=== PATIENT | male | born 1945 | race African-American/Black ===

== ENCOUNTER → 2016-10-08 | Outpatient (CLI) | payer MEDICARE, OTHER ==
[~2016-10-08] MED LIST: ALLOPURINOL300 M1 ORAL; AMLODIPINE BESY10 MG ORAL; ATARAX25 MG ORAL; ATENOLOL25 MG ORAL; BENADRYL25 MG ORAL; BP MED; CIPRO500 MG/51 PO; CIPROFLOXACIN500 M2 ORAL; COLACE100 MG ORAL; CREON DR 24,001 EACH PO; DOCUSATE SODIU100 MG ORAL; GOUT MED; MAALOX525 MG/15 PO; METRONIDAZOLE500 MG ORAL; NAPROSYN500 M1 ORAL; NEXIUM40 MG ORAL; NORCO 5-325 TA1 EACH ORAL; NORVASC10 MG ORAL; OMEPRAZOLE20 M2 ORAL; PANCREAZE DR 11 EAC1 PO; PEPCID AC20 M2 PO; PREDNISONE20 MG ORAL; PREDNISONE50 MG ORAL; ROBAXIN-750750 MG PO; TAMSULOSIN HCL0.4 MG ORAL; TRAMADOL HCL E100 MG ORAL; TRAMADOL HCL50 MG ORAL
[2016-10-08 15:25] LABS: BASOPHILS % (AUTO) 1.3 % (0.0-2.0); EOSINOPHILS % (AUTO) 0.6 % (0.0-3.0); LYMPHOCYTES % (AUTO) 45.3 % (20.0-45.0); MEAN CORPUSCULAR HEMOGLOBIN 33.4 PG (27.0-31.0); MEAN CORPUSCULAR HGB CONC 34.9 G/DL (32.0-36.0); MEAN CORPUSCULAR VOLUME 96 FL (80-99); MEAN PLATELET VOLUME 7.4 FL (6.5-10.1); MONOCYTES % (AUTO) 11.8 % (1.0-10.0); NEUTROPHILS % (AUTO) 40.9 % (45.0-75.0); PLATELET COUNT 186 K/UL (150-450); RED BLOOD COUNT 4.51 M/UL (4.70-6.10); RED CELL DISTRIBUTION WIDTH 11.8 % (11.6-14.8); WHITE BLOOD COUNT 9.6 K/UL (4.8-10.8)
[2016-10-08 15:53] LABS: ALANINE AMINOTRANSFERASE 23 U/L (3-41); ALBUMIN/GLOBULIN RATIO 1.2 (1.0-2.7); ANION GAP 13 (5-15); ASPARTATE AMINO TRANSFERASE 36 U/L (5-40); CALCIUM 10.7 mg/dL (8.6-10.2); CARBON DIOXIDE 26 mEQ/L (20-30); CHLORIDE 101 mEQ/L (98-107); CHOLESTEROL 173 mg/dL (< 200); CHOLESTEROL/HDL RATIO 4.9 (3.3-4.4); HEMOLYSIS 4; LDL CHOLESTEROL (CALC.) 63 mg/dL (60-99); POTASSIUM 4.8 mEQ/L (3.4-4.9); SODIUM 140 mEQ/L (135-145); URIC ACID 6.9 mg/dL (3.0-7.5)
== END | disposition home or self-care (01) ==
LOC: LAB 14:58
DX: J44.9 Chronic obstructive pulmonary disease, unspecified (principal); I50.32 Chronic diastolic (congestive) heart failure; E78.5 Hyperlipidemia, unspecified
CPT/HCPCS: 36415; 80053; 80061; 82607; 82746; 84443; 84550; 85025

== ENCOUNTER 2017-05-08 09:22 | Outpatient (CLI) | payer MEDICARE, OTHER ==
[2017-05-08 09:50] LABS: BASOPHILS % (AUTO) 0.8 % (0.0-2.0); LYMPHOCYTES % (AUTO) 39.4 % (20.0-45.0); MEAN CORPUSCULAR HEMOGLOBIN 34.8 PG (27.0-31.0); MEAN CORPUSCULAR HGB CONC 35.3 G/DL (32.0-36.0); MEAN CORPUSCULAR VOLUME 98 FL (80-99); MEAN PLATELET VOLUME 8.1 FL (6.5-10.1); NEUTROPHILS % (AUTO) 47.7 % (45.0-75.0); PLATELET COUNT 156 K/UL (150-450); RED BLOOD COUNT 4.05 M/UL (4.70-6.10); WHITE BLOOD COUNT 8.6 K/UL (4.8-10.8)
[2017-05-08 10:10] LABS: PSA TOTAL 5.5 ng/mL (< 4.5)
[2017-05-08 10:21] LABS: ALANINE AMINOTRANSFERASE 43 U/L (3-41); ALBUMIN/GLOBULIN RATIO 1.1 (1.0-2.7); ANION GAP 1 (5-15); ASPARTATE AMINO TRANSFERASE 50 U/L (5-40); CALCIUM 11.1 mg/dL (8.6-10.2); CARBON DIOXIDE 24 mEQ/L (20-30); CHLORIDE 103 mEQ/L (98-107); CHOLESTEROL 197 mg/dL (< 200); CHOLESTEROL/HDL RATIO 6.4 (3.3-4.4); HEMOLYSIS 5; LDL CHOLESTEROL (CALC.) 39 mg/dL (60-99); POTASSIUM 4.1 mEQ/L (3.4-4.9); SODIUM 128 mEQ/L (135-145)
--- NOTE | 2017-05-08 10:42 | Diagnostic Imaging Report ---
Indications: PAIN Technique: Two views of the right forearm Comparison: None Findings: Sideplate and screws are seen reducing old she old midshaft ulnar fracture. Slight deformity of the distal ulna and ulnar styloid may indicate old healed trauma. No acute fractures. No dislocations. Impression: No acute process
== END 2017-05-08 11:22 | disposition home or self-care (01) ==
LOC: RAD 09:22
DX: E78.5 Hyperlipidemia, unspecified (principal); M79.631 Pain in right forearm; I13.10 Hypertensive heart and chronic kidney disease without heart failure, with stage 1 through stage 4 chronic kidney disease, or unspecified chronic kidney disease; N18.9 Chronic kidney disease, unspecified
CPT/HCPCS: 36415; 80053; 80061; 84153; 84443; 85025

== ENCOUNTER 2017-06-05 09:23 | Outpatient (RCR) | payer MEDICARE, OTHER | END 2017-07-02 | disposition home or self-care (01) | LOC: PTY 09:23 | DX: M54.17 Radiculopathy, lumbosacral region (principal) | CPT/HCPCS: 97110; 97161; G0283; G8978; G8979 ==

== ENCOUNTER 2017-08-27 10:38 | Outpatient (CLI) | payer MEDICARE, OTHER ==
[2017-08-27 11:08] LABS: BASOPHILS % (AUTO) 1.1 % (0.0-2.0); EOSINOPHILS % (AUTO) 1.1 % (0.0-3.0); LYMPHOCYTES % (AUTO) 41.8 % (20.0-45.0); MEAN CORPUSCULAR HEMOGLOBIN 33.2 PG (27.0-31.0); MEAN CORPUSCULAR HGB CONC 33.5 G/DL (32.0-36.0); MEAN CORPUSCULAR VOLUME 99 FL (80-99); MEAN PLATELET VOLUME 6.8 FL (6.5-10.1); NEUTROPHILS % (AUTO) 43.2 % (45.0-75.0); PLATELET COUNT 201 K/UL (150-450); RED CELL DISTRIBUTION WIDTH 11.5 % (11.6-14.8); WHITE BLOOD COUNT 7.6 K/UL (4.8-10.8)
[2017-08-27 11:38] LABS: ALANINE AMINOTRANSFERASE 41 U/L (12-78); ALBUMIN/GLOBULIN RATIO 0.8 (1.0-2.7); ANION GAP 5 mmol/L (5-15); ASPARTATE AMINO TRANSFERASE 35 U/L (15-37); CALCIUM 9.4 MG/DL (8.5-10.1); CARBON DIOXIDE 28 MMOL/L (21-32); CHLORIDE 105 MMOL/L (98-107); CHOLESTEROL 168 MG/DL (< 200); CHOLESTEROL/HDL RATIO 5.1 (3.3-4.4); SODIUM 138 MMOL/L (136-145); THYROID STIMULATING HORMONE 1.903 uiU/mL (0.358-3.740); TOTAL PROTEIN 8.3 G/DL (6.4-8.2)
== END 2017-08-27 12:38 | disposition home or self-care (01) ==
LOC: LAB 10:38
DX: J44.9 Chronic obstructive pulmonary disease, unspecified (principal); I50.32 Chronic diastolic (congestive) heart failure; E78.5 Hyperlipidemia, unspecified; I11.9 Hypertensive heart disease without heart failure
CPT/HCPCS: 36415; 80053; 80061; 84443; 85025

== ENCOUNTER 2017-10-22 10:39 | Emergency (ER) | payer MEDICARE, OTHER ==
[~2017-10-22] VITALS: Ht 182.9 cm; Wt 71.7 kg
[2017-10-22] MEDS ORDERED: Norco 5mg/325mg tab ORAL ONE (11:00)
--- NOTE | 2017-10-22 11:05 | Emergency Room Report ---
History of Present Illness General Chief Complaint: Chest Pain Source: Patient Present Illness HPI 71-year-old male, history of hypertension, presenting with left-sided rib pain for one week. Patient states that he fell, tripped over something, landing on his rib. Since then complained of pain, worse with movement and worse with breathing. Denies any actual shortness of breath. Patient is not in pain unless he moves. No fever no chills. No palpitations Allergies: Coded Allergies: No Known Allergies (Verified , 08/14/08) Patient History Past Medical History: see triage record Past Surgical History: none Pertinent Family History: none Reviewed Nursing Documentation: PMH: Agreed, PSxH: Agreed Nursing Documentation-PMH Hx Cardiac Problems: Yes Hx Hypertension: Yes Hx Cancer: No Hx Gastrointestinal Problems: Yes - pancreatitis Hx Neurological Problems: No - gout Hx Seizures: Yes - last 20 yrs ago Hx Dizziness: Yes Hx Headaches: Yes Hx Weakness: Yes Hx Fatigue: Yes Review of Systems All Other Systems: negative except mentioned in HPI Physical Exam Vital Signs Date Time Temp Pulse Resp B/P (MAP) Pulse Ox O2 Delivery O2 Flow Rate FiO2 10/22/17 10:34 97.8 82 16 136/82 98 Room Air 97.9 Sp02 EP Interpretation: reviewed, normal General Appearance: alert, GCS 15, non-toxic, mild distress Head: normocephalic, atraumatic Eyes: bilateral eye normal inspection, bilateral eye PERRL, bilateral eye EOMI ENT: normal ENT inspection, normal pharynx, normal voice, moist mucus membranes Neck: normal inspection, full range of motion, supple Respiratory: normal inspection, lungs clear, normal breath sounds, no respiratory distress, no retraction, no wheezing, speaking full sentences, chest symmetrical Cardiovascular #1: regular rate, rhythm, no edema, other - Left fifth and sixth ribs, very tender to palpation, pinpoint, Cardiovascular #2: 2+ radial (R), 2+ radial (L) Gastrointestinal: normal inspection, non tender, soft, non-distended, no guarding Genitourinary: no CVA tenderness Musculoskeletal: normal inspection, back normal, normal range of motion, non- tender Neurologic: normal inspection, alert, oriented x3, responsive, motor strength/ tone normal, sensory intact, normal gait, speech normal Psychiatric: normal inspection, judgement/insight normal, memory normal Skin: normal inspection, normal color, no rash, warm/dry, well hydrated, normal turgor Medical Decision Making Diagnostic Impression: Primary Impression: Contusion of rib on left side ER Course 71-year-old male with left-sided rib pain after a fall one week ago DDX: Very likely to be left-sided rib contusion versus fracture Patient not having actual chest pain or shortness of breath too concerned ACS, symptoms and also been going on for one week. Physical exam very likely to be musculoskeletal Plan: Rib and chest x-ray, EKG ER course: Patient has remained stable during ED stay. Given pain medication and lidocaine patch labs unremarkable Disposition: Patient is to be discharged to home. Prescriptions given are lidocaine patch Patient is instructed to follow up with their primary care doctor within 5 days. Strict return precautions discussed with patient such as fever, chills, worsening/severe pain, chest pain, SOB, nausea, vomiting, which may indicate severe illness. Patient verbalizes understanding and agrees with plan. Please note that this Emergency Department Report was dictated using I.Systemsescalator service mechanic technology software, occasionally this can lead to erroneous entry secondary to interpretation by the dictation equipment EKG Diagnostic Results EP Interpretation: Yes Rate: normal Rhythm: NSR ST Segments: No acute changes ASA given to patient: No Rhythm Strip EP Interpretation: Yes Rate: 70 Rhythm: NSR, no PVCs, no ectopy Rib XR CXR: Ordered: Yes 1 view Indication: Chest pain EP interpretation: Yes Interpretation: No consolidation, no effusion, no PTX, no fractures noted, no acute cardiopulmonary disease Impression: No acute disease Electronically signed by Karl Vargas MD Laboratory Tests Test 10/22/17 12:00 White Blood Count 8.2 K/UL (4.8-10.8) Red Blood Count 4.72 M/UL (4.70-6.10) Hemoglobin 15.6 G/DL (14.2-18.0) Hematocrit 45.6 % (42.0-52.0) Mean Corpuscular Volume 97 FL (80-99) Mean Corpuscular Hemoglobin 33.1 PG (27.0-31.0) H Mean Corpuscular Hemoglobin Concent 34.2 G/DL (32.0-36.0) Red Cell Distribution Width 11.4 % (11.6-14.8) L Platelet Count 158 K/UL (150-450) Mean Platelet Volume 7.6 FL (6.5-10.1) Neutrophils (%) (Auto) 52.1 % (45.0-75.0) Lymphocytes (%) (Auto) 34.9 % (20.0-45.0) Monocytes (%) (Auto) 11.7 % (1.0-10.0) H Eosinophils (%) (Auto) 0.2 % (0.0-3.0) Basophils (%) (Auto) 1.0 % (0.0-2.0) Sodium Level 136 MMOL/L (136-145) Potassium Level 4.9 MMOL/L (3.5-5.1) Chloride Level 102 MMOL/L (98-107) Carbon Dioxide Level 28 MMOL/L (21-32) Anion Gap 6 mmol/L (5-15) Blood Urea Nitrogen 14 mg/dL (7-18) Creatinine 0.9 MG/DL (0.55-1.30) Estimate Glomerular Filtration Rate mL/min (>60) Glucose Level 120 MG/DL (74-106) H Calcium Level 11.7 MG/DL (8.5-10.1) H Total Bilirubin 0.5 MG/DL (0.2-1.0) Aspartate Amino Transferase (AST) 58 U/L (15-37) H Alanine Aminotransferase (ALT) 51 U/L (12-78) Alkaline Phosphatase 71 U/L (46-116) Troponin I 0.000 ng/mL (0.000-0.056) Pro-B-Type Natriuretic Peptide 141 pg/mL (0-125) H Total Protein 9.1 G/DL (6.4-8.2) H Albumin 4.0 G/DL (3.4-5.0) Globulin 5.1 g/dL Albumin/Globulin Ratio 0.8 (1.0-2.7) L Last Vital Signs Date Time Temp Pulse Resp B/P (MAP) Pulse Ox O2 Delivery O2 Flow Rate FiO2 10/22/17 10:34 97.8 82 16 136/82 98 Room Air 97.9 Disposition: HOME, SELF-CARE Condition: Improved Scripts Lidocaine (Lidocaine) 1 Each Adh..patch 700 MG TP EVERY 12 HOURS, #15 PATCH 0 Refills Prov: Karl Vargas M.D. 10/22/17 Acetaminophen* (ACETAMINOPHEN EXTRA STRENGTH*) 500 Mg Tablet 500 MG ORAL Q8H Y for Fever/Headache/Mild Pain, #30 TAB Prov: Karl Vargas M.D. 10/22/17 Karl Vargas M.D. Oct 22, 2017 11:05
[2017-10-22] MEDS ORDERED: ACETAMINOPHEN500 M3 ORAL (11:47)
[2017-10-22] MEDS ORDERED: LIDOCAINE700 M1 TP (11:47)
[2017-10-22 12:12] LABS: EOSINOPHILS % (AUTO) 0.2 % (0.0-3.0); HEMATOCRIT 45.6 % (42.0-52.0); HEMOGLOBIN 15.6 G/DL (14.2-18.0); LYMPHOCYTES % (AUTO) 34.9 % (20.0-45.0); MEAN CORPUSCULAR VOLUME 97 FL (80-99); MONOCYTES % (AUTO) 11.7 % (1.0-10.0); NEUTROPHILS % (AUTO) 52.1 % (45.0-75.0); PLATELET COUNT 158 K/UL (150-450); RED BLOOD COUNT 4.72 M/UL (4.70-6.10); RED CELL DISTRIBUTION WIDTH 11.4 % (11.6-14.8); WHITE BLOOD COUNT 8.2 K/UL (4.8-10.8)
[2017-10-22 12:19] VITALS: BP 142/91
[2017-10-22 12:31] LABS: ANION GAP 6 mmol/L (5-15); BLOOD UREA NITROGEN 14 mg/dL (7-18); CALCIUM 11.7 MG/DL (8.5-10.1); CARBON DIOXIDE 28 MMOL/L (21-32); CHLORIDE 102 MMOL/L (98-107); CREATININE 0.9 MG/DL (0.55-1.30); POTASSIUM 4.9 MMOL/L (3.5-5.1); SODIUM 136 MMOL/L (136-145)
[2017-10-22 12:40] LABS: ALANINE AMINOTRANSFERASE 51 U/L (12-78); ALBUMIN/GLOBULIN RATIO 0.8 (1.0-2.7); ALKALINE PHOSPHATASE 71 U/L (46-116); ASPARTATE AMINO TRANSFERASE 58 U/L (15-37); BILIRUBIN,TOTAL 0.5 MG/DL (0.2-1.0)
[2017-10-22 13:12] VITALS: BP 138/76
--- NOTE | 2017-10-22 13:23 | Diagnostic Imaging Report ---
Indication: Anterior chest pain after fall this morning, radiating Technique: Multiple views of the left ribs Comparison: none Findings: No acute fractures. No pneumothorax. Included chest appears unremarkable Impression: Negative
[2017-10-22] MEDS ORDERED: NORCO 5-325 TA1 EACH ORAL (13:41)
--- NOTE | 2017-10-23 15:11 | Cardiology Report ---
APPROVED REPORT EKG Measurement Heart [id number] Normal sinus rhythm Low voltage QRS Borderline ECG
== END 2017-10-22 14:00 | disposition home or self-care (01) ==
LOC: EDBD 10:39 → EMR 13:17
DX: S20.212A Contusion of left front wall of thorax, initial encounter (principal); W18.30XA Fall on same level, unspecified, initial encounter; Y92.9 Unspecified place or not applicable; I10 Essential (primary) hypertension
CPT/HCPCS: 36415; 80053; 83880; 84484; 85025; 93005; 99284

== ENCOUNTER 2017-11-06 09:15 | Outpatient (CLI) | payer MEDICARE, OTHER ==
[~2017-11-06 09:15] MED LIST changes: +ACETAMINOPHEN500 M3 ORAL; +LIDOCAINE700 M1 TP
--- NOTE | 2017-11-06 12:05 | Diagnostic Imaging Report ---
Indication: Chest and abdominal pain. Weight loss Technique: Continuous helical transaxial imaging of the chest, abdomen and pelvis was obtained after intravenous nonionic contrast administration. Coronal 2-D reformats were also obtained. Automatic Exposure Control was utilized. Total Dose length Product (DLP): 1403.[address] Dose Index Volume (CTDIvol): 16.29,13.88 73, 8.11 mGy Comparison: none Findings: CT CHEST: The lungs are clear. There is no adenopathy within the chest. No pleural or pericardial effusion identified. CT abdomen and pelvis: 5 mm cyst noted within the right lobe of the liver near the dome. The liver and spleen appear unremarkable otherwise. The gallbladder, pancreas, adrenal glands are unremarkable. There are renal cysts of varying size bilaterally. There is a small umbilical hernia containing fat. Thickening of the urinary bladder wall noted. The appendix is normal. Extensive diverticulosis of the colon demonstrated mainly in the descending colon, sigmoid region. There is no free fluid or evidence of bowel obstruction. Prostate is prominent in size measures about 5.5 x 4.5 x 5.2 cm. IMPRESSION: No evidence of malignancy on the basis of this study. Incidental findings including atherosclerotic disease, bilateral renal cysts, extensive colonic diverticulosis, thickening of the urinary bladder wall (consider cystitis), prostate hypertrophy, low density lesion in the liver (possibly cystic but too small to characterize adequately on this exam). The CT scanner at [facility] is accredited by the [employer] and the scans are performed using dose optimization techniques as appropriate to a performed exam including Automatic Exposure control.
== END 2017-11-06 11:15 | disposition home or self-care (01) ==
LOC: CAT 09:15
DX: R63.4 Abnormal weight loss (principal); I25.10 Atherosclerotic heart disease of native coronary artery without angina pectoris; N20.0 Calculus of kidney; K57.30 Diverticulosis of large intestine without perforation or abscess without bleeding; N40.0 Benign prostatic hyperplasia without lower urinary tract symptoms
CPT/HCPCS: 71260; 74177; Q9967

== ENCOUNTER 2018-02-14 14:39 | Inpatient (IN) | payer MEDICARE, OTHER ==
[~2018-02-14] VITALS: Ht 182.9 cm; Wt 79.4 kg
[2018-02-14] MEDS ORDERED: levETIRAcetam 500mg/NS100ml 100 ML IVPB ONE (14:45)
--- NOTE | 2018-02-14 14:48 | Emergency Room Report ---
History of Present Illness General Chief Complaint: Seizure Source: Family Member, EMS Present Illness HPI Patient is a 72-year-old male brought in by EMS after a witnessed seizure. The patient reportedly had prior history of seizures. Patient was noted to have a generalized tonic seizure. He was given 5 mg of Versed by EMS. The patient was noted be postictal by EMS. He was noted to be taking seizure medications but had reportedly had previous seizures according to the patient's . Allergies: Coded Allergies: No Known Allergies (Verified , 08/14/08) Patient History Past Medical History: see triage record Reviewed Nursing Documentation: PMH: Agreed; PSxH: Agreed Nursing Documentation-PMH Past Medical History: No History, Except For Hx Cardiac Problems: Yes Hx Hypertension: Yes Hx Cancer: No Hx Gastrointestinal Problems: Yes - pancreatitis Hx Neurological Problems: No - gout Hx Seizures: Yes Hx Dizziness: Yes Hx Headaches: Yes Hx Weakness: Yes Hx Fatigue: Yes Review of Systems All Other Systems: negative except mentioned in HPI Physical Exam Vital Signs Date Time Temp Pulse Resp B/P (MAP) Pulse Ox O2 Delivery O2 Flow Rate FiO2 02/14/18 14:32 97.9 128 23 137/83 98 Room Air 97.9 Sp02 EP Interpretation: reviewed, normal General Appearance: normal inspection, well appearing, no apparent distress, alert, GCS 15 Head: atraumatic ENT: normal ENT inspection, hearing grossly normal, normal voice Neck: normal inspection, full range of motion, supple, no bony tend Respiratory: normal inspection, lungs clear, normal breath sounds, no respiratory distress, no retraction, no wheezing Cardiovascular #1: regular rate, rhythm, no edema Gastrointestinal: normal inspection, normal bowel sounds, non tender, soft, no guarding, no hernia Genitourinary: no CVA tenderness Musculoskeletal: normal inspection, back normal, normal range of motion Neurologic: responsive, other - confused postictal Psychiatric: anxious Skin: normal inspection, normal color, no rash Medical Decision Making Diagnostic Impression: Primary Impression: Seizure ER Course Patient presented for possible seizure. Differential diagnosis included was not limited to CVA, alcohol withdrawal, substance abuse, arrhythmia, among others.Because of complexity of patient's case laboratory testing and imaging studies were ordered.The patient's patient has had seizures in the past when he was drinking. The patient was noted to have a small bottle of alcohol. The blood alcohol level was noted to be negative. Laboratory testing showed evidence of hypokalemia. Dr. Adolfo Jerry was contacted for inpatient management. Labs Test 02/14/18 15:10 02/14/18 16:14 White Blood Count 10.7 K/UL (4.8-10.8) Red Blood Count 4.27 M/UL (4.70-6.10) Hemoglobin 14.6 G/DL (14.2-18.0) Hematocrit 41.6 % (42.0-52.0) Mean Corpuscular Volume 97 FL (80-99) Mean Corpuscular Hemoglobin 34.2 PG (27.0-31.0) Mean Corpuscular Hemoglobin Concent 35.1 G/DL (32.0-36.0) Red Cell Distribution Width 11.8 % (11.6-14.8) Platelet Count 151 K/UL (150-450) Mean Platelet Volume 7.9 FL (6.5-10.1) Neutrophils (%) (Auto) 44.3 % (45.0-75.0) Lymphocytes (%) (Auto) 40.9 % (20.0-45.0) Monocytes (%) (Auto) 12.6 % (1.0-10.0) Eosinophils (%) (Auto) 0.5 % (0.0-3.0) Basophils (%) (Auto) 1.7 % (0.0-2.0) Sodium Level 139 MMOL/L (136-145) Potassium Level 3.2 MMOL/L (3.5-5.1) Chloride Level 101 MMOL/L (98-107) Carbon Dioxide Level 22 MMOL/L (21-32) Anion Gap 16 mmol/L (5-15) Blood Urea Nitrogen 14 mg/dL (7-18) Creatinine 1.2 MG/DL (0.55-1.30) Estimat Glomerular Filtration Rate mL/min (>60) Glucose Level 128 MG/DL (74-106) Calcium Level 10.4 MG/DL (8.5-10.1) Total Bilirubin 0.9 MG/DL (0.2-1.0) Aspartate Amino Transf (AST/SGOT) 54 U/L (15-37) Alanine Aminotransferase (ALT/SGPT) 43 U/L (12-78) Alkaline Phosphatase 75 U/L (46-116) Total Protein 8.9 G/DL (6.4-8.2) Albumin 4.3 G/DL (3.4-5.0) Globulin 4.6 g/dL Albumin/Globulin Ratio 0.9 (1.0-2.7) Acetaminophen Level < 2 MCG/ML (10-30) Serum Alcohol < 3 mg/dL Urine Color Yellow Urine Appearance Slightly cloudy Urine pH 5 (4.5-8.0) Urine Specific [place] 1.025 (1.005-1.035) Urine Protein 3+ (NEGATIVE) Urine Glucose (UA) Negative (NEGATIVE) Urine Ketones 1+ (NEGATIVE) Urine Occult Blood 4+ (NEGATIVE) Urine Nitrite Negative (NEGATIVE) Urine Bilirubin Negative (NEGATIVE) Urine Urobilinogen 1 MG/DL (0.0-1.0) Urine Leukocyte Esterase Negative (NEGATIVE) Urine RBC 2-4 /HPF (0 - 0) Urine WBC 0-2 /HPF (0 - 0) Urine Squamous Epithelial Cells None /LPF (NONE/OCC) Urine Amorphous Sediment Moderate /LPF (NONE) Urine Bacteria Few /HPF (NONE) EKG Diagnostic Results Rate: tachycardiac Rhythm: NSR ST Segments: no acute changes ASA given to the pt in ED: No Rhythm Strip Diag. Results EP Interpretation: yes Rhythm: NSR, no PVC's, no ectopy Last Vital Signs Date Time Temp Pulse Resp B/P (MAP) Pulse Ox O2 Delivery O2 Flow Rate FiO2 02/14/18 14:32 97.9 128 23 137/83 98 Room Air 97.9 Status: unchanged Disposition: ADMITTED INPATIENT Condition: Serious Deep Palacios MD Feb 14, 2018 14:48
[2018-02-14] MEDS ORDERED: Albuterol/Ipratropium 3ml neb HHN ONE (15:15)
[2018-02-14] MEDS ORDERED: LORazepam Inj 2mg/ml 1ml IV ONE (15:15)
[2018-02-14 15:25] VITALS: BP 137/83
[2018-02-14 15:32] LABS: BASOPHILS % (AUTO) 1.7 % (0.0-2.0); EOSINOPHILS % (AUTO) 0.5 % (0.0-3.0); HEMATOCRIT 41.6 % (42.0-52.0); HEMOGLOBIN 14.6 G/DL (14.2-18.0); LYMPHOCYTES % (AUTO) 40.9 % (20.0-45.0); MEAN CORPUSCULAR VOLUME 97 FL (80-99); MONOCYTES % (AUTO) 12.6 % (1.0-10.0); NEUTROPHILS % (AUTO) 44.3 % (45.0-75.0); PLATELET COUNT 151 K/UL (150-450); RED BLOOD COUNT 4.27 M/UL (4.70-6.10); RED CELL DISTRIBUTION WIDTH 11.8 % (11.6-14.8); WHITE BLOOD COUNT 10.7 K/UL (4.8-10.8)
[2018-02-14 15:40] LABS: ANION GAP 16 mmol/L (5-15); BLOOD UREA NITROGEN 14 mg/dL (7-18); CALCIUM 10.4 MG/DL (8.5-10.1); CARBON DIOXIDE 22 MMOL/L (21-32); CHLORIDE 101 MMOL/L (98-107); CREATININE 1.2 MG/DL (0.55-1.30); POTASSIUM 3.2 MMOL/L (3.5-5.1); SODIUM 139 MMOL/L (136-145)
[2018-02-14 15:45] LABS: ALANINE AMINOTRANSFERASE 43 U/L (12-78); ALBUMIN 4.3 G/DL (3.4-5.0); ALBUMIN/GLOBULIN RATIO 0.9 (1.0-2.7); ALKALINE PHOSPHATASE 75 U/L (46-116); ASPARTATE AMINO TRANSFERASE 54 U/L (15-37); BILIRUBIN,TOTAL 0.9 MG/DL (0.2-1.0)
[2018-02-14 16:39] LABS: APPEARANCE,URINE SLIGHTLY CLOUDY; BILIRUBIN, URINE NEGATIVE (NEGATIVE); COLOR,URINE YELLOW; GLUCOSE, URINE (UA) NEGATIVE (NEGATIVE); KETONES,URINE 1+ (NEGATIVE); LEUKOCYTE ESTERASE ,URINE NEGATIVE (NEGATIVE); NITRITE,URINE NEGATIVE (NEGATIVE); PH,URINE 5 (4.5-8.0); PROTEIN,URINE 3+ (NEGATIVE); UROBILINOGEN,URINE 1 MG/DL (0.0-1.0)
[2018-02-14 17:55] VITALS: BP 142/80
--- NOTE | 2018-02-14 18:03 | Diagnostic Imaging Report ---
EXAM: CT Head Without Intravenous Contrast CLINICAL HISTORY: SZ TECHNIQUE: Axial computed tomography images of the head/brain without intravenous contrast. CTDI is 70.38 mGy and DLP is 1425 mGy-cm One or more of the following dose reduction techniques were used: automated exposure control, adjustment of the mA and/or kV according to patient size, use of iterative reconstruction technique. COMPARISON: 07/14/10 FINDINGS: Brain: No intracranial hemorrhage or mass effect. No definite acute large vessel territorial infarction. Mild involutional changes. Calcification of skull base arteries. Ventricles: No ventriculomegaly. Bones/joints: Chronic deformities of the right medial orbital wall and the left zygomatic arch. No acute fracture. Soft tissues: Unremarkable. Sinuses: Mild maxillary sinus mucosal thickening. Mastoid air cells: Unremarkable as visualized. No mastoid effusion. IMPRESSION: No acute intracranial process
[2018-02-14 18:20] VITALS: BP 149/99
[2018-02-14] MEDS ORDERED: traMADol 50mg tab ORAL PRN (18:30)
[2018-02-14] MEDS ORDERED: HydrOXYzine tab 25 MG TAB ORAL PRN (18:30)
[2018-02-14] MEDS ORDERED: Docusate 100mg cap ORAL PRN (18:30)
[2018-02-14] MEDS ORDERED: Norco 5mg/325mg tab ORAL PRN (18:30)
[2018-02-14 20:00] VITALS: BP 146/99
--- NOTE | 2018-02-14 20:06 | Diagnostic Imaging Report ---
EXAM: CT Head Without Intravenous Contrast CLINICAL HISTORY: FALL TECHNIQUE: Axial computed tomography images of the head/brain without intravenous contrast. CTDI is 70.38 mGy and DLP is 1995 mGy-cm One or more of the following dose reduction techniques were used: automated exposure control, adjustment of the mA and/or kV according to patient size, use of iterative reconstruction technique. COMPARISON: 02/14/18 at 1717 hrs. FINDINGS: Brain: Examination is limited by motion. No definite intracranial hemorrhage. No mass effect. Redemonstrated involutional changes and arterial calcification. Bones/joints: Unremarkable. No acute fracture. Soft tissues: Unremarkable. Mastoid air cells: Unremarkable as visualized. No mastoid effusion. IMPRESSION: No acute process on motion limited exam
[2018-02-14] MEDS ORDERED: LOPID600 MG ORAL (20:43)
[2018-02-14] MEDS ORDERED: Ciprofloxacin 500mg tab ORAL SCH (21:00)
[2018-02-14] MEDS: Tamsulosin 0.4mg cap ORAL SCH (21:03)
[2018-02-14] MEDS: Heparin 5000 units/ml inj SUBQ SCH (21:04)
[2018-02-14] MEDS: Norco 5mg/325mg tab ORAL PRN (21:05)
[2018-02-14] MEDS ORDERED: metroNIDAZOLE 500mg tab ORAL SCH (22:00)
[2018-02-15] VITALS: BP 123/74
[2018-02-15 04:00] VITALS: BP 127/76
[2018-02-15] MEDS: Norco 5mg/325mg tab ORAL PRN ×3 (06:35→20:46)
[2018-02-15 08:00] VITALS: BP 126/65
[2018-02-15] MEDS: Atenolol 25mg tab ORAL SCH (08:48)
[2018-02-15] MEDS: Pancrease Cap ORAL SCH ×3 (08:49→17:47)
[2018-02-15] MEDS: Heparin 5000 units/ml inj SUBQ SCH ×2 (08:50→21:00)
[2018-02-15 12:00] VITALS: BP 118/78
--- NOTE | 2018-02-15 12:10 | Cardiology Report ---
APPROVED REPORT EKG Measurement Heart [id number] [place] [id number] Sinus tachycardia Rightward axis Septal infarct, age undetermined T wave abnormality, consider inferior ischemia Abnormal ECG
--- NOTE | 2018-02-15 12:15 | History and Physical Report ---
DATE OF ADMISSION: 02/14/2018 CHIEF COMPLAINT: Seizures, altered mental status. HISTORY OF PRESENT ILLNESS: The patient is a 72-year-old male. He has history of hypertension, COPD. He has history of narcotics' dependence, chronic lower back pain. He presented with complaints of altered mental status and seizures. The patient is unclear of what exactly happened. According to paramedics, he had a seizure and was brought to the emergency room. He was postictal there. He had a CAT scan of the head that was negative. He was loaded with Keppra and is now admitted for further evaluation and care. According to the patient, he drinks intermittently but not on a daily basis, maybe 1 to 2 shots a day but not on a daily basis. He states that in the past, he did have seizures but has not had prolonged period of time. He denies any head trauma. No falls. No recent changes in medications. PAST MEDICAL HISTORY: As above. PAST SURGICAL HISTORY: None. CURRENT MEDICATIONS: Reconciled and reviewed. ALLERGIES: None. FAMILY HISTORY: None. SOCIAL HISTORY: The patient is a smoker and a drinker. He has history of narcotics' dependence. REVIEW OF SYSTEMS: GENERAL: No fevers or chills. HEENT: No headaches or visual changes. CARDIOPULMONARY: No chest pain or shortness of breath. GASTROINTESTINAL: No nausea or vomiting. GENITOURINARY: No urgency or frequency. MUSCULOSKELETAL: No joint pain or swelling. NEUROLOGIC: No evidence of seizures. Positive history of seizures. PHYSICAL EXAMINATION: VITAL SIGNS: Temperature 97, pulse 81, respiratory rate 20, and blood pressure 127/76. GENERAL: The patient is a well-developed male, in no apparent distress. HEART: Regular rate and rhythm. LUNGS: Clear. ABDOMEN: Soft, nontender, nondistended. EXTREMITIES: Without clubbing, cyanosis, or edema. NEUROLOGIC: Exam was nonfocal. PERTINENT DATA: UA was clear. White count 10, hemoglobin 14. Sodium 139, potassium 3.2, glucose 128. Toxicology screen was only positive for benzodiazepines. ASSESSMENT: This is a pleasant male admitted with complaints of seizures. PROBLEM LIST: 1. Seizures, possibly secondary to alcohol withdrawal, cannot rule out some type of underlying epilepsy. 2. COPD. 3. Hypertension. 4. History of narcotics' dependence. PLAN: We will continue Keppra and switch to oral. EEG. PT, OT evaluations. Gentle hydration. Alcohol abstinence stressed. Outpatient neurology evaluation as there are currently no available neurologists to consult on the patient. Pedro Cerda M.D. DR: Zeus JOB#: [id number] CC:
[2018-02-15 16:00] VITALS: BP 118/74
[2018-02-15 17:34] LABS: BASOPHILS % (AUTO) 0.9 % (0.0-2.0); EOSINOPHILS % (AUTO) 1.4 % (0.0-3.0); HEMATOCRIT 39.8 % (42.0-52.0); HEMOGLOBIN 14.3 G/DL (14.2-18.0); LYMPHOCYTES % (AUTO) 35.9 % (20.0-45.0); MEAN CORPUSCULAR VOLUME 96 FL (80-99); MONOCYTES % (AUTO) 11.5 % (1.0-10.0); NEUTROPHILS % (AUTO) 50.3 % (45.0-75.0); PLATELET COUNT 120 K/UL (150-450); RED BLOOD COUNT 4.15 M/UL (4.70-6.10); RED CELL DISTRIBUTION WIDTH 11.9 % (11.6-14.8); WHITE BLOOD COUNT 8.4 K/UL (4.8-10.8)
[2018-02-15 17:51] LABS: ANION GAP 8 mmol/L (5-15); BLOOD UREA NITROGEN 13 mg/dL (7-18); CALCIUM 9.7 MG/DL (8.5-10.1); CARBON DIOXIDE 28 MMOL/L (21-32); CHLORIDE 103 MMOL/L (98-107); POTASSIUM 3.7 MMOL/L (3.5-5.1); SODIUM 139 MMOL/L (136-145)
[2018-02-15] MEDS: Tamsulosin 0.4mg cap ORAL SCH (20:44)
[2018-02-16] VITALS: BP 109/64
[2018-02-16 04:00] VITALS: BP 119/72
[2018-02-16 08:00] VITALS: BP 113/75
[2018-02-16] MEDS: Pancrease Cap ORAL SCH ×3 (08:57→19:04)
[2018-02-16] MEDS: Norco 5mg/325mg tab ORAL PRN ×2 (08:58→16:08)
[2018-02-16] MEDS: Atenolol 25mg tab ORAL SCH (08:58)
[2018-02-16] MEDS: Heparin 5000 units/ml inj SUBQ SCH ×2 (09:00→20:39)
[2018-02-16 11:59] VITALS: BP 116/73
--- NOTE | 2018-02-16 12:49 | General Progress Note ---
Assessment/Plan Problem List: (1) HTN (hypertension) ICD Codes: I10 - Essential (primary) hypertension SNOMED: 61879217 (2) Seizure ICD Codes: R56.9 - Unspecified convulsions SNOMED: 24139428 (3) Back pain ICD Codes: M54.9 - Dorsalgia, unspecified SNOMED: 263009525 Status: stable, progressing Assessment/Plan keppra bp rx pt/ot eeg Subjective ROS Limited/Unobtainable: No Constitutional: Reports: malaise, weakness HEENT: Reports: no symptoms Cardiovascular: Reports: no symptoms Respiratory: Reports: no symptoms Gastrointestinal/Abdominal: Reports: no symptoms Genitourinary: Reports: no symptoms Neurologic/Psychiatric: Reports: seizure Endocrine: Reports: no symptoms Hematologic/Lymphatic: Reports: no symptoms Allergies: Coded Allergies: No Known Allergies (Verified , 08/14/08) All Systems: reviewed and negative except above Subjective No szs. no complaints. no headaches or sob. denies weakness Objective Last 24 Hour Vital Signs Date Time Temp Pulse Resp B/P (MAP) Pulse Ox O2 Delivery O2 Flow Rate FiO2 02/16/18 11:59 97.5 74 21 116/73 100 Room Air 97.5 02/16/18 10:06 97.7 02/16/18 08:58 97.7 02/16/18 08:58 80 113/75 02/16/18 08:58 80 113/75 02/16/18 08:00 97.7 80 21 113/75 100 Room Air 97.7 02/16/18 08:00 81 02/16/18 04:00 97.0 74 21 119/72 100 Room Air 97.0 02/16/18 04:00 69 02/16/18 00:00 97.3 77 20 109/64 99 Room Air 97.3 02/16/18 00:00 69 02/15/18 20:00 78 02/15/18 16:00 97.3 75 20 118/74 97 Room Air 97.3 02/15/18 16:00 74 Intake and Output 02/15/18 02/16/18 19:00 07:00 Output Total 600 ml 1000 ml Balance -600 ml -1000 ml Output Urine Total 600 ml 1000 ml Laboratory Tests 02/15/18 17:15: White Blood Count 8.4, Red Blood Count 4.15L, Hemoglobin 14.3, Hematocrit 39.8L , Mean Corpuscular Volume 96, Mean Corpuscular Hemoglobin 34.4H, Mean Corpuscular Hemoglobin Concent 35.9, Red Cell Distribution Width 11.9, Platelet Count 120L, Mean Platelet Volume 7.6, Neutrophils (%) (Auto) 50.3, Lymphocytes ( %) (Auto) 35.9, Monocytes (%) (Auto) 11.5H, Eosinophils (%) (Auto) 1.4, Basophils (%) (Auto) 0.9, Sodium Level 139, Potassium Level 3.7, Chloride Level 103, Carbon Dioxide Level 28, Anion Gap 8, Blood Urea Nitrogen 13, Creatinine 1.0, Estimat Glomerular Filtration Rate , Glucose Level 103, Calcium Level 9.7 Height (Feet): 6 Height (Inches): 0.00 Weight (Pounds): 175 General Appearance: WD/WN, alert Cardiovascular: regular rhythm Respiratory/Chest: lungs clear Abdomen: normal bowel sounds, non tender, soft, no organomegaly Edema: no edema noted Arm (L), no edema noted Arm (R), no edema noted Leg (L), no edema noted Leg (R), no edema noted Pedal (L), no edema noted Pedal (R), no edema noted Generalized Neurologic: 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
[2018-02-16 16:16] VITALS: BP 111/68
[2018-02-16 20:00] VITALS: BP 142/75
[2018-02-16] MEDS: Tamsulosin 0.4mg cap ORAL SCH (20:39)
[2018-02-17 04:00] VITALS: BP 128/79
[2018-02-17] MEDS ORDERED: KEPPRA500 MG ORAL (07:27)
--- NOTE | 2018-02-17 08:00 | Discharge Summary ---
DATE OF ADMISSION: 02/14/2018 DATE OF DISCHARGE: 02/17/2018 ADMISSION DIAGNOSES: 1. Altered mental status. 2. Seizures. 3. History of hypertension. 4. COPD. 5. History of osteoarthritis. DISCHARGE DIAGNOSES: 1. Altered mental status. 2. Seizures. 3. History of hypertension. 4. COPD. 5. History of osteoarthritis. HISTORY AND HOSPITAL COURSE: The patient is a pleasant male, who was admitted with complaints of altered mental status and tonic-clonic seizure. He had a head CT that was negative. He was loaded initially with Keppra and admitted. He does have a prior history of seizures, thought to be related to alcohol. He had been drinking, but only a few drinks, because he does not drink on a daily basis. He was continued on Keppra, had no further seizure episodes. There was no Neurology bilingual sales consultant available to see the patient. He will be followed as an outpatient to be referred to a neurologist. He will be discharged home with seizure medications and he has been instructed not to drive. DISCHARGE MEDICATIONS: Please see discharge medication list for discharge medications. DIET: Cardiac diet. ACTIVITY: Ad-jf. FOLLOWUP: The patient will follow up in one to two weeks in the office. Pedro Cerda M.D. DR: CLAUDIO JOB#: [id number] CC:
[2018-02-17] MEDS: Heparin 5000 units/ml inj SUBQ SCH (09:00)
[2018-02-17] MEDS: Atenolol 25mg tab ORAL SCH (09:00)
[2018-02-17] MEDS: Pancrease Cap ORAL SCH (09:00)
--- NOTE | 2018-02-17 09:29 | Physician Query ---
--------- THIS DOCUMENT IS A PERMANENT PART OF THE MEDICAL RECORD --------- PLEASE COMPLETE DOCUMENT BEFORE SIGNING Dear Dr. Cerda Date: 2017 Memorial Counselor/CDS Name: Tianna Cota Memorial Counselor / CDS Phone # [phone] Exercise your independent professional judgment when responding to query. Question asked do not imply a particular answer is desired/expected. Clinical Documentation States: "Altered Mental Status" documented in H&P and progress notes Clinical Findings Show: Patient admitted with Seizures. Glucose: 128 Calcium: 10.4 Potassium: 3.2 Please indicate the nature and chronicity of the condition below: [] Metabolic Encephalopathy [] Toxic Encephalopathy [] Toxic - Metabolic Encephalopathy [] Progressive Encephalopathy [] Encephalopathy, Other [] Other: [] Not Applicable Severity [] Acute [] Chronic [] Acute on Chronic [] Unable to determine Condition Present on Admission: [] Yes [] No []Clinically Undeterminable Please also document in your Progress Notes and/or Discharge Summary and indicate if the condition was present on admission. MTDD
--- NOTE | 2018-02-17 17:30 | Electroencephalogram ---
DATE OF PROCEDURE: 02/15/2018 EEG REPORT REQUESTING PHYSICIAN: Pedro Cerda M.D. HISTORY: This EEG was performed on a 72-year-old gentleman with a history of multiple medical problems including cerebrovascular disease, seizures, hypertension, chronic obstructive pulmonary disease, and coronary artery disease. There is a question of alcohol-related seizures in the past. The purpose of this EEG was to evaluate the patient for the degree and type of cerebral dysfunction and to exclude ongoing ictal or interictal phenomena. TECHNICAL NOTE: This EEG was performed on a [employer] with electrodes placed on the scalp according to the International 10-20 system. [id number] and [id number] montages were used. The EEG was technically satisfactory and was performed in the awake, drowsy and sleep states. OBSERVATIONS: In the best awake state, the background activity consisted of 8.5-9 Hz posteriorly predominant well-developed alpha waveforms, which attenuated on eye opening. Drowsiness was characterized by dissolution of the alpha rhythm and the appearance of slow frequencies in the 5-6 Hz theta range. Stage II sleep was characterized by further slowing of the background in the delta and theta range, in the presence of vertex waves, and 14 Hz sleep spindles. Photic stimulation was performed at various different frequencies and produced no abnormalities. No focal abnormalities or epileptiform discharges were seen. IMPRESSION: Normal awake, drowsy, and stage II sleep EEG. COMMENT: Normal EEG does not rule out a seizure disorder. Jeffery Judge M.D., M.S.P.H. DR: RENARD JOB#: [id number]
== END 2018-02-17 09:31 | disposition home or self-care (01) | DRG 100 ==
LOC: EDBD 14:39 → EMR 15:06 → 2E 15:30 → EDBEDREQ 15:37 → 2E 23:31
DX: R56.9 Unspecified convulsions (principal); G92 Toxic encephalopathy; F11.20 Opioid dependence, uncomplicated; J44.9 Chronic obstructive pulmonary disease, unspecified; I10 Essential (primary) hypertension; M19.90 Unspecified osteoarthritis, unspecified site; M54.9 Dorsalgia, unspecified
CPT/HCPCS: 36415; 70450; 80048; 80053; 80299; 80307; 80329; 81003; 85025; 93005; 94640; 94664; 95819; 99285; J7620; J8499

== ENCOUNTER 2018-03-21 08:29 | Outpatient (CLI) | payer MEDICARE, OTHER ==
[~2018-03-21 08:29] MED LIST changes: +KEPPRA500 MG ORAL; +LOPID600 MG ORAL
[2018-03-21 09:34] LABS: HEMATOCRIT 40.3 % (42.0-52.0); HEMOGLOBIN 14.4 G/DL (14.2-18.0); LYMPHOCYTES % (AUTO) 31.3 % (20.0-45.0); MEAN CORPUSCULAR VOLUME 96 FL (80-99); MONOCYTES % (AUTO) 10.8 % (1.0-10.0); PLATELET COUNT 162 K/UL (150-450); RED BLOOD COUNT 4.22 M/UL (4.70-6.10); WHITE BLOOD COUNT 8.8 K/UL (4.8-10.8)
[2018-03-21 10:02] LABS: ALANINE AMINOTRANSFERASE 42 U/L (12-78); ALBUMIN 3.9 G/DL (3.4-5.0); ALBUMIN/GLOBULIN RATIO 0.9 (1.0-2.7); ALKALINE PHOSPHATASE 67 U/L (46-116); ANION GAP 6 mmol/L (5-15); ASPARTATE AMINO TRANSFERASE 40 U/L (15-37); BILIRUBIN,TOTAL 0.5 MG/DL (0.2-1.0); BLOOD UREA NITROGEN 14 mg/dL (7-18); CALCIUM 10.5 MG/DL (8.5-10.1); CARBON DIOXIDE 29 MMOL/L (21-32); CHLORIDE 104 MMOL/L (98-107); CHOLESTEROL 133 MG/DL (< 200); HDL CHOLESTEROL 42 MG/DL (40-60); POTASSIUM 3.9 MMOL/L (3.5-5.1); SODIUM 139 MMOL/L (136-145); TRIGLYCERIDES 173 MG/DL (30-150)
--- NOTE | 2018-03-21 11:44 | Diagnostic Imaging Report ---
Indication: Pain Technique: 3 views of the left shoulder Comparison: None Findings: No acute fractures or dislocations. Joint spaces are preserved. Impression: Negative
== END 2018-03-21 10:29 | disposition home or self-care (01) ==
LOC: RAD 08:29
DX: M25.512 Pain in left shoulder (principal); E87.5 Hyperkalemia; E03.9 Hypothyroidism, unspecified; E78.5 Hyperlipidemia, unspecified; I11.9 Hypertensive heart disease without heart failure
CPT/HCPCS: 36415; 80053; 80061; 84443; 84550; 85025

== ENCOUNTER 2019-10-11 04:16 | Emergency (ER) | payer MEDICARE, OTHER ==
[~2019-10-11] VITALS: Ht 180.3 cm; Wt 73.9 kg
[2019-10-11 04:25] VITALS: BP 188/120
--- NOTE | 2019-10-11 04:25 | NUR ---
ED Nurse Note: Pt ambulated into ED from home CO abdominal pain and shoulder pain bilaterally. Pt reports chronic user of alcohol and has hx of liver issues. Pt reports pain 10/10 and states that he believes he needs an antibiotic. Pt reports hx of HTN but reports not taking blood pressure mediation today (bp 170/69). Awaiting ERMD.
--- NOTE | 2019-10-11 04:25 | NUR ---
Note undone in EDM - 10/11/19 at 0506 by SERENA ED Nurse Note: Pt ambulated into ED from home CO abdominal pain and shoulder pain bilaterally. Pt reports chronic user of alcohol and has hx of liver issues. Pt reports pain / and states that he believes he needs an antibiotic. Pt reports hx of HTN but reports not taking blood pressure mediation today (bp 170/69). Awaiting ERMD.
--- NOTE | 2019-10-11 04:35 | NUR ---
Sharee curry in EDM - 10/11/19 at 0506 by SERENA ED Nurse Note: ERMD at bedside
--- NOTE | 2019-10-11 04:35 | NUR ---
ED Nurse Note: ERMD at bedside
--- NOTE | 2019-10-11 04:43 | Emergency Room Report ---
History of Present Illness General Chief Complaint: Pain Source: Patient, Family Member, Medical Record Present Illness HPI This is a 73-year-old male with history of high blood pressure and chronic pain. He takes [place] for it. He takes atenolol for his blood pressure medication. He presents with chief complaint of generalized pain. This is a chronic issue but worse in the last month. He had his pain medicines not helping. He has pain in his right shoulder abdomen and body back. Also said he is been out of his blood pressure medication for last week. No fever chills but no nausea no vomiting or diarrhea. Pain is 10 out of 10. Denies any other complaint. Allergies: Coded Allergies: No Known Allergies (Verified , 08/14/08) Patient History Past Medical History: see triage record, old chart reviewed, HTN Past Surgical History: other Pertinent Family History: none Social History: Denies: smoking Immunizations: other Reviewed Nursing Documentation: PMH: Agreed; PSxH: Agreed Nursing Documentation-PMH Hx Cardiac Problems: Yes Hx Hypertension: Yes Hx Cancer: No Hx Gastrointestinal Problems: Yes - pancreatitis Hx Neurological Problems: No - gout Hx Seizures: Yes Hx Dizziness: Yes Hx Headaches: Yes Hx Weakness: Yes Hx Fatigue: Yes Review of Systems Eye: Denies: eye pain, blurred vision ENT: Denies: ear pain, nose congestion, throat swelling Respiratory: Denies: cough, shortness of breath Cardiovascular: Denies: chest pain, palpitations Gastrointestinal: Reports: abdominal pain; Denies: diarrhea, nausea, vomiting Musculoskeletal: Reports: back pain, joint pain Skin: Denies: rash Neurological: Denies: headache, numbness Endocrine: Denies: increased thirst, increased urine Hematologic/Lymphatic: Denies: easy bruising All Other Systems: negative except mentioned in HPI Physical Exam Vital Signs Date Time Temp Pulse Resp B/P (MAP) Pulse Ox O2 Delivery O2 Flow Rate FiO2 10/11/19 04:18 99.0 98 16 155/95 (115) 96 Room Air With high blood pressure Sp02 EP Interpretation: reviewed, normal General Appearance: well appearing, no apparent distress, alert Head: normocephalic, atraumatic Eyes: bilateral eye PERRL, bilateral eye EOMI ENT: hearing grossly normal, normal pharynx Neck: full range of motion, supple, no meningismus Respiratory: chest non-tender, lungs clear, normal breath sounds Cardiovascular #1: regular rate, rhythm, no murmur Gastrointestinal: normal bowel sounds, non tender, no mass, no organomegaly, no bruit, non-distended Musculoskeletal: back normal, normal range of motion, gait/station normal Psychiatric: mood/affect normal Medical Decision Making Diagnostic Impression: Primary Impression: Chronic pain Qualified Codes: G89.4 - Chronic pain syndrome Additional Impressions: Hypertension Qualified Codes: I10 - Essential (primary) hypertension Thrombocytopenia ER Course Patient presents with exacerbation his chronic pain. He is out of his pain medication. He is also out of his blood pressure medication. No evidence of endorgan damage. He has thrombocytopenia which is probably secondary to his previous alcohol abuse. He said he is no longer drinking. Pain is better controlled. Blood pressure better. Will discharge home. Last Vital Signs Date Time Temp Pulse Resp B/P (MAP) Pulse Ox O2 Delivery O2 Flow Rate FiO2 10/11/19 04:18 99.0 98 16 155/95 (115) 96 Room Air Status: improved Disposition: HOME, SELF-CARE Condition: Stable Scripts Atenolol* (TENORMIN*) 50 Mg Tablet 50 MG ORAL DAILY, #90 TAB Prov: Triston Ingram MD 10/11/19 Hydrocodone Bit/Acetaminophen 5-325* (NORCO 5-325*) 1 Each Tablet 1 TAB ORAL Q6H PRN for For Pain, #20 TAB 0 Refills Prov: Triston Ingram MD 10/11/19 Referrals: Adolfo Jerry MD (PCP) Additional Instructions: Follow-up with your doctor as scheduled. Follow-up with your pain management as scheduled. Return if symptoms worsen. Triston Ingram MD Oct 11, 2019 04:43
[2019-10-11] MEDS ORDERED: HYDROmorphone 1mg/ml Carpuject IVP ONE (04:45)
[2019-10-11] MEDS ORDERED: Atenolol 25mg tab ORAL ONE (04:45)
--- NOTE | 2019-10-11 04:52 | NUR ---
ED Nurse Note: all blood work drawn; sent to lab
--- NOTE | 2019-10-11 05:00 | NUR ---
ED Nurse Note: all medications administered. NO s/s of distress noted. No adverse reactions noted. Pt resting in bed comfortably.
[2019-10-11 05:10] LABS: HEMATOCRIT 32.3 % (42.0-52.0); HEMOGLOBIN 11.8 G/DL (14.2-18.0); MEAN CORPUSCULAR VOLUME 99 FL (80-99); PLATELET COUNT 54 K/UL (150-450); RED BLOOD COUNT 3.26 M/UL (4.70-6.10); RED CELL DISTRIBUTION WIDTH 12.5 % (11.6-14.8); WHITE BLOOD COUNT 7.6 K/UL (4.8-10.8)
[2019-10-11 05:16] LABS: ANION GAP 12 mmol/L (5-15); BLOOD UREA NITROGEN 10 mg/dL (7-18); CALCIUM 10.2 MG/DL (8.5-10.1); CARBON DIOXIDE 28 MMOL/L (21-32); CHLORIDE 98 MMOL/L (98-107); CREATININE 0.9 MG/DL (0.55-1.30); POTASSIUM 3.5 MMOL/L (3.5-5.1); SODIUM 138 MMOL/L (136-145)
[2019-10-11 05:27] LABS: ALANINE AMINOTRANSFERASE 37 U/L (12-78); ALBUMIN 3.9 G/DL (3.4-5.0); ALBUMIN/GLOBULIN RATIO 0.9 (1.0-2.7); ALKALINE PHOSPHATASE 89 U/L (46-116); ASPARTATE AMINO TRANSFERASE 140 U/L (15-37); BILIRUBIN,TOTAL 1.1 MG/DL (0.2-1.0)
[2019-10-11 05:41] LABS: APPEARANCE,URINE CLEAR; BILIRUBIN, URINE NEGATIVE (NEGATIVE); COLOR,URINE PALE YELLOW; GLUCOSE, URINE (UA) NEGATIVE (NEGATIVE); KETONES,URINE 1+ (NEGATIVE); LEUKOCYTE ESTERASE ,URINE NEGATIVE (NEGATIVE); NITRITE,URINE NEGATIVE (NEGATIVE); PH,URINE 8 (4.5-8.0); PROTEIN,URINE 2+ (NEGATIVE); UROBILINOGEN,URINE NORMAL MG/DL (0.0-1.0)
[2019-10-11 05:45] VITALS: BP 170/103
[2019-10-11] MEDS ORDERED: ATENOLOL50 MG ORAL (05:57)
[2019-10-11] MEDS ORDERED: NORCO 5-325 TA1 EACH ORAL (05:57)
[2019-10-11 06:15] VITALS: BP 160/92
[2019-10-11] MEDS ORDERED: HYDROcodone/Acetamin 5/325 tab ORAL ONE (06:15)
[2019-10-11 06:25] VITALS: BP 160/92
[2019-10-11 06:25] LABS: BILIRUBIN,DIRECT 0.2 MG/DL (0.0-0.3)
--- NOTE | 2019-10-11 06:25 | NUR ---
ER DISCHARGE NOTE: Patient is cleared to be discharged per ERMD, pt is aox4, on room air, with stable vital signs. pt was given dc and prescription instructions, pt was able to verbalize understanding, pt id band and iv site removed without complications. pt is able to ambulate with steady gait. pt took all belongings.
== END 2019-10-11 06:25 | disposition home or self-care (01) ==
LOC: EMR 04:39
DX: G89.29 Other chronic pain (principal); I10 Essential (primary) hypertension; D69.6 Thrombocytopenia, unspecified; G40.909 Epilepsy, unspecified, not intractable, without status epilepticus
CPT/HCPCS: 36415; 80053; 81001; 82248; 85007; 85025; 96361; 96374; 96375; 99284; J0360; J1170; J2405; J7030

== ENCOUNTER 2019-10-21 06:48 | Emergency (ER) | payer MEDICARE, OTHER ==
[~2019-10-21] VITALS: Ht 180.3 cm; Wt 73.9 kg
[~2019-10-21 06:48] MED LIST changes: +ATENOLOL50 MG ORAL
--- NOTE | 2019-10-21 07:10 | NUR ---
ED Nurse Note: Pt c/o 10 back pain since yesterday. pt arrived with his . pt shows no acute distress
[2019-10-21 07:11] VITALS: BP 145/81
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
[2019-10-21] MEDS ORDERED: Ketorolac 30mg Inj IM ONE (07:15)
[2019-10-21] MEDS ORDERED: HYDROcodone/Acetamin 5/325 tab ORAL ONE ×2 (07:15→08:45)
--- NOTE | 2019-10-21 07:20 | NUR ---
ED Nurse Note: Pt unable to provide urine at this time. pt states that he urinated prior to coming in. pt was given water.
--- NOTE | 2019-10-21 07:55 | NUR ---
ED Nurse Note: pt brought to CT
--- NOTE | 2019-10-21 08:11 | NUR ---
ED Nurse Note: pt retrurned from CT
--- NOTE | 2019-10-21 08:36 | Diagnostic Imaging Report ---
Indication: Flank pain and hematuria Technique: Spiral acquisitions obtained through the abdomen and pelvis. No oral or IV contrast utilized, per urinary stone protocol. Multiplanar reconstructions were generated. Total dose length product 231 mGycm. CTDIvol(s) 4 mGy. Dose reduction achieved using automated exposure control Comparison: 11/06/2017 Findings: No renal or ureteral calculi, hydronephrosis, or hydroureter. Lack of IV contrast limits assessment of the renal parenchyma. There are bilateral renal cysts again demonstrated. The bladder demonstrates mild wall thickening, similar to previous. It is incompletely distended. The prostate is enlarged, similar to previous. Lack of IV contrast limits assessment of the other solid organs. The liver is unremarkable, previously demonstrated right lobe liver cyst not well-demonstrated on noncontrast images. The gallbladder, bile ducts, pancreas, spleen, adrenals are unremarkable. No retroperitoneal or mesenteric mass or adenopathy. No pelvic mass or adenopathy. Lack of enteric contrast limits assessment of the GI tract. There is extensive colonic diverticulosis. There is mild sigmoid circular muscle hypertrophy noted. No evidence of acute diverticulitis. The appendix is normal. Small bowel loops are prominent in caliber, gas and fluid-filled but not frankly dilated and there is no transition point.. Distal esophagus, stomach, duodenum are unremarkable. There is a small fat-containing umbilical hernia The included lung bases demonstrate minimal scarring on the left. The bones are unremarkable. Impression: Limited assessment of the GI tract, due to lack of enteric contrast administration Mildly prominent gas and fluid-filled small bowel loops, of doubtful significance but could indicate mild enteritis changes Bladder wall thickening, similar to previous study. Probably artifact of under distention or could indicate chronic bladder outlet obstruction. Possibility of cystitis should also be considered. Otherwise, no definite acute abnormality or findings to explain stated clinical history of hematuria and flank pain Colonic diverticulosis. No evidence of diverticulitis Bilateral renal cysts, left basilar pulmonary parenchymal scarring, small fat-containing umbilical hernia incidentally noted The CT scanner at [facility] is accredited by the [employer] and the scans are performed using protocols designed to limit radiation exposure to as low as reasonably achievable to attain images of sufficient resolution adequate for diagnostic evaluation.
[2019-10-21 08:46] LABS: APPEARANCE,URINE CLEAR; BILIRUBIN, URINE 1+ (NEGATIVE); COLOR,URINE BROWN; GLUCOSE, URINE (UA) NEGATIVE (NEGATIVE); KETONES,URINE NEGATIVE (NEGATIVE); LEUKOCYTE ESTERASE ,URINE NEGATIVE (NEGATIVE); NITRITE,URINE NEGATIVE (NEGATIVE); PH,URINE 6 (4.5-8.0); PROTEIN,URINE 2+ (NEGATIVE); UROBILINOGEN,URINE 8 MG/DL (0.0-1.0)
[2019-10-21] MEDS ORDERED: NORCO 5-325 TA1 EACH ORAL (08:54)
[2019-10-21 09:03] VITALS: BP 132/79
--- NOTE | 2019-10-21 09:04 | NUR ---
ER DISCHARGE NOTE: Patient is cleared to be discharged per ERMD, pt is aox4, on room air, with stable vital signs. pt was given dc and prescription instructions, pt was able to verbalize understanding, pt id band removed. pt is able to ambulate with steady gait. pt took all belongings. pt left with
== END 2019-10-21 09:03 | disposition home or self-care (01) ==
LOC: EMR 07:10
DX: G89.29 Other chronic pain (principal); K57.90 Diverticulosis of intestine, part unspecified, without perforation or abscess without bleeding; G40.909 Epilepsy, unspecified, not intractable, without status epilepticus; I11.9 Hypertensive heart disease without heart failure; I10 Essential (primary) hypertension
CPT/HCPCS: 74176; 81003; 96372; 99284; J1885

== ENCOUNTER 2019-11-01 05:56 | Emergency (ER) | payer MEDICARE, OTHER ==
[~2019-11-01] VITALS: Ht 180.3 cm; Wt 99.8 kg
[2019-11-01 06:19] VITALS: BP 130/82
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
--- NOTE | 2019-11-01 06:25 | NUR ---
ED Nurse Note: ERMD at bedside
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
--- NOTE | 2019-11-01 06:37 | NUR ---
ED Nurse Note: all blood work sent to lab
--- NOTE | 2019-11-01 06:42 | NUR ---
ED Nurse Note: All medications administered; pt tolerated well. no s/s of distress noted. no adverse reactions noted.
[2019-11-01] MEDS ORDERED: HYDROcodone/Acetamin 5/325 tab ORAL ONE (06:45)
--- NOTE | 2019-11-01 07:10 | NUR ---
ED Nurse Note: Pt in bed resting with spouse, pt shows no acute signs of distress. vss. no further orders at this time.
--- NOTE | 2019-11-01 07:11 | NUR ---
ED Nurse Note: report given to PAULINA Lu
[2019-11-01 07:18] VITALS: BP 149/96
[2019-11-01 07:37] LABS: APPEARANCE,URINE CLEAR; BILIRUBIN, URINE NEGATIVE (NEGATIVE); GLUCOSE, URINE (UA) NEGATIVE (NEGATIVE); KETONES,URINE 2+ (NEGATIVE); LEUKOCYTE ESTERASE ,URINE NEGATIVE (NEGATIVE); NITRITE,URINE NEGATIVE (NEGATIVE); PH,URINE 8 (4.5-8.0); PROTEIN,URINE 3+ (NEGATIVE); UROBILINOGEN,URINE 1 MG/DL (0.0-1.0)
[2019-11-01 07:40] LABS: COLOR,URINE YELLOW
--- NOTE | 2019-11-01 07:56 | Diagnostic Imaging Report ---
EXAM: XR Chest, 1 View CLINICAL HISTORY: PAIN TECHNIQUE: Frontal view of the chest. COMPARISON: Chest CT with IV contrast 11/06/2017. FINDINGS: Lungs: Nodular density in the inferior right lung could represent the nipple shadow. Otherwise the lungs are clear. Pleural space: Unremarkable. No pneumothorax. Heart: Unremarkable. No cardiomegaly. Mediastinum: Unremarkable. Bones/joints: Unremarkable. IMPRESSION: Probable nipple shadow at the inferior right lung. Otherwise no acute process. Consider elective follow-up radiograph with nipple markers on a nonemergent basis
[2019-11-01 08:00] LABS: HEMATOCRIT 32.1 % (42.0-52.0); HEMOGLOBIN 11.4 G/DL (14.2-18.0); MEAN CORPUSCULAR VOLUME 105 FL (80-99); PLATELET COUNT 75 K/UL (150-450); RED BLOOD COUNT 3.06 M/UL (4.70-6.10); RED CELL DISTRIBUTION WIDTH 13.4 % (11.6-14.8); WHITE BLOOD COUNT 5.5 K/UL (4.8-10.8)
[2019-11-01] MEDS ORDERED: cefTRIAXone 1 GM in NS 55 ML IVPB ONE (08:00)
[2019-11-01 08:09] LABS: ANION GAP 15 mmol/L (5-15); BLOOD UREA NITROGEN 11 mg/dL (7-18); CALCIUM 9.6 MG/DL (8.5-10.1); CARBON DIOXIDE 28 MMOL/L (21-32); CHLORIDE 95 MMOL/L (98-107); CREATININE 1.1 MG/DL (0.55-1.30); POTASSIUM 3.5 MMOL/L (3.5-5.1); SODIUM 138 MMOL/L (136-145)
[2019-11-01 08:21] LABS: ALANINE AMINOTRANSFERASE 28 U/L (12-78); ALBUMIN 3.8 G/DL (3.4-5.0); ALBUMIN/GLOBULIN RATIO 0.8 (1.0-2.7); ALKALINE PHOSPHATASE 90 U/L (46-116); ASPARTATE AMINO TRANSFERASE 104 U/L (15-37); BILIRUBIN,TOTAL 1.8 MG/DL (0.2-1.0); PHOSPHORUS 2.7 MG/DL (2.5-4.9)
[2019-11-01 08:22] LABS: BILIRUBIN,DIRECT 0.5 MG/DL (0.0-0.3)
[2019-11-01] MEDS ORDERED: NORCO 5-325 TA1 EACH ORAL (08:22)
[2019-11-01] MEDS ORDERED: CEPHALEXIN500 MG ORAL ×2 (08:22)
[2019-11-01 08:56] VITALS: BP 142/110
[2019-11-01 10:15] VITALS: BP 155/95
== END 2019-11-01 10:15 | disposition home or self-care (01) ==
LOC: EMR 06:16
DX: G89.29 Other chronic pain (principal); M54.6 Pain in thoracic spine; N40.0 Benign prostatic hyperplasia without lower urinary tract symptoms; L08.9 Local infection of the skin and subcutaneous tissue, unspecified; I11.9 Hypertensive heart disease without heart failure; G40.909 Epilepsy, unspecified, not intractable, without status epilepticus; M10.9 Gout, unspecified
CPT/HCPCS: 36415; 71045; 80053; 81003; 82248; 83690; 83735; 84100; 85007; 85025; 96365; 96368; 96375; 99284; G0480; J0696; S0028

== ENCOUNTER 2019-11-05 02:22 | Emergency (ER) | payer MEDICARE, OTHER ==
[~2019-11-05] VITALS: Ht 170.2 cm; Wt 55.8 kg
[~2019-11-05 02:22] MED LIST changes: +CEPHALEXIN500 MG ORAL
[2019-11-05 02:32] VITALS: BP 119/80
--- NOTE | 2019-11-05 02:32 | NUR ---
ED Nurse Note: Patient walked in to ED from home c/o right shoulder pain and lowewr back pain x 1week. As per patient, he has infection all over his body. Pt also stated he had a shoulder surgery at [facility] x[facility] months ago and saying that the infection is coming from the surgical site. Afebrile. Not in any distress. Pt placed on groundwater monitoring technician. ERMD at bedside.
--- NOTE | 2019-11-05 02:50 | NUR ---
ED Nurse Note: IV line established. Blood specimen collected and sent to lab.
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
[2019-11-05] MEDS ORDERED: HYDROcodone/Acetamin 5/325 tab ORAL ONE (03:00)
[2019-11-05 03:09] LABS: HEMATOCRIT 27.6 % (42.0-52.0); HEMOGLOBIN 10.2 G/DL (14.2-18.0); MEAN CORPUSCULAR VOLUME 102 FL (80-99); PLATELET COUNT 50 K/UL (150-450); RED BLOOD COUNT 2.72 M/UL (4.70-6.10); RED CELL DISTRIBUTION WIDTH 12.8 % (11.6-14.8); WHITE BLOOD COUNT 7.3 K/UL (4.8-10.8)
[2019-11-05 03:16] LABS: ANION GAP 15 mmol/L (5-15); BLOOD UREA NITROGEN 22 mg/dL (7-18); CALCIUM 9.9 MG/DL (8.5-10.1); CARBON DIOXIDE 24 MMOL/L (21-32); CHLORIDE 94 MMOL/L (98-107); CREATININE 1.1 MG/DL (0.55-1.30); POTASSIUM 3.1 MMOL/L (3.5-5.1); SODIUM 133 MMOL/L (136-145)
--- NOTE | 2019-11-05 03:38 | NUR ---
ED Nurse Note: Urine specimen obtained and sent to lab.
[2019-11-05 03:43] LABS: APPEARANCE,URINE CLEAR; BILIRUBIN, URINE NEGATIVE (NEGATIVE); GLUCOSE, URINE (UA) NEGATIVE (NEGATIVE); KETONES,URINE 2+ (NEGATIVE); LEUKOCYTE ESTERASE ,URINE 1+ (NEGATIVE); NITRITE,URINE NEGATIVE (NEGATIVE); PH,URINE 5 (4.5-8.0); PROTEIN,URINE 2+ (NEGATIVE); UROBILINOGEN,URINE 8 MG/DL (0.0-1.0)
[2019-11-05 03:44] LABS: COLOR,URINE YELLOW
[2019-11-05] MEDS ORDERED: NORCO 5-325 TA1 EACH ORAL (04:14)
[2019-11-05 04:21] VITALS: BP 140/81
--- NOTE | 2019-11-05 04:21 | NUR ---
ED Nurse Note: Pt cleared by ERMD for discharge. DC instructions/prescription was given and explained to pt and verbalized understanding of teachings. All medical deviecs such as ID band and IV line removed. Pt is AAO x4, ambulatory and left with all personal belongings. Accompanied by his .
== END 2019-11-05 04:21 | disposition home or self-care (01) ==
LOC: EMR 02:44
DX: M54.5 Low back pain (principal); R53.1 Weakness; G89.29 Other chronic pain; M25.511 Pain in right shoulder; I10 Essential (primary) hypertension; I25.10 Atherosclerotic heart disease of native coronary artery without angina pectoris; Z86.69 Personal history of other diseases of the nervous system and sense organs
CPT/HCPCS: 36415; 80048; 80307; 81001; 85025; 99283

== ENCOUNTER 2019-11-14 06:59 | Emergency (ER) | payer MEDICARE, OTHER ==
[~2019-11-14] VITALS: Ht 180.3 cm; Wt 73.9 kg
[2019-11-14 07:14] VITALS: BP 164/99
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
[2019-11-14] MEDS ORDERED: HYDROcodone/Acetamin 5/325 tab ORAL ONE (08:00)
[2019-11-14 08:04] LABS: APPEARANCE,URINE CLEAR; BILIRUBIN, URINE NEGATIVE (NEGATIVE); COLOR,URINE PALE YELLOW; GLUCOSE, URINE (UA) NEGATIVE (NEGATIVE); KETONES,URINE NEGATIVE (NEGATIVE); LEUKOCYTE ESTERASE ,URINE NEGATIVE (NEGATIVE); NITRITE,URINE NEGATIVE (NEGATIVE); PH,URINE 8 (4.5-8.0); PROTEIN,URINE NEGATIVE (NEGATIVE); UROBILINOGEN,URINE 1 MG/DL (0.0-1.0)
[2019-11-14] MEDS ORDERED: NORCO 5-325 TA1 EAC1 ORAL (09:38)
[2019-11-14] MEDS ORDERED: OMEPRAZOLE20 M2 ORAL (09:38)
[2019-11-14 09:45] VITALS: BP 152/94
== END 2019-11-14 09:45 | disposition home or self-care (01) ==
LOC: EMR 07:20
DX: M25.512 Pain in left shoulder (principal); G89.29 Other chronic pain; I10 Essential (primary) hypertension
CPT/HCPCS: 81003; 99283

== ENCOUNTER 2019-11-28 01:01 | Emergency (ER) | payer MEDICARE, OTHER ==
[~2019-11-28] VITALS: Ht 185.4 cm; Wt 86.2 kg
[~2019-11-28 01:01] MED LIST changes: +NORCO 5-325 TA1 EAC1 ORAL
--- NOTE | 2019-11-28 01:05 | Emergency Room Report ---
History of Present Illness General Source: Patient, EMS Present Illness HPI Patient is a 74-year-old male brought in by EMS after witnessed seizure. Prior history of seizure disorder. He previously had visit approximate 1 week ago for shoulder pain. Patient had chronically been taking opiates due to chronic pain. Prior history of alcohol abuse. He had prior surgery to his right shoulder and has chronic pain to the area. He was notably postictal by EMS. Allergies: Coded Allergies: No Known Allergies (Verified , 08/14/08) Patient History Past Medical History: see triage record, seizures Reviewed Nursing Documentation: PMH: Agreed; PSxH: Agreed Review of Systems All Other Systems: negative except mentioned in HPI Physical Exam General Appearance: alert, GCS 15, Chronically Ill, Postictal Eyes: bilateral eye PERRL ENT: hearing grossly normal Neck: limited range of motion Respiratory: lungs clear, normal breath sounds Cardiovascular #1: normal peripheral pulses, no edema Gastrointestinal: normal inspection, soft Musculoskeletal: decreased range of motion Neurologic: alert, motor strength/tone normal, automotive accessory installer III-XII nml as tested, oriented x3 Psychiatric: normal inspection Skin: no rash Medical Decision Making Diagnostic Impression: Primary Impression: Epileptic seizure, generalized Additional Impressions: Alcohol abuse Thrombocytopenia ER Course Patient presented for seizure. Differential diagnosis include was not limited to medication noncompliance, alcohol withdrawal, electrolyte abnormality, among others. Because of complexity of patient's case laboratory tests and imaging studies were ordered. Patient was noted to have prior history of seizure disorder. He had recent ER visit approximately 1 week ago and appears to be at his baseline mental status.Patient is given pain medications for what is chronic pain. He was loaded with IV Keppra. Patient was given prescription for pain medications.At the time of discharge patient was alert and ambulatory and oriented. Patient was discharged home with his . The patient is advised to follow up with primary care doctor in 1-2 days. Patient is advised to return if any worsening condition or if any changes in status that are concerning. This report is dictated with Exec log preparer software which may occasionally lead to discrepancies related to use of this software. Labs Test 11/28/19 01:15 White Blood Count 5.2 K/UL (4.8-10.8) Red Blood Count 3.01 M/UL (4.70-6.10) Hemoglobin 11.5 G/DL (14.2-18.0) Hematocrit 31.6 % (42.0-52.0) Mean Corpuscular Volume 105 FL (80-99) Mean Corpuscular Hemoglobin 38.3 PG (27.0-31.0) Mean Corpuscular Hemoglobin Concent 36.4 G/DL (32.0-36.0) Red Cell Distribution Width 13.0 % (11.6-14.8) Platelet Count 49 K/UL (150-450) Mean Platelet Volume 9.5 FL (6.5-10.1) Neutrophils (%) (Auto) % (45.0-75.0) Lymphocytes (%) (Auto) % (20.0-45.0) Monocytes (%) (Auto) % (1.0-10.0) Eosinophils (%) (Auto) % (0.0-3.0) Basophils (%) (Auto) % (0.0-2.0) Differential Total Cells Counted 100 Neutrophils % (Manual) 28 % (45-75) Lymphocytes % (Manual) 61 % (20-45) Monocytes % (Manual) 11 % (1-10) Eosinophils % (Manual) 0 % (0-3) Basophils % (Manual) 0 % (0-2) Band Neutrophils 0 % (0-8) Platelet Estimate Decreased Platelet Morphology Normal Sodium Level 141 MMOL/L (136-145) Potassium Level 3.8 MMOL/L (3.5-5.1) Chloride Level 104 MMOL/L (98-107) Carbon Dioxide Level 28 MMOL/L (21-32) Anion Gap 9 mmol/L (5-15) Blood Urea Nitrogen 12 mg/dL (7-18) Creatinine 1.3 MG/DL (0.55-1.30) Estimat Glomerular Filtration Rate > 60 mL/min (>60) Glucose Level 117 MG/DL (74-106) Calcium Level 9.0 MG/DL (8.5-10.1) Total Bilirubin 0.5 MG/DL (0.2-1.0) Aspartate Amino Transf (AST/SGOT) 126 U/L (15-37) Alanine Aminotransferase (ALT/SGPT) 26 U/L (12-78) Alkaline Phosphatase 80 U/L (46-116) Total Creatine Kinase 181 U/L (26-308) Troponin I 0.000 ng/mL (0.000-0.056) Total Protein 7.6 G/DL (6.4-8.2) Albumin 3.7 G/DL (3.4-5.0) Globulin 3.9 g/dL Albumin/Globulin Ratio 0.9 (1.0-2.7) Serum Alcohol 280 mg/dL Status: improved Disposition: HOME, SELF-CARE Condition: Stable Scripts Levetiracetam (KEPPRA) 500 Mg Tablet 500 MG ORAL EVERY 12 HOURS for , #60 TAB 0 Refills Prov: Deep Palacios MD 11/28/19 Omeprazole (OMEPRAZOLE) 20 Mg Capsule.dr 20 MG ORAL DAILY, #30 CAP Prov: Deep Palacios MD 11/28/19 Hydrocodone Bit/Acetaminophen 5-325* (NORCO 5-325 TABLET*) 1 Each Tablet 1 TAB ORAL Q4H PRN for FOR PAIN, #12 TAB 0 Refills Prov: Deep Palacios MD 11/28/19 Deep Palacios MD Nov 28, 2019 01:05
[2019-11-28] MEDS ORDERED: KEPPRA500 M4 ORAL ×2 (01:09→04:59)
[2019-11-28] MEDS ORDERED: levETIRAcetam 500 MG in D5W 110 ML IV ONE (01:15)
[2019-11-28 01:24] VITALS: BP 136/72
[2019-11-28 01:24] LABS: HEMATOCRIT 31.6 % (42.0-52.0); HEMOGLOBIN 11.5 G/DL (14.2-18.0); MEAN CORPUSCULAR VOLUME 105 FL (80-99); PLATELET COUNT 49 K/UL (150-450); RED BLOOD COUNT 3.01 M/UL (4.70-6.10); WHITE BLOOD COUNT 5.2 K/UL (4.8-10.8)
[2019-11-28] MEDS ORDERED: Morphine Sulfate 2mg/ml Inj(IV/IM USE ONLY) IVP ONE (01:30)
[2019-11-28 01:34] LABS: ANION GAP 9 mmol/L (5-15); BLOOD UREA NITROGEN 12 mg/dL (7-18); CARBON DIOXIDE 28 MMOL/L (21-32); CHLORIDE 104 MMOL/L (98-107); CREATININE 1.3 MG/DL (0.55-1.30); POTASSIUM 3.8 MMOL/L (3.5-5.1); SODIUM 141 MMOL/L (136-145)
[2019-11-28 01:39] LABS: ALANINE AMINOTRANSFERASE 26 U/L (12-78); ALBUMIN 3.7 G/DL (3.4-5.0); ALBUMIN/GLOBULIN RATIO 0.9 (1.0-2.7); ALKALINE PHOSPHATASE 80 U/L (46-116); ASPARTATE AMINO TRANSFERASE 126 U/L (15-37); BILIRUBIN,TOTAL 0.5 MG/DL (0.2-1.0); CREATINE KINASE 181 U/L (26-308)
[2019-11-28 03:15] VITALS: BP 132/76
[2019-11-28] MEDS ORDERED: NORCO 5-325 TA1 EAC1 ORAL (04:59)
[2019-11-28] MEDS ORDERED: OMEPRAZOLE20 M2 ORAL (04:59)
[2019-11-28 06:23] VITALS: BP 135/78
== END 2019-11-28 06:23 | disposition home or self-care (01) ==
LOC: EDUNIT# 01:01 → EDBD 01:01 → EMR 01:25
DX: G40.909 Epilepsy, unspecified, not intractable, without status epilepticus (principal); F10.10 Alcohol abuse, uncomplicated; D47.3 Essential (hemorrhagic) thrombocythemia
CPT/HCPCS: 36415; 80053; 82550; 84484; 85007; 85025; 96374; 96375; 99284; G0480; J1953; J2270

== ENCOUNTER 2019-12-11 04:19 | Emergency (ER) | payer MEDICARE, OTHER ==
[~2019-12-11] VITALS: Ht 180.3 cm; Wt 74.8 kg
[~2019-12-11 04:19] MED LIST changes: +KEPPRA500 M4 ORAL
--- NOTE | 2019-12-11 04:38 | NUR ---
ED Nurse Note: Pt ambualted to ED from home c/o chronic back and shoulder pain, denies injury. Pt states he ran out of [place]. Pt VSS, A&OX4. Pt walks with walker steady gait. ERMD at bedside
[2019-12-11 04:41] VITALS: BP 187/113
[2019-12-11] MEDS ORDERED: HYDROCODON-ACE1 EA15 ORAL (04:41)
--- NOTE | 2019-12-11 04:42 | Emergency Room Report ---
History of Present Illness General Chief Complaint: Pain Source: Patient Present Illness HPI This is a 74-year-old male with a history of chronic pain. Also history of alcohol abuse. He presents with generalized body pain and joint pain. Onset for last 2 days. Has been out of his pain medication. He was seen a pain specialist before but has not seen anyone since March. He denies any trauma. No fever chills but no nausea no vomiting. Pain is 9 out of 10. Similar to previous episode. No incontinence of bowel or urine. Movement makes it worse. Cold weather makes it worse. Nothing made it better. Allergies: Coded Allergies: No Known Allergies (Verified , 08/14/08) COVID-19 Screening Contact w/high risk pt: No Recent Travel to affected area: No Experienced COVID-19 symptoms?: Yes COVID-19 symptoms experienced: Flu-Like Symptoms Patient History Past Medical History: see triage record, old chart reviewed Past Surgical History: other Pertinent Family History: none Social History: Reports: alcohol use; Denies: smoking Immunizations: other Reviewed Nursing Documentation: PMH: Agreed; PSxH: Agreed Nursing Documentation-PMH Hx Cardiac Problems: Yes Hx Hypertension: Yes Hx Cancer: No Hx Gastrointestinal Problems: Yes - pancreatitis Hx Neurological Problems: No - gout Hx Seizures: Yes Hx Dizziness: Yes Hx Headaches: Yes Hx Weakness: Yes Hx Fatigue: Yes Review of Systems Eye: Denies: eye pain, blurred vision ENT: Denies: ear pain, nose congestion, throat swelling Respiratory: Denies: cough, shortness of breath Cardiovascular: Denies: chest pain, palpitations Gastrointestinal: Denies: abdominal pain, diarrhea, nausea, vomiting Musculoskeletal: Reports: back pain, joint pain, muscle pain Skin: Denies: rash Neurological: Denies: headache, numbness Endocrine: Denies: increased thirst, increased urine Hematologic/Lymphatic: Denies: easy bruising All Other Systems: negative except mentioned in HPI Physical Exam Vital Signs Date Time Temp Pulse Resp B/P (MAP) Pulse Ox O2 Delivery O2 Flow Rate FiO2 12/11/19 04:23 98.1 85 20 187/113 (137) 86 Room Air Vitals with high blood pressure Sp02 EP Interpretation: reviewed, normal General Appearance: well appearing, no apparent distress, alert Head: normocephalic, atraumatic Eyes: bilateral eye PERRL, bilateral eye EOMI ENT: hearing grossly normal, normal pharynx Neck: full range of motion, supple, no meningismus Respiratory: chest non-tender, lungs clear, normal breath sounds Cardiovascular #1: regular rate, rhythm, no murmur Gastrointestinal: normal bowel sounds, non tender, no mass, no organomegaly, no bruit, non-distended Musculoskeletal: back normal, normal range of motion, gait/station normal Psychiatric: mood/affect normal Medical Decision Making Diagnostic Impression: Primary Impression: HTN (hypertension) Qualified Codes: I10 - Essential (primary) hypertension Additional Impression: Chronic pain Qualified Codes: G89.4 - Chronic pain syndrome ER Course Patient with exacerbation of chronic pain. No evidence of cauda equina syndrome , spinal epidural abscess or neoplastic process. Will discharge home. Last Vital Signs Date Time Temp Pulse Resp B/P (MAP) Pulse Ox O2 Delivery O2 Flow Rate FiO2 12/11/19 04:23 98.1 85 20 187/113 (137) 86 Room Air Status: improved Disposition: HOME, SELF-CARE Condition: Stable Scripts Hydrocodone/Acetaminophen 5-325* (HYDROCODONE/ACETAMINOPHEN 5-325*) 1 Each Tablet 1 TAB ORAL Q6H PRN for For Pain, #20 TAB 0 Refills Prov: Triston Ingram MD 12/11/19 Referrals: Adolfo Jerry MD (PCP) Additional Instructions: Follow-up with Dr. Jerry within a week. You will need referral to see a pain specialist. Take your blood pressure medication. Return if symptoms worsen. Triston Ingram MD Dec 11, 2019 04:42
[2019-12-11 04:45] VITALS: BP 187/113
[2019-12-11] MEDS ORDERED: HYDROcodone/Acetamin 5/325 tab ORAL ONE (04:45)
--- NOTE | 2019-12-11 04:45 | NUR ---
ER DISCHARGE NOTE: Patient is cleared to be discharged per ERMD, pt is aox4, on room air, with stable vital signs. pt was given dc and prescription instructions, pt was able to verbalize understanding, pt id band removed. pt is able to ambulate with steady gait. pt took all belongings.
== END 2019-12-11 04:45 | disposition home or self-care (01) ==
LOC: EMR 04:27
DX: G89.29 Other chronic pain (principal); I10 Essential (primary) hypertension; G40.909 Epilepsy, unspecified, not intractable, without status epilepticus
CPT/HCPCS: 99282

== ENCOUNTER 2019-12-20 12:09 | Emergency (ER) | payer MEDICARE, OTHER ==
[~2019-12-20] VITALS: Ht 182.9 cm; Wt 72.6 kg
[~2019-12-20 12:09] MED LIST changes: +HYDROCODON-ACE1 EA15 ORAL
[2019-12-20] MEDS ORDERED: HYDROcodone/Acetamin 5/325 tab PO ONE (12:45)
[2019-12-20 12:59] VITALS: BP 127/67
--- NOTE | 2019-12-20 13:32 | Diagnostic Imaging Report ---
EXAM: XR Left Shoulder Complete, 2 or More Views CLINICAL HISTORY: PAIN TECHNIQUE: Two or more views of the left shoulder. COMPARISON: Left shoulder x-rays dated 03/21/18. FINDINGS: Bones/joints: Mild degenerative narrowing in the left AC joint. Normal alignment is seen at the acromioclavicular and glenohumeral joints. No visible displaced fracture or dislocation. No osseous erosions. Coracoclavicular and subacromial spaces appear within normal limits. The clavicle and scapula appear intact. Soft tissues: Unremarkable. IMPRESSION: Mild degenerative changes at the left acromioclavicular joint.
--- NOTE | 2019-12-20 13:36 | Diagnostic Imaging Report ---
EXAM: XR Right Shoulder Complete, 2 or More Views CLINICAL HISTORY: PAIN TECHNIQUE: Two or more views of the right shoulder. COMPARISON: X-rays of the contralateral left shoulder obtained the same date. FINDINGS: Bones/joints: Mild to moderate degenerative narrowing in the right glenohumeral and acromioclavicular joints with small marginal osteophytes. Hill-Sachs deformity along the superolateral margin of the humerus. Degenerative osteophyte versus chronic bony Bankart lesion along the inferior bony labrum. No acute fracture or dislocation. Mildly high riding humerus with narrowing of the subacromial space, suggesting underlying rotator cuff pathology. Coracoclavicular space appears within normal limits. The clavicle and scapula appear intact. Soft tissues: Unremarkable. IMPRESSION: 1. Mildly high riding humerus with narrowing of the subacromial space, suggesting underlying rotator cuff pathology. 2. Hill-Sachs deformity along the superolateral margin of the humerus, likely chronic. 3. Degenerative osteophyte versus chronic bony Bankart lesion along the inferior bony labrum of the right glenoid. 4. Mild to moderate degenerative changes in the right glenohumeral and acromioclavicular joints.
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
[2019-12-20 14:00] VITALS: BP 125/68
[2019-12-20] MEDS ORDERED: HYDROcodone/Acetamin 5/325 tab ORAL ONE (14:45)
[2019-12-20 15:05] VITALS: BP 125/68
--- NOTE | 2019-12-22 07:27 | Emergency Room Report ---
History of Present Illness General Chief Complaint: Generalized Weakness Source: Patient, Medical Record Present Illness HPI 74-year-old male presents with pain. Brought in from home. States that he fell earlier this week and is having pain everywhere. 10 out of 10, dull, nonradiating. Notes pain prominently in his shoulders and in his feet. States "I need pain meds" immediately on assessment. Denies chest pain or shortness of breath. Denies dizziness or weakness. Denies runny nose cough or congestion. Denies fevers or chills. No other aggravating relieving factors. Denies any other associated symptoms Allergies: Coded Allergies: No Known Allergies (Verified , 08/14/08) COVID-19 Screening Contact w/high risk pt: No Recent Travel to affected area: No Experienced COVID-19 symptoms?: No COVID-19 symptoms experienced: Flu-Like Symptoms Patient History Past Medical History: HTN, seizures, other - pancreatitis Past Surgical History: none Pertinent Family History: none Social History: Denies: smoking, alcohol use, drug use Immunizations: UTD Reviewed Nursing Documentation: PMH: Agreed; PSxH: Agreed Nursing Documentation-PMH Past Medical History: No History, Except For Hx Cardiac Problems: Yes Hx Hypertension: Yes Hx Cancer: No Hx Gastrointestinal Problems: Yes - pancreatitis Hx Neurological Problems: No - gout Hx Seizures: Yes Hx Dizziness: Yes Hx Headaches: Yes Hx Weakness: Yes Hx Fatigue: Yes Review of Systems All Other Systems: negative except mentioned in HPI Physical Exam Vital Signs Date Time Temp Pulse Resp B/P (MAP) Pulse Ox O2 Delivery O2 Flow Rate FiO2 12/20/19 12:20 97.2 86 38 127/67 (87) 95 Room Air Sp02 EP Interpretation: reviewed, normal General Appearance: no apparent distress, alert, GCS 15, non-toxic Head: normocephalic, atraumatic Eyes: bilateral eye normal inspection, bilateral eye PERRL ENT: hearing grossly normal, normal pharynx, no angioedema, normal voice Neck: full range of motion, supple/symm/no masses Respiratory: chest non-tender, lungs clear, normal breath sounds, speaking full sentences Cardiovascular #1: regular rate, rhythm, no edema Cardiovascular #2: 2+ carotid (R), 2+ carotid (L), 2+ radial (R), 2+ radial (L) , 2+ dorsalis pedis (R), 2+ dorsalis pedis (L) Gastrointestinal: normal bowel sounds, non tender, soft, non-distended, no guarding, no rebound Rectal: deferred Genitourinary: normal inspection, no CVA tenderness Musculoskeletal: back normal, normal range of motion, gait/station normal, tender - bilateral shoulder, bilateral feet Neurologic: alert, motor strength/tone normal, oriented x3, sensory intact, responsive, speech normal Psychiatric: judgement/insight normal, memory normal, mood/affect normal, no suicidal/homicidal ideation Reflexes: 3+ bicep (R), 3+ bicep (L), 3+ tricep (R), 3+ tricep (L), 3+ knee (R) , 3+ knee (L) Skin: no rash Lymphatic: no adenopathy Medical Decision Making Diagnostic Impression: Primary Impression: Fall Qualified Codes: W19.XXXA - Unspecified fall, initial encounter Additional Impression: Chronic pain Qualified Codes: G89.4 - Chronic pain syndrome ER Course Hospital Course 74 yo M presents with bilateral foot and shoulder pain s/p fall Differential diagnoses include: Fracture, dislocation, sprain, contusion Clinical course Patient placed on stretcher. After initial history and physical, I ordered pain medications and Xrays of shoulders and bilateral feet Xrays read shows no acute fracture/dislocation. patient is requesting additional pain medication prescriptions requesting additional meds here. I reviewed CURES and patient is receiving extensive narcotic prescriptions on a monthly basis. Patient understands he will not receive any additional prescriptions at this time. Needs to follow-up with his PMD. Safe for discharge for close outpatient follow-up Diagnosis - fall, chronic pain Stable and discharged to home. apply ice, keep elevated. weight bear as tolerated. Followup with PMD. Return to ED if symptoms recur or worsen Other X-Ray Diagnostic Results Other X-Ray Diagnostic Results #1: X-Ray ordered: R foot # of Views/Limited Vs Complete: 3 View Indication: Pain EP Interpretation: Yes Interpretation: no dislocation, no soft tissue swelling, no fractures Impression: No acute disease Electronically Signed by: Electronically signed by Negro Mosley MD Other X-Ray Diagnostic Results #2: X-Ray ordered: L foot # of Views/Limited Vs Complete: 3 View Indication: Pain EP Interpretation: Yes Interpretation: no dislocation, no soft tissue swelling, no fractures Impression: No acute disease Electronically Signed by: Electronically signed by Negro Mosley MD Other X-Ray Diagnostic Results #3: X-Ray ordered: R shoulder # of Views/Limited Vs Complete: 3 View Indication: Pain EP Interpretation: Yes Interpretation: no dislocation, no soft tissue swelling, no fractures Impression: No acute disease Electronically Signed by: Electronically signed by Negro Mosley MD Other X-Ray Diagnostic Results #4: X-Ray ordered: L shoulder # of Views/Limited Vs Complete: 3 View Indication: Pain EP Interpretation: Yes Interpretation: no dislocation, no soft tissue swelling, no fractures Impression: No acute disease Electronically Signed by: Electronically signed by Negro Mosley MD Last Vital Signs Date Time Temp Pulse Resp B/P (MAP) Pulse Ox O2 Delivery O2 Flow Rate FiO2 12/20/19 15:09 97.2 12/20/19 15:05 77 21 125/68 98 Room Air Status: improved Disposition: HOME, SELF-CARE Condition: Stable Patient Instructions: Chronic Pain Negro Mosley MD Dec 22, 2019 07:27
== END 2019-12-20 15:12 | disposition home or self-care (01) ==
LOC: EMR 13:46
DX: G89.4 Chronic pain syndrome (principal); M25.572 Pain in left ankle and joints of left foot; M25.571 Pain in right ankle and joints of right foot; M25.512 Pain in left shoulder; M25.511 Pain in right shoulder; W19.XXXA Unspecified fall, initial encounter; Y92.009 Unspecified place in unspecified non-institutional (private) residence as the place of occurrence of the external cause; I10 Essential (primary) hypertension; G40.909 Epilepsy, unspecified, not intractable, without status epilepticus; M20.11 Hallux valgus (acquired), right foot
CPT/HCPCS: 99284

== ENCOUNTER 2019-12-31 20:46 | Emergency (ER) | payer MEDICARE, OTHER ==
[~2019-12-31] VITALS: Ht 182.9 cm; Wt 68.0 kg
--- NOTE | 2019-12-31 20:59 | NUR ---
ED Nurse Note: pt brought into ED by who states pt has been "weak." per pt, he was told she was taking him to the bank and he ended up at [facility], pt goes back and forth about whether or not he wants to be seen, states "i don't know why i'm here." pt called for wheelchair assist and was drinking a bottle of whiskey in his car when certified cytotechnologist arrived to help pt into wheelchair. pt has slurred speech but is able to answer questions and follow commands.
[2019-12-31 21:05] VITALS: BP 96/56
--- NOTE | 2019-12-31 21:10 | NUR ---
ED Nurse Note: pt states he does not want any blood work or radiology scans right now, wants something for pain and to go home
[2019-12-31] MEDS ORDERED: NORCO 5-325 TA1 EAC1 ORAL (21:15)
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
--- NOTE | 2019-12-31 21:20 | NUR ---
ER DISCHARGE NOTE: Patient is cleared to be discharged per ERMD, pt is aox4, on room air, with stable vital signs. pt was given dc and prescription instructions, pt was able to verbalize understanding, pt id band and removed without complications. pt was assisted to car and left with all belongings.
[2019-12-31 21:21] VITALS: BP 96/56
== END 2019-12-31 21:25 | disposition home or self-care (01) ==
LOC: EMR 21:15
DX: G89.29 Other chronic pain (principal); I10 Essential (primary) hypertension; Z85.6 Personal history of leukemia; Z85.038 Personal history of other malignant neoplasm of large intestine; G40.909 Epilepsy, unspecified, not intractable, without status epilepticus; K74.60 Unspecified cirrhosis of liver
CPT/HCPCS: 99282

== ENCOUNTER 2020-01-24 19:37 | Inpatient (IN) | payer MEDICARE, OTHER ==
[~2020-01-24] VITALS: Ht 165.1 cm; Wt 65.8 kg
--- NOTE | 2020-01-24 19:40 | NUR ---
ED Nurse Note: pt CHRIS FOX RA 24 from home c/o generalized body pain that is worst in his stomach. pt has chronic px, denies any recent injury or trauma, no fall, SOB, dyspnea. pt states that he has liver cirrhosis, does not mention any other signs or symptoms at this time
[2020-01-24] MEDS ORDERED: HYDROcodone/Acetamin 10/325 tab ORAL ONE (19:45)
[2020-01-24 19:51] VITALS: BP 140/82
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
[2020-01-24] MEDS ORDERED: Thiamine HCl 100 MG in D5W 55 ML IVPB ONE (20:30)
--- NOTE | 2020-01-24 20:35 | NUR ---
HAND-OFF: Report given to PAULINA Hinojosa.
--- NOTE | 2020-01-24 20:37 | NUR ---
ED Nurse Note: Report endorsed from PAULINA Granados
[2020-01-24 20:38] LABS: BASOPHILS % (AUTO) 1.6 % (0.0-2.0); EOSINOPHILS % (AUTO) 0.1 % (0.0-3.0); HEMATOCRIT 24.5 % (42.0-52.0); HEMOGLOBIN 8.2 G/DL (14.2-18.0); LYMPHOCYTES % (AUTO) 29.3 % (20.0-45.0); MEAN CORPUSCULAR VOLUME 102 FL (80-99); MONOCYTES % (AUTO) 12.8 % (1.0-10.0); NEUTROPHILS % (AUTO) 56.2 % (45.0-75.0); PLATELET COUNT 108 K/UL (150-450); WHITE BLOOD COUNT 7.4 K/UL (4.8-10.8)
--- NOTE | 2020-01-24 21:05 | Diagnostic Imaging Report ---
EXAM: CT Head Without Intravenous Contrast CLINICAL HISTORY: AMS TECHNIQUE: Axial computed tomography images of the head/brain without intravenous contrast. CTDI is 53 mGy and DLP is 1099 mGy-cm. One or more of the following dose reduction techniques were used: automated exposure control, adjustment of the mA and/or kV according to patient size, use of iterative reconstruction technique. COMPARISON: 02/14/18 FINDINGS: Brain: Parenchymal volume loss. Nonspecific white matter hypoattenuation likely secondary to chronic microvascular ischemia. Cerebrovascular ASVD. No hemorrhage. Ventricles: Unremarkable. No ventriculomegaly. Bones/joints: Unremarkable. No acute fracture. Soft tissues: Unremarkable. Sinuses: Unremarkable as visualized. No acute sinusitis. Mastoid air cells: Unremarkable as visualized. No mastoid effusion. Sella: Partially empty sella turcica, which is a common and typically incidental finding. This can also be associated with hypopituitarism. IMPRESSION: 1. No acute intracranial abnormality. 2. Partially empty sella turcica, which is a common and typically incidental finding. This can also be associated with hypopituitarism. 3. Mild chronic senescent findings above. 4. Otherwise unremarkable study.
[2020-01-24 21:19] LABS: ANION GAP 31 mmol/L (5-15); BLOOD UREA NITROGEN 10 mg/dL (7-18); CALCIUM 10.1 MG/DL (8.5-10.1); CARBON DIOXIDE 13 MMOL/L (21-32); CHLORIDE 94 MMOL/L (98-107); CREATININE 1.5 MG/DL (0.55-1.30); POTASSIUM 4.6 MMOL/L (3.5-5.1); SODIUM 138 MMOL/L (136-145)
--- NOTE | 2020-01-24 21:27 | Diagnostic Imaging Report ---
EXAM: CT Abdomen and Pelvis Without Intravenous Contrast CLINICAL HISTORY: ABD PAIN TECHNIQUE: Axial computed tomography images of the abdomen and pelvis without intravenous contrast. CTDI is 5.2 mGy and DLP is 257 mGy-cm. One or more of the following dose reduction techniques were used: automated exposure control, adjustment of the mA and/or kV according to patient size, use of iterative reconstruction technique. Coronal and sagittal reformatted images were created and reviewed. COMPARISON: 10/21/2019 FINDINGS: Limitations: Lack of IV contrast limits study. Lung bases: Likely right base atelectasis with lateral pleural-based 1. 2 cm nodule, recommend follow-up unenhanced CT chest in 3 months to document resolution. ABDOMEN: Liver: Hepatic steatosis, correlate to exclude steatohepatitis. Gallbladder and bile ducts: Gallbladder sludge and distention without findings to suggest acute cholecystitis. This likely represents fasting state. Correlate with presentation. No ductal dilation. Pancreas: Unremarkable. No ductal dilation. Spleen: Unremarkable. No splenomegaly. Adrenals: Unremarkable. No mass. Kidneys and ureters: Benign left renal 2.6 cm cyst requiring no additional follow-up. Otherwise unremarkable kidneys. No obstructing stones. No hydronephrosis. Stomach and bowel: Colonic diverticulosis without acute diverticulitis. Midtransverse colon short segment circumferential mild wall thickening could be incidental or could represent an infectious or inflammatory colitis in the proper context. No obstruction. PELVIS: Appendix: No findings to suggest acute appendicitis. Bladder: Urinary bladder wall thickening. This could be incidental, correlate clinically to exclude infectious or inflammatory cystitis. No stones. Reproductive: Mild prostatomegaly 4.8 cm transverse. ABDOMEN and PELVIS: Intraperitoneal space: Unremarkable. No free air. No significant fluid collection. Bones/joints: No acute fracture. No dislocation. Soft tissues: Unremarkable. Vasculature: Atherosclerotic vascular disease. No abdominal aortic aneurysm. Lymph nodes: Unremarkable. No enlarged lymph nodes. IMPRESSION: 1. Lack of IV contrast limits study. 2. Midtransverse colon short segment circumferential mild wall thickening could be incidental or could represent an infectious or inflammatory colitis in the proper context. 3. Urinary bladder wall thickening. This could be incidental, correlate clinically to exclude infectious or inflammatory cystitis. 4. Gallbladder sludge and distention without findings to suggest acute cholecystitis. This likely represents fasting state. Correlate with presentation. 5. Likely right base atelectasis with lateral pleural-based 1.2 cm nodule, recommend follow-up unenhanced CT chest in 3 months to document resolution. 6. Hepatic steatosis, correlate to exclude steatohepatitis. 7. Mild prostatomegaly 4.8 cm transverse. 8. Colonic diverticulosis without acute diverticulitis.
[2020-01-24 21:29] LABS: ALANINE AMINOTRANSFERASE 19 U/L (12-78); ALBUMIN 3.8 G/DL (3.4-5.0); ALBUMIN/GLOBULIN RATIO 0.8 (1.0-2.7); ALKALINE PHOSPHATASE 63 U/L (46-116); ASPARTATE AMINO TRANSFERASE 77 U/L (15-37); BILIRUBIN,TOTAL 1.5 MG/DL (0.2-1.0)
[2020-01-24] MEDS ORDERED: Pantoprazole Inj IVP ONE (21:30)
[2020-01-24 21:36] LABS: BILIRUBIN,DIRECT 0.4 MG/DL (0.0-0.3)
[2020-01-24 23:00] VITALS: BP 132/82
--- NOTE | 2020-01-24 23:00 | NUR ---
ED Nurse Note: Pt resting in bed with eyes closed, non-labored breathing, no signs of distress, will continue to monitor while waiting for bed upstairs
[2020-01-25] VITALS (9 sets, daily range): BP systolic 17–141; BP diastolic 64–83
[2020-01-25 00:27] LABS: HEMATOCRIT 20.6 % (42.0-52.0); HEMOGLOBIN 7.6 G/DL (14.2-18.0); MEAN CORPUSCULAR VOLUME 93 FL (80-99); PLATELET COUNT 84 K/UL (150-450); RED CELL DISTRIBUTION WIDTH 16.5 % (11.6-14.8); WHITE BLOOD COUNT 8.8 K/UL (4.8-10.8)
--- NOTE | 2020-01-25 01:30 | NUR ---
ED Nurse Note: Offered pt water and assisted in repositioning. will continue to monitor
--- NOTE | 2020-01-25 02:15 | NUR ---
ED Nurse Note: called for [place] bed
--- NOTE | 2020-01-25 02:59 | NUR ---
ED Nurse Note: Pt placed in hillary bed
--- NOTE | 2020-01-25 06:00 | NUR ---
ED Nurse Note: Pt laying on right side in bed, with eyes closed, non-labored breathing, no signs of distress. IV fluids infusing per order, will continue to monitor
--- NOTE | 2020-01-25 07:09 | NUR ---
HAND-OFF: Report given to PAULINA Sinha.
--- NOTE | 2020-01-25 07:15 | NUR ---
ED Nurse Note: Pt resting on bed with non labored breathing. Noted breakfast on table. Pt states he is not hungry at this time.
--- NOTE | 2020-01-25 07:17 | NUR ---
ED Nurse Note: Daughter Joel Murray [phone]
[2020-01-25 07:20] LABS: APPEARANCE,URINE CLEAR; BILIRUBIN, URINE NEGATIVE (NEGATIVE); GLUCOSE, URINE (UA) NEGATIVE (NEGATIVE); KETONES,URINE 4+ (NEGATIVE); LEUKOCYTE ESTERASE ,URINE NEGATIVE (NEGATIVE); NITRITE,URINE NEGATIVE (NEGATIVE); PH,URINE 6 (4.5-8.0); PROTEIN,URINE 2+ (NEGATIVE); UROBILINOGEN,URINE 1 MG/DL (0.0-1.0)
[2020-01-25 07:27] LABS: COLOR,URINE YELLOW
--- NOTE | 2020-01-25 08:35 | NUR ---
ED Nurse Note: Water provided to pt.
--- NOTE | 2020-01-25 09:54 | NUR ---
ED Nurse Note: Iron panel specimen sent to lab.
[2020-01-25 10:25] LABS: IRON 214 ug/dL (50-175); TOTAL IRON BINDING CAPACITY 234 ug/dL (250-450)
[2020-01-25] MEDS ORDERED: Morphine Sulfate 2mg/ml Inj(IV/IM USE ONLY) IVP ONE (10:30)
[2020-01-25 10:32] LABS: % IRON SATURATION 91 % (15-50)
[2020-01-25] MEDS: D5 1/2NS 1,000 ML IV SCH ×2 (10:51→22:50)
--- NOTE | 2020-01-25 12:23 | NUR ---
ED Nurse Note: RN instructed pt to report any s/sx of transfusion reaction such as chest pain, itching, redness, back pain. Pt verbalized understanding of teachings.
--- NOTE | 2020-01-25 13:22 | NUR ---
ED Nurse Note: Report Afsoon of telemetry unit.
[2020-01-25] MEDS: HYDROcodone/Acetamin 5/325 tab ORAL PRN (15:02)
--- NOTE | 2020-01-25 15:30 | NUR ---
NURSE NOTES: pt doesn't remember the name of home meds, RN called daughter Joel, she told me Dr Jerry is primary MD and he knows the name of meds, RN called Dr jerry and left massage, waiting to call back. will continue to monitor.
--- NOTE | 2020-01-25 15:58 | NUR ---
NURSE NOTES: Received pt from FIRE SPRINKLER INSTALLERPAULINA Flores at 1440, all admission assessments and instructions done and pt verbally confirmed to understand all. pt is awake and alert, pt is in RA, no SOB or acute respiratory distress noted. pt has intact iv access LAC 20G blood was running. blood transfusion finished at 1450, no reaction noted. pt complaining generalized pain 10/10, [place] given as order. pt is on continues heart monitoring. all needs attended, bed is locked and is in the lowest position, call light within easy reach. will continue to monitor.
--- NOTE | 2020-01-25 17:15 | NUR ---
NURSE NOTES: RN called x3 to Dr Jerry office, left massage regarding DVT order, and the list of meds that pt doesn't have and pt stated Dr Jerry has, waiting to call back. will continue to monitor.
[2020-01-25] MEDS: Docusate 100mg cap ORAL SCH (18:36)
--- NOTE | 2020-01-25 19:07 | NUR ---
NURSE NOTES: the second bag of blood transfused at 1455 and finished 1800, no reaction noted. V/S stable. pt is complaining stomach pain, Dr Jerry is aware, no call back yet. will continue to monitor.
--- NOTE | 2020-01-25 19:46 | NUR ---
HAND-OFF: Report given to KARTIK Silverman, endorsed to F/U with Dr Jerry for DVT order and home meds and pt's abd pain, pt is awake and stable. Endoesed plan of care.
--- NOTE | 2020-01-25 20:00 | NUR ---
NURSE NOTES: RECEIVED PATIENT LYING IN BED, AWAKE, ALERT/ORIENTED X3, CONFUSED/FORGETFUL, ABDOMINAL PAIN/PAIN MANAGEMENT REINFORCED, VERBALIZED UNDERSTANDING. NO SIGNS AND SYMPTOMS OF ACUTE CARDIO RESPIRATORY DISTRESS/SHORTNESS OF BREATH, DENIES CHEST PAIN, CONTINUE ON RECORDS SUPERVISOR, NO EDEMA NOTED. IV INTACT, NO REDNESS/SWELLING NOTED TO SITE. ABDOMEN SOFT/NON DISTENDED/EPIGASTRIC TENDERNESS, NO N/V/D. SIDE RAILS UP X3/BED IN LOWEST POSITION FOR SAFETY, ENCOURAGED PATIENT TO UTILIZE CALL LIGHT FOR ASSISTANCE, VERBALIZED UNDERSTANDING. CONTINUE WITH CURRENT PLAN OF CARE. NAD.
[2020-01-25] MEDS: Tamsulosin 0.4mg cap ORAL SCH (21:37)
[2020-01-26] VITALS: BP 131/75
--- NOTE | 2020-01-26 | NUR ---
NURSE NOTES: REFUSED MIDNIGHT VITALS- Addendum: 01/26/20 at 0149 by TAVON DOLL LVN CHARGED IN ERROR-
[2020-01-26] MEDS: Sucralfate 1gm tab ORAL SCH ×4 (00:31→18:05)
[2020-01-26] MEDS ORDERED: Folic Acid 1 MG, Magnesium Sulfate 2,000 MG, Multivitamin - 12 Injection 10 ML in Sodiu... IV SCH (01:00)
--- NOTE | 2020-01-26 01:15 | Progress Note ---
DATE: 01/25/2020 CARDIOLOGY PROGRESS NOTE SUBJECTIVE: The patient's abdominal pain persisted, some nausea, no vomiting noted. He is more alert. PHYSICAL EXAMINATION: VITAL SIGNS: Blood pressure 130/74, pulse 91, respiratory rate 20, afebrile. Monitor sinus and sinus tachycardia. HEENT: Conjunctiva pink. Sclerae anicteric. LUNGS: Clear. ABDOMEN: Soft. Mildly tender in the midepigastric region. No guarding. EXTREMITIES: No edema. LABORATORY DATA: Hemoglobin 7.6, platelets 93,000, white count 8.8. INR 1.0. Urinalysis with no active sediment. IMPRESSION: 1. Alcoholism with alcohol intoxication. 2. Metabolic encephalopathy. 3. Acute pancreatitis. 4. Diverticulosis. 5. Possible colitis. 6. Possible cystitis. 7. Gallbladder sludge but no signs of cholecystitis. 8. 1.2 cm pleural based right lung nodule in the setting of COPD. 9. Hypertensive heart disease with low range blood pressure at times. 10. Secondary sinus tachycardia. 11. History of gastritis and GI bleeding. PLAN: 1. Packed red blood cell transfusion. 2. Cardiac monitoring. 3. Recheck laboratory studies. 4. Follow up CAT scan of the chest in several months. 5. Carafate, proton pump inhibitor, decrease antihypertensive dosing. 6. Withdrawal precautions. 7. Vitamin supplementation. 8. Decrease anti-HTN meds. 9. Discontinue cardiac monitoring over the next 24 hours if condition continues to improve. Adolfo Jerry M.D. DR: Dori JOB#: [id number] CC: JADA
[2020-01-26] MEDS: Thiamine 100mg in D5W 55ml IVPB SCH (01:18)
[2020-01-26 04:00] VITALS: BP 126/82
--- NOTE | 2020-01-26 06:32 | NUR ---
NURSE NOTES: RESTED WELL, NO SIGNIFICANT CHANGE OF CONDITION NOTED THROUGHOUT THE NIGHT. SAFETY MAINTAINED. NAD.
[2020-01-26 08:00] VITALS: BP 105/73
--- NOTE | 2020-01-26 08:13 | NUR ---
HAND-OFF: Report given to PAULINA HUNT.
--- NOTE | 2020-01-26 08:16 | NUR ---
NURSE NOTES: Received report from KARTIK Merida. Observed pt sleeping, no s/sx of acute distress, breathing even and unlabored in RA. IV site patent and asymptomatic, running IVF as ordered. bed on lowest position, call light within reach. Will continue plan of care.
[2020-01-26 08:21] LABS: HEMATOCRIT 32.9 % (42.0-52.0); HEMOGLOBIN 12.2 G/DL (14.2-18.0); MEAN CORPUSCULAR VOLUME 90 FL (80-99); PLATELET COUNT 90 K/UL (150-450); RED BLOOD COUNT 3.64 M/UL (4.70-6.10); RED CELL DISTRIBUTION WIDTH 15.3 % (11.6-14.8)
[2020-01-26 08:57] LABS: ALANINE AMINOTRANSFERASE 13 U/L (12-78); ALBUMIN 3.4 G/DL (3.4-5.0); ALKALINE PHOSPHATASE 51 U/L (46-116); AMYLASE 1082 U/L (25-115); ANION GAP 16 mmol/L (5-15); ASPARTATE AMINO TRANSFERASE 46 U/L (15-37); BILIRUBIN,DIRECT 0.8 MG/DL (0.0-0.3); BILIRUBIN,TOTAL 1.9 MG/DL (0.2-1.0); BLOOD UREA NITROGEN 13 mg/dL (7-18); CALCIUM 10.4 MG/DL (8.5-10.1); CARBON DIOXIDE 23 MMOL/L (21-32); CHLORIDE 94 MMOL/L (98-107); CHOLESTEROL 154 MG/DL (< 200); CREATININE 1.7 MG/DL (0.55-1.30); HDL CHOLESTEROL 76 MG/DL (40-60); SODIUM 133 MMOL/L (136-145); TRIGLYCERIDES 145 MG/DL (30-150)
[2020-01-26] MEDS: Atenolol 25mg tab ORAL SCH ×2 (09:00→09:45)
[2020-01-26] MEDS: Folic Acid 1 MG, Magnesium Sulfate 2,000 MG, Multivitamin - 12 Injection 10 ML in Sodiu... IV SCH (09:44)
[2020-01-26] MEDS: Docusate 100mg cap ORAL SCH ×3 (09:44→18:05)
[2020-01-26 12:00] VITALS: BP 104/74
--- NOTE | 2020-01-26 13:42 | NUR ---
CASE MANAGEMENT:REVIEW 74 YR OLD MALE BIBA CC: GENERALIZED PAIN. RAN OUT OF NORCO SI: ABDOMINAL PAIN. GIB. ALCOHOL ABUSE 97.0 106 12 140/82 97% ON RA H/H-8.2/24.5 PLT-108 SERUM ALCOHOL+115 IS: NORCO PO IV ZOFRAN IV THIAMINE CT HEAD/ABDOMEN/PELVIS : TO TELEMETRY 01/25/20 SI: H/H-7.6/20.6 IS: TRANSFUSE 1 UNIT PRBC'S IVF@125/HR IV MORPHINE X1 : TELEMETRY : TELEMETRY STATUS
--- NOTE | 2020-01-26 13:50 | NUR ---
NURSE NOTES: Reported to Dr Jerry that pt has been on ST (110s-140s). Per , it is due to alcohol withdrawal. Reported abnormal labs to and also reported that pt has 1x vomit this AM. MD ordered NPO diet (PO meds and ice chips okay) and Mg Sulfate IV 4g total.
[2020-01-26 16:00] VITALS: BP 105/72
[2020-01-26] MEDS: HYDROcodone/Acetamin 5/325 tab ORAL PRN (18:14)
--- NOTE | 2020-01-26 19:30 | Consultation ---
DATE OF CONSULTATION: 01/26/2020 PULMONARY CONSULTATION HISTORY OF PRESENT ILLNESS: This is a 74-year-old male who came to the hospital with abdominal pain. He also had nausea and emesis. The patient typically takes [place] at home. He reports generalized weakness. The patient reports history of GI bleed. REVIEW OF SYSTEMS: Denies any headaches, hematemesis, melena, hematochezia, night sweats, or weight loss. PAST MEDICAL HISTORY: Hypertension, colon CA, leukemia, previous pancreatitis, gout, seizure disorder, headaches, generalized fatigue. HOME MEDICATIONS: Reviewed and reconciled in chart. PHYSICAL EXAMINATION: GENERAL: Reveals a 74-year-old female. VITAL SIGNS: O2 saturation 98% on room air, blood pressure 105/70, heart rate 110, respirations 18. HEENT: Unremarkable. VITAL SIGNS: Clear breath sounds bilaterally. ABDOMEN: Soft. EXTREMITIES: There is no edema LABORATORY DATA: Lab testing shows hemoglobin 12.2 status post transfusion, previous was 7.6. Creatinine 1.7. Amylase 1082. Lipase 652. IMPRESSION: 1. Pancreatitis. 2. Renal dysfunction. 3. History of colon cancer. 4. History of leukemia. DISCUSSION: Admitted to the hospital. Continue current medications and care. GI evaluation noted. Evaluation of lung parenchyma and CT shows right base atelectasis with pleural-based nodules. Currently, the patient is doing well from pulmonary standpoint. We will follow carefully. Shawn Donohue M.D. DR: Pito JOB#: [id number] CC:
--- NOTE | 2020-01-26 19:31 | NUR ---
HAND-OFF: Report given to PAULINA Contreras. Pt in stable condition, endorsed plan of care.
--- NOTE | 2020-01-26 19:50 | NUR ---
NURSE NOTES: Received pt from PAULINA Tamayo. Pt asleep. Bed in lowest position. Call light within reach. Will continue to monitor.
[2020-01-26] MEDS: Tamsulosin 0.4mg cap ORAL SCH ×2 (21:00→21:25)
[2020-01-26 21:25] VITALS: BP 107/73
[2020-01-26] MEDS: levETIRAcetam 500mg/NS100ml 100 ML IVPB SCH (21:42)
[2020-01-27] VITALS (7 sets, daily range): BP systolic 101–122; BP diastolic 50–78
[2020-01-27] MEDS: Thiamine 100mg in D5W 55ml IVPB SCH (00:25)
--- NOTE | 2020-01-27 01:45 | Progress Note ---
DATE: 01/26/2020 The patient is anxious and complaining of increasing pain. Rapid heart rates are noted. Monitor, sinus tachycardia up to 140. PHYSICAL EXAMINATION: VITAL SIGNS: Blood pressure 104/74, pulse 121, respirations 18, temperature 96.1, oxygen saturation 97% on room air. LUNGS: Diminished breath sounds. No wheezing. CARDIAC: Regular rhythm. Rapid rate. Normal S1, S2 with no murmur. ABDOMEN: Slightly distended. Tender in the midepigastric region with no guarding or rebound. EXTREMITIES: No edema. LABORATORY DATA: White count 9, hemoglobin 12. Sodium 133, potassium 4, bicarb 23, chloride 94, BUN 13, creatinine 1.7. Amylase 1080, lipase over 2000, triglycerides 145, magnesium 1.2. IMPRESSION: 1. Acute pancreatitis. 2. Alcohol intoxication and withdrawal. 3. Sinus tachycardia. 4. Lung nodule. 5. COPD. 6. Diverticulosis. 7. History of gastritis and GI bleeding. 8. Anemia. 9. Hypomagnesemia. PLAN: 1. NPO. Pain controlled by IV route. 2. IV fluid hydration. 3. IV magnesium. 4. Discontinue all oral meds including antilipid therapy for now. 5. GI consultation to follow. Adolfo Jerry M.D. DR: MARIO JOB#: [id number] CC:
[2020-01-27] MEDS: Morphine Sulfate 2mg/ml Inj(IV/IM USE ONLY) IVP PRN ×2 (02:09→10:35)
--- NOTE | 2020-01-27 02:45 | History and Physical Report ---
DATE OF ADMISSION: 01/24/2020 REASON FOR ADMISSION: Abdominal pain in the setting of alcohol intoxication. HISTORY OF PRESENT ILLNESS: This is a 74-year-old male. He has had increasing mid epigastric pain with vomiting. He has a history of chronic narcotic analgesic use due to multiple chronic illnesses. Most recently, he suffered a severe right shoulder rotator cuff surgery with postoperative infection. The patient recently has been drinking more alcohol. He has had more difficulty with ambulation. He has been weaker than usual according to his . He has not had any vomiting of blood or melena, but does have a prior history of gastritis and gastrointestinal bleeding. The patient also has been transiently unconscious or nonverbal while his daughter was speaking to him on the phone. Based on this presentation, hospitalization was initiated. MEDICATIONS: Reviewed and reconciled. Compliance not clear. ALLERGIES: None known. PAST MEDICAL HISTORY: Includes hypertension, COPD, gastritis, seizure disorder, GI bleeding, gastroesophageal reflux disease, rotator cuff surge.ry, degenerative disc disease, possible history of colon cancer, history of pancreatitis, and history of hyperuricemia and gout. FAMILY HISTORY: Noncontributory. SOCIAL HISTORY: Nonsmoker. Prior history of substance abuse. He has current history of alcohol binging. REVIEW OF SYSTEMS: Notable for the patient has not had any known contacts with cool with COVID-19 patients. He has not had any flu like and he has not had any signs or symptoms of suggestive of COVID-19 infection. He has not been tested however. PHYSICAL EXAMINATION: VITAL SIGNS: Blood pressure 140/82, pulse 106, respiratory rate 12, afebrile room air oxygen 97%. HEENT: Conjunctivae are pink. Oropharynx clear. NECK: Supple. LUNGS: Diminished breath sounds. CARDIAC: Regular rhythm. Rapid rate. Normal S1, S2 with a fourth heart sound. ABDOMEN: Slightly distended, but soft. Tender at the midepigastric region. No guarding or rebound. Stool occult blood is refused. There is no CVA tenderness. NEUROLOGIC: Reveals slight slurring of the speech, but coherent. Alert and oriented x3. No motor deficit. LABORATORY DATA: White count 7.4, hemoglobin 8.2, amylase 600, albumin 3.8. Sodium 138, potassium 4.6, bicarb 13, BUN 10, and creatinine 1.5, glucose 64, and alcohol 115. IMPRESSION: 1. Alcohol intoxication. 2. Alcohol withdrawal. 3. Sinus tachycardia. 4. Probable acute pancreatitis. 5. Seizure disorder. 6. Metabolic acidosis. 7. Toxic encephalopathy. 8. Metabolic encephalopathy. 9. Hypertensive heart disease. 10. Anemia, chronic and possibly acute. PLAN: 1. Withdrawal precautions. 2. Cardiac monitoring hydration and vitamin supplementation. 3. Follow up pancreatic and biliary enzymes as well as liver function studies. 4. Liquid diet for now. 5. Proton pump inhibitor therapy to be added. 6. Monitor hemoglobin. Adolfo Jerry M.D. DR: Beck JOB#: [id number] CC:
[2020-01-27 07:08] LABS: HEMATOCRIT 29.7 % (42.0-52.0); HEMOGLOBIN 10.9 G/DL (14.2-18.0); MEAN CORPUSCULAR VOLUME 90 FL (80-99); PLATELET COUNT 93 K/UL (150-450); RED CELL DISTRIBUTION WIDTH 14.8 % (11.6-14.8); WHITE BLOOD COUNT 9.8 K/UL (4.8-10.8)
[2020-01-27 07:30] LABS: ALANINE AMINOTRANSFERASE 11 U/L (12-78); ALBUMIN 3.1 G/DL (3.4-5.0); ALBUMIN/GLOBULIN RATIO 0.8 (1.0-2.7); ALKALINE PHOSPHATASE 52 U/L (46-116); ANION GAP 11 mmol/L (5-15); ASPARTATE AMINO TRANSFERASE 36 U/L (15-37); BILIRUBIN,TOTAL 1.6 MG/DL (0.2-1.0); BLOOD UREA NITROGEN 15 mg/dL (7-18); CALCIUM 10.4 MG/DL (8.5-10.1); CARBON DIOXIDE 26 MMOL/L (21-32); CHLORIDE 97 MMOL/L (98-107); CREATININE 1.5 MG/DL (0.55-1.30); POTASSIUM 3.7 MMOL/L (3.5-5.1); SODIUM 133 MMOL/L (136-145)
[2020-01-27 07:32] LABS: BILIRUBIN,DIRECT 0.9 MG/DL (0.0-0.3)
--- NOTE | 2020-01-27 07:42 | NUR ---
HAND-OFF: Report given to jennyfer Kearns. pt stable.
--- NOTE | 2020-01-27 07:55 | NUR ---
NURSE NOTES: Received report from PAULINA Contreras. Observed pt sleeping, no s/sx of acute distress, breathing even and unlabored in RA. IV site patent and asymptomatic. 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 Bed on lowest position, call light within reach. Will continue plan of care. Addendum: 01/27/20 at 1208 by Lorin Jara RN Side rails padded for seizure precaution.
[2020-01-27] MEDS: Folic Acid 1 MG, Magnesium Sulfate 2,000 MG, Multivitamin - 12 Injection 10 ML in Sodiu... IV SCH (08:00)
--- NOTE | 2020-01-27 08:34 | General Progress Note ---
Assessment/Plan Problem List: (1) Alcohol withdrawal delirium ICD Codes: F10.231 - Alcohol dependence with withdrawal delirium SNOMED: 8815498 (2) Pancreatitis, alcoholic, acute ICD Codes: K85.20 - Alcohol induced acute pancreatitis without necrosis or infection SNOMED: 879757143 (3) Nausea & vomiting (4) Colitis (5) Abdominal pain (6) Seizure disorder ICD Codes: G40.909 - Epilepsy, unspecified, not intractable, without status epilepticus SNOMED: 799192269 (7) HTN (hypertension) ICD Codes: I10 - Essential (primary) hypertension SNOMED: 12302210 (8) Alcohol abuse ICD Codes: F10.10 - Alcohol abuse, uncomplicated SNOMED: 35544253 Status: stable, not improved Assessment/Plan: IVF pain rx anxiolytics vitamine supplements dvt prophylaxis PPI Subjective ROS Limited/Unobtainable: No Constitutional: Reports: malaise, weakness HEENT: Reports: no symptoms Cardiovascular: Reports: no symptoms Respiratory: Reports: no symptoms Gastrointestinal/Abdominal: Reports: abdominal pain Genitourinary: Reports: no symptoms Neurologic/Psychiatric: Reports: depressed Endocrine: Reports: no symptoms Hematologic/Lymphatic: Reports: anemia Allergies: Coded Allergies: No Known Allergies (Verified , 08/14/08) All Systems: reviewed and negative except above Subjective no events. resting. sleepy and lethargic. Lipase elevated. c/o generalized pain. no fevers or chills. no nausea or vomiting. on ivf. tachycardic Objective Last 24 Hour Vital Signs Date Time Temp Pulse Resp B/P (MAP) Pulse Ox O2 Delivery O2 Flow Rate FiO2 01/27/20 06:09 111 104/72 (83) 01/27/20 04:00 99 01/27/20 00:00 106 01/27/20 00:00 95.0 106 120/78 (92) 98 01/26/20 21:25 96.4 118 107/73 (84) 01/26/20 21:00 Room Air 01/26/20 16:14 119 01/26/20 16:00 97.5 121 20 105/72 (83) 93 01/26/20 12:00 96.1 121 18 104/74 (84) 97 01/26/20 11:42 131 01/26/20 09:00 Room Air 01/26/20 09:00 127 105/73 01/26/20 09:00 127 105/73 Intake and Output 01/26/20 01/27/20 19:00 07:00 # Voids 2 2 Laboratory Tests 01/27/20 05:59: White Blood Count 9.8, Red Blood Count 3.30L, Hemoglobin 10.9L, Hematocrit 29.7L , Mean Corpuscular Volume 90, Mean Corpuscular Hemoglobin 33.2H, Mean Corpuscular Hemoglobin Concent 36.8H, Red Cell Distribution Width 14.8, Platelet Count 93L, Mean Platelet Volume 8.7, Neutrophils (%) (Auto) , Lymphocytes (%) (Auto) , Monocytes (%) (Auto) , Eosinophils (%) (Auto) , Basophils (%) (Auto) , Neutrophils % (Manual) [Pending], Lymphocytes % (Manual) [Pending], Platelet Estimate [Pending], Platelet Morphology [Pending], Sodium Level 133L, Potassium Level 3.7, Chloride Level 97L, Carbon Dioxide Level 26, Anion Gap 11, Blood Urea Nitrogen 15, Creatinine 1.5H, Estimat Glomerular Filtration Rate 55.1, Glucose Level 124H, Uric Acid 7.4H, Calcium Level 10.4H, Total Bilirubin 1.6H, Direct Bilirubin 0.9H, Aspartate Amino Transf (AST/SGOT) 36, Alanine Aminotransferase (ALT/SGPT) 11L, Alkaline Phosphatase 52, Total Protein 7.1, Albumin 3.1L, Globulin 4.0, Albumin/Globulin Ratio 0.8L, Lipase > 2000H Height (Feet): 5 Height (Inches): 10.00 Weight (Pounds): 145 General Appearance: WD/WN, lethargic EENT: PERRL/EOMI, normal ENT inspection Neck: non-tender, normal alignment, supple Cardiovascular: normal peripheral pulses, normal rate, regular rhythm Respiratory/Chest: chest wall non-tender, lungs clear, normal breath sounds, no respiratory distress Abdomen: normal bowel sounds, non tender, soft, no organomegaly Extremities: normal range of motion, non-tender, normal inspection Neurologic: alert, responsive Skin: normal pigmentation Lymphatic: normal anterior cervical (L), normal anterior cervical (R) Pedro Cerda MD January 27, 2020 08:34
[2020-01-27] MEDS: Docusate 100mg cap ORAL SCH ×3 (08:44→17:31)
[2020-01-27] MEDS: levETIRAcetam 500mg/NS100ml 100 ML IVPB SCH ×2 (08:45→21:32)
[2020-01-27] MEDS: Atenolol 25mg tab ORAL SCH (08:45)
[2020-01-27] MEDS ORDERED: Pantoprazole Inj IVP SCH (09:00)
--- NOTE | 2020-01-27 10:53 | Pulmonology Progress Note ---
Subjective ROS Limited/Unobtainable: No Interval Events: None new Constitutional: Reports: no symptoms HEENT: Repors: no symptoms Respiratory: Reports: no symptoms Cardiovascular: Reports: no symptoms Gastrointestinal/Abdominal: Reports: no symptoms Allergies: Coded Allergies: No Known Allergies (Verified , 08/14/08) All Systems: reviewed and negative except above Objective Last 24 Hour Vital Signs Date Time Temp Pulse Resp B/P (MAP) Pulse Ox O2 Delivery O2 Flow Rate FiO2 01/27/20 08:45 87 101/50 01/27/20 08:00 96.8 108 20 109/71 (84) 98 01/27/20 07:42 110 01/27/20 06:09 111 104/72 (83) 01/27/20 04:00 99 01/27/20 00:00 106 01/27/20 00:00 95.0 106 120/78 (92) 98 01/26/20 21:25 96.4 118 107/73 (84) 01/26/20 21:00 Room Air 01/26/20 16:14 119 01/26/20 16:00 97.5 121 20 105/72 (83) 93 01/26/20 12:00 96.1 121 18 104/74 (84) 97 01/26/20 11:42 131 Intake and Output 01/26/20 01/27/20 19:00 07:00 # Voids 2 2 General Appearance: no acute distress HEENT: normocephalic Respiratory: chest wall non-tender Cardiovascular: normal peripheral pulses Abdomen: normal bowel sounds Laboratory Tests 01/27/20 05:59: White Blood Count 9.8, Red Blood Count 3.30L, Hemoglobin 10.9L, Hematocrit 29.7L , Mean Corpuscular Volume 90, Mean Corpuscular Hemoglobin 33.2H, Mean Corpuscular Hemoglobin Concent 36.8H, Red Cell Distribution Width 14.8, Platelet Count 93L, Mean Platelet Volume 8.7, Neutrophils (%) (Auto) , Lymphocytes (%) (Auto) , Monocytes (%) (Auto) , Eosinophils (%) (Auto) , Basophils (%) (Auto) , Differential Total Cells Counted 100, Neutrophils % ( Manual) 82H, Lymphocytes % (Manual) 8L, Monocytes % (Manual) 10, Eosinophils % ( Manual) 0, Basophils % (Manual) 0, Band Neutrophils 0, Platelet Estimate DecreasedL, Platelet Morphology Normal, Hypochromasia 1+, Anisocytosis 1+, Sodium Level 133L, Potassium Level 3.7, Chloride Level 97L, Carbon Dioxide Level 26, Anion Gap 11, Blood Urea Nitrogen 15, Creatinine 1.5H, Estimat Glomerular Filtration Rate 55.1, Glucose Level 124H, Uric Acid 7.4H, Calcium Level 10.4H, Total Bilirubin 1.6H, Direct Bilirubin 0.9H, Aspartate Amino Transf (AST/SGOT) 36, Alanine Aminotransferase (ALT/SGPT) 11L, Alkaline Phosphatase 52, Total Protein 7.1, Albumin 3.1L, Globulin 4.0, Albumin/Globulin Ratio 0.8L, Lipase > 2000H Current Medications Medications (Trade) Dose Ordered Sig/[place] Route PRN Reason Start Time Stop Time Status Last Admin Dose Admin Acetaminophen (Tylenol) 650 mg Q4HR PRN ORAL TEMP>100.5 01/25/20 02:45 Atenolol (Tenormin) 25 mg DAILY ORAL 01/26/20 09:00 02/25/20 08:59 Docusate Sodium (Colace) 100 mg TID ORAL 01/25/20 18:00 02/24/20 17:59 01/27/20 08:44 Folic Acid 1 mg/ Magnesium Sulfate 2000 mg/ Multivitamins 10 ml/Sodium Chloride 1,014.2 ml @ 125 mls/ hr Q24H IV 01/26/20 08:00 02/25/20 07:59 01/27/20 08:00 Levetiracetam 100 ml @ 400 mls/hr Q12HR IVPB 01/26/20 22:00 04/25/20 21:59 01/27/20 08:45 Morphine Sulfate (Morphine Sulfate) 2 mg Q4H PRN IVP For Pain 01/26/20 20:46 02/02/20 20:45 01/27/20 10:35 Pantoprazole (Protonix) 40 mg DAILY IVP 01/27/20 09:00 02/26/20 08:59 01/27/20 08:44 Sodium Chloride 1,000 ml @ 100 mls/hr Q10H IV 01/26/20 20:45 02/25/20 20:44 01/26/20 21:25 Tamsulosin HCl (Flomax) 0.4 mg BEDTIME ORAL 5/25/20 21:00 02/24/20 20:59 01/25/20 21:37 Thiamine HCl 100 mg/Dextrose 56 ml @ 112 mls/hr Q24H IVPB 01/26/20 01:00 02/25/20 00:59 01/27/20 00:25 Assessment/Plan Assessment/Plan IMPRESSION: 1. Pancreatitis. 2. Renal dysfunction. 3. History of colon cancer. 4. History of leukemia. DISCUSSION: Continue current medications and care. GI evaluation noted. Evaluation of lung parenchyma upon CT shows right base atelectasis with pleural- based nodules. Currently, the patient is doing well from pulmonary standpoint. I will follow carefully. Shawn Donohue M.D. Shawn Donohue MD January 27, 2020 10:53
--- NOTE | 2020-01-27 11:09 | NUR ---
CASE MANAGEMENT:REVIEW 01/27/20 SI: ALCOHOL WITHDRAWAL ENCEPHALOPATHY. PANCREATITIS T~95.0 HR~118 RR~20 BP~101/50 SAT~98% ON RA LIPASE+>2000 CR+1.5 IS: IV PROTONIX QD IV KEPPRA Q12 IVF@100/HR IV BANANA BAG Q24 IV THIAMINE Q24 ATENOLOL PO QD FLOMAX PO QHS COLACE PO TID : TELEMETRY STATUS DCP: FROM HOME
--- NOTE | 2020-01-27 12:22 | General Progress Note ---
Assessment/Plan Status: stable, not improved Assessment/Plan: Assessment - long standing alcoholism - drop in H&H / transfused, possible GIB - EtOH hepatitis - EtOH pancreatitis - Encephalopathy / delirium, possibly withdrawal syndrome Recommendations - NPO - IVF - MVI, Thiamine, Electrolyte replacement - PPI - follow labs and exam - EGD later this week - Daughter Joel Murray has DPOA ([phone]) Thank you Suman Chery MD Subjective Allergies: Coded Allergies: No Known Allergies (Verified , 08/14/08) Objective Last 24 Hour Vital Signs Date Time Temp Pulse Resp B/P (MAP) Pulse Ox O2 Delivery O2 Flow Rate FiO2 01/27/20 09:00 Room Air 01/27/20 08:45 87 101/50 01/27/20 08:00 96.8 108 20 109/71 (84) 98 01/27/20 07:42 110 01/27/20 06:09 111 104/72 (83) 01/27/20 04:00 99 01/27/20 00:00 106 01/27/20 00:00 95.0 106 120/78 (92) 98 01/26/20 21:25 96.4 118 107/73 (84) 01/26/20 21:00 Room Air 01/26/20 16:14 119 01/26/20 16:00 97.5 121 20 105/72 (83) 93 Intake and Output 01/26/20 01/27/20 19:00 07:00 # Voids 2 2 Laboratory Tests 01/27/20 05:59: White Blood Count 9.8, Red Blood Count 3.30L, Hemoglobin 10.9L, Hematocrit 29.7L , Mean Corpuscular Volume 90, Mean Corpuscular Hemoglobin 33.2H, Mean Corpuscular Hemoglobin Concent 36.8H, Red Cell Distribution Width 14.8, Platelet Count 93L, Mean Platelet Volume 8.7, Neutrophils (%) (Auto) , Lymphocytes (%) (Auto) , Monocytes (%) (Auto) , Eosinophils (%) (Auto) , Basophils (%) (Auto) , Differential Total Cells Counted 100, Neutrophils % ( Manual) 82H, Lymphocytes % (Manual) 8L, Monocytes % (Manual) 10, Eosinophils % ( Manual) 0, Basophils % (Manual) 0, Band Neutrophils 0, Platelet Estimate DecreasedL, Platelet Morphology Normal, Hypochromasia 1+, Anisocytosis 1+, Sodium Level 133L, Potassium Level 3.7, Chloride Level 97L, Carbon Dioxide Level 26, Anion Gap 11, Blood Urea Nitrogen 15, Creatinine 1.5H, Estimat Glomerular Filtration Rate 55.1, Glucose Level 124H, Uric Acid 7.4H, Calcium Level 10.4H, Total Bilirubin 1.6H, Direct Bilirubin 0.9H, Aspartate Amino Transf (AST/SGOT) 36, Alanine Aminotransferase (ALT/SGPT) 11L, Alkaline Phosphatase 52, Total Protein 7.1, Albumin 3.1L, Globulin 4.0, Albumin/Globulin Ratio 0.8L, Lipase > 2000H Height (Feet): 5 Height (Inches): 10.00 Weight (Pounds): 145 Suman Chery MD January 27, 2020 12:22
[2020-01-27] MEDS ORDERED: Morphine Sulfate 2mg/ml Inj(IV/IM USE ONLY) IVP PRN ×2 (13:48→19:00)
--- NOTE | 2020-01-27 16:26 | NUR ---
HAND-OFF: Report given to PAULINA Birch. Pt in stable condition, endorsed plan of care.
--- NOTE | 2020-01-27 18:07 | NUR ---
NURSE NOTES: Paged Dr. Chery regarding NPO status, MD made aware patient NPO since 01/25, no vomiting at this time. Per MD lipase still high want to continue NPO. No order received at this time. Will continue to monitor.
--- NOTE | 2020-01-27 18:54 | NUR ---
NURSE NOTES: Patient awake, alert x2; on room air, no sing of distress and shortness of breath; no sing of chest pain; IV Left For-Arm Banan bag and NS running; Condom Cath in place, drains yellow urine; patient NPO except meds and ice chips; seizure percussion in place; side rails up x2, breaks engaged, bed at lowest position, bed alarm on; call light within reach; belonging list counted and crossed match, signed by transferring and receiving nurses; I also received antibiotics; will keep monitoring.
--- NOTE | 2020-01-27 18:56 | NUR ---
TRANSFER TO FLOOR: Patient transferred to 4E, per Dr. Jerry. Report given to PAULINA Andrew . Belongings and medications given to PAULINA Andrew. Family and or S/O informed of transfer.
--- NOTE | 2020-01-27 19:00 | NUR ---
NURSE NOTES: I received report from PAULINA Birch; per report patient scheduled for EGD for 01/29/2020; patient ANISA Sparkscristobal Murray, alhajis MD Chery to call her before giving a telephone consent; however the transfering nurse couldn't have the telephone number;
--- NOTE | 2020-01-27 19:30 | Consultation ---
DATE OF CONSULTATION: 01/27/2020 CHIEF COMPLAINT: I was asked to see this patient by Dr. Adolfo Jerry for evaluation of drop in hematocrit and pancreatitis. HISTORY OF PRESENT ILLNESS: The patient is a 74-year-old man with longstanding history of alcoholism and alcohol abuse, who comes into the hospital with some degree of confusion, alcoholic intoxication, and withdrawal syndrome. He is not a good historian. According to his daughter, he is confused and paranoid. She has a power of senior attorney on this patient to make medical decisions and she will fax the paperwork over. The daughter's name is Joel Murray and she can be reached at [phone]. She lives in [facility]. According to the daughter, the patient lives with a girlfriend, but living situation is poor and he has been drinking for many years. He came to the hospital with intoxication with alcohol. The laboratory parameters also showed evidence of alcoholic pancreatitis. In addition, in this hospitalization hematocrit dropped significantly without any reports of actual rectal bleeding per chart notes. The patient will require two units of blood transfusion. He has not had any more bleeding or bowel movements in the last three to four hours. He does complain of some abdominal pain. PAST MEDICAL HISTORY: History of alcoholism, degenerative joint disease of the lumbar spine, history of urticaria, hemorrhoids, diverticulosis with diverticular bleeding, history of back pain, leukopenia, alcoholism, seizure disorder, alcohol withdrawal syndrome, hypertension, pancreatitis. FAMILY HISTORY: Noncontributory. SOCIAL HISTORY: The patient lives with a girlfriend. He has excessive alcohol use. REVIEW OF SYSTEMS: Otherwise negative. PHYSICAL EXAMINATION: GENERAL: Elderly man seen in his room. HEENT: Normocephalic and atraumatic. Sclerae anicteric. Oropharynx clear. NECK: Supple. CHEST: Clear to auscultation. CARDIOVASCULAR: Regular rate. ABDOMEN: Soft, but mildly distended with epigastric abdominal tenderness. EXTREMITIES: Revealed no edema. LABORATORY AND DIAGNOSTIC DATA: Laboratory data was noted. Imaging studies reviewed. ASSESSMENT: This patient presents with a longstanding history of alcoholism and now has some degree of mental status disorder with some degree of delirium and encephalopathy, which may be followed by alcohol withdrawal syndrome. The patient should receive thiamine supplementation as well as multivitamins and IV fluid support. He did drop his hematocrit and required a blood transfusion, but there was no overt bleeding reported. Endoscopy can be done later this week to evaluate the upper GI tract. In the meantime, the patient also has alcoholic hepatitis and alcoholic pancreatitis which was treated supportively. I would check his hepatitis B and C markers for any concomitant bile disease. The patient will clearly need to stop drinking alcohol on a long-term basis and he may need some degree of rehabilitation after this admission. RECOMMENDATIONS: 1. Keep the patient NPO. 2. IV fluids. 3. Proton pump inhibitor. 4. Followup laboratory parameters and exam. 5. Transfuse as needed. 6. Endoscopy later this week. 7. Check hepatitis serologies. Thank you for asking me to participate in the care of this patient Suman Chery M.D. DR: Abhilash JOB#: [id number] CC: JADA
--- NOTE | 2020-01-27 19:51 | NUR ---
HAND-OFF: Report given to PAULINA Krishnamurthy.
--- NOTE | 2020-01-27 19:52 | NUR ---
NURSE NOTES: Receive Patient awake alert x2; on room air, no sob, no pain ,no fever and no cough; IV Left For-Arm Banan bag and NS running. patient is NPO except meds and ice chip. Condom Cath in place. Bed in the lowest position,locked and alarm on. Call light within reach. We will keep monitoring the patien.
[2020-01-27] MEDS: Tamsulosin 0.4mg cap ORAL SCH (21:32)
[2020-01-28] VITALS: BP 131/58
[2020-01-28] MEDS: Thiamine HCl 100 MG in D5W 55 ML IVPB SCH (00:30)
[2020-01-28 04:00] VITALS: BP 134/59
[2020-01-28 06:19] LABS: HEMATOCRIT 25.1 % (42.0-52.0); HEMOGLOBIN 9.2 G/DL (14.2-18.0); MEAN CORPUSCULAR VOLUME 90 FL (80-99); PLATELET COUNT 90 K/UL (150-450); RED BLOOD COUNT 2.77 M/UL (4.70-6.10); WHITE BLOOD COUNT 12.2 K/UL (4.8-10.8)
[2020-01-28 07:05] LABS: ALANINE AMINOTRANSFERASE 7 U/L (12-78); ALBUMIN 2.7 G/DL (3.4-5.0); ALBUMIN/GLOBULIN RATIO 0.7 (1.0-2.7); ALKALINE PHOSPHATASE 58 U/L (46-116); ANION GAP 8 mmol/L (5-15); ASPARTATE AMINO TRANSFERASE 33 U/L (15-37); BILIRUBIN,TOTAL 1.6 MG/DL (0.2-1.0); BLOOD UREA NITROGEN 11 mg/dL (7-18); CALCIUM 10.2 MG/DL (8.5-10.1); CARBON DIOXIDE 25 MMOL/L (21-32); CHLORIDE 101 MMOL/L (98-107); CREATININE 1.3 MG/DL (0.55-1.30); POTASSIUM 3.2 MMOL/L (3.5-5.1); SODIUM 134 MMOL/L (136-145)
[2020-01-28 07:08] LABS: BILIRUBIN,DIRECT 0.9 MG/DL (0.0-0.3)
--- NOTE | 2020-01-28 07:20 | NUR ---
HAND-OFF: Report given to PAULINA Olivares. Endorsed the pt is fall risk .
[2020-01-28 08:00] VITALS: BP 136/84
--- NOTE | 2020-01-28 08:11 | General Progress Note ---
Assessment/Plan Problem List: (1) Alcohol withdrawal delirium ICD Codes: F10.231 - Alcohol dependence with withdrawal delirium SNOMED: 2193587 (2) Pancreatitis, alcoholic, acute ICD Codes: K85.20 - Alcohol induced acute pancreatitis without necrosis or infection SNOMED: 132309103 (3) Nausea & vomiting (4) Colitis (5) Abdominal pain (6) Seizure disorder ICD Codes: G40.909 - Epilepsy, unspecified, not intractable, without status epilepticus SNOMED: 580282506 (7) HTN (hypertension) ICD Codes: I10 - Essential (primary) hypertension SNOMED: 11463773 (8) Alcohol abuse ICD Codes: F10.10 - Alcohol abuse, uncomplicated SNOMED: 11897383 Status: stable, not improved Assessment/Plan: IVF replace k monitor labs add iv abx pain rx anxiolytics vitamine supplements dvt prophylaxis PPI Subjective ROS Limited/Unobtainable: No Constitutional: Reports: malaise, weakness HEENT: Reports: no symptoms Cardiovascular: Reports: no symptoms Respiratory: Reports: no symptoms Gastrointestinal/Abdominal: Reports: abdominal pain Genitourinary: Reports: no symptoms Neurologic/Psychiatric: Reports: anxiety, emotional problems Endocrine: Reports: no symptoms Hematologic/Lymphatic: Reports: no symptoms Allergies: Coded Allergies: No Known Allergies (Verified , 08/14/08) All Systems: reviewed and negative except above Subjective no events. c/o abd pain. confused. no fever or chills. no chest pain low k. lipase >2000. wbc trending up Objective Last 24 Hour Vital Signs Date Time Temp Pulse Resp B/P (MAP) Pulse Ox O2 Delivery O2 Flow Rate FiO2 01/28/20 04:00 98.0 98 18 134/59 (84) 94 01/28/20 00:00 97.9 94 18 131/58 (82) 94 01/27/20 21:00 Room Air 01/27/20 20:00 97.9 101 20 122/67 (85) 95 01/27/20 18:50 97.9 107 20 122/67 (85) 97 01/27/20 16:00 97.0 109 20 103/65 (78) 96 01/27/20 15:12 104 01/27/20 12:00 97.5 104 18 105/71 (82) 97 01/27/20 11:48 97 01/27/20 09:00 Room Air 01/27/20 08:45 87 101/50 Intake and Output 01/27/20 01/28/20 19:00 07:00 Intake Total 512 ml Output Total 500 ml Balance 12 ml IV Total 512 ml Output Urine Total 500 ml # Voids 2 1 Laboratory Tests 01/28/20 05:40: White Blood Count 12.2H, Red Blood Count 2.77L, Hemoglobin 9.2L, Hematocrit 25.1L, Mean Corpuscular Volume 90, Mean Corpuscular Hemoglobin 33.3H, Mean Corpuscular Hemoglobin Concent 36.8H, Red Cell Distribution Width 15.0H, Platelet Count 90L, Mean Platelet Volume 9.1, Neutrophils (%) (Auto) , Lymphocytes (%) (Auto) , Monocytes (%) (Auto) , Eosinophils (%) (Auto) , Basophils (%) (Auto) , Sodium Level 134L, Potassium Level 3.2L, Chloride Level 101, Carbon Dioxide Level 25, Anion Gap 8, Blood Urea Nitrogen 11, Creatinine 1.3, Estimat Glomerular Filtration Rate > 60, Glucose Level 120H, Calcium Level 10.2H, Total Bilirubin 1.6H, Direct Bilirubin 0.9H, Aspartate Amino Transf (AST/ SGOT) 33, Alanine Aminotransferase (ALT/SGPT) 7L, Alkaline Phosphatase 58, Total Protein 6.4, Albumin 2.7L, Globulin 3.7, Albumin/Globulin Ratio 0.7L, Lipase 2000H Height (Feet): 5 Height (Inches): 10.00 Weight (Pounds): 145 General Appearance: WD/WN, confused, thin EENT: PERRL/EOMI, normal ENT inspection Neck: non-tender, normal alignment, supple Cardiovascular: normal peripheral pulses, normal rate, regular rhythm Respiratory/Chest: chest wall non-tender, lungs clear, normal breath sounds, no respiratory distress Abdomen: guarding, tender Extremities: normal range of motion Edema: no edema noted Arm (L), no edema noted Arm (R), no edema noted Leg (L), no edema noted Leg (R), no edema noted Pedal (L), no edema noted Pedal (R), no edema noted 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
[2020-01-28] MEDS: Docusate 100mg cap ORAL SCH ×3 (09:00→15:38)
[2020-01-28] MEDS: Atenolol 25mg tab ORAL SCH (09:00)
[2020-01-28] MEDS: Pantoprazole Inj IVP SCH (09:32)
[2020-01-28] MEDS: levETIRAcetam 500mg/NS100ml 100 ML IVPB SCH ×2 (09:34→21:37)
[2020-01-28] MEDS: Piperacillin/Tazobactam 3.375 GM in NS 110 ML IVPB SCH ×3 (10:46→23:01)
[2020-01-28 12:00] VITALS: BP 130/74
--- NOTE | 2020-01-28 12:18 | Pulmonology Progress Note ---
Subjective ROS Limited/Unobtainable: No Interval Events: None new Constitutional: Reports: no symptoms HEENT: Repors: no symptoms Respiratory: Reports: no symptoms Cardiovascular: Reports: no symptoms Gastrointestinal/Abdominal: Reports: no symptoms Allergies: Coded Allergies: No Known Allergies (Verified , 08/14/08) All Systems: reviewed and negative except above Objective Last 24 Hour Vital Signs Date Time Temp Pulse Resp B/P (MAP) Pulse Ox O2 Delivery O2 Flow Rate FiO2 01/28/20 09:00 84 136/84 01/28/20 08:00 98.1 84 20 136/84 (101) 100 01/28/20 04:00 98.0 98 18 134/59 (84) 94 01/28/20 00:00 97.9 94 18 131/58 (82) 94 01/27/20 21:00 Room Air 01/27/20 20:00 97.9 101 20 122/67 (85) 95 01/27/20 18:50 97.9 107 20 122/67 (85) 97 01/27/20 16:00 97.0 109 20 103/65 (78) 96 01/27/20 15:12 104 Intake and Output 01/27/20 01/28/20 18:59 06:59 Intake Total 512 ml Output Total 500 ml Balance 12 ml IV Total 512 ml Output Urine Total 500 ml # Voids 2 1 General Appearance: no acute distress HEENT: normocephalic Respiratory: chest wall non-tender Cardiovascular: normal peripheral pulses Abdomen: normal bowel sounds Laboratory Tests 01/28/20 05:40: White Blood Count 12.2H, Red Blood Count 2.77L, Hemoglobin 9.2L, Hematocrit 25.1L, Mean Corpuscular Volume 90, Mean Corpuscular Hemoglobin 33.3H, Mean Corpuscular Hemoglobin Concent 36.8H, Red Cell Distribution Width 15.0H, Platelet Count 90L, Mean Platelet Volume 9.1, Neutrophils (%) (Auto) , Lymphocytes (%) (Auto) , Monocytes (%) (Auto) , Eosinophils (%) (Auto) , Basophils (%) (Auto) , Sodium Level 134L, Potassium Level 3.2L, Chloride Level 101, Carbon Dioxide Level 25, Anion Gap 8, Blood Urea Nitrogen 11, Creatinine 1.3, Estimat Glomerular Filtration Rate > 60, Glucose Level 120H, Calcium Level 10.2H, Total Bilirubin 1.6H, Direct Bilirubin 0.9H, Aspartate Amino Transf (AST/ SGOT) 33, Alanine Aminotransferase (ALT/SGPT) 7L, Alkaline Phosphatase 58, Total Protein 6.4, Albumin 2.7L, Globulin 3.7, Albumin/Globulin Ratio 0.7L, Lipase 2000H Current Medications Medications (Trade) Dose Ordered Sig/Katlin Route PRN Reason Start Time Stop Time Status Last Admin Dose Admin Acetaminophen (Tylenol) 650 mg Q4H PRN ORAL TEMP>100.5 01/27/20 21:00 02/26/20 20:59 Atenolol (Tenormin) 25 mg DAILY ORAL 01/28/20 09:00 02/25/20 08:59 01/28/20 09:00 Docusate Sodium (Colace) 100 mg TID ORAL 01/28/20 09:00 02/24/20 17:59 Folic Acid 1 mg/ Magnesium Sulfate 2000 mg/ Multivitamins 10 ml/Sodium Chloride 1,014.2 ml @ 125 mls/ hr Q24H IV 01/28/20 08:00 02/25/20 07:59 Levetiracetam 100 ml @ 400 mls/hr Q12HR IVPB 01/27/20 21:00 04/25/20 21:59 01/28/20 09:34 Morphine Sulfate (Morphine Sulfate) 1 mg Q6H PRN IVP For Pain 01/27/20 19:00 02/03/20 18:59 Pantoprazole (Protonix) 40 mg DAILY IVP 01/28/20 09:00 02/26/20 08:59 01/28/20 09:32 Piperacillin Sod/ Tazobactam Sod 3.375 gm/Sodium Chloride 110 ml @ 27.5 mls/hr EVERY 8 HOURS IVPB 01/28/20 10:00 02/02/20 09:59 01/28/20 10:46 Sodium Chloride 1,000 ml @ 100 mls/hr Q10H IV 01/27/20 19:00 02/25/20 20:44 01/28/20 04:53 Tamsulosin HCl (Flomax) 0.4 mg BEDTIME ORAL 01/27/20 21:00 02/24/20 20:59 01/27/20 21:32 Thiamine HCl 100 mg/Dextrose 56 ml @ 112 mls/hr Q24H IVPB 01/28/20 01:00 02/25/20 00:59 01/28/20 00:30 Assessment/Plan Assessment/Plan IMPRESSION: 1. Pancreatitis. 2. Renal dysfunction. 3. History of colon cancer. 4. History of leukemia. DISCUSSION: Continue current medications and care. GI evaluation noted. Evaluation of lung parenchyma upon CT shows right base atelectasis with pleural- based nodules. Currently, the patient is doing well from pulmonary standpoint. I will follow carefully. Shawn Donohue M.D. Shawn Donohue MD January 28, 2020 12:18
[2020-01-28] MEDS: Folic Acid 1 MG, Magnesium Sulfate 2,000 MG, Multivitamin - 12 Injection 10 ML in Sodiu... IV SCH (13:32)
[2020-01-28 16:00] VITALS: BP 130/71
--- NOTE | 2020-01-28 19:31 | NUR ---
HAND-OFF: Report given to PAULINA Reaves. Pt. in stable condition.
--- NOTE | 2020-01-28 19:35 | NUR ---
NURSE NOTES: Pt. received from PAULINA James. Pt. sleeping at this time, noted with even and unlabored respirations, no indications of pain. IV noted left forearm 22g intact and patent. Condom catheter attached, draining dark regan, red tinged urine. Bed is low and locked, side rails x3 up, bed alarm active, and call light in reach.
--- NOTE | 2020-01-28 19:51 | NUR ---
NURSE NOTES: Daughter called requesting update on pt., update given and anticipating return call tonight.
[2020-01-28 20:00] VITALS: BP_SYST 105; BP_SYST 126; BP_DIAS 65; BP_DIAS 68
--- NOTE | 2020-01-28 20:16 | General Progress Note ---
Assessment/Plan Status: stable, not improved Assessment/Plan: Assessment - long standing alcoholism - drop in H&H / transfused, possible GIB, H&H lower again - EtOH hepatitis - EtOH pancreatitis - unclear why Lipase remaining at 1999 with normal pancreas on CT - Encephalopathy / delirium, possibly withdrawal syndrome Recommendations - NPO - IVF - MVI, Thiamine, Electrolyte replacement - PPI - follow labs and exam - EGD in am - MRI of abdomen after EGD - Daughter James Murray has DPOA ([phone]) Subjective Allergies: Coded Allergies: No Known Allergies (Verified , 08/14/08) Subjective Above note care discussed with DTR james and two other daughters patient more confused Lipase remains at 1999 d/w staff psychiatrist and PMD Objective Last 24 Hour Vital Signs Date Time Temp Pulse Resp B/P (MAP) Pulse Ox O2 Delivery O2 Flow Rate FiO2 01/28/20 16:00 98.7 80 18 130/71 (90) 96 01/28/20 12:00 98.5 102 17 130/74 (92) 99 01/28/20 09:00 84 136/84 01/28/20 09:00 Room Air 01/28/20 08:00 98.1 84 20 136/84 (101) 100 01/28/20 04:00 98.0 98 18 134/59 (84) 94 01/28/20 00:00 97.9 94 18 131/58 (82) 94 01/27/20 21:00 Room Air Intake and Output 01/27/20 01/28/20 19:00 07:00 Intake Total 512 ml Output Total 500 ml Balance 12 ml IV Total 512 ml Output Urine Total 500 ml # Voids 2 1 Laboratory Tests 01/28/20 05:40: White Blood Count 12.2H, Red Blood Count 2.77L, Hemoglobin 9.2L, Hematocrit 25.1L, Mean Corpuscular Volume 90, Mean Corpuscular Hemoglobin 33.3H, Mean Corpuscular Hemoglobin Concent 36.8H, Red Cell Distribution Width 15.0H, Platelet Count 90L, Mean Platelet Volume 9.1, Neutrophils (%) (Auto) , Lymphocytes (%) (Auto) , Monocytes (%) (Auto) , Eosinophils (%) (Auto) , Basophils (%) (Auto) , Sodium Level 134L, Potassium Level 3.2L, Chloride Level 101, Carbon Dioxide Level 25, Anion Gap 8, Blood Urea Nitrogen 11, Creatinine 1.3, Estimat Glomerular Filtration Rate > 60, Glucose Level 120H, Calcium Level 10.2H, Total Bilirubin 1.6H, Direct Bilirubin 0.9H, Aspartate Amino Transf (AST/ SGOT) 33, Alanine Aminotransferase (ALT/SGPT) 7L, Alkaline Phosphatase 58, Total Protein 6.4, Albumin 2.7L, Globulin 3.7, Albumin/Globulin Ratio 0.7L, Lipase 2000H Height (Feet): 5 Height (Inches): 10.00 Weight (Pounds): 145 Objective Thin AA man NCAT supple CTA RR abd mildly distended, (+) epigastric TTP no edema Neuro confused Suman Chery MD January 28, 2020 20:16
[2020-01-28] MEDS: Tamsulosin 0.4mg cap ORAL SCH (21:37)
[2020-01-29] VITALS (10 sets, daily range): BP systolic 121–141; BP diastolic 51–86
[2020-01-29] MEDS: Thiamine HCl 100 MG in D5W 55 ML IVPB SCH (01:05)
[2020-01-29] MEDS: Piperacillin/Tazobactam 3.375 GM in NS 110 ML IVPB SCH ×3 (05:16→23:17)
[2020-01-29] MEDS ORDERED: Gadavist 7.5mMol/7.5ml vial IV PRN (06:00)
[2020-01-29 06:15] LABS: BASOPHILS % (AUTO) 0.5 % (0.0-2.0); EOSINOPHILS % (AUTO) 0.2 % (0.0-3.0); HEMATOCRIT 23.7 % (42.0-52.0); HEMOGLOBIN 8.7 G/DL (14.2-18.0); LYMPHOCYTES % (AUTO) 12.7 % (20.0-45.0); MEAN CORPUSCULAR VOLUME 90 FL (80-99); MONOCYTES % (AUTO) 11.1 % (1.0-10.0); NEUTROPHILS % (AUTO) 75.6 % (45.0-75.0); PLATELET COUNT 106 K/UL (150-450); RED BLOOD COUNT 2.63 M/UL (4.70-6.10); RED CELL DISTRIBUTION WIDTH 15.1 % (11.6-14.8); WHITE BLOOD COUNT 13.3 K/UL (4.8-10.8)
--- NOTE | 2020-01-29 06:35 | Anethesia Preoperative Eval ---
Anesthesia Pre-op PMH/ROS General Date of Evaluation: January 29, 2020 Time of Evaluation: 06:32 Anesthesiologist: ab ASA Score: ASA 4 Mallampati Score Class I : Soft palate, uvula, fauces, pillars visible Class II: Soft palate, uvula, fauces visible Class III: Soft palate, base of uvula visible Class IV: Only hard plate visible Mallampati Classification: Class II Surgeon: hoda Diagnosis: abdominal pain, anemia Surgical Procedure: egd Anesthesia History: none Social History: alcohol use Family History: no anesthesia problems Allergies: Coded Allergies: No Known Allergies (Verified , 08/14/08) Medications: see eMAR Patient NPO?: Yes Past Medical History Cardiovascular: Reports: HTN, [place], other - pericarditis Gastrointestinal/Genitourinary: Reports: GERD, other - colitis, pancreatitis, lgib,hep c, cirrhosis Neurologic/Psychiatric: Reports: depression/anxiety, other - seizure disorder Musculoskeletal/Integumentary: Reports: DDD - lumbar, other - gout Anesthesia Pre-op Phys. Exam Physician Exam Last Vital Signs Date Time Temp Pulse Resp B/P (MAP) Pulse Ox O2 Delivery O2 Flow Rate FiO2 01/29/20 00:00 98.4 85 20 135/77 (96) 94 01/28/20 21:00 Room Air Constitutional: NAD Neurologic: CN 2-12 intact Cardiovascular: RRR Respiratory: CTA Gastrointestinal: S/NT/ND Airway Exam Mallampati Score: Class II MO: limited Neck: flexible TMD: 2fb ROM: limited Anesthesia Pre-op A/P Labs Labs Test 01/27/20 05:59 01/28/20 05:40 01/29/20 05:25 White Blood Count 9.8 K/UL (4.8-10.8) 12.2 K/UL (4.8-10.8) 13.3 K/UL (4.8-10.8) Red Blood Count 3.30 M/UL (4.70-6.10) 2.77 M/UL (4.70-6.10) 2.63 M/UL (4.70-6.10) Hemoglobin 10.9 G/DL (14.2-18.0) 9.2 G/DL (14.2-18.0) 8.7 G/DL (14.2-18.0) Hematocrit 29.7 % (42.0-52.0) 25.1 % (42.0-52.0) 23.7 % (42.0-52.0) Mean Corpuscular Volume 90 FL (80-99) 90 FL (80-99) 90 FL (80-99) Mean Corpuscular Hemoglobin 33.2 PG (27.0-31.0) 33.3 PG (27.0-31.0) 33.0 PG (27.0-31.0) Mean Corpuscular Hemoglobin Concent 36.8 G/DL (32.0-36.0) 36.8 G/DL (32.0-36.0) 36.5 G/DL (32.0-36.0) Red Cell Distribution Width 14.8 % (11.6-14.8) 15.0 % (11.6-14.8) 15.1 % (11.6-14.8) Platelet Count 93 K/UL (150-450) 90 K/UL (150-450) 106 K/UL (150-450) Mean Platelet Volume 8.7 FL (6.5-10.1) 9.1 FL (6.5-10.1) 7.0 FL (6.5-10.1) Neutrophils (%) (Auto) % (45.0-75.0) % (45.0-75.0) 75.6 % (45.0-75.0) Lymphocytes (%) (Auto) % (20.0-45.0) % (20.0-45.0) 12.7 % (20.0-45.0) Monocytes (%) (Auto) % (1.0-10.0) % (1.0-10.0) 11.1 % (1.0-10.0) Eosinophils (%) (Auto) % (0.0-3.0) % (0.0-3.0) 0.2 % (0.0-3.0) Basophils (%) (Auto) % (0.0-2.0) % (0.0-2.0) 0.5 % (0.0-2.0) Differential Total Cells Counted 100 Neutrophils % (Manual) 82 % (45-75) Lymphocytes % (Manual) 8 % (20-45) Monocytes % (Manual) 10 % (1-10) Eosinophils % (Manual) 0 % (0-3) Basophils % (Manual) 0 % (0-2) Band Neutrophils 0 % (0-8) Platelet Estimate Decreased Platelet Morphology Normal Hypochromasia 1+ Anisocytosis 1+ Sodium Level 133 MMOL/L (136-145) 134 MMOL/L (136-145) 136 MMOL/L (136-145) Potassium Level 3.7 MMOL/L (3.5-5.1) 3.2 MMOL/L (3.5-5.1) 3.6 MMOL/L (3.5-5.1) Chloride Level 97 MMOL/L (98-107) 101 MMOL/L (98-107) 103 MMOL/L (98-107) Carbon Dioxide Level 26 MMOL/L (21-32) 25 MMOL/L (21-32) 24 MMOL/L (21-32) Anion Gap 11 mmol/L (5-15) 8 mmol/L (5-15) 10 mmol/L (5-15) Blood Urea Nitrogen 15 mg/dL (7-18) 11 mg/dL (7-18) 9 mg/dL (7-18) Creatinine 1.5 MG/DL (0.55-1.30) 1.3 MG/DL (0.55-1.30) 0.9 MG/DL (0.55-1.30) Estimat Glomerular Filtration Rate 55.1 mL/min (>60) > 60 mL/min (>60) > 60 mL/min (>60) Glucose Level 124 MG/DL (74-106) 120 MG/DL (74-106) 118 MG/DL (74-106) Uric Acid 7.4 MG/DL (2.6-7.2) Calcium Level 10.4 MG/DL (8.5-10.1) 10.2 MG/DL (8.5-10.1) 10.3 MG/DL (8.5-10.1) Total Bilirubin 1.6 MG/DL (0.2-1.0) 1.6 MG/DL (0.2-1.0) Direct Bilirubin 0.9 MG/DL (0.0-0.3) 0.9 MG/DL (0.0-0.3) Aspartate Amino Transf (AST/SGOT) 36 U/L (15-37) 33 U/L (15-37) 12 U/L (15-37) Alanine Aminotransferase (ALT/SGPT) 11 U/L (12-78) 7 U/L (12-78) Alkaline Phosphatase 52 U/L (46-116) 58 U/L (46-116) 63 U/L (46-116) Total Protein 7.1 G/DL (6.4-8.2) 6.4 G/DL (6.4-8.2) Albumin 3.1 G/DL (3.4-5.0) 2.7 G/DL (3.4-5.0) Globulin 4.0 g/dL 3.7 g/dL Albumin/Globulin Ratio 0.8 (1.0-2.7) 0.7 (1.0-2.7) Lipase > 2000 U/L (73-393) 2000 U/L (73-393) 1667 U/L (73-393) Risk Assessment & Plan Assessment: asa4 Plan: mac Status Change Before Surgery: No Pre-Antibiotics Drug: Tabitha Henderson MD January 29, 2020 06:35
[2020-01-29] MEDS ORDERED: Atropine Inj 1mg/10ml Syr IV PRN (06:45)
[2020-01-29] MEDS ORDERED: DiphenhydrAMINE 50mg/ml Inj IVP PRN (06:45)
[2020-01-29] MEDS ORDERED: fentaNYL 100 mcg/2 mL IV PRN (06:45)
[2020-01-29] MEDS ORDERED: Midazolam 2mg/2ml Inj IVP PRN (06:45)
--- NOTE | 2020-01-29 06:45 | NUR ---
NURSE NOTES: Pt. off floor to EDG.
[2020-01-29] MEDS ORDERED: NS 500ML IVPB ONE (06:55)
[2020-01-29 06:56] LABS: ALKALINE PHOSPHATASE 63 U/L (46-116); ANION GAP 10 mmol/L (5-15); ASPARTATE AMINO TRANSFERASE 12 U/L (15-37); BLOOD UREA NITROGEN 9 mg/dL (7-18); CALCIUM 10.3 MG/DL (8.5-10.1); CARBON DIOXIDE 24 MMOL/L (21-32); CHLORIDE 103 MMOL/L (98-107); CREATININE 0.9 MG/DL (0.55-1.30); POTASSIUM 3.6 MMOL/L (3.5-5.1); SODIUM 136 MMOL/L (136-145)
[2020-01-29] MEDS ORDERED: Lidocaine 1% MPF 10mg/ml 5ml ONE (07:00)
--- NOTE | 2020-01-29 07:10 | General Progress Note ---
Assessment/Plan Status: stable, not improved Assessment/Plan: Assessment - long standing alcoholism - drop in H&H / transfused, possible GIB, - EtOH hepatitis - EtOH pancreatitis - CT of pancreas negative - Encephalopathy / delirium, possibly withdrawal syndrome Recommendations - NPO - IVF - MVI, Thiamine, Electrolyte replacement - PPI - follow labs and exam - EGD today - MRI of abdomen after EGD - Daughter Joel Murray has DPOA ([phone]) Subjective Allergies: Coded Allergies: No Known Allergies (Verified , 08/14/08) Subjective Above note seen in GI lab pre EGD confused no events overnight Objective Last 24 Hour Vital Signs Date Time Temp Pulse Resp B/P (MAP) Pulse Ox O2 Delivery O2 Flow Rate FiO2 01/29/20 04:00 97.5 91 22 132/71 (91) 96 01/29/20 00:00 98.4 85 20 135/77 (96) 94 01/28/20 21:00 Room Air 01/28/20 20:00 98.4 85 20 126/68 (87) 97 01/28/20 16:00 98.7 80 18 130/71 (90) 96 01/28/20 12:00 98.5 102 17 130/74 (92) 99 01/28/20 09:00 84 136/84 01/28/20 09:00 Room Air 01/28/20 08:00 98.1 84 20 136/84 (101) 100 Intake and Output 01/28/20 01/29/20 19:00 07:00 Intake Total 427.5 ml Output Total 1200 ml 200 ml Balance -1200 ml 227.5 ml IV Total 427.5 ml Output Urine Total 1200 ml 200 ml # Voids 1 Laboratory Tests 01/29/20 05:25: White Blood Count 13.3H, Red Blood Count 2.63L, Hemoglobin 8.7L, Hematocrit 23.7L, Mean Corpuscular Volume 90, Mean Corpuscular Hemoglobin 33.0H, Mean Corpuscular Hemoglobin Concent 36.5H, Red Cell Distribution Width 15.1H, Platelet Count 106L, Mean Platelet Volume 7.0, Neutrophils (%) (Auto) 75.6H, Lymphocytes (%) (Auto) 12.7L, Monocytes (%) (Auto) 11.1H, Eosinophils (%) (Auto ) 0.2, Basophils (%) (Auto) 0.5, Sodium Level 136, Potassium Level 3.6, Chloride Level 103, Carbon Dioxide Level 24, Anion Gap 10, Blood Urea Nitrogen 9 , Creatinine 0.9, Estimat Glomerular Filtration Rate > 60, Glucose Level 118H, Calcium Level 10.3H, Total Bilirubin [Pending], Aspartate Amino Transf (AST/SGOT ) 12L, Alanine Aminotransferase (ALT/SGPT) [Pending], Alkaline Phosphatase 63, Total Protein [Pending], Albumin [Pending], Globulin [Pending], Lipase 1667H Height (Feet): 5 Height (Inches): 5.00 Weight (Pounds): 145 Objective Thin AA man NCAT supple CTA RR abd mildly distended, (+) epigastric TTP no edema Neuro confused Suman Chery MD January 29, 2020 07:10
--- NOTE | 2020-01-29 07:10 | Pre-Procedure Note/Attestation ---
Pre-Procedure Note/Attestation Complete Prior to Procedure Planned Procedure: not applicable Procedure Narrative: egd Indications for Procedure Pre-Operative Diagnosis: anemia Attestation I attest that I discussed the nature of the procedure; its benefits; risks and complications; and alternatives (and the risks and benefits of such alternatives ), prior to the procedure, with the patient (or the patient's legal guest services representative). I attest that, if there was a reasonable possibility of needing a blood transfusion, the patient (or the patient's legal guest services representative) was given the [facility] standardized written summary, pursuant to the [place] Blood Safety Act ([place] Health and Safety Code # 1645, as amended). I attest that I re-evaluated the patient just prior to the surgery and that there has been no change in the patient's H&P, except as documented below: Suman Chery MD January 29, 2020 07:10
--- NOTE | 2020-01-29 07:30 | NUR ---
NURSE NOTES: Received patient via gurney from EGD procedure. Awake, Alert x1. On room air, respirations unlabored. Patient denies pain at this time. NPO diet noted.IV in the Left forearm, site intact. Bed low and locked.
--- NOTE | 2020-01-29 07:44 | NUR ---
HAND-OFF: Report given to PAULINA Remy.
--- NOTE | 2020-01-29 07:52 | Immediate Post-Op Evaluation ---
Immediate Post-Op Evalulation Immediate Post-Op Evalulation Procedure: egd w/bx Date of Evaluation: January 29, 2020 Time of Evaluation: 07:42 IV Fluids: 200ml 0.9ns Blood Products: none Estimated Blood Loss: negligible Blood Pressure Systolic: 135 Blood Pressure Diastolic: 85 Pulse Rate: 87 Respiratory Rate: 18 O2 Sat by Pulse Oximetry: 100 Temperature (Fahrenheit): 97.1 Pain Score (1-10): 0 Nausea: No Vomiting: No Complications none Patient Status: awake, reacts, patent Hydration Status: adequate Drug: Tabitha Henderson MD January 29, 2020 07:52
[2020-01-29 07:54] LABS: ALANINE AMINOTRANSFERASE 11 U/L (12-78); ALBUMIN 2.6 G/DL (3.4-5.0); ALBUMIN/GLOBULIN RATIO 0.7 (1.0-2.7); BILIRUBIN,TOTAL 1.6 MG/DL (0.2-1.0)
--- NOTE | 2020-01-29 07:54 | 48 Hour Post Anesthesia Eval ---
Post Anesthesia Evaluation Procedure: egd w/bx Date of Evaluation: January 29, 2020 Time of Evaluation: 07:44 Blood Pressure Systolic: 137 0: 86 Pulse Rate: 78 Respiratory Rate: 18 Temperature (Fahrenheit): 97.1 O2 Sat by Pulse Oximetry: 100 Airway: patent Nausea: No Vomiting: No Pain Intensity: 0 Hydration Status: adequate Cardiopulmonary Status: stable Mental Status/LOC: patient returned to baseline Post-Anesthesia Complications: none Follow-up care needed: N/A Tabitha Boo MD January 29, 2020 07:54
[2020-01-29] MEDS: Folic Acid 1 MG, Magnesium Sulfate 2,000 MG, Multivitamin - 12 Injection 10 ML in Sodiu... IV SCH (08:24)
[2020-01-29] MEDS: levETIRAcetam 500mg/NS100ml 100 ML IVPB SCH ×2 (08:24→22:50)
[2020-01-29] MEDS: Docusate 100mg/10ml Liq NG SCH ×4 (08:56→17:22)
[2020-01-29] MEDS: Pantoprazole Inj IVP SCH (08:56)
[2020-01-29] MEDS: Atenolol 25mg tab ORAL SCH (08:57)
--- NOTE | 2020-01-29 11:14 | NUR ---
CASE MANAGEMENT:REVIEW 01/29/20 SI: ALCOHOL WITHDRAWAL ENCEPHALOPATHY. PANCREATITIS 98.0 77 19 139/81 99% ON RA WBC+13.3 H/H-8.7/23.7 PLT-106 LIPASE+1667 IS: IV PROTONIX QD IV ZOSYN Q8HRS IV KEPPRA Q12 IVF@100/HR IV BANANA BAG Q24 IV THIAMINE Q24 ATENOLOL PO QD FLOMAX PO QHS COLACE PO TID : TELEMETRY STATUS DCP: FROM HOME PLAN: EGD MRI ABDOMEN NPO
--- NOTE | 2020-01-29 12:00 | Pulmonology Progress Note ---
Subjective ROS Limited/Unobtainable: No Interval Events: None new Constitutional: Reports: no symptoms HEENT: Repors: no symptoms Respiratory: Reports: no symptoms Cardiovascular: Reports: no symptoms Gastrointestinal/Abdominal: Reports: no symptoms Allergies: Coded Allergies: No Known Allergies (Verified , 08/14/08) All Systems: reviewed and negative except above Objective Last 24 Hour Vital Signs Date Time Temp Pulse Resp B/P (MAP) Pulse Ox O2 Delivery O2 Flow Rate FiO2 01/29/20 09:00 Room Air 01/29/20 08:57 78 137/86 01/29/20 08:00 98.0 77 19 139/81 (100) 99 01/29/20 07:54 78 18 100 01/29/20 07:52 87 18 100 01/29/20 07:45 97.8 78 19 137/86 100 Room Air 01/29/20 07:40 83 21 130/68 100 Nasal Cannula 3 01/29/20 07:35 84 20 141/75 100 Nasal Cannula 3 01/29/20 07:30 97.1 85 23 135/84 100 Nasal Cannula 3 01/29/20 04:00 97.5 91 22 132/71 (91) 96 01/29/20 00:00 98.4 85 20 135/77 (96) 94 01/28/20 21:00 Room Air 01/28/20 20:00 98.4 85 20 126/68 (87) 97 01/28/20 16:00 98.7 80 18 130/71 (90) 96 Intake and Output 01/28/20 01/29/20 19:00 07:00 Intake Total 427.5 ml Output Total 1200 ml 200 ml Balance -1200 ml 227.5 ml IV Total 427.5 ml Output Urine Total 1200 ml 200 ml # Voids 1 General Appearance: no acute distress HEENT: normocephalic Respiratory: chest wall non-tender Cardiovascular: normal peripheral pulses Abdomen: normal bowel sounds Laboratory Tests 01/29/20 05:25: White Blood Count 13.3H, Red Blood Count 2.63L, Hemoglobin 8.7L, Hematocrit 23.7L, Mean Corpuscular Volume 90, Mean Corpuscular Hemoglobin 33.0H, Mean Corpuscular Hemoglobin Concent 36.5H, Red Cell Distribution Width 15.1H, Platelet Count 106L, Mean Platelet Volume 7.0, Neutrophils (%) (Auto) 75.6H, Lymphocytes (%) (Auto) 12.7L, Monocytes (%) (Auto) 11.1H, Eosinophils (%) (Auto ) 0.2, Basophils (%) (Auto) 0.5, Sodium Level 136, Potassium Level 3.6, Chloride Level 103, Carbon Dioxide Level 24, Anion Gap 10, Blood Urea Nitrogen 9 , Creatinine 0.9, Estimat Glomerular Filtration Rate > 60, Glucose Level 118H, Calcium Level 10.3H, Magnesium Level 1.6L, Total Bilirubin 1.6H, Direct Bilirubin 1.0H, Aspartate Amino Transf (AST/SGOT) 12L, Alanine Aminotransferase (ALT/SGPT) 11L, Alkaline Phosphatase 63, Total Protein 6.5, Albumin 2.6L, Globulin 3.9, Albumin/Globulin Ratio 0.7L, Lipase 1667H Current Medications Medications (Trade) Dose Ordered Sig/Katlin Route PRN Reason Start Time Stop Time Status Last Admin Dose Admin Acetaminophen (Tylenol) 650 mg Q4H PRN ORAL TEMP>100.5 01/27/20 21:00 02/26/20 20:59 Atenolol (Tenormin) 25 mg DAILY ORAL 01/28/20 09:00 02/25/20 08:59 01/29/20 08:57 Docusate Sodium (Colace) 100 mg THREE TIMES A DAY NG 01/29/20 09:00 02/28/20 08:59 01/29/20 08:56 Folic Acid 1 mg/ Magnesium Sulfate 2000 mg/ Multivitamins 10 ml/Sodium Chloride 1,014.2 ml @ 125 mls/ hr Q24H IV 01/28/20 08:00 02/25/20 07:59 01/29/20 08:24 Gadobutrol (Gadavist) 7.5 mmol ONCE PRN IV . as per procedure 01/29/20 06:00 01/29/20 18:00 Levetiracetam 100 ml @ 400 mls/hr Q12HR IVPB 01/27/20 21:00 04/25/20 21:59 01/29/20 08:24 Morphine Sulfate (Morphine Sulfate) 1 mg Q6H PRN IVP For Pain 01/27/20 19:00 02/03/20 18:59 01/29/20 10:12 Pantoprazole (Protonix) 40 mg DAILY IVP 01/28/20 09:00 02/26/20 08:59 01/29/20 08:56 Piperacillin Sod/ Tazobactam Sod 3.375 gm/Sodium Chloride 110 ml @ 27.5 mls/hr EVERY 8 HOURS IVPB 01/28/20 10:00 02/02/20 09:59 01/29/20 05:16 Sodium Chloride 1,000 ml @ 100 mls/hr Q10H IV 01/27/20 19:00 02/25/20 20:44 01/29/20 10:13 Tamsulosin HCl (Flomax) 0.4 mg BEDTIME ORAL 01/27/20 21:00 02/24/20 20:59 01/28/20 21:37 Thiamine HCl 100 mg/Dextrose 56 ml @ 112 mls/hr Q24H IVPB 01/28/20 01:00 02/25/20 00:59 01/29/20 01:05 Assessment/Plan Assessment/Plan IMPRESSION: 1. Pancreatitis. 2. Renal dysfunction. 3. History of colon cancer. 4. History of leukemia. DISCUSSION: Continue current medications and care. GI evaluation noted. Evaluation of lung parenchyma upon CT shows right base atelectasis with pleural- based nodules. Currently, the patient is doing well from pulmonary standpoint. I will follow carefully. Amy Rodgers Omar Syed MD January 29, 2020 12:00
[2020-01-29] MEDS ORDERED: LORazepam Inj 2mg/ml 1ml IV SCH (12:58)
--- NOTE | 2020-01-29 13:17 | NUR ---
NURSE NOTES: PO colace refused by patient. Med offered and patient spit it out. Med wasted in the pyxis.
[2020-01-29] MEDS ORDERED: LORazepam Inj 2mg/ml 1ml IV PRN (14:23)
--- NOTE | 2020-01-29 15:28 | NUR ---
DISCHARGE PLANNING DISCHARGE PLAN DISCUSSED WITH DR ADARSH POWELLS FAXED TO [facility] T: [phone] CALLED [facility] AND ASKED TO SPEAK WITH [employer] PHYSICIAN. I WAS THEN TRANSFERRED TO [employer] . LEFT MESSAGE *PATIENT WILL PROBABLY NEED COVID TEST FOR SNF
--- NOTE | 2020-01-29 15:43 | General Progress Note ---
Assessment/Plan Problem List: (1) Alcohol withdrawal delirium ICD Codes: F10.231 - Alcohol dependence with withdrawal delirium SNOMED: 6023761 (2) Pancreatitis, alcoholic, acute ICD Codes: K85.20 - Alcohol induced acute pancreatitis without necrosis or infection SNOMED: 139897061 (3) Nausea & vomiting (4) Colitis (5) Abdominal pain (6) Seizure disorder ICD Codes: G40.909 - Epilepsy, unspecified, not intractable, without status epilepticus SNOMED: 212406859 (7) HTN (hypertension) ICD Codes: I10 - Essential (primary) hypertension SNOMED: 30797226 (8) Alcohol abuse ICD Codes: F10.10 - Alcohol abuse, uncomplicated SNOMED: 93137595 Status: stable, not improved Assessment/Plan: IVF replace k monitor labs iv abx pain rx anxiolytics vitamine supplements dvt prophylaxis PPI mrcp Subjective ROS Limited/Unobtainable: No Constitutional: Reports: malaise, weakness HEENT: Reports: no symptoms Cardiovascular: Reports: no symptoms Respiratory: Reports: no symptoms Gastrointestinal/Abdominal: Reports: abdominal pain Genitourinary: Reports: no symptoms Neurologic/Psychiatric: Reports: anxiety, emotional problems Endocrine: Reports: no symptoms Hematologic/Lymphatic: Reports: no symptoms Allergies: Coded Allergies: No Known Allergies (Verified , 08/14/08) All Systems: reviewed and negative except above Subjective no events. c/o abd pain. confused. no fever or chills. no chest pain lipase trending down. neg egd. still confused. c/o abd pain Objective Last 24 Hour Vital Signs Date Time Temp Pulse Resp B/P (MAP) Pulse Ox O2 Delivery O2 Flow Rate FiO2 01/29/20 12:00 97.6 81 17 129/86 (100) 97 01/29/20 09:00 Room Air 01/29/20 08:57 78 137/86 01/29/20 08:00 98.0 77 19 139/81 (100) 99 01/29/20 07:54 78 18 100 01/29/20 07:52 87 18 100 01/29/20 07:45 97.8 78 19 137/86 100 Room Air 01/29/20 07:40 83 21 130/68 100 Nasal Cannula 3 01/29/20 07:35 84 20 141/75 100 Nasal Cannula 3 01/29/20 07:30 97.1 85 23 135/84 100 Nasal Cannula 3 01/29/20 04:00 97.5 91 22 132/71 (91) 96 01/29/20 00:00 98.4 85 20 135/77 (96) 94 01/28/20 21:00 Room Air 01/28/20 20:00 98.4 85 20 126/68 (87) 97 01/28/20 16:00 98.7 80 18 130/71 (90) 96 Intake and Output 01/28/20 01/29/20 19:00 07:00 Intake Total 427.5 ml Output Total 1200 ml 200 ml Balance -1200 ml 227.5 ml IV Total 427.5 ml Output Urine Total 1200 ml 200 ml # Voids 1 Laboratory Tests 01/29/20 05:25: White Blood Count 13.3H, Red Blood Count 2.63L, Hemoglobin 8.7L, Hematocrit 23.7L, Mean Corpuscular Volume 90, Mean Corpuscular Hemoglobin 33.0H, Mean Corpuscular Hemoglobin Concent 36.5H, Red Cell Distribution Width 15.1H, Platelet Count 106L, Mean Platelet Volume 7.0, Neutrophils (%) (Auto) 75.6H, Lymphocytes (%) (Auto) 12.7L, Monocytes (%) (Auto) 11.1H, Eosinophils (%) (Auto ) 0.2, Basophils (%) (Auto) 0.5, Sodium Level 136, Potassium Level 3.6, Chloride Level 103, Carbon Dioxide Level 24, Anion Gap 10, Blood Urea Nitrogen 9 , Creatinine 0.9, Estimat Glomerular Filtration Rate > 60, Glucose Level 118H, Calcium Level 10.3H, Magnesium Level 1.6L, Total Bilirubin 1.6H, Direct Bilirubin 1.0H, Aspartate Amino Transf (AST/SGOT) 12L, Alanine Aminotransferase (ALT/SGPT) 11L, Alkaline Phosphatase 63, Total Protein 6.5, Albumin 2.6L, Globulin 3.9, Albumin/Globulin Ratio 0.7L, Lipase 1667H Height (Feet): 5 Height (Inches): 5.00 Weight (Pounds): 145 General Appearance: WD/WN, alert EENT: PERRL/EOMI, normal ENT inspection Neck: supple Cardiovascular: normal peripheral pulses, normal rate Respiratory/Chest: chest wall non-tender, lungs clear, normal breath sounds, no respiratory distress Abdomen: normal bowel sounds, non tender, soft, no organomegaly Edema: no edema noted Arm (L), no edema noted Arm (R), no edema noted Leg (L), no edema noted Leg (R), no edema noted Pedal (L), no edema noted Pedal (R), no edema noted Generalized Edema: trace edema Neurologic: counter tender II-XII grossly normal, alert, responsive Lymphatic: normal anterior cervical (L), normal anterior cervical (R) Pedro Cerda MD January 29, 2020 15:43
--- NOTE | 2020-01-29 17:20 | NUR ---
NURSE NOTES: Patient refused PO colace. Patient spits out liquid.
--- NOTE | 2020-01-29 18:40 | NUR ---
NURSE NOTES: COVID 19 swab sent down to lab.
--- NOTE | 2020-01-29 18:58 | Diagnostic Imaging Report ---
Indication: Abdominal pain, history of hepatitis C Technique: Coronal and axial single shot fast spin-echo breath-hold, axial T2 FRFSE, 2-D thick slab MRCP, AXIAL 2-D FIESTA fat saturated, axial 3-D dual echo breath-hold, water weighted axial LAVA FLEX, revealed 3-D MRCP images were obtained of the abdomen. MIP reconstructions were generated of the bile ducts Comparison: No comparison MRI. Reference made to CT scan dated 01/24/2020 Findings: There is image degradation due to motion artifact. No biliary ductal dilatation. Slightly heterogeneous gallbladder contents likely reflect sludge reported on recent CT scan. The liver is unremarkable. The pancreas, spleen, adrenals are unremarkable. The kidneys demonstrate multiple cysts bilaterally. There are bilateral pleural effusions. There are compressive atelectatic changes at both lung bases. Impression: Limited exam, due to motion artifact. No definite gallstones, biliary ductal dilatation, or biliary ductal filling defects. Incidental finding of bilateral renal cysts Bilateral pleural effusions and compressive basilar pulmonary atelectatic changes.
--- NOTE | 2020-01-29 19:28 | NUR ---
HAND-OFF: Report given to Donal GALLARDO.
--- NOTE | 2020-01-29 19:30 | NUR ---
NURSE NOTES: Received patient in bed. A&OX1. IV site patent and intact. Condom cath on, yellow urine noted. Bed in lowest position. Call light within reach. Will continue to monitor.
--- NOTE | 2020-01-29 21:50 | General Progress Note ---
Assessment/Plan Status: stable, not improved Assessment/Plan: Assessment - long standing alcoholism - drop in H&H / transfused, possible GIB, H&H lower again - EtOH hepatitis - EtOH pancreatitis - unclear why Lipase remaining at 2000 with normal pancreas on CT - Encephalopathy / delirium, possibly withdrawal syndrome Recommendations - IVF - MVI, Thiamine, Electrolyte replacement - PPI - follow labs and exam - EGD --> negative / normal exam - MRCP ---> limited quality study , negative exam - will begin clears - Daughter Joel Murray has DPOA ([phone]) Subjective Allergies: Coded Allergies: No Known Allergies (Verified , 08/14/08) Subjective Post endoscopy addendum: - EGD --> negative / normal exam - MRCP ---> limited quality study , negative exam will begin clears Objective Last 24 Hour Vital Signs Date Time Temp Pulse Resp B/P (MAP) Pulse Ox O2 Delivery O2 Flow Rate FiO2 01/29/20 20:00 97.8 96 21 121/51 (74) 96 01/29/20 16:00 97.9 72 18 131/86 (101) 97 01/29/20 12:00 97.6 81 17 129/86 (100) 97 01/29/20 09:00 Room Air 01/29/20 08:57 78 137/86 01/29/20 08:00 98.0 77 19 139/81 (100) 99 01/29/20 07:54 78 18 100 01/29/20 07:52 87 18 100 01/29/20 07:45 97.8 78 19 137/86 100 Room Air 01/29/20 07:40 83 21 130/68 100 Nasal Cannula 3 01/29/20 07:35 84 20 141/75 100 Nasal Cannula 3 01/29/20 07:30 97.1 85 23 135/84 100 Nasal Cannula 3 01/29/20 04:00 97.5 91 22 132/71 (91) 96 01/29/20 00:00 98.4 85 20 135/77 (96) 94 Intake and Output 01/28/20 01/29/20 19:00 07:00 Intake Total 427.5 ml Output Total 1200 ml 200 ml Balance -1200 ml 227.5 ml IV Total 427.5 ml Output Urine Total 1200 ml 200 ml # Voids 1 Laboratory Tests 01/29/20 05:25: White Blood Count 13.3H, Red Blood Count 2.63L, Hemoglobin 8.7L, Hematocrit 23.7L, Mean Corpuscular Volume 90, Mean Corpuscular Hemoglobin 33.0H, Mean Corpuscular Hemoglobin Concent 36.5H, Red Cell Distribution Width 15.1H, Platelet Count 106L, Mean Platelet Volume 7.0, Neutrophils (%) (Auto) 75.6H, Lymphocytes (%) (Auto) 12.7L, Monocytes (%) (Auto) 11.1H, Eosinophils (%) (Auto ) 0.2, Basophils (%) (Auto) 0.5, Sodium Level 136, Potassium Level 3.6, Chloride Level 103, Carbon Dioxide Level 24, Anion Gap 10, Blood Urea Nitrogen 9 , Creatinine 0.9, Estimat Glomerular Filtration Rate > 60, Glucose Level 118H, Calcium Level 10.3H, Magnesium Level 1.6L, Total Bilirubin 1.6H, Direct Bilirubin 1.0H, Aspartate Amino Transf (AST/SGOT) 12L, Alanine Aminotransferase (ALT/SGPT) 11L, Alkaline Phosphatase 63, Total Protein 6.5, Albumin 2.6L, Globulin 3.9, Albumin/Globulin Ratio 0.7L, Lipase 1667H Height (Feet): 5 Height (Inches): 5.00 Weight (Pounds): 145 Objective Thin AA man NCAT supple CTA RR abd mildly distended, (+) epigastric TTP no edema Neuro confused Suman Chery MD January 29, 2020 21:50
--- NOTE | 2020-01-29 22:09 | Endoscopy Procedure Note ---
Endoscopy Procedure Note General Indication for Procedure: anemia Procedures Performed: EGD Operative Findings/Diagnosis: normal Specimen: yes Pt Tolerated Procedure Well: Yes Estimated Blood Loss: none Anesthesia Anesthesiologist: see report Anesthesia: MAC Medications Medication Given: see anesthesia record Inserted Devices Implant(s) used?: No GI Core Measures 50 yrs or older w/o bx or poly: Not Applicable 10yrs. F/U recommended: Not Applicable Suman Chery MD January 29, 2020 22:09
--- NOTE | 2020-01-29 22:10 | Brief Operative Note ---
Immediate Post Operative Note Operative Note Chief Complaint: anemia Pre-op Diagnosis: anemia Procedure: egd/bx Post-op Diagnosis: normal Surgeon: hoda Anesthesiologist: see report Anesthesia: MAC Specimen: yes Complications: none Condition: stable Fluids: given per anesthesia Implant(s) used?: No Suman Chery MD January 29, 2020 22:10
[2020-01-29] MEDS: Tamsulosin 0.4mg cap ORAL SCH (22:50)
[2020-01-30] VITALS: BP 130/57
[2020-01-30] MEDS: Thiamine HCl 100 MG in D5W 55 ML IVPB SCH (01:17)
[2020-01-30 04:00] VITALS: BP 151/94
--- NOTE | 2020-01-30 04:00 | Progress Note ---
DATE: 01/27/2020 CARDIOLOGY PROGRESS NOTE SUBJECTIVE: The patient remains sleepy and lethargic. He only received 1 dose of morphine. He continues to have abdominal pain. Lipase level remained elevated. OBJECTIVE: VITAL SIGNS: Blood pressure 104/72, heart rate 111, respiratory rate 20, and afebrile. HEENT: Conjunctivae pink. Sclerae anicteric. LUNGS: Diminished breath sounds. CARDIAC: Regular rhythm and rate. Normal S1, S2. No new murmur. ABDOMEN: Slightly distended, but soft. Mid epigastric tenderness unchanged. No guarding and no edema. LABORATORY DATA: White count 9.8, hemoglobin 10.9. Sodium 133, potassium 3.7, bicarb 26, BUN 15, creatinine 1.5. Lipase over 1999. IMPRESSION: 1. Alcohol intoxication. 2. Alcoholic pancreatitis. 3. Alcoholic liver disease. 4. Hyponatremia, dilutional. 5. Metabolic encephalopathy. 6. Secondary sinus tachycardia with possible component of beta-homero withdrawal. PLAN: 1. NPO. 2. Hydration. 3. Symptom-guided pain control. 4. Monitor metabolic parameters. 5. Withdrawal precautions. 6. Antiseizure therapy in place. 7. Holding antihypertensives at this time. Amy Barnes JOB#: [id number] CC:
--- NOTE | 2020-01-30 05:00 | Progress Note ---
DATE: 01/28/2020 CARDIOLOGY PROGRESS NOTE SUBJECTIVE: The patient continues to have lethargy and somnolence, but is arousable and alert, minimally verbal at times, still with elevated lipase level of 2000. OBJECTIVE: VITAL SIGNS: Blood pressure 130/71, heart rate 80, respiratory rate 18. No fever. LUNGS: Clear. CARDIAC: Regular. ABDOMEN: Slightly distended and tender in the midepigastric region. EXTREMITIES: No edema. NEUROLOGICAL: No asterixis. LABORATORY DATA: Labs reviewed. IMPRESSION: 1. Acute pancreatitis. 2. Alcohol intoxication. 3. Alcohol withdrawal. 4. History of hypertension. 5. Secondary sinus tachycardia. 6. Hypokalemia. PLAN: 1. NPO. 2. EGD planned. 3. Hold antihypertensives. 4. IV fluids with potassium replacement. 5. Check magnesium. 6. Monitor hepatobiliary enzymes. 7. The patient remains high risk. 8. If mental status does not improve, repeat imaging of the brain will be considered. Adolfo Jerry M.D. DR: Dougie JOB#: [id number] CC:
--- NOTE | 2020-01-30 05:00 | Progress Note ---
DATE: 01/29/2020 CARDIOLOGY PROGRESS NOTE SUBJECTIVE: Case was reviewed in detail with the patient's daughter. She works at a custodial facility and wants to transfer there when stable for recovery. [facility] the [facility]. The daughter is concerned over persistent lethargy. OBJECTIVE: VITAL SIGNS: Blood pressure 132/71, heart rate 91, respiratory rate 22. LUNGS: Diminished breath sounds. CARDIAC: Regular rhythm and rate. Normal S1, S2. ABDOMEN: Soft, mildly distended, and tender in the midepigastric region. EXTREMITIES: No edema. LABORATORY AND DIAGNOSTIC DATA: Endoscopy unremarkable. Magnesium 1.5. Lipase slightly decreased at 1600. IMPRESSION: 1. Acute pancreatitis. 2. Alcohol withdrawal syndrome. 3. Hypomagnesemia. 4. Hypertensive heart disease. 5. Seizure disorder. 6. Metabolic and toxic encephalopathies. PLAN: 1. Consider repeat imaging of the brain. 2. Cannot do MRI as he has a metal plate in his leg. 3. Continue NPO and hydration. 4. Discontinue all pain medications. 5. Check ammonia level. 6. Replace magnesium intravenously. 7. No cardiovascular drugs needed at this time. 8. Holding antihypertensives. Adolfo Jerry M.D. DR: Dougie JOB#: [id number] CC:
[2020-01-30] MEDS: Piperacillin/Tazobactam 3.375 GM in NS 110 ML IVPB SCH ×3 (05:27→21:57)
[2020-01-30 06:59] LABS: AMMONIA < 10 umol/L (11-32)
[2020-01-30 07:15] LABS: ALANINE AMINOTRANSFERASE 11 U/L (12-78); ALBUMIN 2.9 G/DL (3.4-5.0); ALBUMIN/GLOBULIN RATIO 0.7 (1.0-2.7); ALKALINE PHOSPHATASE 71 U/L (46-116); ANION GAP 9 mmol/L (5-15); ASPARTATE AMINO TRANSFERASE 36 U/L (15-37); BILIRUBIN,TOTAL 1.8 MG/DL (0.2-1.0); BLOOD UREA NITROGEN 6 mg/dL (7-18); CALCIUM 10.8 MG/DL (8.5-10.1); CARBON DIOXIDE 29 MMOL/L (21-32); CHLORIDE 96 MMOL/L (98-107); CREATININE 0.8 MG/DL (0.55-1.30); POTASSIUM 2.8 MMOL/L (3.5-5.1); SODIUM 133 MMOL/L (136-145)
--- NOTE | 2020-01-30 07:30 | NUR ---
HAND-OFF: Report given to Jonel GALLARDO. Patient's VS stable. Bed in lowest position. Call light within reach. Will continue monitor.
--- NOTE | 2020-01-30 07:30 | NUR ---
NURSE NOTES: Received patient in bed. Awake, alert x1. On room air. No signs of distress. Patient denies pain. Bed low and locked. IV site in the left Forearm , site intact.
--- NOTE | 2020-01-30 07:52 | General Progress Note ---
Assessment/Plan Status: stable, not improved Assessment/Plan: Assessment/Plan: Assessment - long standing alcoholism - drop in H&H / transfused, possible GIB, H&H lower again - EtOH hepatitis - EtOH pancreatitis - unclear why Lipase remaining at 2000 with normal pancreas on CT - Encephalopathy / delirium, possibly withdrawal syndrome Recommendations - IVF - MVI, Thiamine, Electrolyte replacement - PPI - follow labs and exam - EGD --> negative / normal exam - MRCP ---> limited quality study , negative exam -advance diet -add bowel regimen - Daughter Joel Murray has DPOA ([phone]) Subjective ROS Limited/Unobtainable: No Allergies: Coded Allergies: No Known Allergies (Verified , 08/14/08) Objective Last 24 Hour Vital Signs Date Time Temp Pulse Resp B/P (MAP) Pulse Ox O2 Delivery O2 Flow Rate FiO2 01/30/20 04:00 97.8 76 20 151/94 (113) 97 01/30/20 00:00 97.2 83 21 130/57 (81) 95 01/29/20 21:00 Room Air 01/29/20 20:00 97.8 96 21 121/51 (74) 96 01/29/20 16:00 97.9 72 18 131/86 (101) 97 01/29/20 12:00 97.6 81 17 129/86 (100) 97 01/29/20 09:00 Room Air 01/29/20 08:57 78 137/86 01/29/20 08:00 98.0 77 19 139/81 (100) 99 01/29/20 07:54 78 18 100 01/29/20 07:52 87 18 100 Intake and Output 01/29/20 01/30/20 19:00 07:00 Intake Total 525 ml 793.5 ml Output Total 400 ml Balance 125 ml 793.5 ml IV Total 325 ml 793.5 ml Other 200 ml Output Urine Total 400 ml # Voids 3 Laboratory Tests 01/30/20 05:50: Sodium Level 133L, Potassium Level 2.8L, Chloride Level 96L, Carbon Dioxide Level 29, Anion Gap 9, Blood Urea Nitrogen 6L, Creatinine 0.8, Estimat Glomerular Filtration Rate > 60, Glucose Level 116H, Calcium Level 10.8H, Total Bilirubin 1.8H, Direct Bilirubin 1.0H, Aspartate Amino Transf (AST/SGOT) 36, Alanine Aminotransferase (ALT/SGPT) 11L, Alkaline Phosphatase 71, Ammonia < 10L , Total Protein 7.2, Albumin 2.9L, Globulin 4.3, Albumin/Globulin Ratio 0.7L, Lipase 1556H, Prostate Specific Antigen 5.90H Height (Feet): 5 Height (Inches): 5.00 Weight (Pounds): 145 General Appearance: no apparent distress EENT: normal ENT inspection Neck: supple Cardiovascular: normal rate Respiratory/Chest: decreased breath sounds Abdomen: normal bowel sounds, non tender, soft Extremities: non-tender Marc Ybarra MD January 30, 2020 07:52
[2020-01-30 08:00] VITALS: BP 146/87
--- NOTE | 2020-01-30 08:00 | NUR ---
NURSE NOTES: Patient has not had a BM since admission. Dr. Ybarra aware with orders for lactulose.
--- NOTE | 2020-01-30 08:43 | General Progress Note ---
Assessment/Plan Problem List: (1) Alcohol withdrawal delirium ICD Codes: F10.231 - Alcohol dependence with withdrawal delirium SNOMED: 7974315 (2) Pancreatitis, alcoholic, acute ICD Codes: K85.20 - Alcohol induced acute pancreatitis without necrosis or infection SNOMED: 995801975 (3) Nausea & vomiting (4) Colitis (5) Abdominal pain (6) Seizure disorder ICD Codes: G40.909 - Epilepsy, unspecified, not intractable, without status epilepticus SNOMED: 460839166 (7) HTN (hypertension) ICD Codes: I10 - Essential (primary) hypertension SNOMED: 80109198 (8) Alcohol abuse ICD Codes: F10.10 - Alcohol abuse, uncomplicated SNOMED: 18402890 Status: stable, not improved Assessment/Plan: IVF adjusted replace k monitor labs iv abx pain rx anxiolytics vitamine supplements dvt prophylaxis PPI advance diet per GI D/w Dtr melia x 20 mins. Subjective ROS Limited/Unobtainable: No Constitutional: Reports: malaise, weakness HEENT: Reports: no symptoms Cardiovascular: Reports: no symptoms Respiratory: Reports: cough Gastrointestinal/Abdominal: Reports: abdominal pain Genitourinary: Reports: no symptoms Neurologic/Psychiatric: Reports: pre-existing deficit Endocrine: Reports: no symptoms Hematologic/Lymphatic: Reports: anemia Allergies: Coded Allergies: No Known Allergies (Verified , 08/14/08) All Systems: reviewed and negative except above Subjective no new complaints. decreased abd pain. much less confused. recognizes me by name. mrcp neg. egd neg. low Na and k on labs Objective Last 24 Hour Vital Signs Date Time Temp Pulse Resp B/P (MAP) Pulse Ox O2 Delivery O2 Flow Rate FiO2 01/30/20 04:00 97.8 76 20 151/94 (113) 97 01/30/20 00:00 97.2 83 21 130/57 (81) 95 01/29/20 21:00 Room Air 01/29/20 20:00 97.8 96 21 121/51 (74) 96 01/29/20 16:00 97.9 72 18 131/86 (101) 97 01/29/20 12:00 97.6 81 17 129/86 (100) 97 01/29/20 09:00 Room Air 01/29/20 08:57 78 137/86 Intake and Output 01/29/20 01/30/20 19:00 07:00 Intake Total 525 ml 793.5 ml Output Total 400 ml Balance 125 ml 793.5 ml IV Total 325 ml 793.5 ml Other 200 ml Output Urine Total 400 ml # Voids 3 Laboratory Tests 01/30/20 05:50: Sodium Level 133L, Potassium Level 2.8L, Chloride Level 96L, Carbon Dioxide Level 29, Anion Gap 9, Blood Urea Nitrogen 6L, Creatinine 0.8, Estimat Glomerular Filtration Rate > 60, Glucose Level 116H, Calcium Level 10.8H, Total Bilirubin 1.8H, Direct Bilirubin 1.0H, Aspartate Amino Transf (AST/SGOT) 36, Alanine Aminotransferase (ALT/SGPT) 11L, Alkaline Phosphatase 71, Ammonia < 10L , Total Protein 7.2, Albumin 2.9L, Globulin 4.3, Albumin/Globulin Ratio 0.7L, Lipase 1556H, Prostate Specific Antigen 5.90H Height (Feet): 5 Height (Inches): 5.00 Weight (Pounds): 145 Objective General Appearance: WD/WN, alert EENT: PERRL/EOMI, normal ENT inspection Neck: supple Cardiovascular: normal peripheral pulses, normal rate Respiratory/Chest: chest wall non-tender, lungs clear, normal breath sounds, no respiratory distress Abdomen: normal bowel sounds, non tender, soft, no organomegaly Edema: no edema noted Arm (L), no edema noted Arm (R), no edema noted Leg (L), no edema noted Leg (R), no edema noted Pedal (L), no edema noted Pedal (R), no edema noted Generalized Edema: trace edema Neurologic: change management expert II-XII grossly normal, alert, responsive Lymphatic: normal anterior cervical (L), normal anterior cervical (R) Pedro Cerda MD January 30, 2020 08:43
[2020-01-30] MEDS: Folic Acid 1 MG, Magnesium Sulfate 2,000 MG, Multivitamin - 12 Injection 10 ML in Sodiu... IV SCH (08:46)
[2020-01-30] MEDS: Pantoprazole Inj IVP SCH (08:46)
[2020-01-30] MEDS: Lactulose 20gm/30ml UDC ORAL SCH ×2 (08:46→17:48)
[2020-01-30] MEDS: levETIRAcetam 500mg/NS100ml 100 ML IVPB SCH ×2 (08:46→21:00)
[2020-01-30] MEDS: Docusate 100mg/10ml Liq NG SCH ×3 (08:46→17:48)
[2020-01-30] MEDS: Atenolol 25mg tab ORAL SCH (08:50)
--- NOTE | 2020-01-30 09:15 | Pulmonology Progress Note ---
Subjective ROS Limited/Unobtainable: No Interval Events: None new Constitutional: Reports: no symptoms HEENT: Repors: no symptoms Respiratory: Reports: no symptoms Cardiovascular: Reports: no symptoms Gastrointestinal/Abdominal: Reports: no symptoms Allergies: Coded Allergies: No Known Allergies (Verified , 08/14/08) All Systems: reviewed and negative except above Objective Last 24 Hour Vital Signs Date Time Temp Pulse Resp B/P (MAP) Pulse Ox O2 Delivery O2 Flow Rate FiO2 01/30/20 08:50 81 146/87 01/30/20 04:00 97.8 76 20 151/94 (113) 97 01/30/20 00:00 97.2 83 21 130/57 (81) 95 01/29/20 21:00 Room Air 01/29/20 20:00 97.8 96 21 121/51 (74) 96 01/29/20 16:00 97.9 72 18 131/86 (101) 97 01/29/20 12:00 97.6 81 17 129/86 (100) 97 Intake and Output 01/29/20 01/30/20 19:00 07:00 Intake Total 525 ml 793.5 ml Output Total 400 ml Balance 125 ml 793.5 ml IV Total 325 ml 793.5 ml Other 200 ml Output Urine Total 400 ml # Voids 3 General Appearance: no acute distress HEENT: normocephalic Respiratory: chest wall non-tender Cardiovascular: normal peripheral pulses Abdomen: normal bowel sounds Laboratory Tests 01/30/20 05:50: Sodium Level 133L, Potassium Level 2.8L, Chloride Level 96L, Carbon Dioxide Level 29, Anion Gap 9, Blood Urea Nitrogen 6L, Creatinine 0.8, Estimat Glomerular Filtration Rate > 60, Glucose Level 116H, Calcium Level 10.8H, Total Bilirubin 1.8H, Direct Bilirubin 1.0H, Aspartate Amino Transf (AST/SGOT) 36, Alanine Aminotransferase (ALT/SGPT) 11L, Alkaline Phosphatase 71, Ammonia < 10L , Total Protein 7.2, Albumin 2.9L, Globulin 4.3, Albumin/Globulin Ratio 0.7L, Lipase 1556H, Prostate Specific Antigen 5.90H Current Medications Medications (Trade) Dose Ordered Sig/Katlin Route PRN Reason Start Time Stop Time Status Last Admin Dose Admin Acetaminophen (Tylenol) 650 mg Q4H PRN ORAL TEMP>100.5 01/27/20 21:00 02/26/20 20:59 Atenolol (Tenormin) 25 mg DAILY ORAL 01/28/20 09:00 02/25/20 08:59 01/30/20 08:50 Dextrose/ Electrolytes 1,000 ml @ 75 mls/hr [id number] IV 01/30/20 09:00 02/29/20 08:59 01/30/20 09:14 Docusate Sodium (Colace) 100 mg THREE TIMES A DAY NG 01/29/20 09:00 02/28/20 08:59 01/30/20 08:46 Folic Acid 1 mg/ Magnesium Sulfate 2000 mg/ Multivitamins 10 ml/Sodium Chloride 1,014.2 ml @ 125 mls/ hr Q24H IV 01/28/20 08:00 02/25/20 07:59 01/30/20 08:46 Lactulose (Cephulac) 20 gm BID ORAL 01/30/20 09:00 02/29/20 08:59 01/30/20 08:46 Levetiracetam 100 ml @ 400 mls/hr Q12HR IVPB 01/27/20 21:00 04/25/20 21:59 01/30/20 08:46 Pantoprazole (Protonix) 40 mg DAILY IVP 01/28/20 09:00 02/26/20 08:59 01/30/20 08:46 Piperacillin Sod/ Tazobactam Sod 3.375 gm/Sodium Chloride 110 ml @ 27.5 mls/hr EVERY 8 HOURS IVPB 01/28/20 10:00 02/02/20 09:59 01/30/20 05:27 Polyethylene Glycol (Miralax) 17 gm BEDTIME ORAL 01/30/20 21:00 02/29/20 20:59 Sodium Chloride 1,000 ml @ 100 mls/hr Q10H IV 01/27/20 19:00 02/25/20 20:44 01/30/20 05:27 Tamsulosin HCl (Flomax) 0.4 mg BEDTIME ORAL 01/27/20 21:00 02/24/20 20:59 01/29/20 22:50 Thiamine HCl 100 mg/Dextrose 56 ml @ 112 mls/hr Q24H IVPB 01/28/20 01:00 02/25/20 00:59 01/30/20 01:17 Assessment/Plan Assessment/Plan IMPRESSION: 1. Pancreatitis. 2. Renal dysfunction. 3. History of colon cancer. 4. History of leukemia. DISCUSSION: Continue current medications and care. GI evaluation noted. Evaluation of lung parenchyma upon CT shows right base atelectasis with pleural- based nodules. Currently, the patient is doing well from pulmonary standpoint. I will follow carefully. Shawn Donohue M.D. Shawn Donohue MD January 30, 2020 09:15
--- NOTE | 2020-01-30 09:15 | Procedure Note ---
DATE OF PROCEDURE: 01/29/2020 GASTROENTEROLOGY PROCEDURE PROCEDURE: Upper gastrointestinal endoscopy with biopsy. SURGEON: Suman Chery MD. ANESTHESIA: Please see the separate anesthesiologist notes for details. PRE-ENDOSCOPIC DIAGNOSIS: Anemia and drop in hematocrit, requiring transfusion. POST-ENDOSCOPIC DIAGNOSIS: Normal upper endoscopy, status post random biopsies. DESCRIPTION OF PROCEDURE: The procedure its risks, indications, alternatives, and possible complications were explained to the family and informed consent was obtained. The patient was then sedated in the left lateral decubitus position and a diagnostic upper endoscope was introduced through oropharynx and advanced to the duodenum. The endoscope was then gradually withdrawn and mucosa examined carefully. Examination of the upper GI mucosa did not reveal any bleeding or any lesion such as ulcers or esophageal varices that could explain bleeding. Random biopsies were sent to pathology for review. The endoscope was removed and the patient was sent to recovery in good condition. COMPLICATIONS: None. RECOMMENDATIONS: 1. Follow up biopsy results. 2. Proceed with MRI, evaluation of the pancreas as outlined in the chart. 3. Address diet and nutrition after MRI results available. Suman Chery M.D. DR: ALYSSA JOB#: [id number] CC: JADA
[2020-01-30] MEDS ORDERED: Tubing IV Secondary IV ONE (10:05)
[2020-01-30 12:00] VITALS: BP 140/82
[2020-01-30 16:00] VITALS: BP 135/76
--- NOTE | 2020-01-30 19:31 | NUR ---
HAND-OFF: Report given to Migelu RN.
--- NOTE | 2020-01-30 19:35 | NUR ---
NURSE NOTES: Patient awake but confused. Verbally responsive but incoherent speech. Breathing unlabored on room air without distress. Denies pain or discomfort. IV noted on left forearm intact and patent. Bed placed at the lowest with alarm,brake, and siderails up for patient safety. Seizure precaution, siderails padded. Call light placed within reach. Will continue to monitor.
[2020-01-30 20:00] VITALS: BP 114/88
--- NOTE | 2020-01-30 20:19 | NUR ---
NURSE NOTES: Reached Dr. Jerry to clarify the isolation precaution. Left a message. Awaiting for a call back.
[2020-01-30] MEDS: Tamsulosin 0.4mg cap ORAL SCH (21:00)
[2020-01-30] MEDS: Miralax 17gm pkt ORAL SCH (21:00)
--- NOTE | 2020-01-30 23:56 | NUR ---
NURSE NOTES: patient refused new IV insertion at this time. Encouraged and attempted to explain risk and benefit x 3, but patient continues to refuse. Provided incontinence care and complete linen change. Explained patient of applying condom cath for incontinence care, patient verbalized understanding and allowed application. Will continue to monitor the patient.
[2020-01-31] VITALS: BP 153/91
[2020-01-31] MEDS: Thiamine HCl 100 MG in D5W 55 ML IVPB SCH (01:01)
--- NOTE | 2020-01-31 01:07 | NUR ---
NURSE NOTES: Dr. Jerry called to order for discontinuation of contact and droplet isolation precaution. Will carry out the order as given.
--- NOTE | 2020-01-31 02:46 | NUR ---
NURSE NOTES: Patient had a loose bowel movement. Provided proper incontinence care. Skin intact. Linen changed. Patient cooperative. Tolerated well.
--- NOTE | 2020-01-31 03:45 | Progress Note ---
DATE: 01/30/2020 CARDIOLOGY PROGRESS NOTE SUBJECTIVE: The patient has abdominal pain. Still withdrawn. Normal ammonia level noted. OBJECTIVE: VITAL SIGNS: Blood pressure 151/94, pulse 76, respirations 20. HEENT: Oropharynx clear. NECK: Supple. LUNGS: Clear. CARDIAC: Regular. ABDOMEN: Soft. EXTREMITIES: Trace edema. LABORATORY DATA: White count 13.3 and hemoglobin 8.7. Sodium 133, potassium 2.8, BUN 6, and creatinine 0.8. Lipase 1550. PSA 5.9. IMPRESSION: 1. Hypokalemia. 2. Hyponatremia. 3. Acute pancreatitis. 4. Hypomagnesemia. 5. Alcohol dependence, alcohol intoxication. 6. Metabolic and toxic encephalopathy. 7. Slightly elevated PSA, unchanged from prior outpatient studies. PLAN: 1. Continue hydration. 2. Potassium replacement. 3. NPO. 4. Pain control ____ morphine. 5. No current indication for prostate biopsy. 6. Replace magnesium. 7. Mobilize. Adolfo Jerry M.D. DR: KEE JOB#: [id number] CC:
[2020-01-31 04:00] VITALS: BP 120/87
[2020-01-31] MEDS: Piperacillin/Tazobactam 3.375 GM in NS 110 ML IVPB SCH ×3 (05:03→21:27)
--- NOTE | 2020-01-31 07:30 | NUR ---
HAND-OFF: Report given to PAULINA Means. Made round with receiving RN. Plan of care endorsed.
--- NOTE | 2020-01-31 07:42 | Pulmonology Progress Note ---
Subjective ROS Limited/Unobtainable: No Interval Events: None new Constitutional: Reports: no symptoms HEENT: Repors: no symptoms Respiratory: Reports: no symptoms Cardiovascular: Reports: no symptoms Gastrointestinal/Abdominal: Reports: no symptoms Allergies: Coded Allergies: No Known Allergies (Verified , 08/14/08) All Systems: reviewed and negative except above Objective Last 24 Hour Vital Signs Date Time Temp Pulse Resp B/P (MAP) Pulse Ox O2 Delivery O2 Flow Rate FiO2 01/31/20 04:00 97.6 89 19 120/87 (98) 96 01/31/20 02:56 Room Air 01/31/20 00:00 97.3 92 19 153/91 (111) 96 01/30/20 21:00 Room Air 01/30/20 20:00 97.7 87 19 114/88 (97) 97 01/30/20 16:00 98.5 80 20 135/76 (95) 97 01/30/20 12:00 98.3 86 20 140/82 (101) 98 01/30/20 09:00 Room Air 01/30/20 08:50 81 146/87 01/30/20 08:00 97.7 81 19 146/87 (106) 98 Intake and Output 01/30/20 01/31/20 19:00 07:00 Intake Total 620 ml 855.0 ml Output Total 800 ml Balance 620 ml 55.0 ml Intake Oral 620 ml IV Total 855.0 ml Output Urine Total 800 ml # Voids 8 3 # Bowel Movements 2 General Appearance: no acute distress HEENT: normocephalic Respiratory: chest wall non-tender Cardiovascular: normal peripheral pulses Abdomen: normal bowel sounds Microbiology Date/Time Source Procedure Growth Status 01/29/20 18:30 Nasopharynx Coronavirus COVID-19 PCR ([facility]) - Final Complete Current Medications Medications (Trade) Dose Ordered Sig/Katlin Route PRN Reason Start Time Stop Time Status Last Admin Dose Admin Acetaminophen (Tylenol) 650 mg Q4H PRN ORAL TEMP>100.5 01/27/20 21:00 02/26/20 20:59 Atenolol (Tenormin) 25 mg DAILY ORAL 01/28/20 09:00 02/25/20 08:59 01/30/20 08:50 Dextrose/ Electrolytes 1,000 ml @ 75 mls/hr [id number] IV 01/30/20 09:00 02/29/20 08:59 01/31/20 01:12 Docusate Sodium (Colace) 100 mg THREE TIMES A DAY NG 01/29/20 09:00 02/28/20 08:59 01/30/20 17:48 Folic Acid 1 mg/ Magnesium Sulfate 2000 mg/ Multivitamins 10 ml/Sodium Chloride 1,014.2 ml @ 125 mls/ hr Q24H IV 01/28/20 08:00 02/25/20 07:59 01/30/20 08:46 Lactulose (Cephulac) 20 gm BID ORAL 01/30/20 09:00 02/29/20 08:59 01/30/20 17:48 Levetiracetam 100 ml @ 400 mls/hr Q12HR IVPB 01/27/20 21:00 04/25/20 21:59 01/30/20 21:00 Pantoprazole (Protonix) 40 mg DAILY IVP 01/28/20 09:00 02/26/20 08:59 01/30/20 08:46 Piperacillin Sod/ Tazobactam Sod 3.375 gm/Sodium Chloride 110 ml @ 27.5 mls/hr EVERY 8 HOURS IVPB 01/28/20 10:00 02/02/20 09:59 01/31/20 05:03 Polyethylene Glycol (Miralax) 17 gm BEDTIME ORAL 01/30/20 21:00 02/29/20 20:59 01/30/20 21:00 Sodium Chloride 1,000 ml @ 100 mls/hr Q10H IV 01/27/20 19:00 02/25/20 20:44 01/31/20 02:10 Tamsulosin HCl (Flomax) 0.4 mg BEDTIME ORAL 01/27/20 21:00 02/24/20 20:59 01/30/20 21:00 Thiamine HCl 100 mg/Dextrose 56 ml @ 112 mls/hr Q24H IVPB 01/28/20 01:00 02/25/20 00:59 01/31/20 01:01 Assessment/Plan Assessment/Plan IMPRESSION: 1. Pancreatitis. 2. Renal dysfunction. 3. History of colon cancer. 4. History of leukemia. DISCUSSION: Continue current medications and care. GI evaluation noted. Evaluation of lung parenchyma upon CT shows right base atelectasis with pleural- based nodules. Currently, the patient is doing well from pulmonary standpoint. I will follow carefully. Amy Rodgers Omar Syed MD January 31, 2020 07:42
--- NOTE | 2020-01-31 07:55 | General Progress Note ---
Assessment/Plan Status: stable, not improved Assessment/Plan: Assessment/Plan: Assessment - long standing alcoholism - drop in H&H / transfused, possible GIB, H&H lower again - EtOH hepatitis - EtOH pancreatitis - unclear why Lipase remaining at 2000 with normal pancreas on CT - Encephalopathy / delirium, possibly withdrawal syndrome Recommendations - IVF - MVI, Thiamine, Electrolyte replacement - PPI - follow labs and exam - EGD --> negative / normal exam - MRCP ---> limited quality study , negative exam -advance diet -add bowel regimen - Daughter Joel Murray has DPOA ([phone]) Subjective ROS Limited/Unobtainable: No Allergies: Coded Allergies: No Known Allergies (Verified , 08/14/08) Objective Last 24 Hour Vital Signs Date Time Temp Pulse Resp B/P (MAP) Pulse Ox O2 Delivery O2 Flow Rate FiO2 01/31/20 04:00 97.6 89 19 120/87 (98) 96 01/31/20 02:56 Room Air 01/31/20 00:00 97.3 92 19 153/91 (111) 96 01/30/20 21:00 Room Air 01/30/20 20:00 97.7 87 19 114/88 (97) 97 01/30/20 16:00 98.5 80 20 135/76 (95) 97 01/30/20 12:00 98.3 86 20 140/82 (101) 98 01/30/20 09:00 Room Air 01/30/20 08:50 81 146/87 01/30/20 08:00 97.7 81 19 146/87 (106) 98 Intake and Output 01/30/20 01/31/20 19:00 07:00 Intake Total 620 ml 855.0 ml Output Total 800 ml Balance 620 ml 55.0 ml Intake Oral 620 ml IV Total 855.0 ml Output Urine Total 800 ml # Voids 8 3 # Bowel Movements 2 Height (Feet): 5 Height (Inches): 5.00 Weight (Pounds): 145 General Appearance: lethargic EENT: normal ENT inspection Neck: supple Cardiovascular: normal rate Respiratory/Chest: decreased breath sounds Abdomen: normal bowel sounds, non tender, soft Extremities: non-tender Marc Ybarra MD January 31, 2020 07:55
[2020-01-31 08:00] VITALS: BP 136/78
--- NOTE | 2020-01-31 08:00 | NUR ---
NURSE NOTES: received pt in bed, awake, no complaint of pain or discomfort. Will continue tro monitor pt and follow up with the plan of care.
[2020-01-31] MEDS: Docusate 100mg/10ml Liq NG SCH ×3 (08:30→17:16)
[2020-01-31] MEDS: Lactulose 20gm/30ml UDC ORAL SCH ×2 (08:30→17:16)
[2020-01-31] MEDS: Folic Acid 1 MG, Magnesium Sulfate 2,000 MG, Multivitamin - 12 Injection 10 ML in Sodiu... IV SCH (08:30)
[2020-01-31] MEDS: levETIRAcetam 500mg/NS100ml 100 ML IVPB SCH ×3 (08:32→20:23)
[2020-01-31] MEDS: Atenolol 25mg tab ORAL SCH (08:32)
[2020-01-31 08:33] LABS: HEMATOCRIT 23.4 % (42.0-52.0); HEMOGLOBIN 8.7 G/DL (14.2-18.0); MEAN CORPUSCULAR VOLUME 89 FL (80-99); PLATELET COUNT 144 K/UL (150-450); RED BLOOD COUNT 2.63 M/UL (4.70-6.10); RED CELL DISTRIBUTION WIDTH 15.1 % (11.6-14.8); WHITE BLOOD COUNT 8.9 K/UL (4.8-10.8)
[2020-01-31] MEDS: Pantoprazole Inj IVP SCH (08:33)
[2020-01-31 09:08] LABS: ANION GAP 9 mmol/L (5-15); BLOOD UREA NITROGEN 4 mg/dL (7-18); CALCIUM 9.7 MG/DL (8.5-10.1); CARBON DIOXIDE 28 MMOL/L (21-32); CHLORIDE 98 MMOL/L (98-107); CREATININE 0.9 MG/DL (0.55-1.30); SODIUM 135 MMOL/L (136-145)
[2020-01-31 09:49] LABS: POTASSIUM 2.6 MMOL/L (3.5-5.1)
--- NOTE | 2020-01-31 11:07 | General Progress Note ---
Assessment/Plan Problem List: (1) Alcohol withdrawal delirium ICD Codes: F10.231 - Alcohol dependence with withdrawal delirium SNOMED: 9398328 (2) Pancreatitis, alcoholic, acute ICD Codes: K85.20 - Alcohol induced acute pancreatitis without necrosis or infection SNOMED: 335402110 (3) Nausea & vomiting (4) Colitis (5) Abdominal pain (6) Seizure disorder ICD Codes: G40.909 - Epilepsy, unspecified, not intractable, without status epilepticus SNOMED: 360750881 (7) HTN (hypertension) ICD Codes: I10 - Essential (primary) hypertension SNOMED: 31819758 (8) Alcohol abuse ICD Codes: F10.10 - Alcohol abuse, uncomplicated SNOMED: 94454261 Status: stable, not improved Assessment/Plan: IVF adjusted lytes replaced monitor labs iv abx pain rx anxiolytics vitamine supplements dvt prophylaxis PPI advance diet per GI Subjective ROS Limited/Unobtainable: No Constitutional: Reports: malaise, weakness HEENT: Reports: no symptoms Cardiovascular: Reports: no symptoms Respiratory: Reports: no symptoms Gastrointestinal/Abdominal: Reports: abdominal pain Genitourinary: Reports: no symptoms Neurologic/Psychiatric: Reports: emotional problems, pre-existing deficit Endocrine: Reports: no symptoms Hematologic/Lymphatic: Reports: anemia Allergies: Coded Allergies: No Known Allergies (Verified , 08/14/08) All Systems: reviewed and negative except above Subjective no new complaints. decreased abd pain. less confused. says he needs to go take care of "bills." low k and mg. Objective Last 24 Hour Vital Signs Date Time Temp Pulse Resp B/P (MAP) Pulse Ox O2 Delivery O2 Flow Rate FiO2 01/31/20 09:00 Room Air 01/31/20 08:59 97.6 01/31/20 08:32 92 136/78 01/31/20 08:00 98.1 92 18 136/78 (97) 98 01/31/20 04:00 97.6 89 19 120/87 (98) 96 01/31/20 02:56 Room Air 01/31/20 00:00 97.3 92 19 153/91 (111) 96 01/30/20 21:00 Room Air 01/30/20 20:00 97.7 87 19 114/88 (97) 97 01/30/20 16:00 98.5 80 20 135/76 (95) 97 01/30/20 12:00 98.3 86 20 140/82 (101) 98 Intake and Output 01/30/20 01/31/20 19:00 07:00 Intake Total 620 ml 855.0 ml Output Total 800 ml Balance 620 ml 55.0 ml Intake Oral 620 ml IV Total 855.0 ml Output Urine Total 800 ml # Voids 8 3 # Bowel Movements 2 Laboratory Tests 01/31/20 06:25: White Blood Count 8.9, Red Blood Count 2.63L, Hemoglobin 8.7L, Hematocrit 23.4L , Mean Corpuscular Volume 89, Mean Corpuscular Hemoglobin 33.2H, Mean Corpuscular Hemoglobin Concent 37.4H, Red Cell Distribution Width 15.1H, Platelet Count 144L, Mean Platelet Volume 6.9, Neutrophils (%) (Auto) , Lymphocytes (%) (Auto) , Monocytes (%) (Auto) , Eosinophils (%) (Auto) , Basophils (%) (Auto) , Differential Total Cells Counted 100, Neutrophils % ( Manual) 56, Lymphocytes % (Manual) 19L, Monocytes % (Manual) 25H, Eosinophils % (Manual) 0, Basophils % (Manual) 0, Band Neutrophils 0, Platelet Estimate DecreasedL, Platelet Morphology Normal, Hypochromasia 1+, Anisocytosis 1+, Sodium Level 135L, Potassium Level 2.6*L, Chloride Level 98, Carbon Dioxide Level 28, Anion Gap 9, Blood Urea Nitrogen 4L, Creatinine 0.9, Estimat Glomerular Filtration Rate > 60, Glucose Level 132H, Calcium Level 9.7, Magnesium Level 1.1L Height (Feet): 5 Height (Inches): 5.00 Weight (Pounds): 145 Objective General Appearance: WD/WN, alert EENT: PERRL/EOMI, normal ENT inspection Neck: supple Cardiovascular: normal peripheral pulses, normal rate Respiratory/Chest: chest wall non-tender, lungs clear, normal breath sounds, no respiratory distress Abdomen: normal bowel sounds, non tender, soft, no organomegaly Edema: no edema noted Arm (L), no edema noted Arm (R), no edema noted Leg (L), no edema noted Leg (R), no edema noted Pedal (L), no edema noted Pedal (R), no edema noted Generalized Edema: trace edema 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
[2020-01-31 12:06] VITALS: BP 146/85
[2020-01-31 16:00] VITALS: BP 133/77
--- NOTE | 2020-01-31 16:00 | NUR ---
HAND-OFF: Report given to KARTIK Gonzales.
--- NOTE | 2020-01-31 16:00 | NUR ---
NURSE NOTES: RECEIVED PATIENT A/A/OX2, VERBALLY RESPONSIVE. NO ACUTE CARDIO-RESP DISTRESS NOTED. IV ACCESS PATENT AND INTACT. HOB ELEVATED. SIDERAILS ARE UP X3, BED IS IN THE LOWEST POSITION. CALL LIGHT IS WITHIN REACH. BRAKES ENGAGED AND LOCKED. WILL CONT TO MONITOR.
--- NOTE | 2020-01-31 16:25 | NUR ---
NURSE NOTES: per Dr Jerry dvt prophylaxis is contraindicated.
--- NOTE | 2020-01-31 19:05 | NUR ---
HAND-OFF: Report given to
--- NOTE | 2020-01-31 19:48 | NUR ---
NURSE NOTES: Received patient awake, follows simple command, resting in bed, comfortable.
[2020-01-31 20:00] VITALS: BP 133/69
[2020-01-31] MEDS: Tamsulosin 0.4mg cap ORAL SCH (20:23)
[2020-01-31] MEDS: Miralax 17gm pkt ORAL SCH (21:00)
[2020-02-01 00:22] VITALS: BP 150/74
[2020-02-01] MEDS: Piperacillin/Tazobactam 3.375 GM in NS 110 ML IVPB SCH ×3 (03:59→21:35)
[2020-02-01 04:08] VITALS: BP 139/60
--- NOTE | 2020-02-01 07:24 | NUR ---
HAND-OFF: Report given to Michael Perera RN.
[2020-02-01 08:00] VITALS: BP 135/66
--- NOTE | 2020-02-01 08:02 | NUR ---
RNmade am rounds, patient is in the bed awake. no difficulty breathingnoted. denies any abdominal pain. abdomen is soft and non-distended. skin is warm and dry to touch. HOB is in elevated position. LFA 22 gauge IV site in-place and intact. no infiltration noted. call light is placed within reach. Bed in locked position for safety.
[2020-02-01 08:46] LABS: HEMATOCRIT 25.2 % (42.0-52.0); HEMOGLOBIN 9.2 G/DL (14.2-18.0); MEAN CORPUSCULAR VOLUME 89 FL (80-99); PLATELET COUNT 161 K/UL (150-450); RED BLOOD COUNT 2.82 M/UL (4.70-6.10); RED CELL DISTRIBUTION WIDTH 15.4 % (11.6-14.8); WHITE BLOOD COUNT 7.9 K/UL (4.8-10.8)
[2020-02-01 08:56] LABS: ALANINE AMINOTRANSFERASE 9 U/L (12-78); ALBUMIN 2.8 G/DL (3.4-5.0); ALBUMIN/GLOBULIN RATIO 0.7 (1.0-2.7); ALKALINE PHOSPHATASE 69 U/L (46-116); AMYLASE 269 U/L (25-115); ANION GAP 8 mmol/L (5-15); ASPARTATE AMINO TRANSFERASE 35 U/L (15-37); BILIRUBIN,TOTAL 1.3 MG/DL (0.2-1.0); BLOOD UREA NITROGEN 3 mg/dL (7-18); CALCIUM 10.2 MG/DL (8.5-10.1); CARBON DIOXIDE 30 MMOL/L (21-32); CHLORIDE 99 MMOL/L (98-107); CREATININE 0.9 MG/DL (0.55-1.30); POTASSIUM 3.2 MMOL/L (3.5-5.1); SODIUM 137 MMOL/L (136-145)
[2020-02-01 08:59] LABS: BILIRUBIN,DIRECT 0.7 MG/DL (0.0-0.3)
--- NOTE | 2020-02-01 09:06 | General Progress Note ---
Assessment/Plan Problem List: (1) Alcohol withdrawal delirium ICD Codes: F10.231 - Alcohol dependence with withdrawal delirium SNOMED: 0646161 (2) Pancreatitis, alcoholic, acute ICD Codes: K85.20 - Alcohol induced acute pancreatitis without necrosis or infection SNOMED: 468217794 (3) Nausea & vomiting (4) Colitis (5) Abdominal pain (6) Seizure disorder ICD Codes: G40.909 - Epilepsy, unspecified, not intractable, without status epilepticus SNOMED: 925744336 (7) HTN (hypertension) ICD Codes: I10 - Essential (primary) hypertension SNOMED: 84826465 (8) Alcohol abuse ICD Codes: F10.10 - Alcohol abuse, uncomplicated SNOMED: 02096348 Status: stable, not improved Assessment/Plan: IVF adjusted lytes replaced monitor labs iv abx pain rx anxiolytics vitamine supplements dvt prophylaxis PPI advance diet per GI Subjective ROS Limited/Unobtainable: No Constitutional: Reports: malaise, weakness HEENT: Reports: no symptoms Cardiovascular: Reports: no symptoms Respiratory: Reports: no symptoms Gastrointestinal/Abdominal: Reports: abdominal pain Genitourinary: Reports: no symptoms Neurologic/Psychiatric: Reports: no symptoms Endocrine: Reports: no symptoms Hematologic/Lymphatic: Reports: no symptoms Allergies: Coded Allergies: No Known Allergies (Verified , 08/14/08) All Systems: reviewed and negative except above Subjective no new complaints. decreased abd pain. less confused. lipase trending down. K still low Objective Last 24 Hour Vital Signs Date Time Temp Pulse Resp B/P (MAP) Pulse Ox O2 Delivery O2 Flow Rate FiO2 02/01/20 04:08 98.1 72 24 139/60 (86) 95 02/01/20 00:22 97.7 69 20 150/74 (99) 98 01/31/20 20:53 Room Air 01/31/20 20:00 97.7 95 20 133/69 (90) 100 01/31/20 16:00 96.8 78 17 133/77 (95) 98 01/31/20 12:06 97.3 75 18 146/85 (105) 97 Intake and Output 01/31/20 02/01/20 19:00 07:00 Intake Total 470.0 ml 477.5 ml Output Total 1200 ml 1600 ml Balance -730.0 ml -1122.5 ml Intake Oral 360 ml IV Total 110.0 ml 477.5 ml Output Urine Total 1200 ml 1600 ml # Bowel Movements 1 1 Laboratory Tests 02/01/20 07:30: White Blood Count 7.9, Red Blood Count 2.82L, Hemoglobin 9.2L, Hematocrit 25.2L , Mean Corpuscular Volume 89, Mean Corpuscular Hemoglobin 32.5H, Mean Corpuscular Hemoglobin Concent 36.3H, Red Cell Distribution Width 15.4H, Platelet Count 161, Mean Platelet Volume 6.8, Neutrophils (%) (Auto) , Lymphocytes (%) (Auto) , Monocytes (%) (Auto) , Eosinophils (%) (Auto) , Basophils (%) (Auto) , Neutrophils % (Manual) [Pending], Lymphocytes % (Manual) [Pending], Platelet Estimate [Pending], Platelet Morphology [Pending], Sodium Level 137, Potassium Level 3.2L, Chloride Level 99, Carbon Dioxide Level 30, Anion Gap 8, Blood Urea Nitrogen 3L, Creatinine 0.9, Estimat Glomerular Filtration Rate > 60, Glucose Level 109H, Calcium Level 10.2H, Total Bilirubin 1.3H, Direct Bilirubin 0.7H, Aspartate Amino Transf (AST/SGOT) 35, Alanine Aminotransferase (ALT/SGPT) 9L, Alkaline Phosphatase 69, Total Protein 7.0, Albumin 2.8L, Globulin 4.2, Albumin/Globulin Ratio 0.7L, Amylase Level 269H, Lipase 1432H Height (Feet): 5 Height (Inches): 5.00 Weight (Pounds): 145 Objective General Appearance: WD/WN, alert EENT: PERRL/EOMI, normal ENT inspection Neck: supple Cardiovascular: normal peripheral pulses, normal rate Respiratory/Chest: chest wall non-tender, lungs clear, normal breath sounds, no respiratory distress Abdomen: normal bowel sounds, non tender, soft, no organomegaly Edema: no edema noted Arm (L), no edema noted Arm (R), no edema noted Leg (L), no edema noted Leg (R), no edema noted Pedal (L), no edema noted Pedal (R), no edema noted Generalized Edema: trace edema Neurologic: stitcher standard machine II-XII grossly normal, alert, responsive Lymphatic: normal anterior cervical (L), normal anterior cervical (R) Pedro Cerda MD Feb 01, 2020 09:06
[2020-02-01] MEDS: Docusate 100mg/10ml Liq NG SCH ×3 (09:14→18:27)
[2020-02-01] MEDS: Pantoprazole Inj IVP SCH (09:14)
[2020-02-01] MEDS: Lactulose 20gm/30ml UDC ORAL SCH ×2 (09:14→17:25)
[2020-02-01] MEDS: Thiamine 100mg tab ORAL SCH (09:15)
[2020-02-01] MEDS: Atenolol 25mg tab ORAL SCH (09:15)
[2020-02-01] MEDS: Folic Acid 1 MG, Magnesium Sulfate 2,000 MG, Multivitamin - 12 Injection 10 ML in Sodiu... IV SCH (09:26)
[2020-02-01] MEDS: levETIRAcetam 500mg/NS100ml 100 ML IVPB SCH ×2 (09:28→21:00)
--- NOTE | 2020-02-01 10:31 | Pulmonology Progress Note ---
Subjective ROS Limited/Unobtainable: No Interval Events: None new Constitutional: Reports: no symptoms HEENT: Repors: no symptoms Respiratory: Reports: no symptoms Cardiovascular: Reports: no symptoms Gastrointestinal/Abdominal: Reports: no symptoms Allergies: Coded Allergies: No Known Allergies (Verified , 08/14/08) All Systems: reviewed and negative except above Objective Last 24 Hour Vital Signs Date Time Temp Pulse Resp B/P (MAP) Pulse Ox O2 Delivery O2 Flow Rate FiO2 02/01/20 09:15 76 135/66 02/01/20 08:00 98.4 76 22 135/66 (89) 96 02/01/20 04:08 98.1 72 24 139/60 (86) 95 02/01/20 00:22 97.7 69 20 150/74 (99) 98 01/31/20 20:53 Room Air 01/31/20 20:00 97.7 95 20 133/69 (90) 100 01/31/20 16:00 96.8 78 17 133/77 (95) 98 01/31/20 12:06 97.3 75 18 146/85 (105) 97 Intake and Output 01/31/20 02/01/20 19:00 07:00 Intake Total 470.0 ml 477.5 ml Output Total 1200 ml 1600 ml Balance -730.0 ml -1122.5 ml Intake Oral 360 ml IV Total 110.0 ml 477.5 ml Output Urine Total 1200 ml 1600 ml # Bowel Movements 1 1 General Appearance: no acute distress HEENT: normocephalic Respiratory: chest wall non-tender Cardiovascular: normal peripheral pulses Abdomen: normal bowel sounds Microbiology Date/Time Source Procedure Growth Status 01/29/20 18:30 Nasopharynx Coronavirus COVID-19 PCR ([facility]) - Final Complete Laboratory Tests 02/01/20 07:30: White Blood Count 7.9, Red Blood Count 2.82L, Hemoglobin 9.2L, Hematocrit 25.2L , Mean Corpuscular Volume 89, Mean Corpuscular Hemoglobin 32.5H, Mean Corpuscular Hemoglobin Concent 36.3H, Red Cell Distribution Width 15.4H, Platelet Count 161, Mean Platelet Volume 6.8, Neutrophils (%) (Auto) , Lymphocytes (%) (Auto) , Monocytes (%) (Auto) , Eosinophils (%) (Auto) , Basophils (%) (Auto) , Differential Total Cells Counted 100, Neutrophils % ( Manual) 51, Lymphocytes % (Manual) 25, Monocytes % (Manual) 24H, Eosinophils % ( Manual) 0, Basophils % (Manual) 0, Band Neutrophils 0, Platelet Estimate Adequate, Platelet Morphology Normal, Anisocytosis 1+, Sodium Level 137, Potassium Level 3.2L, Chloride Level 99, Carbon Dioxide Level 30, Anion Gap 8, Blood Urea Nitrogen 3L, Creatinine 0.9, Estimat Glomerular Filtration Rate > 60 , Glucose Level 109H, Calcium Level 10.2H, Total Bilirubin 1.3H, Direct Bilirubin 0.7H, Aspartate Amino Transf (AST/SGOT) 35, Alanine Aminotransferase ( ALT/SGPT) 9L, Alkaline Phosphatase 69, Total Protein 7.0, Albumin 2.8L, Globulin 4.2, Albumin/Globulin Ratio 0.7L, Amylase Level 269H, Lipase 1432H Current Medications Medications (Trade) Dose Ordered Sig/Katlin Route PRN Reason Start Time Stop Time Status Last Admin Dose Admin Acetaminophen (Tylenol) 650 mg Q4H PRN ORAL MILD PAIN OR T ABOVE 100.4 01/31/20 09:00 02/26/20 20:59 01/31/20 08:29 Atenolol (Tenormin) 25 mg DAILY ORAL 01/28/20 09:00 02/25/20 08:59 02/01/20 09:15 Dextrose/ Electrolytes 1,000 ml @ 75 mls/hr [id number] IV 01/30/20 09:00 02/29/20 08:59 01/31/20 20:23 Docusate Sodium (Colace) 100 mg THREE TIMES A DAY NG 01/29/20 09:00 02/28/20 08:59 02/01/20 09:14 Folic Acid 1 mg/ Magnesium Sulfate 2000 mg/ Multivitamins 10 ml/Sodium Chloride 1,014.2 ml @ 125 mls/ hr Q24H IV 01/28/20 08:00 02/25/20 07:59 02/01/20 09:26 Lactulose (Cephulac) 20 gm BID ORAL 01/30/20 09:00 02/29/20 08:59 02/01/20 09:14 Levetiracetam 100 ml @ 400 mls/hr Q12HR IVPB 01/27/20 21:00 04/25/20 21:59 02/01/20 09:28 Magnesium Sulfate 100 ml @ 100 mls/hr Q1H IVPB 02/01/20 09:00 02/01/20 11:59 02/01/20 09:16 Pantoprazole (Protonix) 40 mg DAILY IVP 01/28/20 09:00 02/26/20 08:59 02/01/20 09:14 Piperacillin Sod/ Tazobactam Sod 3.375 gm/Sodium Chloride 110 ml @ 27.5 mls/hr EVERY 8 HOURS IVPB 01/28/20 10:00 02/02/20 09:59 02/01/20 03:59 Polyethylene Glycol (Miralax) 17 gm BEDTIME ORAL 01/30/20 21:00 02/29/20 20:59 01/30/20 21:00 Potassium Chloride (K-Dur) 40 meq ONCE ORAL 02/01/20 09:15 02/01/20 10:30 02/01/20 09:26 Sodium Chloride 1,000 ml @ 100 mls/hr Q10H IV 01/27/20 19:00 02/25/20 20:44 02/01/20 09:52 Tamsulosin HCl (Flomax) 0.4 mg BEDTIME ORAL 01/27/20 21:00 02/24/20 20:59 01/31/20 20:23 Thiamine HCl (Vitamin B1) 100 mg DAILY ORAL 02/01/20 09:00 03/02/20 08:59 02/01/20 09:15 Assessment/Plan Assessment/Plan IMPRESSION: 1. Pancreatitis. 2. Renal dysfunction. 3. History of colon cancer. 4. History of leukemia. DISCUSSION: Continue current medications and care. GI evaluation noted. Evaluation of lung parenchyma upon CT shows right base atelectasis with pleural- based nodules. Currently, the patient is doing well from pulmonary standpoint. I will follow carefully. Amy Rodgers Omar Syed MD Feb 01, 2020 10:31
[2020-02-01 12:00] VITALS: BP 140/68
--- NOTE | 2020-02-01 12:08 | NUR ---
DISCHARGE PLANNING PATIENT WAS REFERRED TO [facility] ON SATURDAY F/U CALL PLACED TODAY. SPOKE WITH ANDI JIMENEZ WHO STATED THEIR LOCK DOWN HAS JUST BEEN LIFTED BUT THEY ARE UNABLE TO ACCEPT ANY NEW PATIENTS
--- NOTE | 2020-02-01 12:10 | NUR ---
CASE MANAGEMENT:REVIEW 02/01/20 SI: ALCOHOL WITHDRAWAL ENCEPHALOPATHY. PANCREATITIS 98.0 77 19 139/81 99% ON RA WBC+13.3 H/H-8.7/23.7 PLT-106 LIPASE+1667 IS: IV K-PHOS X1 IVF@75/HR IV ZOSYN Q12 IV PROTONIX Q12 CARAFATE PO QID : MED/SURG STATUS DCP: FROM HOME PLAN: EGD TODAY
--- NOTE | 2020-02-01 13:58 | NUR ---
*-*DISCHARGE PLANNING*-* PATIENT HAS BEEN REFERRED TO: [facility] P: [phone] F: [phone]
--- NOTE | 2020-02-01 15:16 | NUR ---
*-*DISCHARGE PLANNING*-* PATIENT HAS BEEN REFERRED TO: [facility] [place] P: [phone] RM# 27.A
[2020-02-01 16:00] VITALS: BP 130/71
--- NOTE | 2020-02-01 17:23 | NUR ---
*-*DISCHARGE PLANNING*-* PATIENT HAS BEEN REFERRED TO: [facility] P: [phone] S/ [facility] [place], WILL ACCEPT PT UPON DISCHARGE, GAVE ROOM ASSIGNMENT RM# 27.A, NEED D/C ORDER
--- NOTE | 2020-02-01 19:16 | NUR ---
HAND-OFF: Report given to Elvis.
[2020-02-01 20:00] VITALS: BP 151/88
[2020-02-01] MEDS: Tamsulosin 0.4mg cap ORAL SCH (20:59)
[2020-02-01] MEDS: Miralax 17gm pkt ORAL SCH (21:00)
--- NOTE | 2020-02-01 23:00 | Progress Note ---
DATE: 02/01/2020 CARDIOLOGY PROGRESS NOTE SUBJECTIVE: Patient is alert and interactive. No distress. Tolerating diet with less abdominal pain. Patient had diarrhea yesterday. Lactulose dose was decreased. PHYSICAL EXAMINATION: VITAL SIGNS: Blood pressure 139/60, heart rate 72, respirations 24, afebrile. LUNGS: Bilateral breath sounds. No wheezing. CARDIAC: Regular rhythm and rate. Normal S1, S2. ABDOMEN: Slightly distended, but soft. Mildly tender in the midepigastric region. EXTREMITIES: No edema. No asterixis. LABORATORY DATA: White count 7.9, hemoglobin 9.2. Potassium 3.2, BUN 3, creatinine 0.9. Magnesium yesterday 1.1. Lipase down to 1400. IMPRESSION: 1. Hypokalemia. 2. Hypomagnesemia. 3. Recovering pancreatitis. 4. Gastritis. 5. Metabolic and toxic encephalopathies, improved. 6. Hypertensive heart disease. 7. COPD. PLAN: 1. Continuing replacement of electrolytes and magnesium. 2. Continuing hydration. 3. Advancing diet. 4. Monitoring hepatobiliary parameters. 5. Discharge planning in process. Adolfo Jerry M.D. DR: MIKHAIL JOB#: [id number] CC:
[2020-02-02 00:26] VITALS: BP 157/90
[2020-02-02 04:00] VITALS: BP 166/97
[2020-02-02] MEDS: Piperacillin/Tazobactam 3.375 GM in NS 110 ML IVPB SCH (04:55)
--- NOTE | 2020-02-02 07:03 | General Progress Note ---
Assessment/Plan Problem List: (1) Alcohol withdrawal delirium ICD Codes: F10.231 - Alcohol dependence with withdrawal delirium SNOMED: 4739667 (2) Pancreatitis, alcoholic, acute ICD Codes: K85.20 - Alcohol induced acute pancreatitis without necrosis or infection SNOMED: 013722561 (3) Nausea & vomiting (4) Colitis (5) Abdominal pain (6) Seizure disorder ICD Codes: G40.909 - Epilepsy, unspecified, not intractable, without status epilepticus SNOMED: 776754601 (7) HTN (hypertension) ICD Codes: I10 - Essential (primary) hypertension SNOMED: 72848634 (8) Alcohol abuse ICD Codes: F10.10 - Alcohol abuse, uncomplicated SNOMED: 73249562 Status: stable, not improved Assessment/Plan: follow up pending labs ivf iv abx pain rx anxiolytics vitamine supplements dvt prophylaxis PPI advance diet per GI dc planning to snf Subjective ROS Limited/Unobtainable: No Constitutional: Reports: malaise, weakness HEENT: Reports: no symptoms Cardiovascular: Reports: no symptoms Respiratory: Reports: no symptoms Gastrointestinal/Abdominal: Reports: abdominal pain Genitourinary: Reports: no symptoms Neurologic/Psychiatric: Reports: no symptoms Endocrine: Reports: no symptoms Hematologic/Lymphatic: Reports: no symptoms Allergies: Coded Allergies: No Known Allergies (Verified , 08/14/08) All Systems: reviewed and negative except above Subjective no new complaints. tolerating po. decreased abd pain. BP trending up. no fever or chills. AM labs pending. EGD neg. MRCP neg. Objective Last 24 Hour Vital Signs Date Time Temp Pulse Resp B/P (MAP) Pulse Ox O2 Delivery O2 Flow Rate FiO2 02/02/20 04:00 98.1 76 24 166/97 (120) 97 02/02/20 00:26 97.9 78 22 157/90 (112) 98 02/01/20 21:00 Room Air 02/01/20 20:00 97.9 84 22 151/88 (109) 98 02/01/20 16:00 98.6 73 22 130/71 (90) 98 02/01/20 12:00 98.3 74 21 140/68 (92) 97 02/01/20 09:15 76 135/66 02/01/20 09:00 Room Air 02/01/20 08:00 98.4 76 22 135/66 (89) 96 Intake and Output 02/01/20 02/02/20 19:00 07:00 Intake Total 860 ml 897.5 ml Output Total 800 ml 400 ml Balance 60 ml 497.5 ml Intake Oral 860 ml IV Total 537.5 ml Other 360 ml Output Urine Total 800 ml 400 ml # Voids 1 Laboratory Tests 02/01/20 07:30: White Blood Count 7.9, Red Blood Count 2.82L, Hemoglobin 9.2L, Hematocrit 25.2L , Mean Corpuscular Volume 89, Mean Corpuscular Hemoglobin 32.5H, Mean Corpuscular Hemoglobin Concent 36.3H, Red Cell Distribution Width 15.4H, Platelet Count 161, Mean Platelet Volume 6.8, Neutrophils (%) (Auto) , Lymphocytes (%) (Auto) , Monocytes (%) (Auto) , Eosinophils (%) (Auto) , Basophils (%) (Auto) , Differential Total Cells Counted 100, Neutrophils % ( Manual) 51, Lymphocytes % (Manual) 25, Monocytes % (Manual) 24H, Eosinophils % ( Manual) 0, Basophils % (Manual) 0, Band Neutrophils 0, Platelet Estimate Adequate, Platelet Morphology Normal, Anisocytosis 1+, Sodium Level 137, Potassium Level 3.2L, Chloride Level 99, Carbon Dioxide Level 30, Anion Gap 8, Blood Urea Nitrogen 3L, Creatinine 0.9, Estimat Glomerular Filtration Rate > 60 , Glucose Level 109H, Calcium Level 10.2H, Total Bilirubin 1.3H, Direct Bilirubin 0.7H, Aspartate Amino Transf (AST/SGOT) 35, Alanine Aminotransferase ( ALT/SGPT) 9L, Alkaline Phosphatase 69, Total Protein 7.0, Albumin 2.8L, Globulin 4.2, Albumin/Globulin Ratio 0.7L, Amylase Level 269H, Lipase 1432H Height (Feet): 5 Height (Inches): 5.00 Weight (Pounds): 145 Objective General Appearance: WD/WN, alert EENT: PERRL/EOMI, normal ENT inspection Neck: supple Cardiovascular: normal peripheral pulses, normal rate Respiratory/Chest: chest wall non-tender, lungs clear, normal breath sounds, no respiratory distress Abdomen: normal bowel sounds, non tender, soft, no organomegaly Edema: no edema noted Arm (L), no edema noted Arm (R), no edema noted Leg (L), no edema noted Leg (R), no edema noted Pedal (L), no edema noted Pedal (R), no edema noted Generalized Edema: trace edema Neurologic: stress test technician II-XII grossly normal, alert, responsive Lymphatic: normal anterior cervical (L), normal anterior cervical (R) Pedro Cerda MD Feb 02, 2020 07:03
--- NOTE | 2020-02-02 07:17 | NUR ---
HAND-OFF: Report given to Karine Seay RN.
--- NOTE | 2020-02-02 07:45 | NUR ---
NURSE NOTES: Patient awake, alert x3, forge-full; on room air, no sing of distress and shortness of breath; no sing of chest pain; IV Left For-Arm fluid running; side rails up x2, breaks engaged, bed at lowest position, breaks engaged; call light within reach; will keep monitoring.
[2020-02-02 08:00] VITALS: BP 158/89
[2020-02-02 08:06] LABS: ALANINE AMINOTRANSFERASE 15 U/L (12-78); ALBUMIN 2.8 G/DL (3.4-5.0); ALBUMIN/GLOBULIN RATIO 0.8 (1.0-2.7); ALKALINE PHOSPHATASE 65 U/L (46-116); ANION GAP 8 mmol/L (5-15); ASPARTATE AMINO TRANSFERASE 25 U/L (15-37); BILIRUBIN,TOTAL 0.8 MG/DL (0.2-1.0); BLOOD UREA NITROGEN 3 mg/dL (7-18); CARBON DIOXIDE 29 MMOL/L (21-32); CHLORIDE 100 MMOL/L (98-107); CREATININE 0.8 MG/DL (0.55-1.30); POTASSIUM 3.8 MMOL/L (3.5-5.1); SODIUM 137 MMOL/L (136-145)
[2020-02-02] MEDS: levETIRAcetam 500mg/NS100ml 100 ML IVPB SCH (08:51)
[2020-02-02] MEDS: Atenolol 25mg tab ORAL SCH (08:51)
[2020-02-02] MEDS: Thiamine 100mg tab ORAL SCH (08:51)
[2020-02-02] MEDS: Pantoprazole Inj IVP SCH (08:51)
[2020-02-02] MEDS: Lactulose 20gm/30ml UDC ORAL SCH (08:52)
[2020-02-02] MEDS: Docusate 100mg/10ml Liq NG SCH (08:52)
--- NOTE | 2020-02-02 09:22 | NUR ---
RD ASSESSMENT & RECOMMENDATIONS SEE CARE ACTIVITY FOR COMPLETE ASSESSMENT DAILY ESTIMATED NEEDS: Needs based on Pancreatitis, 66kg 25-30 kcals/kg 6364-5104 total kcals 1-1.5 g protein/kg 66-99 g total protein 25-30 mL/kg 0364-4532 total fluid mLs NUTRITION DIAGNOSIS: Altered nutrition related lab values R/T acute alcoholic pancreatitis as evidenced by critically elev amylase (1082* -> 269 trend down), elev lipase (>2000 ->1432 trend down), +tox screen for alcohol upon adm (115). CURRENT DIET:CARDIAC PO DIET RECOMMENDATIONS: LOW FAT ADDITIONAL RECOMMENDATIONS: * Standing wt for accurate CBW * Monitor for PO tolerance acceptance- variable at this time amylase and lipase trending down * Add MVI x1 and folic acid 1mg QD continue B1 supplementation. * Add Ensure Enlive once daily w/ variable intake * Monitor lytes, replete as needed (low mag)
--- NOTE | 2020-02-02 11:01 | Pulmonology Progress Note ---
Subjective ROS Limited/Unobtainable: No Interval Events: None new Constitutional: Reports: no symptoms HEENT: Repors: no symptoms Respiratory: Reports: no symptoms Cardiovascular: Reports: no symptoms Gastrointestinal/Abdominal: Reports: no symptoms Allergies: Coded Allergies: No Known Allergies (Verified , 08/14/08) All Systems: reviewed and negative except above Objective Last 24 Hour Vital Signs Date Time Temp Pulse Resp B/P (MAP) Pulse Ox O2 Delivery O2 Flow Rate FiO2 02/02/20 10:07 98.3 02/02/20 09:00 Room Air 02/02/20 08:51 79 158/89 02/02/20 08:00 98.3 79 22 158/89 (112) 98 02/02/20 04:00 98.1 76 24 166/97 (120) 97 02/02/20 00:26 97.9 78 22 157/90 (112) 98 02/01/20 21:00 Room Air 02/01/20 20:00 97.9 84 22 151/88 (109) 98 02/01/20 16:00 98.6 73 22 130/71 (90) 98 02/01/20 12:00 98.3 74 21 140/68 (92) 97 Intake and Output 02/01/20 02/02/20 18:59 06:59 Intake Total 887.5 ml 897.5 ml Output Total 800 ml 400 ml Balance 87.5 ml 497.5 ml Intake Oral 860 ml IV Total 27.5 ml 537.5 ml Other 360 ml Output Urine Total 800 ml 400 ml # Voids 1 General Appearance: no acute distress HEENT: normocephalic Respiratory: chest wall non-tender Cardiovascular: normal peripheral pulses Abdomen: normal bowel sounds Laboratory Tests 02/02/20 07:10: Sodium Level 137, Potassium Level 3.8, Chloride Level 100, Carbon Dioxide Level 29, Anion Gap 8, Blood Urea Nitrogen 3L, Creatinine 0.8, Estimat Glomerular Filtration Rate > 60, Glucose Level 107H, Calcium Level 10.0, Magnesium Level 1.5L, Total Bilirubin 0.8, Aspartate Amino Transf (AST/SGOT) 25, Alanine Aminotransferase (ALT/SGPT) 15, Alkaline Phosphatase 65, Total Protein 6.3L, Albumin 2.8L, Globulin 3.5, Albumin/Globulin Ratio 0.8L Current Medications Medications (Trade) Dose Ordered Sig/Katlin Route PRN Reason Start Time Stop Time Status Last Admin Dose Admin Acetaminophen (Tylenol) 650 mg Q4H PRN ORAL MILD PAIN OR T ABOVE 100.4 01/31/20 09:00 02/26/20 20:59 02/02/20 09:37 Amlodipine Besylate (Norvasc) 5 mg DAILY ORAL 02/03/20 09:00 03/04/20 08:59 Amlodipine Besylate (Norvasc) 5 mg ONCE ORAL 02/02/20 10:45 02/02/20 11:45 Atenolol (Tenormin) 25 mg DAILY ORAL 01/28/20 09:00 02/25/20 08:59 02/02/20 08:51 Clonidine HCl (Catapres Tab) 0.1 mg Q4H PRN ORAL For High Blood Pressure 02/02/20 07:00 05/02/20 06:59 Docusate Sodium (Colace) 100 mg TWICE A DAY ORAL 02/02/20 18:00 03/03/20 17:59 Lactulose (Cephulac) 20 gm DAILY ORAL 02/03/20 09:00 03/04/20 08:59 Levetiracetam (Keppra) 500 mg Q12HR ORAL 02/02/20 21:00 03/03/20 20:59 Magnesium Oxide (Mag-Ox 400mg) 400 mg BID ORAL 02/03/20 09:00 03/04/20 08:59 Magnesium Sulfate 100 ml @ 100 mls/hr Q1H IVPB 02/02/20 11:00 02/02/20 12:59 Pantoprazole (Protonix) 40 mg DAILY ORAL 02/03/20 09:00 03/04/20 08:59 Polyethylene Glycol (Miralax) 17 gm BEDTIME ORAL 01/30/20 21:00 02/29/20 20:59 01/30/20 21:00 Tamsulosin HCl (Flomax) 0.4 mg BEDTIME ORAL 01/27/20 21:00 02/24/20 20:59 02/01/20 20:59 Thiamine HCl (Vitamin B1) 100 mg DAILY ORAL 02/01/20 09:00 03/02/20 08:59 02/02/20 08:51 Assessment/Plan Assessment/Plan IMPRESSION: 1. Pancreatitis. 2. Renal dysfunction. 3. History of colon cancer. 4. History of leukemia. DISCUSSION: Continue current medications and care. GI evaluation noted. Evaluation of lung parenchyma upon CT shows right base atelectasis with pleural- based nodules. Currently, the patient is doing well from pulmonary standpoint. I will follow carefully. Shawn Donohue M.D. Shawn Donohue MD Feb 02, 2020 11:01
--- NOTE | 2020-02-02 11:15 | NUR ---
*-*DISCHARGE PLANNED*-* PATIENT HAS BEEN ACCEPTED AND WILL BE DISCHARGED TO: [facility] P: [phone] FOR NURSE TO NURSE REPORT 27.[facility] TRANSPORT[facility] SET FOR 12:45 S/W DAVIE [id number] S/W NEXT TO KIN PATIENTS ADRIA PAGAN, WHO IS IN AGREEMENT WITH DISCHARGE PLAN. Addendum: 02/02/20 at 1138 by ALE HOLLINGSWORTH CM *-*DISCHARGE PLANNED*-* PATIENT HAS BEEN ACCEPTED AND WILL BE DISCHARGED TO: [facility] P: [phone] FOR NURSE TO NURSE REPORT RM#27.[facility]SP[facility] SET FOR 12:45 S/W DAVIE [id number] S/W NEXT TO KIN PATIENTS ADRIA PAGAN, WHO IS IN AGREEMENT WITH DISCHARGE PLAN. Addendum: 02/02/20 at 1151 by ALE HOLLINGSWORTH CM *-*DISCHARGE PLANNED*-* PATIENT HAS BEEN ACCEPTED AND WILL BE DISCHARGED TO: [facility] P: [phone] FOR NURSE TO NURSE REPORT 27.[facility] TRANSPORT[facility] SET FOR 12:45 S/W DAVIE [id number] S/W NEXT TO KIN PATIENTS GIRLFRIENGisselle PAGAN, WHO IS IN AGREEMENT WITH DISCHARGE PLAN. Addendum: 02/02/20 at 1138 by ALE HOLLINGSWORTH *-*DISCHARGE PLANNED*-* PATIENT HAS BEEN ACCEPTED AND WILL BE DISCHARGED TO: [facility] P: [phone] FOR NURSE TO NURSE REPORT RM#27.A [facility] TRANSPORT[facility] SET FOR 2PM S/W ELISEO [id number] S/W NEXT TO KIN PATIENTS GIRLFRIEND SHAKIRA PAGAN, WHO IS IN AGREEMENT WITH DISCHARGE PLAN.
[2020-02-02] MEDS ORDERED: NORVASC5 MG ORAL (11:53)
[2020-02-02] MEDS ORDERED: COLACE100 MG ORAL (11:54)
[2020-02-02] MEDS ORDERED: LACTULOSE10 GM PO (11:56)
[2020-02-02] MEDS ORDERED: LACTULOSE20 GM/301 ORAL (11:57)
[2020-02-02 12:00] VITALS: BP 145/86
[2020-02-02] MEDS ORDERED: PANTOPRAZOLE SO40 MG ORAL (12:00)
[2020-02-02] MEDS ORDERED: MAGNESIUM OXID400 M2 PO (12:03)
[2020-02-02] MEDS ORDERED: MIRALAX119 GM PO (12:05)
[2020-02-02] MEDS ORDERED: VITAMIN B-1100 M2 PO (12:07)
--- NOTE | 2020-02-02 15:30 | NUR ---
NURSE NOTES: Patient discharged to [facility]; Telephone report given to PAULINA Flores at [facility]; IV access removed; patient's belonging given to ambulance personnel, patient wasn't able to sing the belonging lists; patient's skin is intact; printed package given to ambulance personnel; patient is stable upon discharge;
[2020-02-02] MEDS ORDERED: Docusate 100mg cap ORAL SCH (18:00)
[2020-02-03] MEDS ORDERED: Magnesium Oxide 400mg tab ORAL SCH (09:00)
[2020-02-03] MEDS ORDERED: Lactulose 20gm/30ml UDC ORAL SCH (09:00)
--- NOTE | 2020-02-03 12:45 | Progress Note ---
DATE: 02/02/2020 CARDIOLOGY PROGRESS NOTE SUBJECTIVE: The patient is seen and evaluated. Case discussed with Dr. Cerda as well as the patient's granddaughter. Discharge medication regimen reviewed and updated. Further care plan and needs discussed with the correction home staff. The patient is made aware of discharge plan. Full summary to be dictated. Vitals reviewed and exam unchanged. The patient will be followed up at the correction facility within three days' time. Adolfo Jerry M.D. DR: GERARD JOB#: [id number] CC:
--- NOTE | 2020-02-04 11:13 | Discharge Summary ---
Discharge Summary Discharge Summary _ DATE OF ADMISSION: 01/24/2020 DATE OF DISCHARGE: 02/02/2020 DISCHARGED BY: Dr. Jerry REASON FOR ADMISSION: 74 years old male with past medical history of hypertension, COPD, seizure disorder, gastritis, GI bleeding, GERD, degenerative disc disease, possible history of colon cancer, history of pancreatitis, gout, presented with epigastric pain associated with multiple episodes of vomiting. Patient apparently takes Radisson for pain, and he ran out of his pain medication. Patient reported being more weak than usual. He reported increased difficulty with ambulation. Upon evaluation patient patient was afebrile and pulse oximetry was stable on room air. Laboratory work-up revealed no leukocytosis , hemoglobin 8.2, hematocrit 24.5, platelet count 108. Stable electrolytes. BUN 10, creatinine 1.5. Glucose 64. AST 77 , ALT 19. Total bilirubin 1.5, direct bilirubin 0.4. Lipase 652. Albumin 3.8. Serum alcohol level 115. Dilantin level subtherapeutic -0.5. EKG revealed sinus rhythm , no acute ischemic changes. CT of the head revealed no acute intracranial abnormality. Mild chronic senescent findings noted. CT scan of the abdomen and pelvis revealed: -Midtransverse colon short segment circumferential mild wall thickening , could be incidental or could represent an infectious or inflammatory colitis in the proper context. -Urinary bladder wall thickening. - Gallbladder sludge and distention without findings to suggest acute cholecystitis. This likely represents fasting state. - Likely right base atelectasis with lateral pleural-based 1.2 cm nodule, recommend follow-up unenhanced CT chest in 3 months to document resolution. -Hepatic steatosis, correlate to exclude steatohepatitis. -Mild prostatomegaly 4.8 cm , transverse. -Colonic diverticulosis without acute diverticulitis. In emergency department patient received IV Protonix , analgesics , started on IV fluids and admitted for further management. Patient was also swabbed for COVID-19 CONSULTANTS: bakery team leader internal medicine Dr. Cerda pulmonary Dr. Donohue GI specialist Dr. Chery [facility]SE: Patient initially admitted to isolation room. Patient started on IV fluids with vitamins/banana bag. Withdrawal precaution maintained. LFT ,lipase , bilirubin trended. Patient started on PPI. SARS COV 2 by PCR 01/28 was not detected. Isolation was discontinued. Abdominal MRI revealed no definite gallstones, biliary ductal dilatation or biliary ductal filling defects. Bilateral pleural effusion and compressive basilar pulmonary atelectatic changes noted. LFT trended down to normal. Lipase initially trended up and then started to trend down. Renal parameters and electrolytes were closely monitored. Acute kidney injury resolved : creatinine from highest 1.7 on 01/25 down to 0.8. Potassium and magnesium were replaced. On 01/29 patient undergone upper endoscopy with a biopsy. Upper endoscopy was normal. Biopsy of duodenum fold revealed chronic peptic duodenitis, no dysplasia or malignancy was identified. Biopsy of antrum revealed moderate chronic gastritis with marked reactive changes. No H. pylori was identified. Patient started on clear liquid diet and was advanced as tolerated. Patient was able to tolerate diet. Hemoglobin and hematocrit were closely monitored with goal to keep hemoglobin above 7. Patient undergone transfusion of 1 unit of packed red blood cells . Prior to discharge hemoglobin 9.2 ,hematocrit 25.2. DVT prophylaxis provided. Blood pressure was managed with calcium channel homero. Clonidine was on board as needed for blood pressure spikes. Supportive care provided. Supplemental oxygen provided and titrated to keep pulse oximetry above 92%. Per batter depositor review of a CT scan showed right base atelectasis with a pleural-based nodule. Pulse oximetry remained stable on room air. Repeat CT of the chest in 3 months as recommended by radiologist. Patient clinically stabilized and was ready for snf facility for continuation of care FINAL DIAGNOSES: Alcohol intoxication with withdrawal Alcohol withdrawal delirium Acute alcoholic pancreatitis Longstanding history of alcoholism Alcoholic hepatitis Toxic metabolic encephalopathy Hypertensive heart disease Anemia Seizure disorder Electrolyte abnormalities : hypokalemia, hypomagnesemia s/p EGD Gastritis COPD Suspected COVID-19- ruled out History of colon cancer Acute kidney injury -resolved DISCHARGE MEDICATIONS: See Medication Reconciliation list. DISCHARGE INSTRUCTIONS: Patient was discharged to the snf facility. Follow up with medical doctor at the facility. I have been assigned to dictate discharge summary for this account. I was not involved in the patient's management. Erica Garcia NP Feb 04, 2020 11:12
== END 2020-02-02 15:30 | DRG 438 ==
LOC: EDBD 19:37 → EMR 20:00 → 2E 20:50 → EDBEDREQ 01-25 12:07 → 4E 01-27 18:54
PROC: 30233N1 Transfusion of Nonautologous Red Blood Cells into Peripheral Vein, Percutaneous Approach (ICD-10-PCS; 2020-01-25)
PROC: 0DB98ZX Excision of Duodenum, Via Natural or Artificial Opening Endoscopic, Diagnostic (ICD-10-PCS; principal; 2020-01-29 07:14)
PROC: 0DB78ZX Excision of Stomach, Pylorus, Via Natural or Artificial Opening Endoscopic, Diagnostic (ICD-10-PCS; principal; 2020-01-29 07:14)
DX: K85.20 Alcohol induced acute pancreatitis without necrosis or infection (principal); G93.41 Metabolic encephalopathy; E87.2 Acidosis; F10.231 Alcohol dependence with withdrawal delirium; E87.1 Hypo-osmolality and hyponatremia; N17.9 Acute kidney failure, unspecified; F10.229 Alcohol dependence with intoxication, unspecified; K52.9 Noninfective gastroenteritis and colitis, unspecified; N30.90 Cystitis, unspecified without hematuria; K57.90 Diverticulosis of intestine, part unspecified, without perforation or abscess without bleeding; R00.0 Tachycardia, unspecified; K29.70 Gastritis, unspecified, without bleeding; Z85.038 Personal history of other malignant neoplasm of large intestine; I11.9 Hypertensive heart disease without heart failure; D64.9 Anemia, unspecified; Z85.6 Personal history of leukemia; E83.42 Hypomagnesemia; G40.909 Epilepsy, unspecified, not intractable, without status epilepticus; E87.6 Hypokalemia
CPT/HCPCS: 36415; 70450; 74176; 74181; 80048; 80053; 80061; 80076; 80185; 81003; 82140; 82150; 82248; 83540; 83550; 83690; 83735; 84153; 84550; 85007; 85025; 85610; 85730; 86850; 86900; 86901; 86920; 93005; 94003; 94150; 96361; 96365; 96375; 99285; G0480; J2405; J7030; J8499

== ENCOUNTER 2020-06-21 10:44 | Inpatient (IN) | payer MEDICARE, OTHER ==
[~2020-06-21] VITALS: Ht 180.3 cm; Wt 71.0 kg
[~2020-06-21 10:44] MED LIST changes: +LACTULOSE10 GM PO; +LACTULOSE20 GM/301 ORAL; +MAGNESIUM OXID400 M2 PO; +MIRALAX119 GM PO; +NORVASC5 MG ORAL; +PANTOPRAZOLE SO40 MG ORAL; +VITAMIN B-1100 M2 PO
[2020-06-21 10:59] VITALS: BP 131/79
--- NOTE | 2020-06-21 11:06 | Emergency Room Report ---
History of Present Illness General Chief Complaint: Nausea, Vomiting, and Diarrhea Source: Patient Present Illness HPI Disclaimer: Please note that this report is being documented using [employer] technology. This can lead to erroneous entry secondary to incorrect interpretation by the dictating instrument. HPI: 74-year-old male history of COPD, hypertension, former alcohol use and drug use, hepatitis C, GERD, pancreatitis, gout presents for evaluation of abdominal pain. Symptoms began early this morning. He reported periumbilical pain and cramping that is now localized to the right lower quadrant. He states he is unable to hold down solids or liquids and vomits immediately with any oral intake. Reports loose stools this morning. [place] feverish overnight but no objective temperature readings were taken. States he has a history of cirrhosis. Reports alcohol use 2 days ago. Denies drug use. Denies dysuria or hematuria. Denies cough, chest pain or shortness of breath. PMH: COPD, gout, hypertension, alcohol and substance abuse, hepatitis C, cirrhosis, GERD, pancreatitis PSH: Right shoulder reconstruction Allergies: Denied Social Hx: Occasional alcohol use, former substance abuse Allergies: Coded Allergies: No Known Allergies (Verified , 08/14/08) COVID-19 Screening Contact w/high risk pt: No Recent Travel to affected area: No Experienced COVID-19 symptoms?: No COVID-19 symptoms experienced: Flu-Like Symptoms COVID-19 Testing performed MAILROOM ASSISTANT: No Nursing Documentation-PMH Hx Cardiac Problems: Yes Hx Hypertension: Yes Hx Cancer: Yes - leukemia, colon CA Hx Gastrointestinal Problems: Yes - pancreatitis Hx Neurological Problems: No - gout Hx Seizures: Yes Hx Dizziness: Yes Hx Headaches: Yes Hx Weakness: Yes Hx Fatigue: Yes Review of Systems All Other Systems: negative except mentioned in HPI Physical Exam Vital Signs Date Time Temp Pulse Resp B/P (MAP) Pulse Ox O2 Delivery O2 Flow Rate FiO2 06/21/20 10:59 97.9 87 18 95 Room Air General: Awake and alert, no acute distress HEENT: NC/AT. EOMI. Cardiovascular: RRR. S1 and S2 normal. No murmur appreciated Resp: Normal work of breathing. No cough, wheezing or crackles appreciated Abdomen: Abdomen is soft, nondistended. Tenderness palpation in the periumbilical region and right lower quadrant. No mass, no rebound. Positive Rovsing sign. Negative obturator. Minimal tenderness in the epigastrium right upper left upper quadrant Skin: Intact. No abrasions, laceration or rash over the exposed skin MSK: Normal tone and bulk. Moving all extremities. No obvious deformity. Neuro: Awake and alert. Mentating appropriately. Medical Decision Making Diagnostic Impression: Primary Impression: Abdominal pain Additional Impressions: Dehydration Diarrhea ER Course Is a 74-year-old male presenting for evaluation of abdominal pain. Differential includes was not due to gastritis, gastroenteritis, pancreatitis, cholecystitis, hepatitis, mesenteric ischemia, appendicitis, bowel obstruction, hernia, anginal equivalent, viral syndrome to name a few. IV established. Patient receiving IV fluids, antiemetics. Labs show slight elevation in white count, low chloride, low bicarb and slight anion gap consistent with dehydration. Troponin negative. Urinalysis not appearing very infectious at this time. Talk screen negative. CT scan shows fluid in the colon consistent with diarrheal illness and diverticulosis without diverticulitis otherwise chronic changes. No evidence of obstruction or acute appendicitis. Patient unable to tolerate p.o. right now. Will admit to his PMD, Dr. Jerry, for further treatment. Laboratory Tests Test 06/21/20 11:03 06/21/20 12:55 White Blood Count 13.6 K/UL (4.8-10.8) H Red Blood Count 4.39 M/UL (4.70-6.10) L Hemoglobin 14.6 G/DL (14.2-18.0) Hematocrit 42.4 % (42.0-52.0) Mean Corpuscular Volume 97 FL (80-99) Mean Corpuscular Hemoglobin 33.2 PG (27.0-31.0) H Mean Corpuscular Hemoglobin Concent 34.3 G/DL (32.0-36.0) Red Cell Distribution Width 14.1 % (11.6-14.8) Platelet Count 130 K/UL (150-450) L Mean Platelet Volume 9.1 FL (6.5-10.1) Neutrophils (%) (Auto) 59.5 % (45.0-75.0) Lymphocytes (%) (Auto) 31.6 % (20.0-45.0) Monocytes (%) (Auto) 7.7 % (1.0-10.0) Eosinophils (%) (Auto) 0.1 % (0.0-3.0) Basophils (%) (Auto) 1.2 % (0.0-2.0) Sodium Level 134 MMOL/L (136-145) L Potassium Level 3.5 MMOL/L (3.5-5.1) Chloride Level 96 MMOL/L (98-107) L Carbon Dioxide Level 17 MMOL/L (21-32) L Anion Gap 21 mmol/L (5-15) H Blood Urea Nitrogen 10 mg/dL (7-18) Creatinine 1.1 MG/DL (0.55-1.30) Estimated Glomerular Filtration Rate > 60 mL/min (>60) Glucose Level 83 MG/DL (74-106) Calcium Level 9.7 MG/DL (8.5-10.1) Total Bilirubin 1.0 MG/DL (0.2-1.0) Aspartate Amino Transferase (AST) 43 U/L (15-37) H Alanine Aminotransferase (ALT) 22 U/L (12-78) Alkaline Phosphatase 89 U/L (46-116) Troponin I 0.000 ng/mL (0.000-0.056) Total Protein 9.0 G/DL (6.4-8.2) H Albumin 4.0 G/DL (3.4-5.0) Globulin 5.0 g/dL Albumin/Globulin Ratio 0.8 (1.0-2.7) L Lipase 74 U/L (73-393) Serum Alcohol 20 mg/dL Urine Color Pale yellow Urine Appearance Clear Urine pH 6 (4.5-8.0) Urine Specific [place] 1.005 (1.005-1.035) Urine Protein 3+ (NEGATIVE) H Urine Glucose (UA) Negative (NEGATIVE) Urine Ketones 4+ (NEGATIVE) H Urine Blood 2+ (NEGATIVE) H Urine Nitrite Negative (NEGATIVE) Urine Bilirubin Negative (NEGATIVE) Urine Urobilinogen Normal MG/DL (0.0-1.0) Urine Leukocyte Esterase Negative (NEGATIVE) Urine RBC Pending Urine WBC Pending Urine Squamous Epithelial Cells Pending Urine Bacteria Pending Urine Opiates Screen Negative (NEGATIVE) Urine Barbiturates Screen Negative (NEGATIVE) Phencyclidine (PCP) Screen Negative (NEGATIVE) Urine Amphetamines Screen Negative (NEGATIVE) Urine Benzodiazepines Screen Negative (NEGATIVE) Urine Cocaine Screen Negative (NEGATIVE) Urine Marijuana (THC) Screen Negative (NEGATIVE) EKG Diagnostic Results Troponin ordered: Yes When was troponin ordered?: Jun 21, 2020 EKG Time: 11:18 Rate: normal Rhythm: NSR ST Segments: no acute changes Other Impression Sinus rhythm, normal axis, normal intervals, no ST segment changes. Anterior Q waves Rhythm Strip Diag. Results Rhythm Strip Time: 11:18 EP Interpretation: yes Rate: 85 Rhythm: NSR, no PVC's, no ectopy Chest X-Ray Diagnostic Results Chest X-Ray Diagnostic Results : Chest X-Ray Ordered: Yes # of Views/Limited/Complete: 1 View Indication: Other - Cough EP Interpretation: Yes Interpretation: no consolidation, no effusion, no pneumothorax, no acute cardiopulmonary disease Impression: No acute disease Electronically Signed by: Electronically signed by Dr. Eliazar Croft Last Vital Signs Date Time Temp Pulse Resp B/P (MAP) Pulse Ox O2 Delivery O2 Flow Rate FiO2 06/21/20 10:59 97.9 87 18 95 Room Air Disposition: ADMITTED INPATIENT Condition: Serious Eliazar Croft MD Jun 21, 2020 11:06
[2020-06-21] MEDS ORDERED: Omnipaque-300 100ml vial INJ PRN (11:15)
[2020-06-21 11:42] LABS: BASOPHILS % (AUTO) 1.2 % (0.0-2.0); EOSINOPHILS % (AUTO) 0.1 % (0.0-3.0); HEMATOCRIT 42.4 % (42.0-52.0); HEMOGLOBIN 14.6 G/DL (14.2-18.0); LYMPHOCYTES % (AUTO) 31.6 % (20.0-45.0); MEAN CORPUSCULAR VOLUME 97 FL (80-99); MONOCYTES % (AUTO) 7.7 % (1.0-10.0); NEUTROPHILS % (AUTO) 59.5 % (45.0-75.0); PLATELET COUNT 130 K/UL (150-450); RED BLOOD COUNT 4.39 M/UL (4.70-6.10); RED CELL DISTRIBUTION WIDTH 14.1 % (11.6-14.8); WHITE BLOOD COUNT 13.6 K/UL (4.8-10.8)
[2020-06-21 11:47] LABS: ANION GAP 21 mmol/L (5-15); BLOOD UREA NITROGEN 10 mg/dL (7-18); CALCIUM 9.7 MG/DL (8.5-10.1); CARBON DIOXIDE 17 MMOL/L (21-32); CHLORIDE 96 MMOL/L (98-107); CREATININE 1.1 MG/DL (0.55-1.30); POTASSIUM 3.5 MMOL/L (3.5-5.1); SODIUM 134 MMOL/L (136-145)
[2020-06-21 11:51] LABS: ALANINE AMINOTRANSFERASE 22 U/L (12-78); ALBUMIN/GLOBULIN RATIO 0.8 (1.0-2.7); ALKALINE PHOSPHATASE 89 U/L (46-116); ASPARTATE AMINO TRANSFERASE 43 U/L (15-37)
[2020-06-21 12:30] VITALS: BP 127/85
--- NOTE | 2020-06-21 13:08 | Diagnostic Imaging Report ---
CT ABDOMEN AND PELVIS WITH CONTRAST INDICATION: Abdominal pain TECHNIQUE: Continuous helical transaxial imaging of the abdomen and pelvis was obtained from the lung bases to the pubic symphysis during intravenous contrast administration. Coronal 2-D reformats were also obtained. Study obtained in a Siemens sensation [address] Automatic Exposure Control was utilized. Total Dose length Product (DLP): 233.[address] Dose Index Volume (CTDIvol): 4.5 mGy COMPARISON: CT abdomen pelvis dated 11/06/2017 FINDINGS: Lower chest:: There is a small hiatal hernia. There is concentric wall thickening of the distal esophagus with some mucosal edema. Hepatobiliary:: Unremarkable. Genitourinary:: Bilateral renal cysts. No hydronephrosis or nephrolithiasis. Moderate prostatomegaly. There is concentric wall thickening of the urinary bladder. Adrenals:: Unremarkable. Pancreas:: Unremarkable. Gastrointestinal:: Appendix is normal. There is fluid in the rectum and distal sigmoid colon. There is extensive colonic diverticulosis without evidence of acute diverticulitis. Spleen: : Unremarkable. Peritoneum:: No ascites or pneumoperitoneum. Bones and soft tissues:: There are multilevel discogenic degenerative changes of the visualized spine. IMPRESSION: 1. Fluid in the rectum and distal sigmoid colon, which can be seen with diarrheal illness/high transit state. 2. Colonic diverticulosis without evidence of acute diverticulitis. 3. Concentric wall thickening the urinary bladder, which may be partly due to underdistention or chronic lateral obstruction, but can be seen with cystitis. Clinical correlation with urinalysis is recommended. 4. Concentric wall thickening and submucosal edema of the visualized distal esophagus; clinical correlation for reflux esophagitis is recommended. The CT scanner at [facility] is accredited by the [employer] and the scans are performed using protocols designed to limit radiation exposure to as low as reasonably achievable to attain images of sufficient resolution adequate for diagnostic evaluation.
[2020-06-21 13:22] LABS: APPEARANCE,URINE CLEAR; BILIRUBIN, URINE NEGATIVE (NEGATIVE); COLOR,URINE PALE YELLOW; GLUCOSE, URINE (UA) NEGATIVE (NEGATIVE); KETONES,URINE 4+ (NEGATIVE); LEUKOCYTE ESTERASE ,URINE NEGATIVE (NEGATIVE); NITRITE,URINE NEGATIVE (NEGATIVE); PH,URINE 6 (4.5-8.0); PROTEIN,URINE 3+ (NEGATIVE); UROBILINOGEN,URINE NORMAL MG/DL (0.0-1.0)
[2020-06-21 14:28] VITALS: BP 125/80
--- NOTE | 2020-06-21 14:31 | Diagnostic Imaging Report ---
Indication: Reason For Exam: COUGH Technique: Single AP view of the chest. Comparison: Chest radiograph dated 11/01/2019 Findings: The cardiomediastinal silhouette is unchanged in appearance. Redemonstration of prominence of the right upper paratracheal stripe. Linear lucency projecting over the right apex is felt likely to represent skinfold as opposed to pneumothorax. No new airspace consolidation. No pleural effusion. No acute osseous abnormality. IMPRESSION: No radiographic evidence of acute cardiopulmonary process.
[2020-06-21 14:45] VITALS: BP 143/95
[2020-06-21 16:00] VITALS: BP 133/84
[2020-06-21] MEDS: HYDROcodone/Acetamin 5/325 tab ORAL PRN (16:00)
[2020-06-21] MEDS ORDERED: Lomotil 2.5mg tab ORAL PRN (18:00)
[2020-06-21] MEDS: NS w/KCl 20mEq 1000ml 1,000 ML IV SCH (18:32)
[2020-06-21 20:00] VITALS: BP 155/92
[2020-06-21] MEDS: LORazepam 1mg tab ORAL PRN (20:27)
[2020-06-21] MEDS ORDERED: Heparin 5000 units/ml inj SUBQ SCH (21:00)
--- NOTE | 2020-06-21 22:45 | History and Physical Report ---
DATE OF ADMISSION: 06/21/2020 REASON FOR ADMISSION: Nausea, vomiting, diarrhea, and abdominal pain. HISTORY OF PRESENT ILLNESS: This 74-year-old male is known to me for many years of primary care. He has a history of chronic liver disease and diverticulosis. He notes several days of abdominal pain localized initially in the periumbilical region and then radiating to the right upper and lower quadrants. He has had difficulty holding down liquids or solids and has been vomiting frequently. He has had loose diarrhea for the last few days and has had some subjective fevers although he never checked his temperature. The patient has been increasingly withdrawn and depressed for the past several days as his son last week. He drank some alcohol following the 2 days ago. The patient has not had any recent antibiotic use. He does c/o increasing congestion dry cough, and hoarseness - requiring him to take more cough medication at home. PAST MEDICAL HISTORY: 1. COPD. 2. Hypertension with hypertensive heart disease. 3. Hepatitis C. 4. Chronic alcoholic liver disease. 5. Gastroesophageal reflux disease. 6. Chronic pancreatitis. 7. Hyperuricemia. 8. History of gout. 9. Right shoulder infection rotator cuff tear and fracture with reconstructive surgery complicated by capsule infection in 2019. ALLERGIES: None. MEDICATIONS: Prior to admission, reviewed and reconciled. SOCIAL HISTORY: Moderate alcohol use when he does drink. Former substance abuse, but none currently. Former smoker. FAMILY HISTORY: Noncontributory. REVIEW OF SYSTEMS: No known COVID-19 exposure. No loss of vision or hearing. No recent steroid use or upper respiratory symptoms. He has had alcoholic seizures in the distant past. His blood pressure control is labile at times. An outpatient echocardiogram revealed normal ejection fraction with concentric hypertrophy. There is no history of kidney disease. He has not had any history of prostate cancer. There is no known history of diabetes mellitus or thyroid impairment. PHYSICAL EXAMINATION: GENERAL: Alert and in mild distress due to abdominal discomfort. VITAL SIGNS: Blood pressure 140/85, heart rate 87, respirations 18, oxygen saturation 95%, afebrile. HEENT: Conjunctivae pink. Arcus senilis. Oropharynx clear. NECK: Supple. LUNGS: Coarse rhonchi. No wheezing. CARDIAC: Regular. Normal S1, S2 with a fourth heart sound. ABDOMEN: Soft. No hepatomegaly or ascites. Positive tenderness to palpation in the periumbilical and right upper quadrant regions with no guarding or rebound. NEUROLOGIC: Nonfocal. EXTREMITIES: With no edema. SKIN: Without rash or erythema. LABORATORY DATA: Lipase 74. Troponin 0. Albumin 4.0. BUN 10, creatinine 1.1, sodium 134, potassium 3.5, bicarb 17. Urinalysis with no active sediment. White count 13.6, hemoglobin 14.6, platelets 130,000. IMPRESSION: 1. Diarrhea, nausea, and vomiting, probable viral syndrome. Rule out bacterial component. 2. Hypovolemia and dehydration. 3. Metabolic acidosis. 4. COPD exacerbation with paroxysmal bronchospasm. 5. Chronic liver disease. 6. Mild hyponatremia and hypokalemia. 7. Mild leukocytosis. PLAN: 1. Review imaging studies. 2. Hydrate with saline. 3. Empiric antimicrobials with Levaquin. 4. Respiratory hygiene with bronchodilators; hold steroids. 5. Follow up CBC. 6. GI and pulmonary consultations. Adolfo Jerry M.D. DR: MIKHAIL JOB#: [id number] CC: JADA
[2020-06-22] VITALS: BP 124/84
[2020-06-22 04:00] VITALS: BP 135/96
[2020-06-22] MEDS: NS w/KCl 20mEq 1000ml 1,000 ML IV SCH ×3 (04:55→17:15)
[2020-06-22 05:23] LABS: HEMATOCRIT 36.9 % (42.0-52.0); HEMOGLOBIN 12.8 G/DL (14.2-18.0); MEAN CORPUSCULAR VOLUME 97 FL (80-99); PLATELET COUNT 96 K/UL (150-450); RED BLOOD COUNT 3.82 M/UL (4.70-6.10); RED CELL DISTRIBUTION WIDTH 14.1 % (11.6-14.8); WHITE BLOOD COUNT 10.3 K/UL (4.8-10.8)
[2020-06-22 05:33] LABS: ALANINE AMINOTRANSFERASE 10 U/L (12-78); ALBUMIN 3.1 G/DL (3.4-5.0); ALBUMIN/GLOBULIN RATIO 0.9 (1.0-2.7); ALKALINE PHOSPHATASE 64 U/L (46-116); ANION GAP 14 mmol/L (5-15); ASPARTATE AMINO TRANSFERASE 27 U/L (15-37); BLOOD UREA NITROGEN 7 mg/dL (7-18); CARBON DIOXIDE 21 MMOL/L (21-32); CHLORIDE 101 MMOL/L (98-107); POTASSIUM 3.8 MMOL/L (3.5-5.1); SODIUM 136 MMOL/L (136-145)
[2020-06-22 07:56] VITALS: BP 146/92
[2020-06-22] MEDS ORDERED: Albuterol ud Inhalation HHN SCH (11:00)
[2020-06-22] MEDS ORDERED: Ipratropium 0.02% Inh Soln 2.5ml UD HHN SCH (11:00)
[2020-06-22 12:00] VITALS: BP 146/91
[2020-06-22] MEDS: HYDROcodone/Acetamin 5/325 tab ORAL PRN ×2 (13:45→20:18)
--- NOTE | 2020-06-22 14:15 | Consultation ---
DATE OF CONSULTATION: 06/22/2020 PULMONARY CONSULTATION CONSULTING PHYSICIAN: Shawn Donohue MD. HISTORY OF PRESENT ILLNESS: This 74-year-old male who came to the hospital with abdominal pain. The patient reports that he has a history of COPD, has been a smoker in the past. He was admitted because of ongoing abdominal discomfort. He also reported increasing chest congestion and cough. PAST MEDICAL HISTORY: COPD, hypertension, chronic hepatitis C, alcoholic liver disease, GERD, gout. PREVIOUS SURGERIES: Include previous shoulder surgery. ALLERGIES: None. HOME MEDICATIONS: Reviewed and reconciled in the chart. SOCIAL HISTORY: Admits to previous tobacco use and admits to current alcohol use. REVIEW OF SYSTEMS: Denies any headaches, hematemesis, melena, hematochezia, night sweats, or weight loss. PHYSICAL EXAMINATION: GENERAL: Reveals a 74-year-old male. VITAL SIGNS: Blood pressure is 120/60, heart rate 84, respirations . He is afebrile. HEENT: Unremarkable. LUNGS: Clear breath sounds bilaterally. HEART: Normal heart sounds. ABDOMEN: Soft. EXTREMITIES: There is no appreciable edema. LABORATORY DATA: Toxicology screen is negative. Microbiology, COVID testing has not been obtained. X-ray chest obtained yesterday has shown clear garcia bilaterally. IMPRESSION: 1. COPD with mild exacerbation. 2. Abdominal pain. 3. History of chronic alcohol use. DISCUSSION: Agree with admission and care. Empiric antibiotics. IV fluids. Protonix. Breathing treatments. We will follow. Shawn Donohue M.D. DR: VIKY JOB#: [id number] CC:
--- NOTE | 2020-06-22 15:34 | Cardiology Report ---
APPROVED REPORT EKG Measurement Heart [id number] <Conclusion> Normal sinus rhythm Low voltage QRS Septal infarct, age undetermined Abnormal ECG
[2020-06-22 16:00] VITALS: BP 127/87
--- NOTE | 2020-06-22 18:30 | Consultation ---
DATE OF CONSULTATION: 06/22/2020 GASTROENTEROLOGY CONSULTATION REPORT CONSULTING PHYSICIAN: Suman Chery MD CHIEF COMPLAINT: I was asked to see this patient by Dr. Adolfo Jerry for evaluation of abdominal symptoms. HISTORY OF PRESENT ILLNESS: The patient is a pleasant 74-year-old man who comes into the hospital with a 2-to-3-day history of diarrhea, which was nonbloody and not black. He also had some bouts of emesis, but he feels much better now. He had some discomfort reportedly at home, but now he has abdominal pain. He generally feels better and feels that he has recovered from his illness. He has had alcohol following a about 2 days ago. He has had a long-standing history of hepatitis C for about 30 years, but he does not recall being treated for it and therefore, his status is unknown. His last colonoscopy was about 3 years ago. He does have a strong history of gastroesophageal reflux disease. PAST MEDICAL HISTORY: History of COPD, hypertension, hepatitis C, history of chronic liver disease, gastroesophageal reflux disease, history of prior pancreatitis, hyperuricemia, history of gout, history of shoulder fracture, and rotator cuff tear. ALLERGIES: None. FAMILY HISTORY: Noncontributory. SOCIAL HISTORY: Patient has had a history of alcohol use and also former substance abuse. He does not smoke. MEDICATIONS: See the chart list for details. REVIEW OF SYSTEMS: Otherwise negative. PHYSICAL EXAMINATION: GENERAL: Well-developed, well-nourished man, seen in his room. HEENT: Normocephalic, atraumatic. Sclerae anicteric. Oropharynx clear. NECK: Supple. CHEST: Clear to auscultation. CARDIAC: Revealed a regular rate. ABDOMEN: Soft and nontender without any masses or organomegaly. EXTREMITIES: Revealed no edema. LABORATORY DATA: Noted. There was a minor elevation in AST, which has now resolved. A CT scan of the abdomen and pelvis is also noted. There is some incidental thickening of the distal esophagus consistent with likely reflux and some fluid in the bowel. ASSESSMENT: This patient presents today with somewhat acute presentation of few days of diarrhea and nausea and vomiting, which is typical for viral gastroenteritis. The patient is already feeling better and, therefore, can be managed conservatively. He does have a history of hepatitis C, although his liver panels are almost normal. A consideration can be made to hepatitis C treatment and this can be managed as an outpatient. Finally, there is some ill-defined esophageal wall thickening in the distal esophagus, which may be just due to reflux. An endoscopy will be offered to this patient as an outpatient. RECOMMENDATIONS: 1. IV hydration. 2. Conservative follow up. 3. Check stool studies. 4. Outpatient endoscopy. 5. Outpatient consideration for hepatitis C treatment. Thank you for asking me to participate in the care of this patient. Suman Chery M.D. DR: MYLA JOB#: [id number] CC:
[2020-06-22 20:00] VITALS: BP 133/96
[2020-06-22] MEDS: LORazepam 1mg tab ORAL PRN (21:30)
--- NOTE | 2020-06-22 23:31 | Cardiology Progress Note ---
Subjective DATE OF SERVICE: Jun 22, 2020 Less congestion Still hoarse No diarrhea or BM's today Abdominal pain better; single dose of [place] req'd today. Low Mg++ level noted Objective Last 24 Hour Vital Signs Date Time Temp Pulse Resp B/P (MAP) Pulse Ox O2 Delivery O2 Flow Rate FiO2 06/22/20 21:30 104 20 133/96 97 06/22/20 21:00 Room Air 06/22/20 20:48 97.1 06/22/20 20:45 Room Air 21 06/22/20 20:45 Room Air 21 06/22/20 20:00 98.1 104 20 133/96 (108) 97 06/22/20 16:00 97.1 100 19 127/87 (100) 99 06/22/20 15:00 Room Air 06/22/20 15:00 Room Air 21 06/22/20 14:15 99.5 06/22/20 13:00 Room Air 21 06/22/20 13:00 Room Air 21 06/22/20 12:00 99.5 98 17 146/91 (109) 99 06/22/20 08:59 Room Air 06/22/20 08:46 98 146/92 06/22/20 07:56 98.9 98 20 146/92 (110) 98 06/22/20 07:30 83 18 97 Room Air 06/22/20 04:00 98.1 98 18 135/96 (109) 98 06/22/20 00:00 99.2 107 20 124/84 (97) 98 ROS: no change in from my evaluation of 06/21/20. HEENT: normal ENT inspection LUNGS: diminished breath sounds CARDIAC: normal rate, regular rhythm, normal S1 and S2, gallop/S4 ABDOMEN: normal bowel sounds, soft, tender - mild and diffuse EXTREMITIES: normal range of motion Laboratory Tests Test 06/22/20 04:40 White Blood Count 10.3 K/UL (4.8-10.8) Red Blood Count 3.82 M/UL (4.70-6.10) L Hemoglobin 12.8 G/DL (14.2-18.0) L Hematocrit 36.9 % (42.0-52.0) L Mean Corpuscular Volume 97 FL (80-99) Mean Corpuscular Hemoglobin 33.7 PG (27.0-31.0) H Mean Corpuscular Hemoglobin Concent 34.8 G/DL (32.0-36.0) Red Cell Distribution Width 14.1 % (11.6-14.8) Platelet Count 96 K/UL (150-450) L Mean Platelet Volume 8.0 FL (6.5-10.1) Neutrophils (%) (Auto) % (45.0-75.0) Lymphocytes (%) (Auto) % (20.0-45.0) Monocytes (%) (Auto) % (1.0-10.0) Eosinophils (%) (Auto) % (0.0-3.0) Basophils (%) (Auto) % (0.0-2.0) Differential Total Cells Counted 100 Neutrophils % (Manual) 65 % (45-75) Lymphocytes % (Manual) 31 % (20-45) Monocytes % (Manual) 4 % (1-10) Eosinophils % (Manual) 0 % (0-3) Basophils % (Manual) 0 % (0-2) Band Neutrophils 0 % (0-8) Platelet Estimate Decreased L Platelet Morphology Normal Red Blood Cell Morphology Normal Sodium Level 136 MMOL/L (136-145) Potassium Level 3.8 MMOL/L (3.5-5.1) Chloride Level 101 MMOL/L (98-107) Carbon Dioxide Level 21 MMOL/L (21-32) Anion Gap 14 mmol/L (5-15) Blood Urea Nitrogen 7 mg/dL (7-18) Creatinine 1.0 MG/DL (0.55-1.30) Estimat Glomerular Filtration Rate > 60 mL/min (>60) Glucose Level 88 MG/DL (74-106) Calcium Level 9.0 MG/DL (8.5-10.1) Magnesium Level 1.3 MG/DL (1.8-2.4) L Total Bilirubin 1.0 MG/DL (0.2-1.0) Aspartate Amino Transf (AST/SGOT) 27 U/L (15-37) Alanine Aminotransferase (ALT/SGPT) 10 U/L (12-78) L Alkaline Phosphatase 64 U/L (46-116) Total Protein 6.6 G/DL (6.4-8.2) Albumin 3.1 G/DL (3.4-5.0) L Globulin 3.5 g/dL Albumin/Globulin Ratio 0.9 (1.0-2.7) L Assessment/Plan Assessment/Plan Diarrhea resolving Abdominal pain improving COPD exac Hypomagnesemia Chronic liver disease Hypertension/HHD Situational depression Rx in place IV Mg++ ordered Mobilize in anticipation of discharge Adolfo Jerry MD Jun 22, 2020 23:31
[2020-06-23 04:00] VITALS: BP 130/95
[2020-06-23 05:10] VITALS: BP 129/88
[2020-06-23 08:00] VITALS: BP 138/87
--- NOTE | 2020-06-23 10:05 | Pulmonology Progress Note ---
Subjective Interval Events: NONE NEW Constitutional: Reports: no symptoms HEENT: Repors: no symptoms Respiratory: Reports: no symptoms Cardiovascular: Reports: no symptoms Gastrointestinal/Abdominal: Reports: no symptoms Allergies: Coded Allergies: No Known Allergies (Verified , 08/14/08) Objective Last 24 Hour Vital Signs Date Time Temp Pulse Resp B/P (MAP) Pulse Ox O2 Delivery O2 Flow Rate FiO2 06/23/20 08:00 98.9 115 20 138/87 (104) 97 06/23/20 07:21 Room Air 21 06/23/20 07:21 Room Air 21 06/23/20 05:10 97.6 101 18 129/88 (102) 99 06/23/20 04:00 97.6 98 20 130/95 (107) 98 06/23/20 03:13 Room Air 21 06/23/20 03:13 Room Air 21 06/22/20 23:35 Room Air 21 06/22/20 23:35 Room Air 21 06/22/20 21:30 104 20 133/96 97 06/22/20 21:00 Room Air 06/22/20 20:48 97.1 06/22/20 20:45 Room Air 21 06/22/20 20:45 Room Air 21 06/22/20 20:00 98.1 104 20 133/96 (108) 97 06/22/20 16:00 97.1 100 19 127/87 (100) 99 06/22/20 15:00 Room Air 21 06/22/20 15:00 Room Air 21 06/22/20 14:15 99.5 06/22/20 13:00 Room Air 21 06/22/20 13:00 Room Air 21 06/22/20 12:00 99.5 98 17 146/91 (109) 99 Intake and Output 06/22/20 06/23/20 19:00 07:00 Intake Total 1540 ml 1040 ml Output Total 1100 ml 800 ml Balance 440 ml 240 ml Intake Oral 240 ml 240 ml IV Total 1300 ml 800 ml Output Urine Total 1100 ml 800 ml # Voids 2 General Appearance: no acute distress HEENT: normocephalic Respiratory: chest wall non-tender, lungs clear Cardiovascular: normal peripheral pulses, normal rate Abdomen: normal bowel sounds Current Medications Medications (Trade) Dose Ordered Sig/[place] Route PRN Reason Start Time Stop Time Status Last Admin Dose Admin Acetaminophen/ Hydrocodone Bitart ([place] 5/325) 1 tab Q6H PRN ORAL For Pain 06/21/20 15:30 06/28/20 15:29 06/22/20 20:18 Albuterol/ Ipratropium (Combivent Respimat) 1 puff Q4HRT INH 06/22/20 15:00 07/22/20 12:59 Amlodipine Besylate (Norvasc) 5 mg DAILY ORAL 06/22/20 09:00 07/22/20 08:59 06/22/20 08:46 Diphenoxylate HCl/ Atropine (Lomotil) 2.5 mg Q4H PRN ORAL Diarrhea 06/21/20 18:00 07/21/20 17:59 Iohexol (OMNIPAQUE-300 100ml) 100 ml NOW PRN INJ Radiology Procedure 06/21/20 11:15 06/23/20 11:14 Levetiracetam (Keppra) 500 mg Q12HR ORAL 06/22/20 11:00 07/22/20 10:59 06/22/20 20:17 Levofloxacin 100 ml @ 100 mls/hr Q24H IVPB 06/21/20 20:00 06/28/20 19:59 06/22/20 20:40 Lorazepam (Ativan) 1 mg BEDTIME PRN ORAL For Anxiety 06/21/20 18:30 06/28/20 18:29 06/22/20 21:30 Ondansetron HCl (Zofran) 4 mg Q6H PRN IVP Nausea & Vomiting 06/21/20 18:00 07/21/20 17:59 06/21/20 20:26 Pantoprazole (Protonix) 40 mg EVERY 12 HOURS ORAL 06/21/20 21:00 07/21/20 20:59 06/22/20 20:17 Potassium Chloride/Sodium Chloride 1,000 ml @ 100 mls/hr Q10H IV 06/21/20 18:30 07/21/20 18:29 06/22/20 17:15 Assessment/Plan Assessment/Plan IMPRESSION: 1. COPD with mild exacerbation. 2. Abdominal pain. 3. History of chronic alcohol use. DISCUSSION: Agree with admission and care. Empiric antibiotics. IV fluids. Protonix. Breathing treatments. Aym Rodgers Omar Syed MD Jun 23, 2020 10:05
[2020-06-23 10:16] VITALS: BP 138/87
[2020-06-23] MEDS: NS w/KCl 20mEq 1000ml 1,000 ML IV SCH (10:30)
[2020-06-23] MEDS: HYDROcodone/Acetamin 5/325 tab ORAL PRN (10:31)
[2020-06-23] MEDS ORDERED: Levofloxacin 500mg tab ORAL SCH (13:00)
[2020-06-23] MEDS ORDERED: Tubing IV Secondary IV ONE (13:59)
--- NOTE | 2020-06-23 22:07 | General Progress Note ---
Subjective Allergies: Coded Allergies: No Known Allergies (Verified , 08/14/08) Subjective Feels better no vomiting tolerating PO Objective Last 24 Hour Vital Signs Date Time Temp Pulse Resp B/P (MAP) Pulse Ox O2 Delivery O2 Flow Rate FiO2 06/23/20 12:22 92 16 96 Room Air 21 06/23/20 11:50 94 16 96 Room Air 21 06/23/20 10:16 115 138/87 06/23/20 09:00 Room Air 06/23/20 08:00 98.9 115 20 138/87 (104) 97 06/23/20 07:21 Room Air 21 06/23/20 07:21 Room Air 21 06/23/20 05:10 97.6 101 18 129/88 (102) 99 06/23/20 04:00 97.6 98 20 130/95 (107) 98 06/23/20 03:13 Room Air 21 06/23/20 03:13 Room Air 21 06/22/20 23:35 Room Air 21 06/22/20 23:35 Room Air 21 Intake and Output 06/22/20 06/23/20 19:00 07:00 Intake Total 1540 ml 1040 ml Output Total 1100 ml 800 ml Balance 440 ml 240 ml Intake Oral 240 ml 240 ml IV Total 1300 ml 800 ml Output Urine Total 1100 ml 800 ml # Voids 2 Height (Feet): 5 Height (Inches): 11.00 Weight (Pounds): 153 Objective WDWN NCAT supple CTA RR abd soft no edema Assessment/Plan Assessment/Plan: Assessment N/V - resolved diarrhea - resolved Hepatitis C COPD HTN h/o pancreatitis Recommendations po as tolerated OOB d/c planning outpatient f/u for Hep C eradication Suman Chery MD Jun 23, 2020 22:07
--- NOTE | 2020-06-23 22:48 | Cardiology Progress Note ---
Subjective DATE OF SERVICE: Jun 23, 2020 No congestion or hoarseness No diarrhea today Abdominal pain resolved Low Mg++ level noted and repleted yesterday Objective Last 24 Hour Vital Signs Date Time Temp Pulse Resp B/P (MAP) Pulse Ox O2 Delivery O2 Flow Rate FiO2 06/23/20 12:22 92 16 96 Room Air 21 06/23/20 11:50 94 16 96 Room Air 21 06/23/20 10:16 115 138/87 06/23/20 09:00 Room Air 06/23/20 08:00 98.9 115 20 138/87 (104) 97 06/23/20 07:21 Room Air 21 06/23/20 07:21 Room Air 21 06/23/20 05:10 97.6 101 18 129/88 (102) 99 06/23/20 04:00 97.6 98 20 130/95 (107) 98 06/23/20 03:13 Room Air 21 06/23/20 03:13 Room Air 21 06/22/20 23:35 Room Air 21 06/22/20 23:35 Room Air 21 ROS: no change in from my evaluation of 06/21/20. HEENT: normal ENT inspection LUNGS: diminished breath sounds CARDIAC: normal rate, regular rhythm, normal S1 and S2, gallop/S4 ABDOMEN: normal bowel sounds, soft, tender - mild and diffuse EXTREMITIES: normal range of motion Assessment/Plan Assessment/Plan Diarrhea resolving Abdominal pain improving COPD exac Hypomagnesemia Chronic liver disease Hypertension/HHD Situational depression Rx in place for discharge Can complete recovery as outpatient Meds reviewed Adolfo Jerry MD Jun 23, 2020 22:48
[2020-06-24] MEDS ORDERED: Levofloxacin 500mg tab ORAL SCH (09:00)
== END 2020-06-23 14:00 | disposition home or self-care (01) | DRG 191 ==
LOC: EMR 11:10 → 3E 12:55 → EDBEDREQ 13:51 → 3E 14:48
DX: J44.1 Chronic obstructive pulmonary disease with (acute) exacerbation (principal); E87.2 Acidosis; E87.1 Hypo-osmolality and hyponatremia; A08.4 Viral intestinal infection, unspecified; E86.0 Dehydration; E83.42 Hypomagnesemia; K70.9 Alcoholic liver disease, unspecified; I11.9 Hypertensive heart disease without heart failure; E87.6 Hypokalemia; K57.30 Diverticulosis of large intestine without perforation or abscess without bleeding; K70.30 Alcoholic cirrhosis of liver without ascites; K21.9 Gastro-esophageal reflux disease without esophagitis; M10.9 Gout, unspecified; F32.89 Other specified depressive episodes; F10.11 Alcohol abuse, in remission; F19.11 Other psychoactive substance abuse, in remission; Z86.19 Personal history of other infectious and parasitic diseases; Z85.6 Personal history of leukemia; Z85.038 Personal history of other malignant neoplasm of large intestine; Z98.890 Other specified postprocedural states; Z87.891 Personal history of nicotine dependence
CPT/HCPCS: 36415; 71045; 74177; 80053; 80307; 81003; 83690; 83735; 84484; 85007; 85025; 93005; 94640; 94664; 96361; 96374; 99285; G0480; J2405; J7030

== ENCOUNTER 2020-07-30 06:34 | Inpatient (IN) | payer MEDICARE, OTHER ==
[~2020-07-30] VITALS: Ht 180.3 cm; Wt 67.6 kg
[2020-07-30 06:47] VITALS: BP 116/69
--- NOTE | 2020-07-30 06:49 | NUR ---
ED Nurse Note: walked in to ed c/o right lower quadrant pain onset this morning accompanied by 4 episodes of emesis. denies fever. hr of 130, otherwise vss, nad, aaox4, ambulatory, on surveillance monitor, ermd at bedside.
[2020-07-30] MEDS ORDERED: Morphine Sulfate 2mg/ml Inj(IV/IM USE ONLY) IVP ONE (07:00)
[2020-07-30] MEDS ORDERED: Metoclopramide 10mg/2ml Inj IVP ONE (07:00)
--- NOTE | 2020-07-30 07:01 | Emergency Room Report ---
History of Present Illness General Chief Complaint: Abdominal Pain Source: Patient Present Illness HPI Patient presents with vomiting and abdominal pain. This began at 1 AM. Is a chronic problem for him. He also gets short of breath when he is walking. He is also complaining about upper chest pressure and left scapular pain. These also are chronic problem. He denies any fevers. He is not vomiting blood or coffee grounds. He had diarrhea that initially was black a few days ago but now it is brown without any blood. He said he was drinking a few days ago. The patient was last admitted June 21 with these discharge diagnoses: COPD exacerbation with paroxysmal bronchospasm Hypovolemia dehydration Hypertension/hypertensive heart disease Abdominal pain -improved Diarrhea -resolved Nausea and vomiting -resolved History of chronic alcohol use Chronic liver disease Hepatitis C Electrolyte imbalances : hyponatremia, hypokalemia , hypomagnesemia, - resolved Mild leukocytosis- resolved Patient has a history of hepatitis C. No fevers, chills, sore throat, chest pain, palpitations, shortness of breath, joint pain, rashes, depression, anxiety, visual changes, dizziness, headache. Allergies: Coded Allergies: No Known Allergies (Verified , 08/14/08) COVID-19 Screening Contact w/high risk pt: No Recent Travel to affected area: No Experienced COVID-19 symptoms?: No COVID-19 symptoms experienced: Flu-Like Symptoms COVID-19 Testing performed DAY CARE DIRECTOR: No Patient History Past Medical History: see triage record Social History: Reports: alcohol use; Denies: smoking - prior, drug use - prior Social History Narrative Lives with his (daughter corrects this to say he lives with his girlfriend) Reviewed Nursing Documentation: PMH: Agreed; PSxH: Agreed Nursing Documentation-PMH Past Medical History: No History, Except For Hx Cardiac Problems: Yes Hx Hypertension: Yes Hx Cancer: Yes - COLON Hx Gastrointestinal Problems: Yes Hx Neurological Problems: No Hx Seizures: Yes Hx Dizziness: Yes Hx Headaches: Yes Hx Weakness: Yes Hx Fatigue: Yes Review of Systems All Other Systems: negative except mentioned in HPI Physical Exam Vital Signs Date Time Temp Pulse Resp B/P (MAP) Pulse Ox O2 Delivery O2 Flow Rate FiO2 07/30/20 06:41 99.1 130 18 111/73 (86) 96 Room Air 07/30/20 06:47 98 Sp02 EP Interpretation: reviewed, normal General Appearance: no apparent distress, GCS 15, thin Head: normocephalic Eyes: bilateral eye PERRL, bilateral eye EOMI, bilateral eye Scleral Injection ENT: moist mucus membranes Neck: supple Respiratory: lungs clear, normal breath sounds Cardiovascular #1: regular rate, rhythm Cardiovascular #2: 2+ radial (R) Gastrointestinal: normal inspection, normal bowel sounds, soft, non-distended, tenderness - Reported right lower quadrant, decreased bowel sounds Genitourinary: no CVA tenderness Musculoskeletal: back normal, normal range of motion, gait/station normal - With walker Neurologic: alert, oriented x3, grossly normal Psychiatric: mood/affect normal Skin: no rash, warm/dry Medical Decision Making Diagnostic Impression: Primary Impression: Abdominal pain Qualified Codes: R10.84 - Generalized abdominal pain Additional Impressions: Leukocytosis Qualified Codes: D72.828 - Other elevated white blood cell count Nausea & vomiting Qualified Codes: R11.2 - Nausea with vomiting, unspecified Tachycardia Acute renal failure Qualified Codes: N17.9 - Acute kidney failure, unspecified Alcohol abuse ER Course Patient presents with vomiting abdominal pain. It is disconcerting his heart rate is 130 in triage. This is improved when he is back in bed and resting. Differential includes appendicitis, hepatitis, diverticulitis, GI bleed, renal stone, UTI amongst others. With his rapid heart rate we need to exclude cardiac involvement as he is complaining about left scapular pain. Patient placed on a hall monitor. Evaluated with EKG, chest x-ray, abdominal film and labs. Patient treated with IV hydration, Reglan and morphine. EKG ST no injury. CXR COPD. Abd. NSBGP. Leukocytosis. New elevated creatinine. + blood alcohol. Some improvement, but in face of lab abnormalities, needs admission and further evaluation. Patient tolerating oral fluids. More calm. Abdomen soft. Laboratory Tests Test 07/30/20 07:04 07/30/20 11:35 White Blood Count 12.2 K/UL (4.8-10.8) H Red Blood Count 4.28 M/UL (4.70-6.10) L Hemoglobin 14.7 G/DL (14.2-18.0) Hematocrit 41.2 % (42.0-52.0) L Mean Corpuscular Volume 93 FL (80-99) Mean Corpuscular Hemoglobin 34.3 PG (27.0-31.0) H Mean Corpuscular Hemoglobin Concent 36.7 G/DL (32.0-36.0) H Red Cell Distribution Width 15.1 % (11.6-14.8) H Platelet Count 154 K/UL (150-450) Mean Platelet Volume 8.0 FL (6.5-10.1) Neutrophils (%) (Auto) 49.0 % (45.0-75.0) Lymphocytes (%) (Auto) 39.8 % (20.0-45.0) Monocytes (%) (Auto) 9.7 % (1.0-10.0) Eosinophils (%) (Auto) 0.0 % (0.0-3.0) Basophils (%) (Auto) 1.5 % (0.0-2.0) Prothrombin Time 11.1 SEC (9.30-11.50) Prothrombin Time INR 1.0 (0.9-1.1) Activated Partial Thromboplast Time 25 SEC (23-33) Sodium Level 138 MMOL/L (136-145) Potassium Level 3.2 MMOL/L (3.5-5.1) L Chloride Level 92 MMOL/L (98-107) L Carbon Dioxide Level 27 MMOL/L (21-32) Anion Gap 20 mmol/L (5-15) H Blood Urea Nitrogen 15 mg/dL (7-18) Creatinine 1.4 MG/DL (0.55-1.30) H Estimated Glomerular Filtration Rate 59.8 mL/min (>60) Glucose Level 80 MG/DL (74-106) Calcium Level 10.1 MG/DL (8.5-10.1) Total Bilirubin 1.4 MG/DL (0.2-1.0) H Direct Bilirubin 0.3 MG/DL (0.0-0.3) Aspartate Amino Transferase (AST) 38 U/L (15-37) H Alanine Aminotransferase (ALT) 13 U/L (12-78) Alkaline Phosphatase 70 U/L (46-116) Total Creatine Kinase 111 U/L (26-308) Troponin I 0.000 ng/mL (0.000-0.056) Total Protein 8.7 G/DL (6.4-8.2) H Albumin 3.9 G/DL (3.4-5.0) Globulin 4.8 g/dL Albumin/Globulin Ratio 0.8 (1.0-2.7) L Lipase 54 U/L (73-393) L Serum Alcohol 96 mg/dL Urine Color Brown Urine Appearance Clear Urine pH 6 (4.5-8.0) Urine Specific [place] 1.020 (1.005-1.035) Urine Protein 3+ (NEGATIVE) H Urine Glucose (UA) Negative (NEGATIVE) Urine Ketones 4+ (NEGATIVE) H Urine Blood 1+ (NEGATIVE) H Urine Nitrite Negative (NEGATIVE) Urine Bilirubin 1+ (NEGATIVE) H Urine Ictotest Negative (NEGATIVE) Urine Urobilinogen 4 MG/DL (0.0-1.0) H Urine Leukocyte Esterase 1+ (NEGATIVE) H Urine RBC 0-2 /HPF (0 - 0) H Urine WBC 0-2 /HPF (0 - 0) Urine Squamous Epithelial Cells Occasional /LPF Urine Bacteria None /HPF (NONE) Urine Mucus Few /LPF (NONE/OCC) H Urine Opiates Screen Negative (NEGATIVE) Urine Barbiturates Screen Negative (NEGATIVE) Phencyclidine (PCP) Screen Negative (NEGATIVE) Urine Amphetamines Screen Negative (NEGATIVE) Urine Benzodiazepines Screen Negative (NEGATIVE) Urine Cocaine Screen Negative (NEGATIVE) Urine Marijuana (THC) Screen Negative (NEGATIVE) EKG Diagnostic Results Rate: tachycardiac Rhythm: NSR ST Segments: no acute changes - Nonspecific ST-T wave changes Rhythm Strip Diag. Results Rhythm: no PVC's, no ectopy, other - Sinus tachycardia 102 Chest X-Ray Diagnostic Results Chest X-Ray Diagnostic Results : Chest X-Ray Ordered: Yes # of Views/Limited/Complete: 1 View Indication: Other EP Interpretation: Yes Interpretation: no consolidation, no effusion, no pneumothorax, other - COPD Impression: Other Electronically Signed by: Electronically signed by Adolfo Vergara MD Other X-Ray Diagnostic Results Other X-Ray Diagnostic Results : X-Ray ordered: Abdomen # of Views/Limited Vs Complete: 1 View Interpretation: nonspecific bowel gas, no sbo, other - No masses Impression: No acute disease Electronically Signed by: Electronically signed by Adolfo Vergara MD Last Vital Signs Date Time Temp Pulse Resp B/P (MAP) Pulse Ox O2 Delivery O2 Flow Rate FiO2 07/30/20 16:00 98.1 124 18 128/88 (101) 97 07/30/20 13:18 Room Air 07/30/20 12:18 98 Status: improved Disposition: ADMITTED INPATIENT Condition: Serious Adolfo Vergara MD Jul 30, 2020 07:01
[2020-07-30 07:18] LABS: BASOPHILS % (AUTO) 1.5 % (0.0-2.0); HEMOGLOBIN 14.7 G/DL (14.2-18.0); LYMPHOCYTES % (AUTO) 39.8 % (20.0-45.0); MEAN CORPUSCULAR VOLUME 93 FL (80-99); MONOCYTES % (AUTO) 9.7 % (1.0-10.0); PLATELET COUNT 154 K/UL (150-450); RED BLOOD COUNT 4.28 M/UL (4.70-6.10); RED CELL DISTRIBUTION WIDTH 15.1 % (11.6-14.8); WHITE BLOOD COUNT 12.2 K/UL (4.8-10.8)
[2020-07-30 07:34] LABS: HEMATOCRIT 41.2 % (42.0-52.0)
[2020-07-30 07:35] LABS: ANION GAP 20 mmol/L (5-15); BLOOD UREA NITROGEN 15 mg/dL (7-18); CALCIUM 10.1 MG/DL (8.5-10.1); CARBON DIOXIDE 27 MMOL/L (21-32); CHLORIDE 92 MMOL/L (98-107); CREATININE 1.4 MG/DL (0.55-1.30); POTASSIUM 3.2 MMOL/L (3.5-5.1); SODIUM 138 MMOL/L (136-145)
[2020-07-30 07:45] LABS: ALANINE AMINOTRANSFERASE 13 U/L (12-78); ALBUMIN 3.9 G/DL (3.4-5.0); ALBUMIN/GLOBULIN RATIO 0.8 (1.0-2.7); ALKALINE PHOSPHATASE 70 U/L (46-116); ASPARTATE AMINO TRANSFERASE 38 U/L (15-37); BILIRUBIN,TOTAL 1.4 MG/DL (0.2-1.0); CREATINE KINASE 111 U/L (26-308)
[2020-07-30 07:46] LABS: BILIRUBIN,DIRECT 0.3 MG/DL (0.0-0.3)
[2020-07-30 09:06] VITALS: BP 111/61
--- NOTE | 2020-07-30 09:07 | NUR ---
ED Nurse Note:VSS, no c/o pain at this time, continue monitoring
--- NOTE | 2020-07-30 09:09 | Diagnostic Imaging Report ---
EXAM: XR Chest, 1 View CLINICAL HISTORY: ABD PAIN TECHNIQUE: Frontal view of the chest. COMPARISON: Chest x-ray 06/21/20 FINDINGS: Lungs: Skinfold overlying the right upper lung. Lungs clear. Pleural space: Unremarkable. No pneumothorax. Heart: Unremarkable. No cardiomegaly. Mediastinum: Unremarkable. Bones/joints: Unremarkable. IMPRESSION: No acute findings in the chest.
--- NOTE | 2020-07-30 09:11 | Diagnostic Imaging Report ---
EXAM: XR Abdomen, 1 View CLINICAL HISTORY: ABD PAIN TECHNIQUE: Frontal supine view of the abdomen/pelvis. COMPARISON: No relevant prior studies available. FINDINGS: Gastrointestinal tract: Nonspecific gassy small bowel in the midabdomen may be mild ileus. Gassy colon. Moderate stool in the rectum. Bones/joints: Unremarkable. IMPRESSION: Nonspecific gassy small bowel in the midabdomen may be mild ileus. Gassy colon. Moderate stool in the rectum. No high-grade obstruction.
[2020-07-30 11:51] LABS: APPEARANCE,URINE CLEAR; BILIRUBIN, URINE 1+ (NEGATIVE); COLOR,URINE BROWN; GLUCOSE, URINE (UA) NEGATIVE (NEGATIVE); KETONES,URINE 4+ (NEGATIVE); LEUKOCYTE ESTERASE ,URINE 1+ (NEGATIVE); NITRITE,URINE NEGATIVE (NEGATIVE); PH,URINE 6 (4.5-8.0); PROTEIN,URINE 3+ (NEGATIVE); UROBILINOGEN,URINE 4 MG/DL (0.0-1.0)
[2020-07-30 12:17] VITALS: BP 116/66
--- NOTE | 2020-07-30 12:19 | NUR ---
ED Nurse Note:called report to tele-report given to Betty GALLARDO
--- NOTE | 2020-07-30 12:41 | NUR ---
NURSE NOTES: Pt received from Lyssa GALLARDO. Pt vitals as follows 98.8 oral, 97% on RA, 103 hr, 152/85, 8/10 abdominal pain. pt stables, gaurding and grimacing with even mild touch to abdomen. Only other complaint is being cold, asks for multiple blankets, all given.
--- NOTE | 2020-07-30 12:47 | NUR ---
NURSE NOTES: Called Dr. Jerry for Admit orders. Awaiting response.
[2020-07-30] MEDS: NS w/KCl 20mEq 1000ml 1,000 ML IV SCH ×2 (14:58→23:44)
[2020-07-30] MEDS: Atenolol 25mg tab ORAL SCH (14:58)
[2020-07-30] MEDS: Morphine Sulfate 2mg/ml Inj(IV/IM USE ONLY) IVP PRN (14:59)
--- NOTE | 2020-07-30 15:00 | NUR ---
NURSE NOTES: Please note when 1400 atenolol given Bp 128/88, HR 115
[2020-07-30 16:00] VITALS: BP 128/88
--- NOTE | 2020-07-30 18:24 | NUR ---
NURSE HAND-OFF REPORT: Important Events on Shift:[Pt arrived from home, 8/10 abdominal pain, states that diet not sitting well with him, otherwise stable] Patient Status: [in bed stable] Diet: [clear liquid] Pending Orders: [] Pending Results/Labs:[] Pending MD notification:[] Latest Vital Signs: Temperature 98.1 , Pulse 121 , B/P 128 /88 , Respiratory Rate 18 , O2 SAT 97 , Room Air, O2 Flow Rate . Vital Sign Comment: [] EKG Rhythm: Sinus Tachycardia Rhythm change?: N MD Notified?: - MD Response: Latest Celeste Fall Score: 25 Fall Risk: Medium Risk Safety Measures: Call light Within Reach, Bed Alarm , Side Rails Side Rails x2, Bed position Low and Locked. Fall Precautions: Yellow Socks Patient Fall Education Report given to [Pending Rn assignment]. Addendum: 07/30/20 at 1929 by Betty Dawson RN Report given to PAULINA Chow
--- NOTE | 2020-07-30 19:48 | NUR ---
NURSE NOTES: Received patient in bed, awake, alert oriented x4, able to make his needs known, can ambulate with assist, uses walker, IV site is clean dry and intact, patient uses urinal. Call light is within reach, bed is lowered, locked, alarm is on, will continue to monitor for comfort and safety.
[2020-07-30 20:00] VITALS: BP 133/77
[2020-07-30] MEDS: Tamsulosin 0.4mg cap ORAL SCH (20:44)
[2020-07-31 00:09] VITALS: BP 129/74
[2020-07-31] MEDS: Morphine Sulfate 2mg/ml Inj(IV/IM USE ONLY) IVP PRN ×5 (00:16→21:13)
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
[2020-07-31 04:00] VITALS: BP 129/74
[2020-07-31] MEDS: NS w/KCl 20mEq 1000ml 1,000 ML IV SCH ×2 (05:27→15:38)
--- NOTE | 2020-07-31 07:13 | NUR ---
NURSE NOTES: Report received from Suzanne GALLARDO. pt in bed resting bed low and locked call light within reach, no distress noted. [id number] running in left hand at 100.
--- NOTE | 2020-07-31 07:23 | NUR ---
NURSE HAND-OFF REPORT: Important Events on Shift: No changes, patient was medicated with morphine as prescribed, used urinal, bed rest Patient Status: full code Diet: Pending Orders: Pending Results/Labs: Pending MD notification: Latest Vital Signs: Temperature 97.5 , Pulse 81 , B/P 129 /74 , Respiratory Rate 18 , O2 SAT 98 , Room Air, O2 Flow Rate . Vital Sign Comment: EKG Rhythm: Sinus Rhythm Rhythm change?: N MD Notified?: - MD Response: Latest Celeste Fall Score: 50 Fall Risk: High Risk Safety Measures: Call light Within Reach, Bed Alarm Zone 1, Side Rails Side Rails x1, Bed position Low and Locked. Fall Precautions: Yellow Socks Patient Fall Education Report given to Betty GALLARDO
[2020-07-31 08:00] VITALS: BP 171/76
[2020-07-31] MEDS: Atenolol 25mg tab ORAL SCH (09:14)
[2020-07-31 10:44] LABS: BASOPHILS % (AUTO) 1.4 % (0.0-2.0); EOSINOPHILS % (AUTO) 0.3 % (0.0-3.0); HEMATOCRIT 34.8 % (42.0-52.0); LYMPHOCYTES % (AUTO) 35.8 % (20.0-45.0); MEAN CORPUSCULAR VOLUME 100 FL (80-99); MONOCYTES % (AUTO) 13.7 % (1.0-10.0); NEUTROPHILS % (AUTO) 48.8 % (45.0-75.0); PLATELET COUNT 106 K/UL (150-450); RED BLOOD COUNT 3.48 M/UL (4.70-6.10); RED CELL DISTRIBUTION WIDTH 14.6 % (11.6-14.8); WHITE BLOOD COUNT 7.7 K/UL (4.8-10.8)
[2020-07-31 11:05] LABS: ALANINE AMINOTRANSFERASE 8 U/L (12-78); ALBUMIN 3.2 G/DL (3.4-5.0); ALBUMIN/GLOBULIN RATIO 0.9 (1.0-2.7); ALKALINE PHOSPHATASE 50 U/L (46-116); ANION GAP 5 mmol/L (5-15); ASPARTATE AMINO TRANSFERASE 25 U/L (15-37); BILIRUBIN,DIRECT 0.6 MG/DL (0.0-0.3); BILIRUBIN,TOTAL 1.4 MG/DL (0.2-1.0); BLOOD UREA NITROGEN 13 mg/dL (7-18); CALCIUM 9.4 MG/DL (8.5-10.1); CARBON DIOXIDE 35 MMOL/L (21-32); CHLORIDE 100 MMOL/L (98-107); SODIUM 140 MMOL/L (136-145)
[2020-07-31 12:00] VITALS: BP 129/79
--- NOTE | 2020-07-31 12:30 | NUR ---
NURSE NOTES: Spoke to Dr. Jerry in person. Infomred him of incredibly swollen upper right abdomen (liver). Also expressed that he is not tolerating the clear liquid diet very well. Per Dr Jerry, all liquid diet.
--- NOTE | 2020-07-31 14:30 | NUR ---
NURSE NOTES: Pt family called identified herself as pt niece. per her, pt son Joel Murray a couple of weeks ago and pt began drinking more than he already did.
[2020-07-31 16:00] VITALS: BP 128/80
--- NOTE | 2020-07-31 18:05 | Cardiology Progress Note ---
Subjective DATE OF SERVICE: Jul 31, 2020 Still with abdominal pain. Had formed BM yesterday. Still nauseated with distended abdomen Objective Last 24 Hour Vital Signs Date Time Temp Pulse Resp B/P (MAP) Pulse Ox O2 Delivery O2 Flow Rate FiO2 07/31/20 16:02 98.6 07/31/20 16:00 81 07/31/20 16:00 98.6 59 20 128/80 (96) 96 07/31/20 12:00 72 07/31/20 12:00 98.7 81 22 129/79 (96) 97 07/31/20 09:44 97.5 07/31/20 09:14 76 171/76 07/31/20 09:00 Room Air 07/31/20 08:00 96.7 70 20 171/76 (107) 100 07/31/20 08:00 83 07/31/20 05:10 97.5 07/31/20 04:00 97.5 78 18 129/74 (92) 98 07/31/20 04:00 81 07/31/20 00:49 97.8 07/31/20 00:09 97.8 74 18 129/74 (92) 98 07/30/20 21:21 Room Air 07/30/20 20:00 82 07/30/20 20:00 97.8 78 18 133/77 (95) 97 ROS: unchanged form 07/30/20 RHYTHM: NSR LUNGS: lungs clear bilaterally CARDIAC: normal rate, regular rhythm, normal S1 and S2, gallop/S4 ABDOMEN: normal bowel sounds, distended, tender - mild, diffuse, hepatomegaly EXTREMITIES: normal range of motion, no calf tenderness, No edema Laboratory Tests Test 07/31/20 10:30 White Blood Count 7.7 K/UL (4.8-10.8) Red Blood Count 3.48 M/UL (4.70-6.10) L Hemoglobin 12.0 G/DL (14.2-18.0) L Hematocrit 34.8 % (42.0-52.0) L Mean Corpuscular Volume 100 FL (80-99) H Mean Corpuscular Hemoglobin 34.6 PG (27.0-31.0) H Mean Corpuscular Hemoglobin Concent 34.6 G/DL (32.0-36.0) Red Cell Distribution Width 14.6 % (11.6-14.8) Platelet Count 106 K/UL (150-450) L Mean Platelet Volume 7.6 FL (6.5-10.1) Neutrophils (%) (Auto) 48.8 % (45.0-75.0) Lymphocytes (%) (Auto) 35.8 % (20.0-45.0) Monocytes (%) (Auto) 13.7 % (1.0-10.0) H Eosinophils (%) (Auto) 0.3 % (0.0-3.0) Basophils (%) (Auto) 1.4 % (0.0-2.0) Sodium Level 140 MMOL/L (136-145) Potassium Level 3.0 MMOL/L (3.5-5.1) L Chloride Level 100 MMOL/L (98-107) Carbon Dioxide Level 35 MMOL/L (21-32) H Anion Gap 5 mmol/L (5-15) Blood Urea Nitrogen 13 mg/dL (7-18) Creatinine 1.0 MG/DL (0.55-1.30) Estimat Glomerular Filtration Rate > 60 mL/min (>60) Glucose Level 96 MG/DL (74-106) Calcium Level 9.4 MG/DL (8.5-10.1) Magnesium Level 1.2 MG/DL (1.8-2.4) L Total Bilirubin 1.4 MG/DL (0.2-1.0) H Direct Bilirubin 0.6 MG/DL (0.0-0.3) H Aspartate Amino Transf (AST/SGOT) 25 U/L (15-37) Alanine Aminotransferase (ALT/SGPT) 8 U/L (12-78) L Alkaline Phosphatase 50 U/L (46-116) Total Protein 6.8 G/DL (6.4-8.2) Albumin 3.2 G/DL (3.4-5.0) L Globulin 3.6 g/dL Albumin/Globulin Ratio 0.9 (1.0-2.7) L Assessment/Plan Assessment/Plan Abdominal Pain GERD Possible Ileus Severe hypomagnesemia Hypokalemia Hypertension/HHD Chronic diastolic CHF Deg disc disease IVF Advance diet IV Mg++ Oral K+ Recheck KUB Continue PPI rx Adolfo Jerry MD Jul 31, 2020 18:05
--- NOTE | 2020-07-31 18:53 | NUR ---
NURSE HAND-OFF REPORT: Important Events on Shift:[Pt abdominal pain is persistent, right upper quadrant noticeably swollen, not tolerating clear liquid diet, complains of burning sensation upon consuming and liquid. Dr. Jerry aware of all of this.] Patient Status: [in bed resting, stable] Diet: [Full liquid] Pending Orders: [] Pending Results/Labs:[] Pending MD notification:[] Latest Vital Signs: Temperature 98.6 , Pulse 81 , B/P 128 /80 , Respiratory Rate 20 , O2 SAT 96 , Room Air, O2 Flow Rate . Vital Sign Comment: [] EKG Rhythm: Sinus Rhythm Rhythm change?: N MD Notified?: - MD Response: Latest Celeste Fall Score: 50 Fall Risk: High Risk Safety Measures: Call light Within Reach, Bed Alarm Zone 1, Side Rails Side Rails x1, Bed position Low and Locked. Fall Precautions: Yellow Socks Patient Fall Education Report given to [Pending rn assignment]. Addendum: 07/31/20 at 1914 by Betty Dawson RN Report given to Butch GALLARDO. Please note that yesterday I had this pt and I asked Dr. Jerry for DVT prophylaxis and he gave nno. Pt is ambulatory and does walk to the restroom. Additionally platelets are trending down.
--- NOTE | 2020-07-31 19:00 | NUR ---
NURSE NOTES: Got report from Luzi RN. Pt in stable condition. Denies any pain or discomfort. Pt is fully oriented and ambulatory. Pt has L hand 22g running NS w/KCl 20meQ@100. Pt resting in bed comfortably. Bed in low and locked position, call light within reach, bedside table within reach. Continue to monitor.
[2020-07-31 20:00] VITALS: BP 143/82
[2020-07-31] MEDS: Tamsulosin 0.4mg cap ORAL SCH (20:56)
[2020-07-31] MEDS: Heparin 5000 units/ml inj SUBQ SCH (20:56)
[2020-08-01] VITALS: BP 134/73
[2020-08-01] MEDS: Morphine Sulfate 2mg/ml Inj(IV/IM USE ONLY) IVP PRN ×3 (02:14→13:12)
[2020-08-01 04:00] VITALS: BP 142/80
[2020-08-01] MEDS: NS w/KCl 20mEq 1000ml 1,000 ML IV SCH (05:39)
--- NOTE | 2020-08-01 07:25 | NUR ---
NURSE HAND-OFF REPORT: Important Events on Shift:[] Patient Status: [STABLE] Diet: [FULL LIQUID] Pending Orders: [] Pending Results/Labs:[] Pending MD notification:[] Latest Vital Signs: Temperature 98.1 , Pulse 77 , B/P 142 /80 , Respiratory Rate 18 , O2 SAT 98 , Room Air, O2 Flow Rate . Vital Sign Comment: [] EKG Rhythm: Sinus Rhythm Rhythm change?: N MD Notified?: - MD Response: Latest Celeste Fall Score: 50 Fall Risk: High Risk Safety Measures: Call light Within Reach, Bed Alarm Zone 1, Side Rails Side Rails x1, Bed position Low and Locked. Fall Precautions: Yellow Socks Patient Fall Education Report given to [DAVION RN].
--- NOTE | 2020-08-01 07:30 | NUR ---
NURSE NOTES: Received pt from PAULINA Caba, pt is awake and alert, pt is on RA, no SOB or acute respiratory distress note, pt is on continues heart monitoring, pt has in tact iv access LH 22g is running well, pt is eating breakfast by observation. all needs attended, bed is locked and is in the lowest position, call light within easy reach. will continue to monitor.
[2020-08-01 08:00] VITALS: BP 130/82
--- NOTE | 2020-08-01 08:00 | NUR ---
NURSE NOTES: pt is stabel, no stress noted, pt transferred to 407 bed 1, report given to PAULINA Velasquez, all belongings are with pt.
[2020-08-01] MEDS: Atenolol 25mg tab ORAL SCH (08:49)
[2020-08-01] MEDS: Heparin 5000 units/ml inj SUBQ SCH (09:00)
[2020-08-01 11:55] LABS: ANION GAP 4 mmol/L (5-15); BLOOD UREA NITROGEN 8 mg/dL (7-18); CALCIUM 9.3 MG/DL (8.5-10.1); CARBON DIOXIDE 32 MMOL/L (21-32); CHLORIDE 102 MMOL/L (98-107); CREATININE 0.7 MG/DL (0.55-1.30); POTASSIUM 3.6 MMOL/L (3.5-5.1); SODIUM 138 MMOL/L (136-145)
[2020-08-01 12:00] VITALS: BP 146/84
[2020-08-01 12:10] LABS: HEMATOCRIT 34.2 % (42.0-52.0); HEMOGLOBIN 11.5 G/DL (14.2-18.0); MEAN CORPUSCULAR VOLUME 101 FL (80-99); PLATELET COUNT 88 K/UL (150-450); RED BLOOD COUNT 3.38 M/UL (4.70-6.10); RED CELL DISTRIBUTION WIDTH 14.9 % (11.6-14.8); WHITE BLOOD COUNT 7.9 K/UL (4.8-10.8)
--- NOTE | 2020-08-01 13:20 | Consultation ---
History of Present Illness General Reason for Hospitalization: Abdominal Pain Present Illness HPI This is a very pleasant 74-year-old male who presents [facility] com plaining of abdominal pain right upper quadrant mainly. States does have some correlation with food but is an ongoing chronic problem but gets better on its own usually. States since admission his pain has been improving that he feels almost ready to go home. Currently no nausea vomiting fever chills. Surgery called to evaluate for abdominal pain. Patient seen, patient evaluate, chart reviewed pain cramping 12/10 currently without radiation Allergies: Coded Allergies: No Known Allergies (Verified , 08/14/08) COVID-19 Screening Contact w/high risk pt: No Recent Travel to affected area: No Experienced COVID-19 symptoms?: No Medication History Scheduled Allopurinol* (Allopurinol*), 300 MG ORAL DAILY, (Reported) Amlodipine Besylate (Norvasc), 5 MG ORAL DAILY, (Reported) Atenolol* (Tenormin*), 25 MG ORAL DAILY, (Reported) Esomeprazole Magnesium (Nexium), 0 ORAL DAILY, (Reported) Gemfibrozil* (Lopid*), 600 MG ORAL TWICE A DAY, (Reported) Levetiracetam (Keppra), 500 MG ORAL EVERY 12 HOURS Magnesium Oxide (Magnesium Oxide), 400 MG PO BID, (Reported) Pantoprazole* (Pantoprazole*), 40 MG ORAL DAILY, (Reported) Polyethylene Glycol 3350 (Miralax), 17 GM PO BEDTIME, (Reported) Tamsulosin Hcl (Tamsulosin Hcl*), 0.4 MG ORAL BEDTIME, (Reported) Thiamine Mononitrate (Vitamin B-1), 100 MG PO DAILY, (Reported) Scheduled PRN Docusate Sodium* (Colace*), 100 MG ORAL TWICE A DAY PRN for Constipation, (Reported) Hydrocodone Bit/Acetaminophen 5-325* ([place] 5-325 Tablet*), 1 TAB ORAL Q6H PRN for FOR PAIN Miscellaneous Medications Lipase/Protease/Amylase (Creon Dr 24,000 Units Capsule), 1 EACH PO, (Reported) [Gout Med], (Reported) Discontinued Medications Docusate Sodium* (Docusate Sodium*), 100 MG ORAL THREE TIMES A DAY, (Reported) Discontinued Reason: Therapy completed Patient History History Provided By: Medical Record, PMD Healthcare decision maker Resuscitation status Advanced Directive on File Past Medical/Surgical History Past Medical/Surgical History: (1) disc herniation lumbar spine (2) urticaria (3) External hemorrhoid, thrombosed (4) Lower GI bleed (5) Gastrointestinal bleed (6) Back pain (7) Leukopenia (8) Fall (9) Chronic pain (10) Alcohol withdrawal delirium (11) Colitis (12) Abdominal pain (13) HTN (hypertension) (14) Pancreatitis, alcoholic, acute (15) GI bleed (16) Dehydration (17) Diarrhea (18) Alcohol abuse (19) Acute renal failure (20) Leukocytosis (21) Tachycardia (22) Abdominal pain (23) Nausea & vomiting Review of Systems Review of Symptoms General ROS: no weight loss or fever Psychological ROS: no depression or mood changes, no memory loss Ophthalmic ROS: no visual changes or eye irritation ENT ROS: no nasal congestion, hearing loss, dizziness Allergy and Immunology ROS: no allergic symptoms or urticaria Hematological and Lymphatic ROS: no swollen glands, unusual bleeding or bruising Endocrine ROS: no polyuria, polydipsia, weight changes, temperature intolerance Respiratory ROS: no cough, shortness of breath, or wheezing Cardiovascular ROS: no chest pain or dyspnea on exertion Gastrointestinal ROS: denies abdominal pain, bright red blood in stool. Musculoskeletal ROS: no myalgias or arthralgias Neurological ROS: no TIA or stroke symptoms Dermatological ROS: no new or changing skin lesions, rashes or pruritis Physical Exam Physical Exam General appearance: alert, cooperative, no distress, appears stated age Head: Normocephalic, without obvious abnormality, atraumatic Eyes: conjunctivae/corneas clear. PERRL, EOM's intact. Fundi benign Throat: Lips, mucosa, and tongue normal. Teeth and gums normal Neck: supple, symmetrical, trachea midline, no adenopathy, thyroid: not enlarged, symmetric, no tenderness/mass/nodules, no carotid bruit and no JVD Lungs: clear to auscultation bilaterally Heart: regular rate and rhythm, S1, S2 normal, no murmur, click, rub or gallop Abdomen: soft, non-tender. Bowel sounds normal. No masses, no organomegaly Extremities: extremities normal, atraumatic, no cyanosis or edema Pulses: 2+ and symmetric Skin: Skin color, texture, turgor normal. No rashes or lesions Neurologic: Grossly normal Last 24 Hour Vital Signs Date Time Temp Pulse Resp B/P (MAP) Pulse Ox O2 Delivery O2 Flow Rate FiO2 08/01/20 12:00 98.8 84 18 146/84 (104) 99 08/01/20 09:30 99.2 08/01/20 09:00 Room Air 08/01/20 08:49 78 130/85 08/01/20 08:00 99.2 78 16 130/82 (98) 98 08/01/20 04:00 77 08/01/20 04:00 98.1 79 18 142/80 (100) 98 08/01/20 02:47 98.4 08/01/20 00:00 98.4 74 18 134/73 (93) 97 08/01/20 00:00 74 07/31/20 21:44 98.6 07/31/20 21:00 Room Air 07/31/20 20:00 98.9 71 18 143/82 (102) 97 07/31/20 20:00 70 07/31/20 16:02 98.6 07/31/20 16:00 81 07/31/20 16:00 98.6 59 20 128/80 (96) 96 Intake and Output 07/31/20 08/01/20 19:00 07:00 Intake Total 140 ml Output Total 1400 ml Balance -1260 ml Intake Oral 140 ml Output Urine Total 1400 ml # Voids 3 3 Laboratory Tests Test 08/01/20 11:25 White Blood Count 7.9 K/UL (4.8-10.8) Red Blood Count 3.38 M/UL (4.70-6.10) L Hemoglobin 11.5 G/DL (14.2-18.0) L Hematocrit 34.2 % (42.0-52.0) L Mean Corpuscular Volume 101 FL (80-99) H Mean Corpuscular Hemoglobin 34.0 PG (27.0-31.0) H Mean Corpuscular Hemoglobin Concent 33.5 G/DL (32.0-36.0) Red Cell Distribution Width 14.9 % (11.6-14.8) H Platelet Count 88 K/UL (150-450) L Mean Platelet Volume 9.0 FL (6.5-10.1) Neutrophils (%) (Auto) % (45.0-75.0) Lymphocytes (%) (Auto) % (20.0-45.0) Monocytes (%) (Auto) % (1.0-10.0) Eosinophils (%) (Auto) % (0.0-3.0) Basophils (%) (Auto) % (0.0-2.0) Differential Total Cells Counted 100 Neutrophils % (Manual) 56 % (45-75) Lymphocytes % (Manual) 32 % (20-45) Monocytes % (Manual) 11 % (1-10) H Eosinophils % (Manual) 1 % (0-3) Basophils % (Manual) 0 % (0-2) Band Neutrophils 0 % (0-8) Platelet Estimate Decreased L Platelet Morphology Normal Anisocytosis 1+ Macrocytosis 1+ Sodium Level 138 MMOL/L (136-145) Potassium Level 3.6 MMOL/L (3.5-5.1) Chloride Level 102 MMOL/L (98-107) Carbon Dioxide Level 32 MMOL/L (21-32) Anion Gap 4 mmol/L (5-15) L Blood Urea Nitrogen 8 mg/dL (7-18) Creatinine 0.7 MG/DL (0.55-1.30) Estimat Glomerular Filtration Rate > 60 mL/min (>60) Glucose Level 114 MG/DL (74-106) H Calcium Level 9.3 MG/DL (8.5-10.1) Height (Feet): 5 Height (Inches): 11.00 Weight (Pounds): 149 Medications Current Medications Medications (Trade) Dose Ordered Sig/Katlin Route PRN Reason Start Time Stop Time Status Last Admin Dose Admin Atenolol (Tenormin) 25 mg DAILY ORAL 07/30/20 14:00 08/29/20 13:59 08/01/20 08:49 Heparin Sodium (Porcine) (Heparin 5000 units/ml) 5,000 units EVERY 12 HOURS SUBQ 07/31/20 21:00 09/14/20 20:59 Morphine Sulfate (Morphine Sulfate) 2 mg Q4H PRN IVP For Pain 07/30/20 14:00 08/06/20 13:59 08/01/20 13:12 Pantoprazole (Protonix) 40 mg DAILY ORAL 07/30/20 14:00 08/29/20 13:59 08/01/20 08:48 Potassium Chloride/Sodium Chloride 1,000 ml @ 100 mls/hr Q10H IV 07/30/20 14:00 08/29/20 13:59 08/01/20 05:39 Potassium Chloride (K-Dur) 20 meq ONCE ORAL 08/01/20 12:30 08/01/20 13:30 08/01/20 12:58 Tamsulosin HCl (Flomax) 0.4 mg BEDTIME ORAL 07/30/20 21:00 08/29/20 20:59 07/31/20 20:56 Assessment/Plan Problem List: (1) Alcohol abuse ICD Codes: F10.10 - Alcohol abuse, uncomplicated SNOMED: 91830868 (2) Acute renal failure ICD Codes: N17.9 - Acute kidney failure, unspecified SNOMED: 89675796 Qualifiers: Qualified Codes: N17.9 - Acute kidney failure, unspecified (3) Leukocytosis ICD Codes: D72.829 - Elevated white blood cell count, unspecified SNOMED: 811792484, 143201189 Qualifiers: Qualified Codes: D72.828 - Other elevated white blood cell count (4) Tachycardia ICD Codes: R00.0 - Tachycardia, unspecified SNOMED: 8941740, 482965114 (5) Abdominal pain Assessment & Plan: 74M abd pain likely ileus does not seem obstruction passing flatus now somewhat hungry adv diet serial exams bowel regimen will follow with recs thank you No relevant prior studies available. FINDINGS: Gastrointestinal tract: Nonspecific gassy small bowel in the midabdomen may be mild ileus. Gassy colon. Moderate stool in the rectum. Bones/joints: Unremarkable. IMPRESSION: Nonspecific gassy small bowel in the midabdomen may be mild ileus. Gassy colon. Moderate stool in the rectum. No high-grade obstruction. ICD Codes: R10.9 - Abdominal pain SNOMED: 63526935 Qualifiers: Qualified Codes: R10.84 - Generalized abdominal pain (6) Nausea & vomiting Qualifiers: Qualified Codes: R11.2 - Nausea with vomiting, unspecified (7) Dehydration ICD Codes: E86.0 - Dehydration SNOMED: 39421289 (8) Alcohol withdrawal delirium ICD Codes: F10.231 - Alcohol dependence with withdrawal delirium SNOMED: 1667522 (9) Back pain ICD Codes: M54.9 - Dorsalgia, unspecified SNOMED: 188263920 (10) Colitis (11) Diarrhea ICD Codes: R19.7 - Diarrhea, unspecified SNOMED: 19343140 (12) Leukopenia ICD Codes: D72.819 - Decreased white blood cell count, unspecified SNOMED: 39769405, 973174142 (13) Abdominal pain (14) Fall ICD Codes: W19.XXXA - Unspecified fall, initial encounter SNOMED: 7167528, 219952996 (15) HTN (hypertension) ICD Codes: I10 - Essential (primary) hypertension SNOMED: 21735309 (16) Chronic pain ICD Codes: G89.29 - Other chronic pain SNOMED: 55158137, 598150183 (17) Gastrointestinal bleed ICD Codes: K92.2 - Gastrointestinal hemorrhage, unspecified SNOMED: 90320291 (18) GI bleed (19) Lower GI bleed ICD Codes: K92.2 - Gastrointestinal hemorrhage, unspecified SNOMED: 44269949 (20) Pancreatitis, alcoholic, acute ICD Codes: K85.20 - Alcohol induced acute pancreatitis without necrosis or i nfection SNOMED: 771967116 (21) External hemorrhoid, thrombosed ICD Codes: K64.5 - Perianal venous thrombosis SNOMED: 71691748 (22) disc herniation lumbar spine (23) urticaria Kushal Hong Aug 01, 2020 13:20
--- NOTE | 2020-08-01 13:29 | Diagnostic Imaging Report ---
Indication: Abdominal pain Technique: Supine view of the abdomen Comparison: 07/30/2020 Findings: The bowel gas pattern is unremarkable. No masses or unusual calcifications. Impression: Negative
--- NOTE | 2020-08-01 13:30 | NUR ---
CASE MANAGEMENT:REVIEW WALKED INTO ER CC: ABDOMINAL PAIN AND VOMITING SI:ALCOHOL ABUSE. TACHYCARDIA. ACUTE RENAL FAILURE 99.1 130 18 111/73 96% ON RA WBC+12.2 K-3.2 CR+1.4 SERUM ALCOHOL+96 IS: IV REGLAN IV PEPCID IV MORPHINE 1L NS BOLUS CXR ABDOMINAL XRAY : TO TELEMETRY
--- NOTE | 2020-08-01 15:05 | NUR ---
CHARGE NURSE NOTE: No signs of distress. Pt states that he feels better. Full liquid diet changed as requested by patient.
[2020-08-01 16:00] VITALS: BP 142/83
--- NOTE | 2020-08-01 17:14 | NUR ---
DISCHARGE NOTE: Pt is discharged home in stable condition by private car. Pt will follow up with on Saturday.Belongings cjhecked, IV removed- no inflammation or hematoma. Pt was instructed on med. regimen, activity, diet.
--- NOTE | 2020-08-01 17:14 | General Progress Note ---
Subjective Constitutional: Reports: malaise, weakness HEENT: Reports: no symptoms Cardiovascular: Reports: no symptoms Respiratory: Reports: cough, shortness of breath Gastrointestinal/Abdominal: Reports: abdominal pain Genitourinary: Reports: no symptoms Neurologic/Psychiatric: Reports: anxiety Endocrine: Reports: no symptoms Hematologic/Lymphatic: Reports: no symptoms Allergies: Coded Allergies: No Known Allergies (Verified , 08/14/08) All Systems: reviewed and negative except above Subjective no new complaints. abd pain improved. tolerating pos. normal bowel movements Objective Last 24 Hour Vital Signs Date Time Temp Pulse Resp B/P (MAP) Pulse Ox O2 Delivery O2 Flow Rate FiO2 08/01/20 13:42 98.8 08/01/20 12:00 98.8 84 18 146/84 (104) 99 08/01/20 09:30 99.2 08/01/20 09:00 Room Air 08/01/20 08:49 78 130/85 08/01/20 08:00 99.2 78 16 130/82 (98) 98 08/01/20 04:00 77 08/01/20 04:00 98.1 79 18 142/80 (100) 98 08/01/20 02:47 98.4 08/01/20 00:00 98.4 74 18 134/73 (93) 97 08/01/20 00:00 74 07/31/20 21:44 98.6 07/31/20 21:00 Room Air 07/31/20 20:00 98.9 71 18 143/82 (102) 97 07/31/20 20:00 70 Intake and Output 07/31/20 08/01/20 19:00 07:00 Intake Total 140 ml Output Total 1400 ml Balance -1260 ml Intake Oral 140 ml Output Urine Total 1400 ml # Voids 3 3 Laboratory Tests 08/01/20 11:25: White Blood Count 7.9, Red Blood Count 3.38L, Hemoglobin 11.5L, Hematocrit 34.2L , Mean Corpuscular Volume 101H, Mean Corpuscular Hemoglobin 34.0H, Mean Corpuscular Hemoglobin Concent 33.5, Red Cell Distribution Width 14.9H, Platelet Count 88L, Mean Platelet Volume 9.0, Neutrophils (%) (Auto) , Lymphocytes (%) (Auto) , Monocytes (%) (Auto) , Eosinophils (%) (Auto) , Basophils (%) (Auto) , Differential Total Cells Counted 100, Neutrophils % (Manual) 56, Lymphocytes % (Manual) 32, Monocytes % (Manual) 11H, Eosinophils % (Manual) 1, Basophils % (Manual) 0, Band Neutrophils 0, Platelet Estimate DecreasedL, Platelet Morphol ogy Normal, Anisocytosis 1+, Macrocytosis 1+, Sodium Level 138, Potassium Level 3.6, Chloride Level 102, Carbon Dioxide Level 32, Anion Gap 4L, Blood Urea Nitrogen 8, Creatinine 0.7, Estimat Glomerular Filtration Rate > 60, Glucose Level 114H, Calcium Level 9.3 Height (Feet): 5 Height (Inches): 11.00 Weight (Pounds): 149 General Appearance: WD/WN, no apparent distress, alert EENT: PERRL/EOMI, normal ENT inspection Neck: non-tender, normal alignment Cardiovascular: normal peripheral pulses, normal rate Respiratory/Chest: chest wall non-tender, lungs clear, normal breath sounds Abdomen: normal bowel sounds, non tender, soft, no organomegaly Edema: no edema noted Arm (L), no edema noted Arm (R) Neurologic: continuous improvement lead II-XII grossly normal, no motor/sensory deficits, alert, oriented x 3 Assessment/Plan Problem List: (1) Abdominal pain ICD Codes: R10.9 - Abdominal pain SNOMED: 87519960 Qualifiers: Qualified Codes: R10.84 - Generalized abdominal pain (2) Nausea & vomiting Qualifiers: Qualified Codes: R11.2 - Nausea with vomiting, unspecified (3) Dehydration ICD Codes: E86.0 - Dehydration SNOMED: 25499167 Status: stable Assessment/Plan: PPI rx bowel regime pain rx as needed antiemetics dc planning Pedro Cerda MD Aug 01, 2020 17:14
--- NOTE | 2020-08-01 20:47 | Cardiology Progress Note ---
Subjective DATE OF SERVICE: Aug 01, 2020 No abdominal pain. Tolerating diet. Having formed BM's KUB today shows normal BG pattern. Objective Last 24 Hour Vital Signs Date Time Temp Pulse Resp B/P (MAP) Pulse Ox O2 Delivery O2 Flow Rate FiO2 08/01/20 16:00 98.2 82 16 142/83 (102) 98 08/01/20 13:42 98.8 08/01/20 12:00 98.8 84 18 146/84 (104) 99 08/01/20 09:30 99.2 08/01/20 09:00 Room Air 08/01/20 08:49 78 130/85 08/01/20 08:00 99.2 78 16 130/82 (98) 98 08/01/20 04:00 77 08/01/20 04:00 98.1 79 18 142/80 (100) 98 08/01/20 02:47 98.4 08/01/20 00:00 98.4 74 18 134/73 (93) 97 08/01/20 00:00 74 07/31/20 21:44 98.6 07/31/20 21:00 Room Air ROS: unchanged form 07/30/20 RHYTHM: NSR LUNGS: lungs clear bilaterally CARDIAC: normal rate, regular rhythm, normal S1 and S2, gallop/S4 ABDOMEN: normal bowel sounds, distended, tender - mild, diffuse, hepatomegaly EXTREMITIES: normal range of motion, no calf tenderness, No edema Laboratory Tests Test 08/01/20 11:25 White Blood Count 7.9 K/UL (4.8-10.8) Red Blood Count 3.38 M/UL (4.70-6.10) L Hemoglobin 11.5 G/DL (14.2-18.0) L Hematocrit 34.2 % (42.0-52.0) L Mean Corpuscular Volume 101 FL (80-99) H Mean Corpuscular Hemoglobin 34.0 PG (27.0-31.0) H Mean Corpuscular Hemoglobin Concent 33.5 G/DL (32.0-36.0) Red Cell Distribution Width 14.9 % (11.6-14.8) H Platelet Count 88 K/UL (150-450) L Mean Platelet Volume 9.0 FL (6.5-10.1) Neutrophils (%) (Auto) % (45.0-75.0) Lymphocytes (%) (Auto) % (20.0-45.0) Monocytes (%) (Auto) % (1.0-10.0) Eosinophils (%) (Auto) % (0.0-3.0) Basophils (%) (Auto) % (0.0-2.0) Differential Total Cells Counted 100 Neutrophils % (Manual) 56 % (45-75) Lymphocytes % (Manual) 32 % (20-45) Monocytes % (Manual) 11 % (1-10) H Eosinophils % (Manual) 1 % (0-3) Basophils % (Manual) 0 % (0-2) Band Neutrophils 0 % (0-8) Platelet Estimate Decreased L Platelet Morphology Normal Anisocytosis 1+ Macrocytosis 1+ Sodium Level 138 MMOL/L (136-145) Potassium Level 3.6 MMOL/L (3.5-5.1) Chloride Level 102 MMOL/L (98-107) Carbon Dioxide Level 32 MMOL/L (21-32) Anion Gap 4 mmol/L (5-15) L Blood Urea Nitrogen 8 mg/dL (7-18) Creatinine 0.7 MG/DL (0.55-1.30) Estimat Glomerular Filtration Rate > 60 mL/min (>60) Glucose Level 114 MG/DL (74-106) H Calcium Level 9.3 MG/DL (8.5-10.1) Assessment/Plan Assessment/Plan Abdominal Pain resolved GERD No signs of Ileus Severe hypomagnesemia -replaced Hypokalemia corrected Hypertension/HHD Chronic diastolic CHF Deg disc disease IVF discont'd Advance diet - if tolerated can go home Increase K= in diet Continue PPI rx Adolfo Jerry MD Aug 01, 2020 20:47
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
--- NOTE | 2020-08-02 14:39 | Cardiology Report ---
APPROVED REPORT EKG Measurement Heart [id number] <Conclusion> Sinus tachycardia Nonspecific ST and T wave abnormality Abnormal ECG
--- NOTE | 2020-08-03 09:08 | Discharge Summary ---
Discharge Summary Discharge Summary _ DATE OF ADMISSION: 07/30/2020 DATE OF DISCHARGE: 08/01/2020 DISCHARGED BY: Dr. Cerda REASON FOR ADMISSION: 74 years old male with past medical history of COPD, hypertension, chronic liver disease, hepatitis C, presented with abdominal pain and vomiting. Patient also reported shortness of breath while walking. He denied any fever or chills. No blood in vomiting , no coffee-ground emesis. Patient reported drinking alcohol few days ago. Upon evaluation patient had tachycardic with heart rate 130 Laboratory work-up revealed leukocytosis WBC 12.2,stable hemoglobin , hematocrit and platelet count. Potassium 3.2. BUN 15 creatinine 1.4. Glucose 80. Troponin negative . EKG revealed sinus tachycardia , no acute ischemic changes. Lipase 54 , stable LFT . Chest x-ray with evidence of COPD , no acute cardiopulmonary pathology. Abdominal x-ray demonstrated nonspecific gaseous small bowels in the mid abdomen, may be mild ileus. Gassy colon. Moderate stool in the rectum. No high-grade obstruction. Serum alcohol level 96 . Urine toxicology screen negative. Urinalysis revealed no pyuria , +1 leukocyte esterase , no bacteria, +3 prote in. Patient was provided with IV hydration m received analgesic m antiemetic and admitted for further management. 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 Patient was provided with IV hydration . Pain management was addressed. Patient started on PPI. Antiemetic provided symptomatically. Bowel regimen instituted. Patient had formed bowel movement. Surgeon followed. Patient was followed -up with serial exams. Patient slowly started on diet as tolerated. Follow-up KUB was negative. No obstruction. Hypomagnesia and hypokalemia corrected. Home medication continued. DVT prophylaxis provided. Diet was advanced Patient was able to tolerate diet . Leukocytosis was likely reactive, resolved the next day ; no fevers . Renal parameters were closely monitored with IV hydration creatinine from 1.4 down to 0.7. Patient was counseled on abstinence from alcohol. Patient clinically stabilized and was ready for discharge. FINAL DIAGNOSES: Alcohol abuse Acute renal failure Dehydration Leukocytosis Tachycardia Abdominal pain -resolved Nausea and vomiting -resolved GERD Severe hypomagnesemia -corrected Hypokalemia -corrected Hypertension/hypertensive heart disease Chronic diastolic CHF Degenerative disc disease DISCHARGE MEDICATIONS: See Medication Reconciliation list. DISCHARGE INSTRUCTIONS: Patient was discharged home. Follow-up with primary care provider in 1 week. I have been assigned to dictate discharge summary for this account. I was not involved in the patient's management. Erica Garcia NP Aug 03, 2020 09:08
== END 2020-08-01 17:29 | disposition home or self-care (01) | DRG 389 ==
LOC: EMR 06:57 → 2E 07:33 → EDBEDREQ 12:02 → 4E 08-01 08:00
DX: K56.7 Ileus, unspecified (principal); I50.32 Chronic diastolic (congestive) heart failure; N17.9 Acute kidney failure, unspecified; E86.0 Dehydration; R10.9 Unspecified abdominal pain; R00.0 Tachycardia, unspecified; K21.9 Gastro-esophageal reflux disease without esophagitis; E86.1 Hypovolemia; E83.42 Hypomagnesemia; E87.6 Hypokalemia; I11.0 Hypertensive heart disease with heart failure; J44.9 Chronic obstructive pulmonary disease, unspecified; R50.9 Fever, unspecified; B19.20 Unspecified viral hepatitis C without hepatic coma; F10.10 Alcohol abuse, uncomplicated
CPT/HCPCS: 36415; 71045; 74018; 80048; 80053; 80307; 81003; 82248; 82550; 83690; 83735; 84484; 85007; 85025; 85610; 85730; 93005; 96374; 96375; 99285; G0480; J2765; J7030; J8499

== ENCOUNTER 2020-08-17 17:04 | Emergency (ER) | payer MEDICARE, OTHER ==
[~2020-08-17] VITALS: Ht 180.3 cm; Wt 68.0 kg
--- NOTE | 2020-08-17 17:14 | NUR ---
ED Nurse Note: patient walked in from home due to abdominal pain x 3 hours. pt denied N/V/D. nad noted, a/ox4, ambulatory, 109 hr, other vss.
[2020-08-17 17:20] VITALS: BP 148/86
[2020-08-17] MEDS ORDERED: Ketorolac 30mg Inj IV ONE (17:30)
[2020-08-17] MEDS ORDERED: Omnipaque-300 100ml vial INJ PRN (17:30)
[2020-08-17 17:36] LABS: APPEARANCE,URINE CLEAR; BILIRUBIN, URINE NEGATIVE (NEGATIVE); GLUCOSE, URINE (UA) NEGATIVE (NEGATIVE); KETONES,URINE NEGATIVE (NEGATIVE); LEUKOCYTE ESTERASE ,URINE NEGATIVE (NEGATIVE); NITRITE,URINE NEGATIVE (NEGATIVE); PH,URINE 8 (4.5-8.0); PROTEIN,URINE NEGATIVE (NEGATIVE); UROBILINOGEN,URINE 1 MG/DL (0.0-1.0)
[2020-08-17 17:42] LABS: COLOR,URINE YELLOW
[2020-08-17 17:54] LABS: BASOPHILS % (AUTO) 2.2 % (0.0-2.0); EOSINOPHILS % (AUTO) 0.6 % (0.0-3.0); HEMATOCRIT 31.2 % (42.0-52.0); LYMPHOCYTES % (AUTO) 48.7 % (20.0-45.0); MEAN CORPUSCULAR VOLUME 98 FL (80-99); MONOCYTES % (AUTO) 12.1 % (1.0-10.0); NEUTROPHILS % (AUTO) 36.4 % (45.0-75.0); PLATELET COUNT 252 K/UL (150-450); RED CELL DISTRIBUTION WIDTH 16.5 % (11.6-14.8); WHITE BLOOD COUNT 6.6 K/UL (4.8-10.8)
[2020-08-17 18:12] LABS: ANION GAP 9 mmol/L (5-15); BLOOD UREA NITROGEN 11 mg/dL (7-18); CALCIUM 9.2 MG/DL (8.5-10.1); CARBON DIOXIDE 27 MMOL/L (21-32); CHLORIDE 107 MMOL/L (98-107); CREATININE 0.9 MG/DL (0.55-1.30); POTASSIUM 3.9 MMOL/L (3.5-5.1); SODIUM 143 MMOL/L (136-145)
[2020-08-17 18:17] LABS: ALANINE AMINOTRANSFERASE 23 U/L (12-78); ALBUMIN 3.2 G/DL (3.4-5.0); ALBUMIN/GLOBULIN RATIO 0.8 (1.0-2.7); ALKALINE PHOSPHATASE 103 U/L (46-116); ASPARTATE AMINO TRANSFERASE 59 U/L (15-37); BILIRUBIN,TOTAL 0.3 MG/DL (0.2-1.0); CREATINE KINASE 125 U/L (26-308)
[2020-08-17 18:19] LABS: INR 1.1 (0.9-1.1)
--- NOTE | 2020-08-17 18:31 | Emergency Room Report ---
History of Present Illness General Chief Complaint: Abdominal Pain Source: Patient Present Illness HPI 74-year-old male with history of pancreatitis here complaining of abdominal pain that has been ongoing for several months. Denies any nausea vomiting, chest pain, shortness of breath, headache and dizziness. Patient was recently admitted to the hospital due to pancreatitis. Primary doctor, advised to discharge patient if labs are within normal limits. Patient reports that he drinks alcohol daily basis and has some alcohol prior to arrival to ED. Denies all other drug use. Appears to be stable with stable vital signs. Denies taking any blood thinners. Allergies: Coded Allergies: No Known Allergies (Verified , 08/14/08) COVID-19 Screening Contact w/high risk pt: No Recent Travel to affected area: No Experienced COVID-19 symptoms?: Yes COVID-19 symptoms experienced: Flu-Like Symptoms COVID-19 Testing performed WORK STUDY STUDENT: No Patient History Past Medical History: see triage record Past Surgical History: none Pertinent Family History: none Social History: Reports: alcohol use Immunizations: UTD Reviewed Nursing Documentation: PMH: Agreed; PSxH: Agreed Nursing Documentation-PMH Past Medical History: No History, Except For Hx Cardiac Problems: Yes Hx Hypertension: Yes Hx Cancer: Yes - COLON Hx Gastrointestinal Problems: Yes Hx Neurological Problems: No Hx Seizures: Yes Hx Dizziness: Yes Hx Headaches: Yes Hx Weakness: Yes Hx Fatigue: Yes Review of Systems All Other Systems: negative except mentioned in HPI Physical Exam Vital Signs Date Time Temp Pulse Resp B/P (MAP) Pulse Ox O2 Delivery O2 Flow Rate FiO2 08/17/20 17:07 99.0 109 19 148/86 (106) 96 Room Air Sp02 EP Interpretation: reviewed, normal General Appearance: no apparent distress, alert, GCS 15, non-toxic Head: normocephalic, atraumatic Eyes: bilateral eye normal inspection, bilateral eye PERRL Neck: normal inspection, full range of motion Respiratory: no respiratory distress, no retraction, no accessory muscle use Cardiovascular #1: regular rate, rhythm, no edema Gastrointestinal: non tender, soft, no mass, no organomegaly, no peritonitis, no bruit, no guarding Genitourinary: no CVA tenderness Musculoskeletal: back normal, normal range of motion, gait/station normal, non- tender Neurologic: alert, motor strength/tone normal, oriented x3, sensory intact, responsive, speech normal Psychiatric: judgement/insight normal, memory normal, mood/affect normal, no suicidal/homicidal ideation Skin: no rash Lymphatic: no adenopathy Medical Decision Making PA Attestation All my diagnosis and treatment plans were reviewed ad discussed with my supervising physician Dr. Iyer Diagnostic Impression: Primary Impression: Abdominal pain ER Course 74-year-old male with history of pancreatitis here complaining of abdominal pain that has been ongoing for several months. Denies any nausea vomiting, chest pain, shortness of breath, headache and dizziness. Patient was recently admitted to the hospital due to pancreatitis. Primary doctor, advised to discharge patient if labs are within normal limits. Patient reports that he drinks alcohol daily basis and has some alcohol prior to arrival to ED. Denies all other drug use. Appears to be stable with stable vital signs. Denies taking any blood thinners. Ddx considered but are not limited to: appendicitis, cholecystis, gastritis, gastroenteritis, UTI, pyelonephritis, SBO, diverticulitis, pancreatitis Vital signs: are WNL, pt. is afebrile H&PE are most consistent with: abdominal pain ORDERS: lipase, CBC, CMP, tox screen, UA, no imaging was recommended by ED INTERVENTIONS: None required at this time. Patient was evaluated in the context of the global COVID-19 pandemic, which necessitated consideration that the patient might be at risk for infection with the SARS-COV-2 virus that causes COVID-19. Institutional protocols and algorithms that pertain to the evaluation of patients at risk for COVID-19 are in a state of rapid change based on information relieved by multiple regulatory bodies including the CDC and the federal and state organizations. These policies and algorithms were followed during the patient's care in the ED. DISCHARGE: At this time pt. is stable for d/c to home. Will provide printed patient care instructions, and any necessary prescriptions. Care plan and follow up instructions have been discussed with the patient prior to discharge. Patient advised to stop drinking alcohol, , follow-up with primary care provider, if worsening symptom return to the emergency EKG Diagnostic Results Rate: normal Rhythm: NSR ST Segments: no acute changes Other Impression No acute ST changes ASA given to the pt in ED: No Last Vital Signs Date Time Temp Pulse Resp B/P (MAP) Pulse Ox O2 Delivery O2 Flow Rate FiO2 08/17/20 17:52 99.0 08/17/20 17:20 19 148/86 96 Room Air 08/17/20 17:16 109 Disposition: HOME, SELF-CARE Condition: Stable Referrals: Adolfo Jerry MD (PCP) Patient Instructions: Abdominal Pain, Adult Additional Instructions: Follow-up with primary care provider, gradual hydration, avoid drinking alcohol, if worsening symptoms return to the emergency Enedina Coley Aug 17, 2020 18:31
[2020-08-17 18:37] VITALS: BP 148/86
--- NOTE | 2020-08-17 18:37 | NUR ---
ED Nurse Note: Patient cleared by health care Provider for discharge. DC instructions/prescription was given and explained to pt and verbalized understanding of teachings. All medical devices such as ID band and iv removed. Pt is AAO x4, ambulatory and left with all personal belongings.
== END 2020-08-17 18:38 | disposition home or self-care (01) ==
LOC: EMR 17:30
DX: R10.9 Unspecified abdominal pain (principal); F10.10 Alcohol abuse, uncomplicated; I11.9 Hypertensive heart disease without heart failure; G40.909 Epilepsy, unspecified, not intractable, without status epilepticus; Z85.038 Personal history of other malignant neoplasm of large intestine
CPT/HCPCS: 36415; 80053; 81003; 82550; 83690; 84484; 85025; 85610; 85730; 93005; 96361; 96374; 96375; 99284; J1885; J2405; J7030; S0028

== ENCOUNTER 2020-10-30 01:21 | Inpatient (IN) | payer MEDICARE, OTHER ==
[~2020-10-30] VITALS: Ht 172.7 cm; Wt 79.4 kg
[2020-10-30] VITALS (7 sets, daily range): BP systolic 130–160; BP diastolic 88–97
--- NOTE | 2020-10-30 01:40 | NUR ---
Pte arrives to ER via rescue severe abdominal pain on right side radiating to back for past 3 hours, pain at 10/10, no emesis or diarrhea, pt moaning and groaning. Will continue to monitor.
--- NOTE | 2020-10-30 01:41 | Emergency Room Report ---
History of Present Illness General Chief Complaint: Abdominal Pain Source: Patient, EMS Present Illness HPI Patient presents with several hours of increased right upper quadrant pain radiating to his back. He believes this is his liver. He has had this type of problem before. He also has reflux. He denies any vomiting at this time. He has had loose stools and does not know the color and denies seeing letters any blood. He denies hematuria or dysuria. The pain is severe. Patient denies fevers or chills. Patient denies exposure to Covid positive contacts. No sore throat, chest pain, palpitations, shortness of breath, joint pain, rashes, depression, anxiety, visual changes, dizziness, headache. Patient admitted 06/2020 with these d/c diagnoses: COPD exacerbation with paroxysmal bronchospasm Hypovolemia dehydration Hypertension/hypertensive heart disease Abdominal pain -improved Diarrhea -resolved Nausea and vomiting -resolved History of chronic alcohol use Chronic liver disease Hepatitis C Electrolyte imbalances : hyponatremia, hypokalemia , hypomagnesemia, - resolved Mild leukocytosis- resolved Allergies: Coded Allergies: No Known Allergies (Verified , 08/14/08) COVID-19 Screening Contact w/high risk pt: No Recent Travel to affected area: No Experienced COVID-19 symptoms?: No COVID-19 symptoms experienced: Flu-Like Symptoms COVID-19 Testing performed SMOG TECHNICIAN: No Patient History Past Medical History: see triage record Social History: Reports: smoking, alcohol use, drug use Social History Narrative and from home Reviewed Nursing Documentation: PMH: Agreed; PSxH: Agreed Nursing Documentation-PMH Hx Cardiac Problems: Yes Hx Hypertension: Yes Hx Cancer: Yes - COLON Hx Gastrointestinal Problems: Yes Hx Neurological Problems: No Hx Seizures: Yes Hx Dizziness: Yes Hx Headaches: Yes Hx Weakness: Yes Hx Fatigue: Yes Review of Systems All Other Systems: negative except mentioned in HPI Physical Exam Vital Signs Date Time Temp Pulse Resp B/P (MAP) Pulse Ox O2 Delivery O2 Flow Rate FiO2 10/30/20 01:23 98.2 86 18 140/90 (107) 99 Room Air Sp02 EP Interpretation: reviewed, normal General Appearance: GCS 15, moderate distress, Chronically Ill Head: normocephalic, atraumatic Eyes: bilateral eye PERRL, bilateral eye other - Arcus ENT: moist mucus membranes - Slightly dry Neck: full range of motion, supple Respiratory: chest non-tender, lungs clear, normal breath sounds Cardiovascular #1: regular rate, rhythm Cardiovascular #2: 2+ radial (L) Gastrointestinal: soft, non-distended, no rebound, guarding, tenderness - Right upper quadrant and right flank. No referred pain Genitourinary: no CVA tenderness Musculoskeletal: back normal, other - Has a walker Neurologic: grossly normal Psychiatric: anxious Skin: no rash, warm/dry Medical Decision Making Diagnostic Impression: Primary Impression: Abdominal pain Qualified Codes: R10.11 - Right upper quadrant pain Additional Impression: Leukocytosis Qualified Codes: D72.829 - Elevated white blood cell count, unspecified ER Course Patient presents with right upper quadrant pain rating to his back. Differential includes peptic ulcer disease, gastritis, pancreatitis, cho lecystitis, gallbladder colic amongst others. Patient evaluated with labs and CT of the abdomen and pelvis. Patient treated with IV hydration and analgesia. Labs significant for slight leukocytosis. Slight anemia unchanged from previous values. CT of the abdomen and pelvis significant for distended gallbladder with subtle adjacent inflammatory changes. This is a new finding from the June CT. Cefepime ordered. Patient improved however admitted to the hospital due to the leukocytosis and the CT findings. Laboratory Tests Test 10/30/20 01:45 10/30/20 02:36 White Blood Count 11.0 K/UL (4.8-10.8) H Red Blood Count 3.38 M/UL (4.70-6.10) L Hemoglobin 11.7 G/DL (14.2-18.0) L Hematocrit 35.1 % (42.0-52.0) L Mean Corpuscular Volume 104 FL (80-99) H Mean Corpuscular Hemoglobin 34.6 PG (27.0-31.0) H Mean Corpuscular Hemoglobin Concent 33.3 G/DL (32.0-36.0) Red Cell Distribution Width 13.8 % (11.6-14.8) Platelet Count 108 K/UL (150-450) L Mean Platelet Volume 9.0 FL (6.5-10.1) Neutrophils (%) (Auto) 49.8 % (45.0-75.0) Lymphocytes (%) (Auto) 34.5 % (20.0-45.0) Monocytes (%) (Auto) 13.4 % (1.0-10.0) H Eosinophils (%) (Auto) 0.9 % (0.0-3.0) Basophils (%) (Auto) 1.4 % (0.0-2.0) Prothrombin Time 11.7 SEC (9.30-11.50) H Prothrombin Time INR 1.1 (0.9-1.1) Activated Partial Thromboplast Time 24 SEC (23-33) Sodium Level 141 MMOL/L (136-145) Potassium Level 3.8 MMOL/L (3.5-5.1) Chloride Level 106 MMOL/L (98-107) Carbon Dioxide Level 26 MMOL/L (21-32) Anion Gap 10 mmol/L (5-15) Blood Urea Nitrogen 9 mg/dL (7-18) Creatinine 1.0 MG/DL (0.55-1.30) Estimated Glomerular Filtration Rate > 60 mL/min (>60) Glucose Level 108 MG/DL (74-106) H Calcium Level 10.0 MG/DL (8.5-10.1) Total Bilirubin 0.8 MG/DL (0.2-1.0) Aspartate Amino Transferase (AST) 52 U/L (15-37) H Alanine Aminotransferase (ALT) 39 U/L (12-78) Alkaline Phosphatase 92 U/L (46-116) Total Creatine Kinase 101 U/L (26-308) Troponin I 0.000 ng/mL (0.000-0.056) Total Protein 7.7 G/DL (6.4-8.2) Albumin 3.7 G/DL (3.4-5.0) Globulin 4.0 g/dL Albumin/Globulin Ratio 0.9 (1.0-2.7) L Lipase 72 U/L (73-393) L Urine Color Yellow Urine Appearance Clear Urine pH 6 (4.5-8.0) Urine Specific [place] 1.015 (1.005-1.035) Urine Protein 1+ (NEGATIVE) H Urine Glucose (UA) Negative (NEGATIVE) Urine Ketones Negative (NEGATIVE) Urine Blood 1+ (NEGATIVE) H Urine Nitrite Negative (NEGATIVE) Urine Bilirubin Negative (NEGATIVE) Urine Urobilinogen 1 MG/DL (0.0-1.0) H Urine Leukocyte Esterase Negative (NEGATIVE) Urine RBC 0-2 /HPF (0 - 0) H Urine WBC 0 /HPF (0 - 0) Urine Squamous Epithelial Cells None /LPF (NONE/OCC) Urine Bacteria None /HPF (NONE) Rhythm Strip Diag. Results EP Interpretation: yes Rhythm: NSR, no PVC's, no ectopy Chest X-Ray Diagnostic Results Chest X-Ray Diagnostic Results : Chest X-Ray Ordered: Yes # of Views/Limited/Complete: 1 View Indication: Other EP Interpretation: Yes Interpretation: no consolidation, no effusion, no pneumothorax Impression: No acute disease Electronically Signed by: Electronically signed by Adolfo Vergara MD CT/MRI/US Diagnostic Results CT/MRI/US Diagnostic Results : Imaging Test Ordered: abd/pelvis Impression 1. Distended gallbladder with subtle adjacent inflammatory change. May represent underlying cholecystitis. Plan clinical correlation and consider right upper quadrant ultrasound as clinically indicated. 2. Mild urinary bladder wall thickening. May represent underlying cystitis. Recommend clinical correlation. 3. Diverticulosis without diverticulitis. 4. Additional chronic findings as above. Last Vital Signs Date Time Temp Pulse Resp B/P (MAP) Pulse Ox O2 Delivery O2 Flow Rate FiO2 10/30/20 03:44 97.4 86 17 130/89 97 Room Air Status: improved Disposition: ADMITTED INPATIENT Condition: Serious Adolfo Vergara MD Oct 30, 2020 01:41
[2020-10-30] MEDS ORDERED: Morphine Sulfate 4mg/ml Inj (IV USE ONLY) IVP ONE (01:45)
[2020-10-30] MEDS ORDERED: Mylanta II UD 30ml ORAL ONE (01:45)
[2020-10-30 01:57] LABS: BASOPHILS % (AUTO) 1.4 % (0.0-2.0); EOSINOPHILS % (AUTO) 0.9 % (0.0-3.0); HEMATOCRIT 35.1 % (42.0-52.0); HEMOGLOBIN 11.7 G/DL (14.2-18.0); LYMPHOCYTES % (AUTO) 34.5 % (20.0-45.0); MEAN CORPUSCULAR VOLUME 104 FL (80-99); MONOCYTES % (AUTO) 13.4 % (1.0-10.0); NEUTROPHILS % (AUTO) 49.8 % (45.0-75.0); PLATELET COUNT 108 K/UL (150-450); RED BLOOD COUNT 3.38 M/UL (4.70-6.10); RED CELL DISTRIBUTION WIDTH 13.8 % (11.6-14.8)
[2020-10-30 02:10] LABS: ANION GAP 10 mmol/L (5-15); BLOOD UREA NITROGEN 9 mg/dL (7-18); CARBON DIOXIDE 26 MMOL/L (21-32); CHLORIDE 106 MMOL/L (98-107); POTASSIUM 3.8 MMOL/L (3.5-5.1); SODIUM 141 MMOL/L (136-145)
[2020-10-30 02:12] LABS: INR 1.1 (0.9-1.1)
[2020-10-30 02:14] LABS: ALANINE AMINOTRANSFERASE 39 U/L (12-78); ALBUMIN 3.7 G/DL (3.4-5.0); ALBUMIN/GLOBULIN RATIO 0.9 (1.0-2.7); ALKALINE PHOSPHATASE 92 U/L (46-116); ASPARTATE AMINO TRANSFERASE 52 U/L (15-37); BILIRUBIN,TOTAL 0.8 MG/DL (0.2-1.0); CREATINE KINASE 101 U/L (26-308)
--- NOTE | 2020-10-30 02:31 | NUR ---
Pte denies pain at this time . Pain medication effective. Will continue to monitor.
--- NOTE | 2020-10-30 02:39 | Diagnostic Imaging Report ---
EXAM: CT Abdomen and Pelvis Without Intravenous Contrast CLINICAL HISTORY: ABD PAIN TECHNIQUE: Axial computed tomography images of the abdomen and pelvis without intravenous contrast. CTDI is 6.60 mGy and DLP is 342.10 mGy-cm. One or more of the following dose reduction techniques were used: automated exposure control, adjustment of the mA and/or kV according to patient size, use of iterative reconstruction technique. COMPARISON: CT abdomen and pelvis dated 06/21/2020. FINDINGS: Lung bases: Unremarkable. No mass. No consolidation. ABDOMEN: Liver: Unremarkable. Gallbladder and bile ducts: Mildly distended gallbladder with mild pericystic inflammatory change. No calcified stones. No ductal dilation. Pancreas: Unremarkable. No ductal dilation. Spleen: Unremarkable. No splenomegaly. Adrenals: Unremarkable. No mass. Kidneys and ureters: 3.9 cm left renal cyst. 2.9 cm right renal cyst. No obstructing stones. No hydronephrosis. Stomach and bowel: Multiple colonic diverticula. No obstruction. No mucosal thickening. PELVIS: Appendix: Normal appendix. Bladder: Mild urinary bladder wall thickening measuring 6 mm. No stones. Reproductive: Prostatomegaly. ABDOMEN and PELVIS: Intraperitoneal space: Unremarkable. No free air. No significant fluid collection. Bones/joints: No acute fracture. No dislocation. Soft tissues: Small fat-containing umbilical hernia. Vasculature: Atherosclerotic vascular disease. No abdominal aortic aneurysm. Lymph nodes: Unremarkable. No enlarged lymph nodes. IMPRESSION: 1. Distended gallbladder with subtle adjacent inflammatory change. May represent underlying cholecystitis. Plan clinical correlation and consider right upper quadrant ultrasound as clinically indicated. 2. Mild urinary bladder wall thickening. May represent underlying cystitis. Recommend clinical correlation. 3. Diverticulosis without diverticulitis. 4. Additional chronic findings as above.
[2020-10-30 02:40] LABS: APPEARANCE,URINE CLEAR; BILIRUBIN, URINE NEGATIVE (NEGATIVE); GLUCOSE, URINE (UA) NEGATIVE (NEGATIVE); KETONES,URINE NEGATIVE (NEGATIVE); LEUKOCYTE ESTERASE ,URINE NEGATIVE (NEGATIVE); NITRITE,URINE NEGATIVE (NEGATIVE); PH,URINE 6 (4.5-8.0); PROTEIN,URINE 1+ (NEGATIVE); UROBILINOGEN,URINE 1 MG/DL (0.0-1.0)
--- NOTE | 2020-10-30 02:40 | Diagnostic Imaging Report ---
EXAM: XR Chest, 1 View CLINICAL HISTORY: ABD PAIN TECHNIQUE: Frontal view of the chest. COMPARISON: Chest radiograph dated 07/30/2020 FINDINGS: Lungs: Unremarkable. No consolidation. Pleural space: Unremarkable. No pneumothorax. Heart: Unremarkable. No cardiomegaly. Mediastinum: Unremarkable. Bones/joints: Unremarkable. IMPRESSION: No acute cardiopulmonary disease.
[2020-10-30 02:42] LABS: COLOR,URINE YELLOW
[2020-10-30] MEDS ORDERED: Cefepime HCl 1 GM in D5W 55 ML IVPB ONE (03:00)
--- NOTE | 2020-10-30 04:14 | NUR ---
Pte was admited to the floor room number [id number] report give to Dena GALLARDO . Pte left the ER in stable condition accompained of Omid GALLARDO .
--- NOTE | 2020-10-30 04:40 | NUR ---
NURSE NOTES: Patient admitted to 4E Med/Surg from ED. Patient is awake, alert x4. On room air with no signs of distress or SOB. No C/O pain at this time. Denies N/V. VSS. IV access located in the L FA 20g. Belongings accounted for. Skin intact. Walker from home is at bedside. Bed locked and in lowest position. Bed alarm on. Call light in reach. Admission orders received from Dr. Jerry. Will follow plan of care.
[2020-10-30] MEDS: Piperacillin/Tazobactam 3.375 GM in NS 110 ML IVPB SCH ×3 (05:31→22:06)
[2020-10-30] MEDS: Morphine Sulfate 2mg/ml Inj(IV/IM USE ONLY) IVP PRN ×4 (05:37→22:07)
--- NOTE | 2020-10-30 05:59 | NUR ---
NURSE NOTES: Left message for Dr. Jerry regarding continuing patient's home meds, DVT prophylaxis and further admission orders. Awaiting call back.
--- NOTE | 2020-10-30 06:00 | NUR ---
NURSE HAND-OFF: Important Events on Shift: Admission to Med/Surg 4e; no acute events Patient Status: Stable Diet: NPO Pending Orders: N/A Pending Results/Labs: No AM labs at this time Pending MD notification: Dr. Cerda/Rosalino for further admission orders Latest Vital Signs: Temperature 97.0 , Pulse 86 , B/P 149 /88 , Respiratory Rate 18 , O2 SAT 98 , Room Air, O2 Flow Rate . Vital Sign Comment: N/A Latest Celeste Fall Score: 60 Fall Risk: High Risk Safety Measures: Call light Within Reach, Bed Alarm Zone 1, Side Rails Side Rails x2, Bed position Low and Locked. Fall Precautions: Yellow Socks Patient Fall Education
--- NOTE | 2020-10-30 08:17 | NUR ---
NURSE NOTES: Patient sitting up in bed, awake and alert, no c/o pain, no SOB, in no apparent distress, bed in lowest position, side rails up x 2, rails padded, wheels locked.
--- NOTE | 2020-10-30 08:29 | History and Physical Report ---
DATE OF ADMISSION: 10/30/2020 CHIEF COMPLAINT: Abdominal pain. HISTORY OF PRESENT ILLNESS: The patient is a 74-year-old male well known to me. He has a history of hypertension, COPD, pancreatitis who presents with complaints of lower abdominal pain that started approximately one week prior to admission. According to the patient, he was well until two weeks ago when he noted the onset of intermittent episodes of midepigastric and right-sided abdominal pain. He denies any nausea, vomiting. No diarrhea. No blood in his stool. No dark stools. On the day of admission here, the pain became severe. He presented to the emergency room. On evaluation there, he was afebrile[place] [address] scan of the abdomen showed a distended gallbladder with mild pericystic inflammatory changes. The patient has been given a dose of antibiotics. He was now admitted for further evaluation of possible cholecystitis. PAST MEDICAL HISTORY: As above, history of GI bleed, seizure disorder, gout, history of chronic back pain, rotator cuff tear. CURRENT MEDICATIONS: Reconciled and reviewed. ALLERGIES: None. FAMILY HISTORY: Noncontributory. SOCIAL HISTORY: The patient is a smoker. He has a history of alcohol use but no drugs. REVIEW OF SYSTEMS: GENERAL: No fevers or chills. HEENT: No headaches or visual changes. CARDIOPULMONARY: No chest pain or shortness of breath. GASTROINTESTINAL: Positive abdominal pain. No nausea. No vomiting. No diarrhea. No melena. No bright red blood per rectum. No hematemesis. GENITOURINARY: No urgency or frequency. MUSCULOSKELETAL: No joint pain or swelling. NEUROLOGIC: No history of seizures. PHYSICAL EXAMINATION: VITAL SIGNS: Temperature 97, pulse 86, respirations 18, and blood pressure 149/88. GENERAL: The patient is well developed, no apparent distress. Awake, alert, and oriented x3. HEENT: Head: Normocephalic and atraumatic. Sclerae anicteric. Extraocular movements intact. Oropharynx clear. Mucous membranes are moist. NECK: Supple. No adenopathy. HEART: Regular rate and rhythm. No murmurs, rubs, or gallops. LUNGS: Clear to auscultation bilaterally. ABDOMEN: Soft, nontender, nondistended with normoactive bowel sounds. EXTREMITIES: Without clubbing, cyanosis, or edema. LABORATORY DATA: White count 11, hemoglobin 11, hematocrit 35. Sodium 141, potassium 3.8, chloride 106, bicarb 26, BUN 9, creatinine is 1. AST was 62, ALT was 39. Lipase of 72, bilirubin 0.8. UA was clear. ASSESSMENT: This is a 74-year-old male with a history of COPD, hypertension,GERD, osteoarthritis admitted with complaints of abdominal pain, possibly secondary to cholecystitis. PLAN: 1. NPO. 2. IV antibiotics. 3. IV hydration. 4. Antiemetics. 5. Surgical and Cardiology consultations will be obtained. 6. We will check a HIDA scan. 7. Plan of care was discussed with the patient at bedside. Pedro Cerda M.D. DR: Hakan JOB#: [id number] CC:
[2020-10-30] MEDS: Pantoprazole Inj IVP SCH (09:00)
--- NOTE | 2020-10-30 10:55 | Consultation ---
History of Present Illness General Date patient seen: Oct 30, 2020 Reason for Hospitalization: Abdominal Pain Present Illness HPI This is a very pleasant 74-year-old male who presents with several hours of increased right upper quadrant pain radiating to his back. He believes this is his liver and states has had this problem before as his liver is on his right upper abdomen and that is where the pain is therefore he believes it is liver. He has had this type of problem before. He also has reflux. He denies any vomiting at this time. He has had loose stools and does not know the color and denies seeing letters any blood. He denies hematuria or dysuria. The pain is severe. Patient denies fevers or chills. Pain is severe 8 out of 10 currently improved no nausea vomiting fever chills at this time. States he is hungry now. Still has mild pain states it keeps coming and going. Surgery called to evaluate for cholecystitis is CT identifying inflammation. Patient seen chart reviewed patient examined Allergies: Coded Allergies: No Known Allergies (Verified , 08/14/08) COVID-19 Screening Contact w/high risk pt: No Recent Travel to affected area: No Experienced COVID-19 symptoms?: No Medication History Scheduled Allopurinol* (Allopurinol*), 300 MG ORAL DAILY, (Reported) Amlodipine Besylate (Norvasc), 5 MG ORAL DAILY, (Reported) Atenolol* (Tenormin*), 25 MG ORAL DAILY, (Reported) Esomeprazole Magnesium (Nexium), 0 ORAL DAILY, (Reported) Gemfibrozil* (Lopid*), 600 MG ORAL TWICE A DAY, (Reported) Levetiracetam (Keppra), 500 MG ORAL EVERY 12 HOURS Magnesium Oxide (Magnesium Oxide), 400 MG PO BID, (Reported) Pantoprazole* (Pantoprazole*), 40 MG ORAL DAILY, (Reported) Polyethylene Glycol 3350 (Miralax), 17 GM PO BEDTIME, (Reported) Tamsulosin Hcl (Tamsulosin Hcl*), 0.4 MG ORAL BEDTIME, (Reported) Thiamine Mononitrate (Vitamin B-1), 100 MG PO DAILY, (Reported) Scheduled PRN Docusate Sodium* (Colace*), 100 MG ORAL TWICE A DAY PRN for Constipation, (Reported) Hydrocodone Bit/Acetaminophen 5-325* ([place] 5-325 Tablet*), 1 TAB ORAL Q6H PRN for FOR PAIN Miscellaneous Medications Lipase/Protease/Amylase (Creon Dr 24,000 Units Capsule), 1 EACH PO, (Reported) [Gout Med], (Reported) Patient History History Provided By: Patient, Medical Record, PMD Healthcare decision maker Resuscitation status Advanced Directive on File Past Medical/Surgical History Past Medical/Surgical History: (1) Alcohol abuse (2) Acute renal failure (3) Tachycardia (4) Nausea & vomiting (5) Dehydration (6) Alcohol withdrawal delirium (7) Back pain (8) Colitis (9) Diarrhea (10) Leukopenia (11) Abdominal pain (12) Fall (13) HTN (hypertension) (14) Chronic pain (15) Gastrointestinal bleed (16) GI bleed (17) Lower GI bleed (18) Pancreatitis, alcoholic, acute (19) External hemorrhoid, thrombosed (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 (21) urticaria (22) Leukocytosis (23) Abdominal pain Review of Systems Review of Symptoms General ROS: no weight loss or fever Psychological ROS: no depression or mood changes, no memory loss Ophthalmic ROS: no visual changes or eye irritation ENT ROS: no nasal congestion, hearing loss, dizziness Allergy and Immunology ROS: no allergic symptoms or urticaria Hematological and Lymphatic ROS: no swollen glands, unusual bleeding or bruising Endocrine ROS: no polyuria, polydipsia, weight changes, temperature intolerance Respiratory ROS: no cough, shortness of breath, or wheezing Cardiovascular ROS: no chest pain or dyspnea on exertion Gastrointestinal ROS: denies abdominal pain, bright red blood in stool. Musculoskeletal ROS: no myalgias or arthralgias Neurological ROS: no TIA or stroke symptoms Dermatological ROS: no new or changing skin lesions, rashes or pruritis Physical Exam Physical Exam General appearance: alert, cooperative, no distress, appears stated age Head: Normocephalic, without obvious abnormality, atraumatic Eyes: conjunctivae/corneas clear. PERRL, EOM's intact. Fundi benign Throat: Lips, mucosa, and tongue normal. Teeth and gums normal Neck: supple, symmetrical, trachea midline, no adenopathy, thyroid: not enlarged, symmetric, no tenderness/mass/nodules, no carotid bruit and no JVD Lungs: clear to auscultation bilaterally Heart: regular rate and rhythm, S1, S2 normal, no murmur, click, rub or gallop Abdomen: soft, non-tender. Bowel sounds normal. No masses, no organomegaly Extremities: extremities normal, atraumatic, no cyanosis or edema Pulses: 2+ and symmetric Skin: Skin color, texture, turgor normal. No rashes or lesions Neurologic: Grossly normal Last 24 Hour Vital Signs Date Time Temp Pulse Resp B/P (MAP) Pulse Ox O2 Delivery O2 Flow Rate FiO2 10/30/20 04:21 97.0 86 18 149/88 (108) 98 10/30/20 04:19 Room Air 10/30/20 03:44 97.4 86 17 130/89 97 Room Air 10/30/20 02:15 98.2 10/30/20 02:12 98.2 18 140/90 99 Room Air 10/30/20 02:12 86 18 Room Air 10/30/20 01:23 98.2 86 18 140/90 (107) 99 Room Air Intake and Output 10/29/20 10/30/20 19:00 07:00 Intake Total 0 ml Balance 0 ml Intake Oral 0 ml # Voids 1 Laboratory Tests Test 10/30/20 01:45 10/30/20 02:36 White Blood Count 11.0 K/UL (4.8-10.8) H Red Blood Count 3.38 M/UL (4.70-6.10) L Hemoglobin 11.7 G/DL (14.2-18.0) L Hematocrit 35.1 % (42.0-52.0) L Mean Corpuscular Volume 104 FL (80-99) H Mean Corpuscular Hemoglobin 34.6 PG (27.0-31.0) H Mean Corpuscular Hemoglobin Concent 33.3 G/DL (32.0-36.0) Red Cell Distribution Width 13.8 % (11.6-14.8) Platelet Count 108 K/UL (150-450) L Mean Platelet Volume 9.0 FL (6.5-10.1) Neutrophils (%) (Auto) 49.8 % (45.0-75.0) Lymphocytes (%) (Auto) 34.5 % (20.0-45.0) Monocytes (%) (Auto) 13.4 % (1.0-10.0) H Eosinophils (%) (Auto) 0.9 % (0.0-3.0) Basophils (%) (Auto) 1.4 % (0.0-2.0) Prothrombin Time 11.7 SEC (9.30-11.50) H Prothromb Time International Ratio 1.1 (0.9-1.1) Activated Partial Thromboplast Time 24 SEC (23-33) Sodium Level 141 MMOL/L (136-145) Potassium Level 3.8 MMOL/L (3.5-5.1) Chloride Level 106 MMOL/L (98-107) Carbon Dioxide Level 26 MMOL/L (21-32) Anion Gap 10 mmol/L (5-15) Blood Urea Nitrogen 9 mg/dL (7-18) Creatinine 1.0 MG/DL (0.55-1.30) Estimat Glomerular Filtration Rate > 60 mL/min (>60) Glucose Level 108 MG/DL (74-106) H Calcium Level 10.0 MG/DL (8.5-10.1) Total Bilirubin 0.8 MG/DL (0.2-1.0) Aspartate Amino Transf (AST/SGOT) 52 U/L (15-37) H Alanine Aminotransferase (ALT/SGPT) 39 U/L (12-78) Alkaline Phosphatase 92 U/L (46-116) Total Creatine Kinase 101 U/L (26-308) Troponin I 0.000 ng/mL (0.000-0.056) Total Protein 7.7 G/DL (6.4-8.2) Albumin 3.7 G/DL (3.4-5.0) Globulin 4.0 g/dL Albumin/Globulin Ratio 0.9 (1.0-2.7) L Lipase 72 U/L (73-393) L Urine Color Yellow Urine Appearance Clear Urine pH 6 (4.5-8.0) Urine Specific [place] 1.015 (1.005-1.035) Urine Protein 1+ (NEGATIVE) H Urine Glucose (UA) Negative (NEGATIVE) Urine Ketones Negative (NEGATIVE) Urine Blood 1+ (NEGATIVE) H Urine Nitrite Negative (NEGATIVE) Urine Bilirubin Negative (NEGATIVE) Urine Urobilinogen 1 MG/DL (0.0-1.0) H Urine Leukocyte Esterase Negative (NEGATIVE) Urine RBC 0-2 /HPF (0 - 0) H Urine WBC 0 /HPF (0 - 0) Urine Squamous Epithelial Cells None /LPF (NONE/OCC) Urine Bacteria None /HPF (NONE) Height (Feet): 5 Height (Inches): 8.00 Weight (Pounds): 175 Medications Current Medications Medications (Trade) Dose Ordered Sig/[place]lin Route PRN Reason Start Time Stop Time Status Last Admin Dose Admin Morphine Sulfate (Morphine Sulfate) 2 mg Q4H PRN IVP mod-severe pain 10/30/20 03:30 11/06/20 03:29 10/30/20 10:37 Ondansetron HCl (Zofran) 4 mg Q4H PRN IVP N/V 10/30/20 03:30 11/29/20 03:29 Pantoprazole (Protonix) 40 mg DAILY IVP 10/30/20 09:00 11/29/20 08:59 10/30/20 09:00 Piperacillin Sod/ Tazobactam Sod 3.375 gm/Sodium Chloride 110 ml @ 27.5 mls/hr EVERY 8 HOURS IVPB 10/30/20 06:00 11/06/20 05:59 10/30/20 05:31 Sodium Chloride 1,000 ml @ 100 mls/hr Q10H IV 10/30/20 03:30 11/29/20 03:29 10/30/20 04:40 Assessment/Plan Problem List: (1) Leukocytosis ICD Codes: D72.829 - Elevated white blood cell count, unspecified SNOMED: 235404191, 332732357 Qualifiers: Qualified Codes: D72.829 - Elevated white blood cell count, unspecified (2) Dehydration ICD Codes: E86.0 - Dehydration SNOMED: 84390743 (3) Alcohol withdrawal delirium ICD Codes: F10.231 - Alcohol dependence with withdrawal delirium SNOMED: 2322050 (4) Alcohol abuse ICD Codes: F10.10 - Alcohol abuse, uncomplicated SNOMED: 30345897 (5) Acute renal failure ICD Codes: N17.9 - Acute kidney failure, unspecified SNOMED: 93910103 (6) Back pain ICD Codes: M54.9 - Dorsalgia, unspecified SNOMED: 344288132 (7) Colitis (8) Diarrhea ICD Codes: R19.7 - Diarrhea, unspecified SNOMED: 21540401 (9) Leukopenia ICD Codes: D72.819 - Decreased white blood cell count, unspecified SNOMED: 40378340, 368730756 (10) Tachycardia ICD Codes: R00.0 - Tachycardia, unspecified SNOMED: 9502826, 639799940 (11) Abdominal pain (12) Abdominal pain Assessment & Plan: possible acute nataliya labs noted exam as above no n/v US ordered trend labs cont abx ABDOMEN: Liver: Unremarkable. Gallbladder and bile ducts: Mildly distended gallbladder with mild pericystic inflammatory change. No calcified stones. No ductal dilation. Pancreas: Unremarkable. No ductal dilation. Spleen: Unremarkable. No splenomegaly. Adrenals: Unremarkable. No mass. Kidneys and ureters: 3.9 cm left renal cyst. 2.9 cm right renal cyst. No obstructing stones. No hydronephrosis. Stomach and bowel: Multiple colonic diverticula. No obstruction. No mucosal thickening. PELVIS: Appendix: Normal appendix. Bladder: Mild urinary bladder wall thickening measuring 6 mm. No stones. Reproductive: Prostatomegaly. ABDOMEN and PELVIS: Intraperitoneal space: Unremarkable. No free air. No significant fluid collection. Bones/joints: No acute fracture. No dislocation. Soft tissues: Small fat-containing umbilical hernia. Vasculature: Atherosclerotic vascular disease. No abdominal aortic aneurysm. Lymph nodes: Unremarkable. No enlarged lymph nodes. IMPRESSION: 1. Distended gallbladder with subtle adjacent inflammatory change. May represent underlying cholecystitis. Plan clinical correlation and consider right upper quadrant ultrasound as clinically indicated. 2. Mild urinary bladder wall thickening. May represent underlying cystitis. Recommend clinical correlation. 3. Diverticulosis without diverticulitis. 4. Additional chronic findings as above. ICD Codes: R10.9 - Abdominal pain SNOMED: 35099148 Qualifiers: Qualified Codes: R10.11 - Right upper quadrant pain (13) Fall ICD Codes: W19.XXXA - Unspecified fall, initial encounter SNOMED: 8529783, 125761155 (14) HTN (hypertension) ICD Codes: I10 - Essential (primary) hypertension SNOMED: 27813554 (15) Chronic pain ICD Codes: G89.29 - Other chronic pain SNOMED: 03774968, 536635891 (16) Gastrointestinal bleed ICD Codes: K92.2 - Gastrointestinal hemorrhage, unspecified SNOMED: 31506252 (17) GI bleed (18) Lower GI bleed ICD Codes: K92.2 - Gastrointestinal hemorrhage, unspecified SNOMED: 18795308 (19) Nausea & vomiting (20) Pancreatitis, alcoholic, acute ICD Codes: K85.20 - Alcohol induced acute pancreatitis without necrosis or infection SNOMED: 745118316 (21) External hemorrhoid, thrombosed ICD Codes: K64.5 - Perianal venous thrombosis SNOMED: 31430724 (22) disc herniation lumbar spine (23) urticaria Kushal Hong Oct 30, 2020 10:55
--- NOTE | 2020-10-30 18:17 | Diagnostic Imaging Report ---
EXAM: US Abdomen Complete CLINICAL HISTORY: ABD PAIN TECHNIQUE: Real-time ultrasound of the abdomen with image documentation. COMPARISON: CT imaging of the abdomen and pelvis performed earlier today. FINDINGS: Liver: Unremarkable. No mass. No intrahepatic bile duct dilation. Gallbladder: Mobile gallstones are noted. Negative ultrasound Hammond sign. Thickened gallbladder wall. The gallbladder wall measures 0.52 cm. Common bile duct: Common bile duct measures 0.56 cm. No stones. No dilation. Pancreas: Pancreas is unremarkable. Kidneys: Right kidney measures 10.2 cm in length without hydronephrosis. Left kidney measures 9.16 m in length without hydronephrosis per A 3.3 cm simple cyst midpole region of the left kidney. A 3.4 cm simple cyst lower pole region of the right kidney. No stones. Spleen: Spleen measures 8.9 cm. Aorta: Abdominal aorta is normal in caliber. No aneurysm. Inferior vena cava: Inferior vena cava was obscured by bowel gas. IMPRESSION: 1. There is diffuse gallbladder wall thickening. 2. There is cholelithiasis. 3. Negative ultrasound Hammond sign. It should be noted that the patient took pain medications. 4. The common bile duct is normal in caliber. 5. Clinical correlation is advised to assess for the possibility of early acute cholecystitis.
--- NOTE | 2020-10-30 19:23 | NUR ---
NURSE HAND-OFF: Important Events on Shift: Patient on Zosyn. Pain treated with morphine, c/o pain on right flank. Patient stated, "I have five pairs of shoes in the ER." I attempted to reorient the patient. I checked the belonging list. I went to the ER and no extra shoes. Family was on the phone with Nelida in the ER. When I returned to patient's room he was calm. Patient Status: In no apparent distress. Diet: NPO x ice chips and medications. Pending Orders: [place] Hepatobiliary with delays. Pending Results/Labs:am labs 10/31/20 amylase, lipase, CBC, CMP, CRP, PT, PTT, Sed Rate. Pending MD notification:N/A Latest Vital Signs: Temperature 97.1 , Pulse 74 , B/P 153 /96 , Respiratory Rate 20 , O2 SAT 97 , Room Air, O2 Flow Rate . Vital Sign Comment: N/A Latest Celeste Fall Score: 35 Fall Risk: Medium Risk Safety Measures: Call light Within Reach, Bed Alarm Zone 1, Side Rails Side Rails x2, Bed position Low and Locked. Fall Precautions: Yellow Socks Report given to Anne-Marie Ding RN.
--- NOTE | 2020-10-30 19:30 | NUR ---
NURSE NOTES: Patient awake, alert x4. On room air with no signs of distress or SOB. No C/O pain at this time. Denies N/V. IV intact and running IVF as ordered. Walker at bedside. Bed locked and in lowest position. Bed alarm on. Call light in reach. Will continue plan of care.
[2020-10-31] VITALS: BP 148/85
[2020-10-31 04:00] VITALS: BP 137/90
[2020-10-31] MEDS: Morphine Sulfate 2mg/ml Inj(IV/IM USE ONLY) IVP PRN ×2 (04:38→18:23)
[2020-10-31] MEDS: Piperacillin/Tazobactam 3.375 GM in NS 110 ML IVPB SCH ×3 (05:05→21:03)
--- NOTE | 2020-10-31 06:53 | NUR ---
NURSE HAND-OFF: Important Events on Shift: No acute events Patient Status: Stable Diet: NPO Pending Orders: HIDA scan Pending Results/Labs: Amylase, CRP, PTT, PT, Sed rate Pending MD notification: N/A Latest Vital Signs: Temperature 97.9 , Pulse 86 , B/P 137 /90 , Respiratory Rate 18 , O2 SAT 98 , Room Air, O2 Flow Rate . Vital Sign Comment: N/A Latest Celeste Fall Score: 35 Fall Risk: Medium Risk Safety Measures: Call light Within Reach, Bed Alarm Zone 1, Side Rails Side Rails x2, Bed position Low and Locked. Fall Precautions: Yellow Socks Addendum: 10/31/20 at 0715 by JAYLIN DE LA ROSA RN Report given to PAULINA Villaseñor
--- NOTE | 2020-10-31 06:55 | NUR ---
NURSE NOTES: Patient breathing even and unlabored, able to state name, date, , current events and verbalize needs well. Explained to the patient that morphine and oral intake is to be held until after the procedure we can verify with Dr. Cerda if oral intake can occur. Patient verbalized understanding although is irritated due to not eating.
[2020-10-31 07:56] LABS: BASOPHILS % (AUTO) 1.2 % (0.0-2.0); EOSINOPHILS % (AUTO) 0.9 % (0.0-3.0); HEMATOCRIT 36.4 % (42.0-52.0); HEMOGLOBIN 12.6 G/DL (14.2-18.0); LYMPHOCYTES % (AUTO) 30.3 % (20.0-45.0); MEAN CORPUSCULAR VOLUME 102 FL (80-99); MONOCYTES % (AUTO) 12.2 % (1.0-10.0); NEUTROPHILS % (AUTO) 55.5 % (45.0-75.0); PLATELET COUNT 123 K/UL (150-450); RED BLOOD COUNT 3.57 M/UL (4.70-6.10); RED CELL DISTRIBUTION WIDTH 13.7 % (11.6-14.8); WHITE BLOOD COUNT 8.6 K/UL (4.8-10.8)
[2020-10-31 08:00] VITALS: BP 176/104
[2020-10-31 08:11] LABS: ALANINE AMINOTRANSFERASE 64 U/L (12-78); ALBUMIN 3.7 G/DL (3.4-5.0); ALBUMIN/GLOBULIN RATIO 0.9 (1.0-2.7); ALKALINE PHOSPHATASE 117 U/L (46-116); AMYLASE 45 U/L (25-115); ANION GAP 9 mmol/L (5-15); ASPARTATE AMINO TRANSFERASE 70 U/L (15-37); BLOOD UREA NITROGEN 7 mg/dL (7-18); CARBON DIOXIDE 27 MMOL/L (21-32); CHLORIDE 105 MMOL/L (98-107); SODIUM 141 MMOL/L (136-145)
[2020-10-31 08:15] LABS: CALCIUM 10.2 MG/DL (8.5-10.1)
[2020-10-31 08:16] LABS: INR 1.1 (0.9-1.1)
--- NOTE | 2020-10-31 08:25 | NUR ---
NURSE NOTES: Per Dr. Cerda, gave a verbal order not to continue home medication but to continue regular home blood pressure medications. Noted and will carry out.
--- NOTE | 2020-10-31 08:26 | NUR ---
NURSE NOTES: Consent form for portia in chart, patient signed alert and oriented x4, morphine held per [employer] tech.
[2020-10-31] MEDS: Pantoprazole Inj IVP SCH (09:35)
[2020-10-31] MEDS: Atenolol 25mg tab ORAL SCH (09:36)
[2020-10-31 12:00] VITALS: BP 150/84
--- NOTE | 2020-10-31 12:35 | Surgery Progress Note ---
Surgery Progress Note Subjective Symptoms: improved, tolerating diet, voiding well, passing flatus, pain decreased Objective Last 24 Hour Vital Signs Date Time Temp Pulse Resp B/P (MAP) Pulse Ox O2 Delivery O2 Flow Rate FiO2 10/31/20 09:36 74 176/104 10/31/20 09:36 74 176/104 10/31/20 08:00 97.8 74 19 176/104 (128) 96 10/31/20 04:00 97.9 86 18 137/90 (106) 98 10/31/20 00:00 98.6 71 18 148/85 (106) 100 10/30/20 21:00 Room Air 10/30/20 20:00 98.9 75 18 155/95 (115) 99 10/30/20 17:59 97.1 10/30/20 16:00 97.1 74 20 153/96 (115) 97 I&O Intake and Output 10/30/20 10/31/20 19:00 07:00 Intake Total 824.5 ml Output Total 1800 ml 800 ml Balance -975.5 ml -800 ml IV Total 824.5 ml Output Urine Total 1800 ml 800 ml # Voids 3 3 Cardiovascular: RSR Respiratory: clear Abdomen: soft, flat, non-tender, present bowel sounds, non-distended Extremities: no edema, no tenderness, no cyanosis Laboratory Tests Test 10/31/20 07:18 White Blood Count 8.6 K/UL (4.8-10.8) Red Blood Count 3.57 M/UL (4.70-6.10) L Hemoglobin 12.6 G/DL (14.2-18.0) L Hematocrit 36.4 % (42.0-52.0) L Mean Corpuscular Volume 102 FL (80-99) H Mean Corpuscular Hemoglobin 35.3 PG (27.0-31.0) H Mean Corpuscular Hemoglobin Concent 34.6 G/DL (32.0-36.0) Red Cell Distribution Width 13.7 % (11.6-14.8) Platelet Count 123 K/UL (150-450) L Mean Platelet Volume 10.0 FL (6.5-10.1) Neutrophils (%) (Auto) 55.5 % (45.0-75.0) Lymphocytes (%) (Auto) 30.3 % (20.0-45.0) Monocytes (%) (Auto) 12.2 % (1.0-10.0) H Eosinophils (%) (Auto) 0.9 % (0.0-3.0) Basophils (%) (Auto) 1.2 % (0.0-2.0) Erythrocyte Sedimentation Rate 70 MM/HR (0-20) H Prothrombin Time 12.0 SEC (9.30-11.50) H Prothromb Time International Ratio 1.1 (0.9-1.1) Activated Partial Thromboplast Time 24 SEC (23-33) Sodium Level 141 MMOL/L (136-145) Potassium Level 4.0 MMOL/L (3.5-5.1) Chloride Level 105 MMOL/L (98-107) Carbon Dioxide Level 27 MMOL/L (21-32) Anion Gap 9 mmol/L (5-15) Blood Urea Nitrogen 7 mg/dL (7-18) Creatinine 1.0 MG/DL (0.55-1.30) Estimat Glomerular Filtration Rate > 60 mL/min (>60) Glucose Level 79 MG/DL (74-106) Calcium Level 10.2 MG/DL (8.5-10.1) H Total Bilirubin 1.0 MG/DL (0.2-1.0) Aspartate Amino Transf (AST/SGOT) 70 U/L (15-37) H Alanine Aminotransferase (ALT/SGPT) 64 U/L (12-78) Alkaline Phosphatase 117 U/L (46-116) H C-Reactive Protein, Quantitative 0.7 mg/dL (0.00-0.90) Total Protein 7.9 G/DL (6.4-8.2) Albumin 3.7 G/DL (3.4-5.0) Globulin 4.2 g/dL Albumin/Globulin Ratio 0.9 (1.0-2.7) L Amylase Level 45 U/L (25-115) Lipase 52 U/L (73-393) L Plan Problems: (1) Leukocytosis (2) Dehydration (3) Alcohol withdrawal delirium (4) Alcohol abuse (5) Acute renal failure (6) Back pain (7) Colitis (8) Diarrhea (9) Leukopenia (10) Tachycardia (11) Abdominal pain (12) Abdominal pain Assessment & Plan: possible acute nataliya labs noted exam as above no n/v US ordered - noted PENDING HIDA trend labs cont abx ABDOMEN: Liver: Unremarkable. Gallbladder and bile ducts: Mildly distended gallbladder with mild pericystic inflammatory change. No calcified stones. No ductal dilation. Pancreas: Unremarkable. No ductal dilation. Spleen: Unremarkable. No splenomegaly. Adrenals: Unremarkable. No mass. Kidneys and ureters: 3.9 cm left renal cyst. 2.9 cm right renal cyst. No obstructing stones. No hydronephrosis. Stomach and bowel: Multiple colonic diverticula. No obstruction. No mucosal thickening. PELVIS: Appendix: Normal appendix. Bladder: Mild urinary bladder wall thickening measuring 6 mm. No stones. Reproductive: Prostatomegaly. ABDOMEN and PELVIS: Intraperitoneal space: Unremarkable. No free air. No significant fluid collection. Bones/joints: No acute fracture. No dislocation. Soft tissues: Small fat-containing umbilical hernia. Vasculature: Atherosclerotic vascular disease. No abdominal aortic aneurysm. Lymph nodes: Unremarkable. No enlarged lymph nodes. IMPRESSION: 1. Distended gallbladder with subtle adjacent inflammatory change. May represent underlying cholecystitis. Plan clinical correlation and consider right upper quadrant ultrasound as clinically indicated. 2. Mild urinary bladder wall thickening. May represent underlying cystitis. Recommend clinical correlation. 3. Diverticulosis without diverticulitis. 4. Additional chronic findings as above. Liver: Unremarkable. No mass. No intrahepatic bile duct dilation. Gallbladder: Mobile gallstones are noted. Negative ultrasound Hammond sign. Thickened gallbladder wall. The gallbladder wall measures 0.52 cm. Common bile duct: Common bile duct measures 0.56 cm. No stones. No dilation. Pancreas: Pancreas is unremarkable. Kidneys: Right kidney measures 10.2 cm in length without hydronephrosis. Left kidney measures 9.16 m in length without hydronephrosis per A 3.3 cm simple cyst midpole region of the left kidney. A 3.4 cm simple cyst lower pole region of the right kidney. No stones. Spleen: Spleen measures 8.9 cm. Aorta: Abdominal aorta is normal in caliber. No aneurysm. Inferior vena cava: Inferior vena cava was obscured by bowel gas. IMPRESSION: 1. There is diffuse gallbladder wall thickening. 2. There is cholelithiasis. 3. Negative ultrasound Hammond sign. It should be noted that the patient took pain medications. 4. The common bile duct is normal in caliber. 5. Clinical correlation is advised to assess for the possibility of early acute cholecystitis. 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
--- NOTE | 2020-10-31 14:05 | Diagnostic Imaging Report ---
Indications: Abdominal pain, abnormal liver function tests Technique: IV administration 5.3 mCi 99 M technetium Choletec. Serial images obtained over the abdomen for 1 hour Comparison: None Findings: Prompt tracer uptake within the liver. Extrahepatic bile ducts are seen at 13 minutes. Excretion into the duodenum demonstrated at minutes. Gallbladder visualized at approximately 31 minutes. Impression: Negative. No evidence of cystic duct obstruction or common bile duct obstruction
--- NOTE | 2020-10-31 15:23 | General Progress Note ---
Subjective ROS Limited/Unobtainable: No Constitutional: Reports: malaise, weakness HEENT: Reports: no symptoms Cardiovascular: Reports: no symptoms Respiratory: Reports: no symptoms Gastrointestinal/Abdominal: Reports: abdominal pain Genitourinary: Reports: no symptoms Neurologic/Psychiatric: Reports: anxiety Endocrine: Reports: no symptoms Hematologic/Lymphatic: Reports: no symptoms Allergies: Coded Allergies: No Known Allergies (Verified , 08/14/08) All Systems: reviewed and negative except above Subjective hungry and wants to eat. still with abd pain but much less. HIDA negative. no fevers. no diarrhea or melena. Objective Last 24 Hour Vital Signs Date Time Temp Pulse Resp B/P (MAP) Pulse Ox O2 Delivery O2 Flow Rate FiO2 10/31/20 12:00 97.8 75 18 150/84 (106) 98 10/31/20 09:36 74 176/104 10/31/20 09:36 74 176/104 10/31/20 09:00 Room Air 10/31/20 08:00 97.8 74 19 176/104 (128) 96 10/31/20 04:00 97.9 86 18 137/90 (106) 98 10/31/20 00:00 98.6 71 18 148/85 (106) 100 10/30/20 21:00 Room Air 10/30/20 20:00 98.9 75 18 155/95 (115) 99 10/30/20 17:59 97.1 10/30/20 16:00 97.1 74 20 153/96 (115) 97 Intake and Output 10/30/20 10/31/20 19:00 07:00 Intake Total 824.5 ml Output Total 1800 ml 800 ml Balance -975.5 ml -800 ml IV Total 824.5 ml Output Urine Total 1800 ml 800 ml # Voids 3 3 Laboratory Tests 10/31/20 07:18: White Blood Count 8.6, Red Blood Count 3.57L, Hemoglobin 12.6L, Hematocrit 36.4L , Mean Corpuscular Volume 102H, Mean Corpuscular Hemoglobin 35.3H, Mean Corpuscular Hemoglobin Concent 34.6, Red Cell Distribution Width 13.7, Platelet Count 123L, Mean Platelet Volume 10.0, Neutrophils (%) (Auto) 55.5, Lymphocytes (%) (Auto) 30.3, Monocytes (%) (Auto) 12.2H, Eosinophils (%) (Auto) 0.9, Basophils (%) (Auto) 1.2, Erythrocyte Sedimentation Rate 70H, Prothrombin Time 12.0H, Prothromb Time International Ratio 1.1, Activated Partial Thromboplast Time 24, Sodium Level 141, Potassium Level 4.0, Chloride Level 105, Carbon Dioxide Level 27, Anion Gap 9, Blood Urea Nitrogen 7, Creatinine 1.0, Estimat Glomerular Filtration Rate > 60, Glucose Level 79, Calcium Level 10.2H, Total Bilirubin 1.0, Aspartate Amino Transf (AST/SGOT) 70H, Alanine Aminotransferase (ALT/SGPT) 64, Alkaline Phosphatase 117H, C-Reactive Protein, Quantitative 0.7, Total Protein 7.9, Albumin 3.7, Globulin 4.2, Albumin/Globulin Ratio 0.9L, Amylase Level 45, Lipase 52L Height (Feet): 5 Height (Inches): 8.00 Weight (Pounds): 175 General Appearance: WD/WN, alert EENT: PERRL/EOMI, normal ENT inspection Neck: non-tender, normal alignment, supple Cardiovascular: normal peripheral pulses, normal rate Respiratory/Chest: chest wall non-tender, lungs clear, normal breath sounds, no respiratory distress, no accessory muscle use Edema: no edema noted Arm (L), no edema noted Arm (R), no edema noted Leg (L), no edema noted Leg (R) 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, alert, oriented x 3, responsive Skin: normal pigmentation Assessment/Plan Problem List: (1) disc herniation lumbar spine (2) Nausea & vomiting (3) Chronic pain ICD Codes: G89.29 - Other chronic pain SNOMED: 64068877, 812558457 (4) HTN (hypertension) ICD Codes: I10 - Essential (primary) hypertension SNOMED: 34118142 (5) Abdominal pain ICD Codes: R10.9 - Abdominal pain SNOMED: 00789102 Qualifiers: Qualified Codes: R10.11 - Right upper quadrant pain Status: stable Assessment/Plan: start po iv abx surgery follow up cont pain rx as needed antiemetics resumed bp meds IVF heparin bid for dvt prophylaxis PPI rx Pedro Cerda MD Oct 31, 2020 15:23
[2020-10-31 16:00] VITALS: BP 128/75
--- NOTE | 2020-10-31 19:20 | NUR ---
NURSE NOTES: Received report from PAULINA Villaseñor. Pt is in bed A&Ox4, call light within reach, bed locked and in lowest position. Pt is able to make needs known. In no distress at this time. will continue to monitor.
--- NOTE | 2020-10-31 19:20 | NUR ---
NURSE HAND-OFF: Important Events on Shift: hida scan performed and Dr. Hong was made aware of results Patient Status: stable condition, full code Diet: regular Pending Orders: [] Pending Results/Labs:[] Pending MD notification:[] Latest Vital Signs: Temperature 98.0 , Pulse 80 , B/P 128 /75 , Respiratory Rate 18 , O2 SAT 97 , Room Air, O2 Flow Rate . Vital Sign Comment: [] Latest Celeste Fall Score: 35 Fall Risk: Medium Risk Safety Measures: Call light Within Reach, Bed Alarm Zone 1, Side Rails Side Rails x2, Bed position Low and Locked. Fall Precautions: Yellow Socks Yellow Gown Door Sign Patient Fall Education Report given to PAULINA Mata.
[2020-10-31 20:00] VITALS: BP 129/76
[2020-11-01] VITALS: BP 121/68
[2020-11-01] MEDS: Morphine Sulfate 2mg/ml Inj(IV/IM USE ONLY) IVP PRN ×3 (00:33→11:00)
[2020-11-01 04:00] VITALS: BP 132/71
[2020-11-01] MEDS: Piperacillin/Tazobactam 3.375 GM in NS 110 ML IVPB SCH ×3 (05:38→21:53)
[2020-11-01 06:37] LABS: BASOPHILS % (AUTO) 0.7 % (0.0-2.0); EOSINOPHILS % (AUTO) 0.7 % (0.0-3.0); HEMATOCRIT 34.4 % (42.0-52.0); HEMOGLOBIN 11.8 G/DL (14.2-18.0); LYMPHOCYTES % (AUTO) 36.6 % (20.0-45.0); MEAN CORPUSCULAR VOLUME 101 FL (80-99); MONOCYTES % (AUTO) 13.6 % (1.0-10.0); NEUTROPHILS % (AUTO) 48.4 % (45.0-75.0); PLATELET COUNT 135 K/UL (150-450); RED BLOOD COUNT 3.41 M/UL (4.70-6.10); RED CELL DISTRIBUTION WIDTH 13.4 % (11.6-14.8); WHITE BLOOD COUNT 7.7 K/UL (4.8-10.8)
[2020-11-01 07:03] LABS: ALANINE AMINOTRANSFERASE 43 U/L (12-78); ALBUMIN 3.3 G/DL (3.4-5.0); ALBUMIN/GLOBULIN RATIO 0.8 (1.0-2.7); ALKALINE PHOSPHATASE 99 U/L (46-116); ANION GAP 8 mmol/L (5-15); ASPARTATE AMINO TRANSFERASE 43 U/L (15-37); BILIRUBIN,TOTAL 0.5 MG/DL (0.2-1.0); BLOOD UREA NITROGEN 14 mg/dL (7-18); CALCIUM 9.7 MG/DL (8.5-10.1); CARBON DIOXIDE 27 MMOL/L (21-32); CHLORIDE 106 MMOL/L (98-107); CREATININE 1.1 MG/DL (0.55-1.30); POTASSIUM 3.5 MMOL/L (3.5-5.1); SODIUM 141 MMOL/L (136-145)
--- NOTE | 2020-11-01 07:06 | NUR ---
NURSE HAND-OFF: Important Events on Shift: Pain management x2 Patient Status: calm Diet: regular Pending Orders: Pending Results/Labs: Pending MD notification: Latest Vital Signs: Temperature 98.5 , Pulse 80 , B/P 132 /71 , Respiratory Rate 20 , O2 SAT 96 , Room Air, O2 Flow Rate . Vital Sign Comment: VSS Latest Celeste Fall Score: 35 Fall Risk: Medium Risk Safety Measures: Call light Within Reach, Bed Alarm Zone 1, Side Rails Side Rails x2, Bed position Low and Locked. Fall Precautions: Yellow Socks Yellow Gown Door Sign Patient Fall Education Report given to PAULINA Boyd.
--- NOTE | 2020-11-01 07:45 | NUR ---
NURSE NOTES: Received report from PAULINA Mata. Pt in bed A&Ox4, breathing even and unlabored on RA, no c/o pain at this time. IV on IRVING intact and patent running IVF as ordered. Call light within reach, bed locked and in lowest position. will continue to monitor.
[2020-11-01 08:00] VITALS: BP 168/103
[2020-11-01] MEDS: Atenolol 25mg tab ORAL SCH (08:31)
[2020-11-01] MEDS: Pantoprazole Inj IVP SCH (08:32)
[2020-11-01 12:00] VITALS: BP 138/90
--- NOTE | 2020-11-01 12:00 | Surgery Progress Note ---
Surgery Progress Note Subjective Symptoms: improved, tolerating diet, voiding well, passing flatus, pain decreased Additional Comments exam benign hida negative okay for diet d/c plannig Objective Last 24 Hour Vital Signs Date Time Temp Pulse Resp B/P (MAP) Pulse Ox O2 Delivery O2 Flow Rate FiO2 11/01/20 09:00 Room Air 11/01/20 08:32 83 168/103 11/01/20 08:31 83 168/103 11/01/20 08:00 98.9 83 20 168/103 (124) 96 11/01/20 07:20 98.9 11/01/20 04:00 98.5 80 20 132/71 (91) 96 11/01/20 00:00 98.6 77 18 121/68 (85) 97 10/31/20 21:00 Room Air 10/31/20 20:00 98.3 73 20 129/76 (93) 98 10/31/20 16:00 98.0 80 18 128/75 (92) 97 10/31/20 12:00 97.8 75 18 150/84 (106) 98 I&O Intake and Output 10/31/20 11/01/20 19:00 07:00 Intake Total 720 ml Output Total 900 ml 700 ml Balance -180 ml -700 ml Intake Oral 720 ml Output Urine Total 900 ml 700 ml # Voids 3 Cardiovascular: RSR Respiratory: clear Abdomen: soft, non-tender, present bowel sounds, non-distended Extremities: no edema, no tenderness, no cyanosis Laboratory Tests Test 11/01/20 05:01 White Blood Count 7.7 K/UL (4.8-10.8) Red Blood Count 3.41 M/UL (4.70-6.10) L Hemoglobin 11.8 G/DL (14.2-18.0) L Hematocrit 34.4 % (42.0-52.0) L Mean Corpuscular Volume 101 FL (80-99) H Mean Corpuscular Hemoglobin 34.6 PG (27.0-31.0) H Mean Corpuscular Hemoglobin Concent 34.3 G/DL (32.0-36.0) Red Cell Distribution Width 13.4 % (11.6-14.8) Platelet Count 135 K/UL (150-450) L Mean Platelet Volume 8.8 FL (6.5-10.1) Neutrophils (%) (Auto) 48.4 % (45.0-75.0) Lymphocytes (%) (Auto) 36.6 % (20.0-45.0) Monocytes (%) (Auto) 13.6 % (1.0-10.0) H Eosinophils (%) (Auto) 0.7 % (0.0-3.0) Basophils (%) (Auto) 0.7 % (0.0-2.0) Sodium Level 141 MMOL/L (136-145) Potassium Level 3.5 MMOL/L (3.5-5.1) Chloride Level 106 MMOL/L (98-107) Carbon Dioxide Level 27 MMOL/L (21-32) Anion Gap 8 mmol/L (5-15) Blood Urea Nitrogen 14 mg/dL (7-18) Creatinine 1.1 MG/DL (0.55-1.30) Estimat Glomerular Filtration Rate > 60 mL/min (>60) Glucose Level 100 MG/DL (74-106) Calcium Level 9.7 MG/DL (8.5-10.1) Total Bilirubin 0.5 MG/DL (0.2-1.0) Aspartate Amino Transf (AST/SGOT) 43 U/L (15-37) H Alanine Aminotransferase (ALT/SGPT) 43 U/L (12-78) Alkaline Phosphatase 99 U/L (46-116) Total Protein 7.3 G/DL (6.4-8.2) Albumin 3.3 G/DL (3.4-5.0) L Globulin 4.0 g/dL Albumin/Globulin Ratio 0.8 (1.0-2.7) L Plan Problems: (1) Leukocytosis (2) Dehydration (3) Alcohol withdrawal delirium (4) Alcohol abuse (5) Acute renal failure (6) Back pain (7) Colitis (8) Diarrhea (9) Leukopenia (10) Tachycardia (11) Abdominal pain (12) Abdominal pain Assessment & Plan: possible acute nataliya labs noted exam as above no n/v US ordered - noted PENDING HIDA - noted negative trend labs cont abx does not want surgery clinically improved okay for diet monitor exam ABDOMEN: Liver: Unremarkable. Gallbladder and bile ducts: Mildly distended gallbladder with mild pericystic inflammatory change. No calcified stones. No ductal dilation. Pancreas: Unremarkable. No ductal dilation. Spleen: Unremarkable. No splenomegaly. Adrenals: Unremarkable. No mass. Kidneys and ureters: 3.9 cm left renal cyst. 2.9 cm right renal cyst. No obstructing stones. No hydronephrosis. Stomach and bowel: Multiple colonic diverticula. No obstruction. No mucosal thickening. PELVIS: Appendix: Normal appendix. Bladder: Mild urinary bladder wall thickening measuring 6 mm. No stones. Reproductive: Prostatomegaly. ABDOMEN and PELVIS: Intraperitoneal space: Unremarkable. No free air. No significant fluid collection. Bones/joints: No acute fracture. No dislocation. Soft tissues: Small fat-containing umbilical hernia. Vasculature: Atherosclerotic vascular disease. No abdominal aortic aneurysm. Lymph nodes: Unremarkable. No enlarged lymph nodes. IMPRESSION: 1. Distended gallbladder with subtle adjacent inflammatory change. May represent underlying cholecystitis. Plan clinical correlation and consider right upper quadrant ultrasound as clinically indicated. 2. Mild urinary bladder wall thickening. May represent underlying cystitis. Recommend clinical correlation. 3. Diverticulosis without diverticulitis. 4. Additional chronic findings as above. Liver: Unremarkable. No mass. No intrahepatic bile duct dilation. Gallbladder: Mobile gallstones are noted. Negative ultrasound Hammond sign. Thickened gallbladder wall. The gallbladder wall measures 0.52 cm. Common bile duct: Common bile duct measures 0.56 cm. No stones. No dilation. Pancreas: Pancreas is unremarkable. Kidneys: Right kidney measures 10.2 cm in length without hydronephrosis. Left kidney measures 9.16 m in length without hydronephrosis per A 3.3 cm simple cyst midpole region of the left kidney. A 3.4 cm simple cyst lower pole region of the right kidney. No stones. Spleen: Spleen measures 8.9 cm. Aorta: Abdominal aorta is normal in caliber. No aneurysm. Inferior vena cava: Inferior vena cava was obscured by bowel gas. IMPRESSION: 1. There is diffuse gallbladder wall thickening. 2. There is cholelithiasis. 3. Negative ultrasound Hammond sign. It should be noted that the patient took pain medications. 4. The common bile duct is normal in caliber. 5. Clinical correlation is advised to assess for the possibility of early acute cholecystitis. (13) Fall (14) HTN (hypertension) (15) Chronic pain (16) Gastrointestinal bleed (17) GI bleed (18) Lower GI bleed (19) Nausea & vomiting (20) Pancreatitis, alcoholic, acute (21) External hemorrhoid, thrombosed (22) disc herniation lumbar spine (23) Kushal Goff Nov 01, 2020 12:00
--- NOTE | 2020-11-01 15:37 | General Progress Note ---
Subjective ROS Limited/Unobtainable: No Constitutional: Reports: malaise, weakness HEENT: Reports: no symptoms Cardiovascular: Reports: no symptoms Respiratory: Reports: cough Gastrointestinal/Abdominal: Reports: abdominal pain Genitourinary: Reports: no symptoms Neurologic/Psychiatric: Reports: no symptoms Endocrine: Reports: no symptoms Hematologic/Lymphatic: Reports: no symptoms Allergies: Coded Allergies: No Known Allergies (Verified , 08/14/08) All Systems: reviewed and negative except above Subjective no new complaints. decreased abd pain. tolerating po. no nausea or vomiting. HIDA neg. surgery noted. remains on iv abx Objective Last 24 Hour Vital Signs Date Time Temp Pulse Resp B/P (MAP) Pulse Ox O2 Delivery O2 Flow Rate FiO2 11/01/20 12:00 98.9 71 20 138/90 (106) 96 11/01/20 11:30 98.9 11/01/20 09:00 Room Air 11/01/20 08:32 83 168/103 11/01/20 08:31 83 168/103 11/01/20 08:00 98.9 83 20 168/103 (124) 96 11/01/20 07:20 98.9 11/01/20 04:00 98.5 80 20 132/71 (91) 96 11/01/20 00:00 98.6 77 18 121/68 (85) 97 10/31/20 21:00 Room Air 10/31/20 20:00 98.3 73 20 129/76 (93) 98 10/31/20 16:00 98.0 80 18 128/75 (92) 97 Intake and Output 10/31/20 11/01/20 19:00 07:00 Intake Total 720 ml Output Total 900 ml 700 ml Balance -180 ml -700 ml Intake Oral 720 ml Output Urine Total 900 ml 700 ml # Voids 3 Laboratory Tests 11/01/20 05:01: White Blood Count 7.7, Red Blood Count 3.41L, Hemoglobin 11.8L, Hematocrit 34.4L , Mean Corpuscular Volume 101H, Mean Corpuscular Hemoglobin 34.6H, Mean Corpuscular Hemoglobin Concent 34.3, Red Cell Distribution Width 13.4, Platelet Count 135L, Mean Platelet Volume 8.8, Neutrophils (%) (Auto) 48.4, Lymphocytes (%) (Auto) 36.6, Monocytes (%) (Auto) 13.6H, Eosinophils (%) (Auto) 0.7, Basophils (%) (Auto) 0.7, Sodium Level 141, Potassium Level 3.5, Chloride Level 106, Carbon Dioxide Level 27, Anion Gap 8, Blood Urea Nitrogen 14, Creatinine 1.1, Estimat Glomerular Filtration Rate > 60, Glucose Level 100, Calcium Level 9.7, Total Bilirubin 0.5, Aspartate Amino Transf (AST/SGOT) 43H, Alanine Aminotransferase (ALT/SGPT) 43, Alkaline Phosphatase 99, Total Protein 7.3, Albumin 3.3L, Globulin 4.0, Albumin/Globulin Ratio 0.8L Height (Feet): 5 Height (Inches): 8.00 Weight (Pounds): 175 Objective General Appearance: WD/WN, alert EENT: PERRL/EOMI, normal ENT inspection Neck: non-tender, normal alignment, supple Cardiovascular: normal peripheral pulses, normal rate Respiratory/Chest: chest wall non-tender, lungs clear, normal breath sounds, no respiratory distress, no accessory muscle use Edema: no edema noted Arm (L), no edema noted Arm (R), no edema noted Leg (L), no edema noted Leg (R) 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, alert, oriented x 3, responsive Skin: normal pigmentation Assessment/Plan Problem List: (1) disc herniation lumbar spine (2) Nausea & vomiting (3) Chronic pain ICD Codes: G89.29 - Other chronic pain SNOMED: 33676572, 233349231 (4) HTN (hypertension) ICD Codes: I10 - Essential (primary) hypertension SNOMED: 24243144 (5) Abdominal pain ICD Codes: R10.9 - Abdominal pain SNOMED: 27468501 Qualifiers: Qualified Codes: R10.11 - Right upper quadrant pain Status: stable Assessment/Plan: start po iv abx surgery follow up cont pain rx as needed antiemetics resumed bp meds dc ivf heparin bid for dvt prophylaxis PPI rx Pedro Cerda MD Nov 01, 2020 15:37
[2020-11-01 16:00] VITALS: BP 142/91
--- NOTE | 2020-11-01 19:15 | NUR ---
NURSE NOTES: Received report from PAULINA Boyd. Pt is A&Ox4 in bed, bed locked and in lowest position, call light within reach. Pt is in no distress at this time and is able to make needs known. Will continue to monitor.
--- NOTE | 2020-11-01 19:34 | NUR ---
NURSE HAND-OFF: Important Events on Shift:[Pain control with morphine, Abx therapy] Patient Status: [stable] Diet: [reg] Pending Orders: [] Pending Results/Labs:[] Pending MD notification:[] Latest Vital Signs: Temperature 98.3 , Pulse 73 , B/P 142 /91 , Respiratory Rate 20 , O2 SAT 96 , Room Air, O2 Flow Rate . Vital Sign Comment: [stable] Latest Celeste Fall Score: 35 Fall Risk: Medium Risk Safety Measures: Call light Within Reach, Bed Alarm Zone 1, Side Rails Side Rails x2, Bed position Low and Locked. Fall Precautions: Yellow Socks Yellow Gown Door Sign Patient Fall Education Report given to [PAULINA Mata].
[2020-11-01 20:00] VITALS: BP 138/85
[2020-11-02] VITALS: BP 144/81
--- NOTE | 2020-11-02 01:39 | Cardiology Progress Note ---
Subjective DATE OF SERVICE: Nov 01, 2020 Abdominal pain decreasing. No vomiting; diet being initiated. BP parameters now quite elevated Objective Last 24 Hour Vital Signs Date Time Temp Pulse Resp B/P (MAP) Pulse Ox O2 Delivery O2 Flow Rate FiO2 11/02/20 00:00 97.7 72 18 144/81 (102) 98 11/01/20 21:00 Room Air 11/01/20 20:00 98.1 74 18 138/85 (102) 97 11/01/20 16:00 98.3 73 20 142/91 (108) 96 11/01/20 12:00 98.9 71 20 138/90 (106) 96 11/01/20 11:30 98.9 11/01/20 09:00 Room Air 11/01/20 08:32 83 168/103 11/01/20 08:31 83 168/103 11/01/20 08:00 98.9 83 20 168/103 (124) 96 11/01/20 07:20 98.9 11/01/20 04:00 98.5 80 20 132/71 (91) 96 ROS: unchanged from 10/30/20 HEENT: normal ENT inspection LUNGS: diminished breath sounds CARDIAC: normal rate, regular rhythm, normal S1 and S2, gallop/S4 ABDOMEN: normal bowel sounds, non tender, soft, no organomegaly, tender EXTREMITIES: normal range of motion, non-tender, No edema Laboratory Tests Test 11/01/20 05:01 White Blood Count 7.7 K/UL (4.8-10.8) Red Blood Count 3.41 M/UL (4.70-6.10) L Hemoglobin 11.8 G/DL (14.2-18.0) L Hematocrit 34.4 % (42.0-52.0) L Mean Corpuscular Volume 101 FL (80-99) H Mean Corpuscular Hemoglobin 34.6 PG (27.0-31.0) H Mean Corpuscular Hemoglobin Concent 34.3 G/DL (32.0-36.0) Red Cell Distribution Width 13.4 % (11.6-14.8) Platelet Count 135 K/UL (150-450) L Mean Platelet Volume 8.8 FL (6.5-10.1) Neutrophils (%) (Auto) 48.4 % (45.0-75.0) Lymphocytes (%) (Auto) 36.6 % (20.0-45.0) Monocytes (%) (Auto) 13.6 % (1.0-10.0) H Eosinophils (%) (Auto) 0.7 % (0.0-3.0) Basophils (%) (Auto) 0.7 % (0.0-2.0) Sodium Level 141 MMOL/L (136-145) Potassium Level 3.5 MMOL/L (3.5-5.1) Chloride Level 106 MMOL/L (98-107) Carbon Dioxide Level 27 MMOL/L (21-32) Anion Gap 8 mmol/L (5-15) Blood Urea Nitrogen 14 mg/dL (7-18) Creatinine 1.1 MG/DL (0.55-1.30) Estimat Glomerular Filtration Rate > 60 mL/min (>60) Glucose Level 100 MG/DL (74-106) Calcium Level 9.7 MG/DL (8.5-10.1) Total Bilirubin 0.5 MG/DL (0.2-1.0) Aspartate Amino Transf (AST/SGOT) 43 U/L (15-37) H Alanine Aminotransferase (ALT/SGPT) 43 U/L (12-78) Alkaline Phosphatase 99 U/L (46-116) Total Protein 7.3 G/DL (6.4-8.2) Albumin 3.3 G/DL (3.4-5.0) L Globulin 4.0 g/dL Albumin/Globulin Ratio 0.8 (1.0-2.7) L Assessment/Plan Assessment/Plan Hypertension/HHD uncontrolled off meds Abdominal Pain Chronic liver disease Hydrocodone dependence Alcoholism Degenerative disk disease Advance prior antiHTN meds Advance diet Limits set on pain meds Adjust IVF vitamin suppl [facility] Adolfo Jerry MD Nov 02, 2020 01:39
--- NOTE | 2020-11-02 03:29 | Consultation ---
DATE OF CONSULTATION: 10/30/2020 NOTE: INCOMPLETE DICTATION CONSULTING PHYSICIAN: Adolfo Jerry MD REFERRING PHYSICIAN: Pedro Cerda MD REASON FOR CONSULTATION: Cardiovascular management in the setting of labile hypertension and possible acute cholecystitis. Adolfo Jerry M.D. DR: MILKA JOB#: [id number] CC:
[2020-11-02 04:00] VITALS: BP 130/74
[2020-11-02] MEDS: Piperacillin/Tazobactam 3.375 GM in NS 110 ML IVPB SCH (05:19)
--- NOTE | 2020-11-02 07:07 | NUR ---
NURSE HAND-OFF: Important Events on Shift: new IV in left forearm Patient Status: sleeping Diet: regular Pending Orders: Pending Results/Labs: Pending MD notification: Latest Vital Signs: Temperature 98.3 , Pulse 72 , B/P 144 /81 , Respiratory Rate 18 , O2 SAT 99 , Room Air, O2 Flow Rate . Vital Sign Comment: VSS Latest Celeste Fall Score: 35 Fall Risk: Medium Risk Safety Measures: Call light Within Reach, Bed Alarm Zone 1, Side Rails Side Rails x2, Bed position Low and Locked. Fall Precautions: Yellow Socks Yellow Gown Door Sign Patient Fall Education Report given to PAULINA Boyd.
--- NOTE | 2020-11-02 07:57 | NUR ---
NURSE NOTES: Report given to PAULINA Hamilton due to reassignment.
[2020-11-02 08:00] VITALS: BP 141/79
--- NOTE | 2020-11-02 08:25 | NUR ---
NURSE NOTES: Patient is awake and alert,respirations unlabored.IV fluids infusing as ordered. patient ate breakfast.Call light within reach.
[2020-11-02] MEDS: Atenolol 25mg tab ORAL SCH (08:36)
--- NOTE | 2020-11-02 11:59 | Discharge Summary ---
DATE OF ADMISSION: 10/30/2020 DATE OF DISCHARGE: 11/02/2020 ADMISSION DIAGNOSES: 1. Abdominal pain, possible cholecystitis. 2. COPD. 3. Hypertension. DISCHARGE DIAGNOSES: 1. Abdominal pain, possible cholecystitis. 2. COPD. 3. Hypertension. HOSPITAL COURSE: The patient was admitted with complaints of abdominal pain. A CT scan showed some suspicion for cholecystitis. He had a HIDA scan that showed no obstruction. He was seen by Surgery and was cleared. No surgery was needed. The patient was initially treated with antibiotics, these will be discontinued. Oral pain medications had been ordered for the patient. He will follow up in the office 1 to 2 weeks. DISCHARGE MEDICATIONS: Please see discharge medication list for discharge medications. DIET: Regular. ACTIVITY: Ad-jf. Pedro Cerda M.D. DR: Hakan JOB#: [id number] CC:
[2020-11-02 12:00] VITALS: BP 169/96
--- NOTE | 2020-11-02 13:34 | Surgery Progress Note ---
Surgery Progress Note Subjective Symptoms: improved, pain absent, tolerating diet, voiding well, passing flatus, BM Objective Last 24 Hour Vital Signs Date Time Temp Pulse Resp B/P (MAP) Pulse Ox O2 Delivery O2 Flow Rate FiO2 11/02/20 09:00 Room Air 11/02/20 08:36 76 141/79 11/02/20 08:36 76 141/79 11/02/20 08:00 98.1 76 20 141/79 (99) 99 11/02/20 04:00 98.3 70 18 130/74 (92) 99 11/02/20 00:00 97.7 72 18 144/81 (102) 98 11/01/20 21:00 Room Air 11/01/20 20:00 98.1 74 18 138/85 (102) 97 11/01/20 16:00 98.3 73 20 142/91 (108) 96 I&O Intake and Output 11/01/20 11/02/20 19:00 07:00 Intake Total 890 ml Output Total 900 ml 1200 ml Balance -10 ml -1200 ml Intake Oral 890 ml Output Urine Total 900 ml 1200 ml Cardiovascular: RSR Respiratory: clear Abdomen: soft, flat, non-tender, present bowel sounds, non-distended Extremities: no edema, no tenderness, no cyanosis Plan Problems: (1) Leukocytosis (2) Dehydration (3) Alcohol withdrawal delirium (4) Alcohol abuse (5) Acute renal failure (6) Back pain (7) Colitis (8) Diarrhea (9) Leukopenia (10) Tachycardia (11) Abdominal pain (12) Abdominal pain Assessment & Plan: possible acute nataliya labs noted exam as above no n/v US ordered - noted PENDING HIDA - noted negative trend labs cont abx does not want surgery clinically improved okay for diet monitor exam ABDOMEN: Liver: Unremarkable. Gallbladder and bile ducts: Mildly distended gallbladder with mild pericystic inflammatory change. No calcified stones. No ductal dilation. Pancreas: Unremarkable. No ductal dilation. Spleen: Unremarkable. No splenomegaly. Adrenals: Unremarkable. No mass. Kidneys and ureters: 3.9 cm left renal cyst. 2.9 cm right renal cyst. No obstructing stones. No hydronephrosis. Stomach and bowel: Multiple colonic diverticula. No obstruction. No mucosal thickening. PELVIS: Appendix: Normal appendix. Bladder: Mild urinary bladder wall thickening measuring 6 mm. No stones. Reproductive: Prostatomegaly. ABDOMEN and PELVIS: Intraperitoneal space: Unremarkable. No free air. No significant fluid collection. Bones/joints: No acute fracture. No dislocation. Soft tissues: Small fat-containing umbilical hernia. Vasculature: Atherosclerotic vascular disease. No abdominal aortic aneurysm. Lymph nodes: Unremarkable. No enlarged lymph nodes. IMPRESSION: 1. Distended gallbladder with subtle adjacent inflammatory change. May represent underlying cholecystitis. Plan clinical correlation and consider right upper quadrant ultrasound as clinically indicated. 2. Mild urinary bladder wall thickening. May represent underlying cystitis. Recommend clinical correlation. 3. Diverticulosis without diverticulitis. 4. Additional chronic findings as above. Liver: Unremarkable. No mass. No intrahepatic bile duct dilation. Gallbladder: Mobile gallstones are noted. Negative ultrasound Hammond sign. Thickened gallbladder wall. The gallbladder wall measures 0.52 cm. Common bile duct: Common bile duct measures 0.56 cm. No stones. No dilation. Pancreas: Pancreas is unremarkable. Kidneys: Right kidney measures 10.2 cm in length without hydronephrosis. Left kidney measures 9.16 m in length without hydronephrosis per A 3.3 cm simple cyst midpole region of the left kidney. A 3.4 cm simple cyst lower pole region of the right kidney. No stones. Spleen: Spleen measures 8.9 cm. Aorta: Abdominal aorta is normal in caliber. No aneurysm. Inferior vena cava: Inferior vena cava was obscured by bowel gas. IMPRESSION: 1. There is diffuse gallbladder wall thickening. 2. There is cholelithiasis. 3. Negative ultrasound Hammond sign. It should be noted that the patient took pain medications. 4. The common bile duct is normal in caliber. 5. Clinical correlation is advised to assess for the possibility of early acute cholecystitis. (13) Fall (14) HTN (hypertension) (15) Chronic pain (16) Gastrointestinal bleed (17) GI bleed (18) Lower GI bleed (19) Nausea & vomiting (20) Pancreatitis, alcoholic, acute (21) External hemorrhoid, thrombosed (22) disc herniation lumbar spine (23) urticaria Kushal Hong Nov 02, 2020 13:34
--- NOTE | 2020-11-02 14:36 | NUR ---
NURSE NOTES: Patient discharge with discharge instructions.IV removed and ID hospital band remove.patient has cell phone and belongings walker.. Patient daughter Buffy Murray aware of discharge and set up for patient to go home by Selina .Patient accompany downstairs.
--- NOTE | 2020-11-03 01:26 | Cardiology Progress Note ---
Subjective DATE OF SERVICE: Oct 31, 2020 (late entry) HIDA scan is negative Abdominal pain decreasing. No vomiting; feels hungry and wants to eat. BP parameters now quite elevatedl patient off most of his usual BP meds prior to admit due to GI sx's. Objective Last 24 Hour Vital Signs reviewed ROS: unchanged from 10/30/20 HEENT: normal ENT inspection LUNGS: diminished breath sounds CARDIAC: normal rate, regular rhythm, normal S1 and S2, gallop/S4 ABDOMEN: normal bowel sounds, non tender, soft, no organomegaly, tender EXTREMITIES: normal range of motion, non-tender, No edema Assessment/Plan Assessment/Plan Hypertension/HHD uncontrolled off meds Abdominal Pain - possibly gastroparesis/ narcotic gut Chronic liver disease Hydrocodone dependence Alcoholism Degenerative disk disease Advance prior antiHTN meds Advance diet Limits set on pain meds Adjust IVF vitamin suppl senior living [facility] Adolfo Jerry MD Nov 03, 2020 01:26
--- NOTE | 2020-11-03 01:30 | Cardiology Progress Note ---
Subjective DATE OF SERVICE: Nov 02, 2020 No abdominal pain. Tolerating diet without vomiting. BP parameters have stabilized near baseline. Objective Last 24 Hour Vital Signs Date Time Temp Pulse Resp B/P (MAP) Pulse Ox O2 Delivery O2 Flow Rate FiO2 11/02/20 12:00 97.5 69 20 169/96 (120) 99 11/02/20 09:00 Room Air 11/02/20 08:36 76 141/79 11/02/20 08:36 76 141/79 11/02/20 08:00 98.1 76 20 141/79 (99) 99 11/02/20 04:00 98.3 70 18 130/74 (92) 99 ROS: unchanged from 10/30/20 HEENT: normal ENT inspection LUNGS: diminished breath sounds CARDIAC: normal rate, regular rhythm, normal S1 and S2, gallop/S4 ABDOMEN: normal bowel sounds, non tender, soft, no organomegaly, tender EXTREMITIES: normal range of motion, non-tender, No edema Assessment/Plan Assessment/Plan Hypertension/HHD now controlled with titration of usual outpatient meds Abdominal Pain resolved Chronic liver disease Hydrocodone dependence Alcoholism Degenerative disk disease Continue prior antiHTN meds Advanced diet Limits set on pain meds as outpatient DC 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
--- NOTE | 2020-11-03 04:14 | Consultation ---
DATE OF CONSULTATION: 11/02/2020 CARDIOLOGY CONSULTATION CONSULTING PHYSICIAN: Adolfo Jerry MD REFERRING PHYSICIAN: Pedro Cerda MD REASON FOR CONSULTATION: Labile hypertension in the setting of acute abdominal pain. HISTORY OF PRESENT ILLNESS: This 74-year-old male has a history of hypertensive heart disease. He presented to the emergency room complaining of 1 week of progressive abdominal discomfort. He has not been able to take his medications on some occasions due to his pain. He has not had any hematemesis or coffee-ground material noted and his stools have been normal although decreased in quantity. The patient denies chest pain, but has had discomfort in his lower abdomen on the right predominantly. Imaging studies revealed distended gallbladder. I have been asked to assist with cardiovascular care and possible preoperative cardiovascular risk assessment. PAST MEDICAL HISTORY: Includes history of right rotator cuff tear with surgery and subsequent wound infection with abscess and drainage, degenerative disk disease, hyperuricemia with history of gout, COPD, hypertensive heart disease, history of alcoholism, seizure disorder, history of pancreatitis, hydrocodone dependence and diverticulosis. ALLERGIES: None. FAMILY HISTORY: Noncontributory. MEDICATIONS: Reviewed and reconciled. SOCIAL HISTORY: Positive smoker. Positive alcohol use. No recent drug abuse. REVIEW OF SYSTEMS: Outpatient echocardiogram in the last 3 months revealed normal ejection fraction, concentric hypertrophy and a diastolic relaxation abnormality. There is no history of valvular disease. There is no history of endocarditis or pericardial effusion. The patient has a history of COPD. He has not been on steroids for some time. There is no history of diabetes or thyroid disorder. He has not been compliant with statin therapy. PHYSICAL EXAMINATION: VITAL SIGNS: Blood pressure 140/90, heart rate 86, respiratory rate 18, and afebrile. Oxygen saturation on room air is 99%. HEENT: Conjunctivae pink. Sclerae anicteric. Arcus senilis. Oropharynx clear. NECK: Supple. No bruits. Jugular venous pressure normal. LUNGS: Clear. CARDIAC: Reveals point of maximum impulse sustained, laterally displaced. Normal S1, S2 with a fourth heart sound. ABDOMEN: Soft. There is tenderness in the lower quadrants, right greater than left. No guarding or rebound. EXTREMITIES: No edema. NEUROLOGIC: Nonfocal. There is no tremor or asterixis. LABORATORY DATA: Reviewed. Notable for white count of 11, hemoglobin 11.7. Sodium 141, potassium 3.8, bicarb 26, BUN 9, creatinine 1. Troponin 0. Lipase normal. EKG with sinus rhythm, minimal voltage for LVH. No acute ST-T wave changes. Chest x-ray with no acute process. IMPRESSION: 1. Possible cholecystitis with distended gallbladder. 2. Possible cystitis. 3. Abdominal pain. 4. Hypertension with labile blood pressure. 5. Diastolic dysfunction with no signs of acute congestive heart failure. 6. History of alcohol abuse. 7. Hydrocodone dependence. 8. Nicotine abuse. PLAN: 1. Withdrawal precautions. 2. Hydration. 3. Topical and IV antihypertensives for now. 4. NPO pending, completion of hepatobiliary workup, which will likely include a HIDA scan. 5. Further evaluations will follow prior to any surgical intervention, although perioperative cardiovascular risk is not expected to be significantly increased from baseline population once patient's toxic and metabolic parameters have been optimized. Adolfo Jerry M.D. DR: GEETA JOB#: [id number] CC:
== END 2020-11-02 14:35 | disposition home or self-care (01) | DRG 444 ==
LOC: EDBD 01:21 → EDUNIT# 01:21 → EMR 01:32 → 4E 03:06 → EDBEDREQ 03:26
DX: K81.0 Acute cholecystitis (principal); K85.20 Alcohol induced acute pancreatitis without necrosis or infection; N17.9 Acute kidney failure, unspecified; F11.20 Opioid dependence, uncomplicated; F10.239 Alcohol dependence with withdrawal, unspecified; E86.0 Dehydration; K64.5 Perianal venous thrombosis; J44.9 Chronic obstructive pulmonary disease, unspecified; K21.9 Gastro-esophageal reflux disease without esophagitis; M19.90 Unspecified osteoarthritis, unspecified site; M10.9 Gout, unspecified; I11.9 Hypertensive heart disease without heart failure; F17.200 Nicotine dependence, unspecified, uncomplicated; Z91.14 Patient's other noncompliance with medication regimen; K57.90 Diverticulosis of intestine, part unspecified, without perforation or abscess without bleeding; M51.26 Other intervertebral disc displacement, lumbar region; K76.9 Liver disease, unspecified
CPT/HCPCS: 36415; 71045; 74176; 76700; 78266; 80053; 81003; 82150; 82550; 83690; 84484; 85025; 85610; 85651; 85730; 86140; J2405; J7030; J8499